=== PATIENT | female | born 1980 | race Caucasian/White ===

== ENCOUNTER → 2019-01-23 14:20 | Outpatient (CLI) | payer MEDICAID, SELFPAY | PROVIDERS: Family Provider Family Medicine; PCP Family Medicine; Visit Provider Family Medicine | DX: N39.0 Urinary tract infection, site not specified (principal) | CPT/HCPCS: 87086; 87088; 87186 ==

== ENCOUNTER → 2019-04-18 11:34 | Outpatient (CLI) | payer MEDICAID, SELFPAY | PROVIDERS: PCP Family Medicine; Visit Provider Family Medicine | DX: Z51.81 Encounter for therapeutic drug level monitoring (principal) | CPT/HCPCS: 36415 ==

== ENCOUNTER 2019-05-08 01:04 | Emergency (ER) | payer MEDICAID, SELFPAY ==
[2019-05-08 01:05] VITALS: BP 153/69; PULSE 89; RESP 16; TEMP 36.6; O2SAT 98; BMI 25.7
--- NOTE | 2019-05-08 01:10 | ED.VIS.GEN ---
History of Present Illness Chief Complaint: Dental Informant: Patient Narrative: Patient stated she has been having dental pain for the last week left posterior molar. She has a tooth that broke remotely. Its eroded to the gumline. She has been using [id number] as well as topicals with minimal relief of symptoms. She has a dentist and has an appointment but came in for further antibiotic therapy. She did take a couple doses of doxycycline. Current severity is moderate. Past Medical History - Allergies and Home Meds Allergies/Adverse Reactions: Allergies morphine Adverse Reaction (Verified 03/10/16 20:20) Other PAIN Primary Care Physician: Trina Saldana DO [Primary Care Provider] - Prior records reviewed: Yes Past Medical History: - - Reviewed Surgical History: noncontributory Lives: With Family Smoking Status: Current every day smoker Alcohol: None Drugs: None Review of Systems General: Denies: Chills, Fever, Sweats Eyes: Denies: Visual changes - bilaterally, Diplopia ENT: Reports: - - Left lower dental pain. Denies: Rhinorrhea, Sore throat Cardiovascular: Denies: Chest pain, Palpitations Respiratory: Denies: Dyspnea, Cough, Dyspnea on exertion Gastrointestinal: Denies: Abdominal pain, Nausea, Vomiting, Diarrhea, Melena, Hematochezia Genitourinary: Denies: Dysuria, Hematuria, Frequency Musculoskeletal: Denies: Back pain, Extremity Pain Skin: Denies: Rash, Wounds Neurological: Denies: Headache, Weakness, Numbness Physical Exam Vital Signs/Narrative: Vital Signs Temp Pulse Resp BP Pulse Ox 05/08/19 01:05 97.9 F 89 16 153/69 H 98 General: Well nourished, Well developed, No Acute Distress Head: Normocephalic, Atraumatic Eyes: Perrl, EOMI ENT: Moist mucous membranes, No rhinorrhea, - - Widespread dental decay noted. Left posterior first molar has erosion to the gumline with yellowing of the rest of the. No ANUG or Venkat's angina. No abscess in the gumline. No facial swelling Neck: Supple, Nontender Cardiovascular: Regular rate, Regular rhythm, No murmurs Respiratory: No distress, CTA bilaterally, Chest nontender Abdomen: Soft, Nontender, Nondistended, Normal bowel sounds Back: Nontender, Normal Inspection Extremities: Nontender, No edema Skin: Normal color, No rash Neurological: Alert, Oriented x3, Cranial nerves II-XII grossly intact, Normal Strength, Normal Sensation Psychological: Normal affect, Normal Mood Diagnostic/Tx/Re-eval - Medical Decision Making Patient given amoxicillin for her dental infection. I do not feel there is anything to incise or drain at this time. There is no swelling to the gum. She will continue this as an outpatient which should help her dental infection. We will follow-up with her dentist ED Disposition - Plan for ED Patient: Disposition: Home or Assisted Living Diagnosis: Periapical abscess Instructions: Dental Abscess Prescriptions: Amoxicillin 500 mg PO TID #30 tab Prescription Printed Referrals: Trina Saldana DO [Primary Care Provider] -
[2019-05-08] MEDS: AMOXICILLIN 500 MG CAPSULE PO (01:25)
== END 2019-05-08 01:28 | disposition home or self-care (01) ==
LOC: ED 01:20
PROVIDERS: Emergency Provider Emergency Medicine; PCP Family Medicine
DX: K04.7 Periapical abscess without sinus (principal); F17.200 Nicotine dependence, unspecified, uncomplicated
CPT/HCPCS: 99283

== ENCOUNTER 2019-05-14 01:59 | Emergency (ER) | payer MEDICAID, SELFPAY ==
[2019-05-14 02:00] VITALS: BP 155/99; PULSE 65; RESP 20; TEMP 36.3; O2SAT 97; BMI 28.0
[2019-05-14] MEDS: Ibuprofen 600 MG Tablet PO (02:52)
[2019-05-14] MEDS: Acetaminophen 500 MG Tablet 1000 MG PO (02:52)
[2019-05-14 03:02] LABS: Bacteria 0 SEEN /hpf (None Seen); Mucous, Urine 0 SEEN /hpf (<or=2+)
[2019-05-14 03:03] LABS: Color, Urine Yellow (Yellow); Glucose, Dipstick Normal (Normal); Ketone-Dipstick 5 mg/dl (Negative); Leukocyte Esterase-Dipstick 25 /ul (Negative); Nitrite-Dipstick Negative (Negative); Occult Blood-Urine Negative /ul (Negative); Protein-Dipstick Negative (Negative); Urine Bilirubin Dipstick Negative (Negative); Urine Clarity Sl. Cloudy (Clear); Urine Urobilinogen Normal (Normal)
[2019-05-14 03:08] LABS: Internal QC Validated? YES +Cl - CLEAR BKGD; Pregnancy, Urine Negative Negative
[2019-05-14 03:38] LABS: Red Blood Cells-Urine 0-5 SEEN /hpf (0-5); Squamous Epithelial Cells - UA 0-5 SEEN /hpf (5-10); Transitional Epithelial - Ur 5-10 SEEN /hpf (0-5); White Blood Cells 5-10 SEEN /hpf (0-5)
[2019-05-14 03:39] LABS: Renal Epithelial Cells 0 SEEN /hpf (0-5)
--- NOTE | 2019-05-14 04:54 | ED.VIS.GEN ---
History of Present Illness Chief Complaint: General Illness Informant: Patient Onset: Days Context: Gradual Onset Timing: Continuous Narrative: Patient is a 38-year-old female presenting with skin changes and drainage behind her ears as well as pain in her back and neck. Patient states she is having difficulty walking because of the pain. She feels cold does not have fever or chills. She is seen by her PCP today and started on Bactrim for concern about MRSA infection behind her ears. To note she does have a history of back pain. She denies any associated symptoms such as hearing changes, upper respiratory symptoms, cough, shortness of breath, GI or symptoms. She not take anything at home prior to arrival for her pain. Past Medical History - Allergies and Home Meds Allergies/Adverse Reactions: Allergies morphine Adverse Reaction (Verified 03/10/16 20:20) Other PAIN Primary Care Physician: Trina Saldana DO [Primary Care Provider] - Past Medical History: - - Anxiety Surgical History: noncontributory Smoking Status: Current every day smoker Review of Systems General: Reports: Malaise. Denies: Chills, Fever, Sweats Eyes: Denies: Visual changes - bilaterally, Diplopia ENT: Reports: - - Bilateral external ear pain. Denies: Rhinorrhea, Sore throat Cardiovascular: Denies: Chest pain, Palpitations Respiratory: Denies: Dyspnea, Cough, Dyspnea on exertion Gastrointestinal: Denies: Abdominal pain, Nausea, Vomiting, Diarrhea, Melena, Hematochezia Genitourinary: Denies: Dysuria, Hematuria, Frequency Musculoskeletal: Reports: Back pain. Denies: Extremity Pain Skin: Reports: Rash - Head. Denies: Wounds Neurological: Denies: Headache, Weakness, Numbness Physical Exam Vital Signs/Narrative: Vital Signs Temp Pulse Resp BP Pulse Ox 05/14/19 02:00 97.3 F L 65 20 H 155/99 H 97 Inital Vital Signs reviewed: Yes General: Well nourished, Well developed, No Acute Distress Head: Normocephalic, Atraumatic Eyes: Perrl, EOMI ENT: Moist mucous membranes, No rhinorrhea, TM's clear, - - No tenderness palpation of the ears with manipulation, normal ear canals Neck: Supple, Nontender, - - No nuchal rigidity Cardiovascular: Regular rate, Regular rhythm, No murmurs Respiratory: No distress, CTA bilaterally, Chest nontender Abdomen: Soft, Nontender, Nondistended, Normal bowel sounds Back: Normal Inspection, - - Bilateral paraspinal tenderness to palpation, right greater than left. Negative for: CVA tenderness, Spinal tenderness Extremities: Nontender, No edema Skin: Normal color, Rash - Thickened, erythematous rash behind bilateral ears and at the base of the hairline on the neck with some associated serous drainage and lichenification. It is in a well demarcated pattern behind the ears concerning for some type of contact dermatitis Neurological: Alert, Oriented x3, Cranial nerves II-XII grossly intact, Normal Strength, Normal Sensation Psychological: Normal affect, Normal Mood, - - Anxious Diagnostic/Tx/Re-eval Laboratory Data 05/14/19 05/14/19 02:50 02:50 Urine Color Yellow Urine Clarity Sl. Cloudy Urine pH 6.0 Ur Specific [place] 1.020 Urine Protein Negative Urine Glucose (UA) Normal Urine Ketones 5 H Urine Occult Blood Negative Urine Nitrite Negative Urine Bilirubin Negative Urine Urobilinogen Normal Ur Leukocyte Esterase 25 H Urine RBC 0-5 SEEN Urine WBC 5-10 SEEN Ur Squamous Epith Cells 0-5 SEEN Ur Transition Epith Cell 5-10 SEEN Ur Renal Epithelial Cell 0 SEEN Urine Bacteria 0 SEEN Urine Mucus 0 SEEN Urine Test Negative - Medical Decision Making Patient is evaluated for rash behind her bilateral ears as well and is back pain. Patient was seen by her PCP for this rash yesterday. She was started on Bactrim for concern of MRSA. Clinically the rash is more concerning for contact dermatitis/allergic reaction. Patient cannot think of what could be causing it but it does seem to be in a well demarcated pattern in the skin behind the ears. Patient will be started on a topical steroid for this. She is directed to continue the Bactrim she was already prescribed. I do not think this is impetigo. Patient she with ibuprofen and Tylenol for her back pain. On reevaluation she is resting comfortably and sleeping. She does not have CVA tenderness. She does not have signs or symptoms consistent with cauda equina syndrome. Patient is otherwise well-appearing. She not have any meningeal signs and I think her neck pain is more associated with the rash on the back of her neck that anything deeper. Urinalysis does not show signs of infection or hematuria. Patient has no other symptoms otherwise well-appearing. She is discharged home with instruction to follow-up with her PCP. She is counseled on signs and symptoms requiring return the emergency room. She verbalizes agreement understand this plan. She is discharged home in improved and stable condition. ED Disposition - Plan for ED Patient: Disposition: Home or Assisted Living Diagnosis: Contact dermatitis, Low back pain Instructions: DERMATITIS, Non-Specific, BACK PAIN (Acute or Chronic) Prescriptions: Clobetasol Propionate/Emoll [Clobetasol Emollient 0.05% Crm] 15 gm TP BID 14 Days #15 cream..g. Prescription Printed Ibuprofen [Motrin] 600 mg PO Q6H PRN PRN #20 tab PRN Reason: Pain Or Fever Prescription Printed Referrals: Trina Saldana DO [Primary Care Provider] - Additional Instructions: Continue taking the antibiotics previously prescribed. Have also started you on a steroid that should help. Apply to the area behind your ears as well as the affected area of your neck. I suspect you are having some type of allergic reaction however not sure what the causes. Return the emergency room with worsening symptoms. Use a heating pad as well as alternating Tylenol and ibuprofen for your back pain. Your urine did not show signs of infection or kidney stones today.
[2019-05-14 05:21] VITALS: BP 148/88; PULSE 70; RESP 16; O2SAT 98
== END 2019-05-14 05:22 | disposition home or self-care (01) ==
PROVIDERS: Emergency Provider Emergency Medicine; PCP Family Medicine
DX: L23.9 Allergic contact dermatitis, unspecified cause (principal); M54.5 Low back pain; F41.9 Anxiety disorder, unspecified; F17.200 Nicotine dependence, unspecified, uncomplicated
CPT/HCPCS: 81001; 81025; 99283

== ENCOUNTER 2020-05-20 20:01 | Emergency (ER) | payer MEDICAID, SELFPAY ==
[2020-05-20 20:03] VITALS: BP 151/68; PULSE 79; RESP 16; TEMP 36.1; O2SAT 98; BMI 28.9
[2020-05-20 20:06] VITALS: BP 151/68; PULSE 79; RESP 16; TEMP 36.1; O2SAT 98
--- NOTE | 2020-05-20 20:18 | ED.VIS.GEN ---
History of Present Illness Chief Complaint: Dental Informant: Patient Narrative: 39-year-old female presenting with dental pain. She states this started hurting yesterday. She recently finished a course of Augmentin. She states that she did not get significant improvement. She describes dental pain on the right and left side of her mouth. Has not had a fever, chills. No difficulty swallowing or breathing. She states she was going to call her dentist but has not yet. Past Medical History - Allergies and Home Meds Allergies/Adverse Reactions: Allergies morphine Adverse Reaction (Verified 03/10/16 20:20) Other PAIN Primary Care Physician: Trina Saldana DO [Primary Care Provider] - Prior records reviewed: Yes Past Medical History: - - ADHD Surgical History: noncontributory Lives: Alone Smoking Status: Current every day smoker Alcohol: None Drugs: None Review of Systems General: Denies: Chills, Fever, Sweats Eyes: Denies: Visual changes - bilaterally, Diplopia ENT: Reports: - - Dental pain. Denies: Rhinorrhea, Sore throat Respiratory: Denies: Dyspnea, Cough, Dyspnea on exertion Gastrointestinal: Denies: Abdominal pain, Nausea, Vomiting, Diarrhea, Melena, Hematochezia Musculoskeletal: Denies: Back pain, Extremity Pain Skin: Denies: Rash, Wounds Neurological: Denies: Headache, Weakness, Numbness Psych: Denies: Depression, Anxiety, Suicidal thoughts, Suicidal ideations, -, - Physical Exam Vital Signs/Narrative: Vital Signs Temp Pulse Resp BP Pulse Ox 05/20/20 20:06 97.0 F L 79 16 151/68 H 98 05/20/20 20:03 97.0 F L 79 16 151/68 H 98 General: Well nourished, No Acute Distress Head: Normocephalic, Atraumatic Eyes: Perrl, EOMI ENT: Moist mucous membranes, No rhinorrhea, - - Multiple dental caries. Patient has dental percussion tenderness on most of the left teeth on the maxillary jawline. There is no focal swelling. Buccal mucosa was normal. No sublingual edema. Airway is patent without stridor Cardiovascular: Regular rate, Regular rhythm Respiratory: No distress, CTA bilaterally Skin: Normal color, No rash Neurological: Alert, Oriented x3 Psychological: Normal affect, Normal Mood Diagnostic/Tx/Re-eval - Medical Decision Making Patient presenting with dental pain and focal dental precancerous tenderness over most of her teeth on the left side of her mouth. She has widespread dental decay with focal decay of the right molar. Patient states that this is not painful. She has no sublingual edema, tongue swelling. Airway is taken without stridor. There is no facial swelling. Patient states that she finished Augmentin without significant improvement. She has a dentist and is trying to make an appointment with him but has not done so yet. Patient will be given oxycodone in the ER as well as started on clindamycin. Patient will follow up with her dentist. She is given return precautions. Patient able discharge at this time. Impression: 1. Dental pain 2. Dental infection ED Disposition - Plan for ED Patient: Disposition: Home or Assisted Living Instructions: ED Dental Cavity, ED Dental Abscess Prescriptions: RX: Clindamycin [Cleocin] 450 mg PO TID #90 cap Prescription Printed Referrals: Trina Saldana DO [Primary Care Provider] -
[2020-05-20] MEDS: Clindamycin HCl 150 MG Capsule 450 MG PO (20:57)
[2020-05-20] MEDS: oxyCODONE 5 MG Tablet PO (21:06)
== END 2020-05-20 21:08 | disposition home or self-care (01) ==
PROVIDERS: Emergency Provider Student in an Organized Health Care Education/Training Program; PCP Family Medicine
DX: K04.7 Periapical abscess without sinus (principal); F17.200 Nicotine dependence, unspecified, uncomplicated
CPT/HCPCS: 99283

== ENCOUNTER → 2021-08-25 | Outpatient (CLI) | payer MEDICAID, SELFPAY ==
[2021-08-25 17:53] LABS: Amphetamine Urine VISTA POSITIVE (<1000 ng/mL); Barbiturate Urine VISTA NEGATIVE (< 200 ng/mL); Benzodiazepine Urine VISTA NEGATIVE (< 200 ng/mL); Cocaine Urine VISTA NEGATIVE (< 300 ng/mL); Ecstacy Urine VISTA NEGATIVE (< 500 ng/mL); Methadone Urine VISTA NEGATIVE (< 300 ng/mL); PCP Urine VISTA NEGATIVE (< 25 ng/mL); THC Urine VISTA NEGATIVE (< 50 ng/mL); Vista UDS pH Range 7
== END | disposition home or self-care (01) ==
PROVIDERS: PCP Family Medicine; Visit Provider Family Medicine
DX: F90.9 Attention-deficit hyperactivity disorder, unspecified type (principal)
CPT/HCPCS: 80307

== ENCOUNTER → 2022-06-08 | Outpatient (CLI) | payer MEDICAID, SELFPAY ==
--- NOTE | 2022-06-08 09:46 | US_ITS ---
STUDY: SUPERFICIAL ULTRASOUND - LOW BACK, REASON FOR EXAM: Female, 41 years old. Palpable lumps TECHNIQUE: A superficial ultrasound was performed with real-time and static tate-scale imaging. COMPARISON: None. FINDINGS: Sonographic evaluation of the right lower back shows multiple poorly defined iso-to hyperechoic lesions likely lipoma is. Largest measures 3.7 x 4.7 x 1.3 cm. There is no suspicious shadowing solid lesion, no fluid collection or hyperemia to suspect inflammation. US/Ext Non Vasc Limited/Soft Tiss IMPRESSION: Subcutaneous lipomas, no suspicious sonographic findings Electronically Signed: Pablo Amaro MD at 11:32 EDT ,
== END | disposition home or self-care (01) ==
LOC: US 09:44
PROVIDERS: PCP Family Medicine; Visit Provider Family Medicine
DX: D17.9 Benign lipomatous neoplasm, unspecified (principal)
CPT/HCPCS: 76882

== ENCOUNTER 2022-06-27 05:59 | Day surgery (SDC) | payer MEDICAID, SELFPAY ==
[2022-06-27] VITALS (8 sets, daily range): BP systolic 84–143; BP diastolic 50–98; PULSE 74–89; RESP 16–18; TEMP 36.2–36.6; O2SAT 96–99; BMI 29.3
[2022-06-27] MEDS: Lactated Ringers 1,000 ML 15 ML IV (06:59)
--- NOTE | 2022-06-27 07:39 | PCM.HP.BLA ---
History and Physical Date of Admission: 06/27/22 Intake Vital Signs ? 05/20/2119:03 06/12/2308:16 Height 5 ft 3 in 5 ft 3 in Weight: ? 160 lb BMI ? 28.3 BP ? 134/85 H Blood Pressure Location ? Lt brachial Position ? Sitting Respiration ? 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 Prashant Ernandez MD) ADD (attention deficit disorder) Arthritis Back problem Surgical History?(Updated 06/12/22 @ 09:15 by Karolina Zavala) S/p bilateral myringotomy with tube placement S/P D&C (status post dilation and curettage) S/P laparoscopy S/P surgical removal of pilonidal cyst S/P tonsillectomy Family History?(Updated 06/12/22 @ 09:15 by Karolina Zavala) Grandfather Diabetes Heart disease HypertensionGrandmother CVA (cerebral vascular accident) Lupus Social History?(Updated 06/12/22 @ 09:16 by Karolina Zavala) Smoking Status:? Never smoker alcohol intake:? current HPI HPI HPI: Patient is a 41-year-old female here with 2 issues.? Patient has 2 painful lipomas in her left lower back which are causing pain shooting down her leg.? She says they have been there for about 15 years and keep growing larger and more painful.? Patient also notes that a few weeks ago she had blood in her stool that lasted several days.? She did not have any painful bowel movements or difficult bowel movements.? She has never had this in the past.? She has no family history of colon cancer.? She has never had a colonoscopy. Exam Const General: cooperative Orientation: alert and oriented x3 HENMT Head: normal to inspection Neck Neck: normal visual inspection and full ROM Chest Chest palpation & inspection: normal inspection of the chest Resp Effort & Inspection: normal respiratory effort Auscultation: clear to auscultation bilaterally Cardio Rate: regular rate Rhythm: regular rhythm GI Inspection: non-distended Palpation: soft and nontender Musc Other: 2 large lipomas in the left lower back which are mobile and soft and nontender Skin General: no rashes or lesions noted Neuro General: patient alert and patient oriented x3 Extrem General: full ROM Psych Appearance: grossly normal Mental Status: mental status grossly normal Assessment and Plan Assessment and Plan (1) Lipoma of back: ?Status:?Acute (2) Pain, low back: ?Status:?Acute ?Qualifiers: ?Chronicity:?chronic??Back pain laterality:?left??Sciatica presence:?with sciatica??Sciatica laterality:?sciatica of left side? Qualified Code(s):?M54.42 - Lumbago with sciatica, left side; G89.29 - Other chronic pain (3) Blood in stool: ?Status:?Acute ? ? ? Orders: Orders Colonoscopy Today ? Medications: Refilled clindamycin HCl 450 mg (3 x 150 mg) PO TID 90 caps 0RF ? ? Plan 2 large lipomas on her left lower back which are causing her pain.? I discussed excising these 2 lipomas in the operating room.? I discussed the risks of bleeding and infection as well as possible nerve injury if they are interacting with any of the sciatic nerves. Prashant Ernandez MD Pager: [facility] [address] [place] [address], [address] [place] [address] Office: I have examined the patient and the H&P has been reviewed. There are no clinical changes since date of exam.
--- NOTE | 2022-06-27 08:00 | LIP_PTH ---
PATIENT: MANUEL ALVAREZ [place] [facility] [id number] AGE/SX: 41/F ROOM: RE06/27/[address]: Dr. Prashant Ernandez MD : 1980 BED: DIS: 06/27/2022 SPEC #: [id number] RECD: 06/27/22 11:58 STATUS: CORTEZ REYnes #: [id number] JOSE ALBERTO: 06/27/22 08:[address]: Prashant Ernandez DEPT: SURGICAL PATHOLOGY RECD BY: Maria Cartwright ENTERED: 06/27/22 12:54 SP TYPE: LIPOMA OTHR DR: Dr. Trina Saldana, DO Tissues: Soft tissues, NOS Procedures: Surgery Specimen Level III HEADER OPERATION: Excision lower back lipoma PRE-OP DIAGNOSIS: Lipoma of back, low back pain TISSUE SUBMITTED: Lipoma of left lower back MICROSCOPIC DIAGNOSIS Soft tissue lesion of lower back, excision: Mature adipose tissue consistent with lipoma. AM:raimundo 06/28/2022 MICROSCOPIC DESCRIPTION Slides are reviewed. GROSS DESCRIPTION Received in fixative is one container labeled with the patient's name and designated lipoma left lower back. The specimen consists of multiple lobulated pieces of martinez-yellow adipose tissue that in aggregate measure 8.0 x 5.5 x 2.0 cm. Sections reveal yellow adipose cut surfaces without areas of hemorrhage, necrosis or cystic degeneration. Gas Compressor Turbine Operator sections are submitted in two cassettes. / SJ:raimundo 06/27/2022 TC:1 CPT: 90151
[2022-06-27] MEDS: Bupivacaine 0.25% 30 ML Vial (08:02)
--- NOTE | 2022-06-27 08:38 | PCM.OPRPT ---
Report of Operation Date of Procedure: 06/27/22 Pre-Operative Diagnosis: Left lumbar lipoma x2 Post-Operative Diagnosis: Left lumbar lipoma x2 Surgery/Procedure Performed:: Excision of left lower back lipoma x2 Specimen's removed: Lipoma of the lower back x2 Description of Procedure: Patient was brought back to the operating room and turned on her right side and then MAC anesthesia was induced. The left lower lumbar area was prepped and draped in usual sterile fashion. An area between the 2 lipomas was selected and marked. Anesthetic was injected and then a scalpel was used to make incision. Electrocautery was used to maintain hemostasis. Dissection was carried inferiorly to the first lipoma. It was circumferentially dissected and removed. It was deep to the fascia. It measured 4 cm in diameter. Next dissection was carried superiorly to the other lipoma which was approximately 6 cm and also deep to the fascia. These were both excised. The cavity was irrigated and suctioned dry. The skin was closed with interrupted 3-0 Vicryl suture in a running 4-0 Monocryl suture. Steri-Strips and bandages were applied. Patient was taken to PACU in stable condition and tolerated the procedure well.
--- NOTE | 2022-06-27 08:40 | DCINST_ITS ---
Discharge Instructions Diet Discharge Diet: Light diet - advance as tolerated Activity Discharge Activity: Return to Normal Activity, May Drive and May Shower (May shower tomorrow over bandages) Lifting Restrictions: No restriction Dressing / Incision Call your doctor if your incision/area has: Continuous Slow Oozing, Sudden Increased Bleeding, Increased Pain/ Swelling, Increased Redness, Foul Smelling Discharge and Swelling at the incision site Call your doctor if you observe: Fever of 101 or Higher Remove Dressing in: 2 days (Remove clear bandages in 2 days, remove Steri-Strips in 7 to 10 days. May shower over both bandages and Steri-Strips.) Cleanse incision/area with: Soap & Water Follow Up Care Please Follow Up With: Prashant Ernandez MD When: Please call to schedule 2 week follow up appointment. [phone] Test Results: Test results from this visit will be discussed in further detail at your follow- up appointment, if applicable. Discharge Plan Admission Attending Provider: Prashant Ernandez Primary Care Provider: Trina Saldana Instructions Additional Instructions / Restrictions: Alternate ibuprofen and Tylenol for pain. Oxycodone for breakthrough pain. Discharge Orders/Prescriptions Prescriptions: New oxycodone 5 mg tablet 5 mg PO Q6H PRN (Reason: pain) 5 Days Qty: 15 0RF No Action cyclobenzaprine 10 mg tablet 10 mg PO HS PRN (Reason: MUSCLE SPASMS) dextroamphetamine-amphetamine [Adderall] 30 MG tablet 30 mg PO DAILY cetirizine 10 MG tablet 10 mg PO DAILY atenolol 25 MG tablet 12.5 mg PO DAILY acetaminophen-codeine [Tylenol-Codeine #3] 300-30 mg Tablet 1 tab PO Q8H PRN (Reason: Pain) Referrals / Follow Up: Trina Saldana DO [Primary Care Provider] - Disposition Disposition (needs filled in before D/C Order can be placed): Home, Self Care
[2022-06-27] MEDS: oxyCODONE 5 MG Tablet PO (09:17)
== END 2022-06-27 09:47 | disposition home or self-care (01) ==
LOC: SDC 06:00 → AC 06:00
PROVIDERS: PCP Family Medicine; Referring Provider Surgery; Visit Provider Surgery
PROC: (CPT 21932; principal; 2022-06-27 07:50)
DX: D17.1 Benign lipomatous neoplasm of skin and subcutaneous tissue of trunk (principal); G89.29 Other chronic pain; F17.200 Nicotine dependence, unspecified, uncomplicated; Z79.899 Other long term (current) drug therapy
CPT/HCPCS: 21932; 21933; 00300; 88304; J7120; J2405

== ENCOUNTER 2022-07-14 08:57 | Day surgery (SDC) | payer MEDICAID, SELFPAY ==
[2022-07-14] MEDS: Lactated Ringers 1,000 ML 15 ML IV (09:24)
[2022-07-14 09:25] VITALS: BP 111/57; PULSE 98; RESP 18; TEMP 37; O2SAT 98; BMI 28.5
--- NOTE | 2022-07-14 09:42 | PCM.HP.BLA ---
History and Physical Date of Admission: 07/14/22 Intake Vital Signs ? 05/20/2119:03 06/12/2308:16 Height 5 ft 3 in 5 ft 3 in Weight: ? 160 lb BMI ? 28.3 BP ? 134/85 H Blood Pressure Location ? Lt brachial Position ? Sitting Respiration ? 18 Intake Visit Reasons:?LIPOMAS ON BACK & COLONOSCOPY Chief Complaint: lipomas and c-scope Signal Constructor Required: No Is patient in pain?: No Allergies morphine Adverse Reaction (Verified 06/12/22 09:16) Other Medications dextroamphetamine-amphetamine 30 mg tablet (Adderall) 30 mg PO DAILY 01/22/13 [History Confirmed 06/12/22] atenolol 25 mg tablet 25 mg PO DAILY 05/08/19 [History Confirmed 06/12/22] cetirizine 10 mg tablet 10 mg PO DAILY 05/08/19 [History Confirmed 06/12/22] clindamycin HCl 150 mg capsule 450 mg PO TID #90 caps 06/12/22 [Rx Confirmed 06/12/22] cyclobenzaprine 10 mg tablet 10 mg PO HS 06/12/22 [History Confirmed 06/12/22] PFSH Medical History?(Updated 06/12/22 @ 12:[address] Prashant Ernandez MD) ADD (attention deficit disorder) Arthritis Back problem Surgical History?(Updated 06/12/22 @ 09:15 by Karolina Zavala) S/p bilateral myringotomy with tube placement S/P D&C (status post dilation and curettage) S/P laparoscopy S/P surgical removal of pilonidal cyst S/P tonsillectomy Family History?(Updated 06/12/22 @ 09:15 by Karolina Zavala) Grandfather Diabetes Heart disease HypertensionGrandmother CVA (cerebral vascular accident) Lupus Social History?(Updated 06/12/22 @ 09:16 by Karolina Zavala) Smoking Status:? Never smoker alcohol intake:? current HPI HPI HPI: Patient is a 41-year-old female here with 2 issues.? Patient has 2 painful lipomas in her left lower back which are causing pain shooting down her leg.? She says they have been there for about 15 years and keep growing larger and more painful.? Patient also notes that a few weeks ago she had blood in her stool that lasted several days.? She did not have any painful bowel movements or difficult bowel movements.? She has never had this in the past.? She has no family history of colon cancer.? She has never had a colonoscopy. Exam Const General: cooperative Orientation: alert and oriented x3 HENMT Head: normal to inspection Neck Neck: normal visual inspection and full ROM Chest Chest palpation & inspection: normal inspection of the chest Resp Effort & Inspection: normal respiratory effort Auscultation: clear to auscultation bilaterally Cardio Rate: regular rate Rhythm: regular rhythm GI Inspection: non-distended Palpation: soft and nontender Musc Other: 2 large lipomas in the left lower back which are mobile and soft and nontender Skin General: no rashes or lesions noted Neuro General: patient alert and patient oriented x3 Extrem General: full ROM Psych Appearance: grossly normal Mental Status: mental status grossly normal Assessment and Plan Assessment and Plan (1) Lipoma of back: ?Status:?Acute (2) Pain, low back: ?Status:?Acute ?Qualifiers: ?Chronicity:?chronic??Back pain laterality:?left??Sciatica presence:?with sciatica??Sciatica laterality:?sciatica of left side? Qualified Code(s):?M54.42 - Lumbago with sciatica, left side; G89.29 - Other chronic pain (3) Blood in stool: ?Status:?Acute ? ? ? Orders: Orders Colonoscopy Today ? Medications: Refilled clindamycin HCl 450 mg (3 x 150 mg) PO TID 90 caps 0RF ? ? Plan Patient had blood in her stool and I recommend colonoscopy.? I explained endoscopy in detail to the patient.? I explained the risks including but not limited to stroke or heart attack with anesthesia, perforation of the GI tract, bleeding, infection.? I explained that any of these could necessitate further emergency surgery.? The patient understands and all questions were answered sufficiently.? The patient wishes to proceed with procedure. Prashant Ernandez MD Pager: [facility] [address] [place] [address], [address] [place] [address] Office: I have examined the patient and the H&P has been reviewed. There are no clinical changes since date of exam.
--- NOTE | 2022-07-14 10:17 | OP.CCLET_ITS ---
07/14/2022 Trina Saldana [address] [place] [address] Re : Colonoscopy procedure for Chelly Sun Dear Dr. Saldana This procedure was performed on Thursday, July 14, 2022. My impressions and recommendations are as follows: Impressions : - The entire examined colon is normal on direct and retroflexion views. - No specimens collected. Recommendations : - Discharge patient to home. - Resume previous diet. - Continue present medications. - Repeat colonoscopy in 10 years for screening purposes. My findings are described in the full procedure note, which is enclosed. If I can be of further assistance, please feel free to contact me at Doctor phone number(s): , Work: . Sincerely, Prashant Ernandez MD 07/14/2022 10:16:50 AM This report has been signed electronically.
--- NOTE | 2022-07-14 10:17 | OP.COLON_ITS ---
Patient Name: Chelly Sun Procedure Date: 07/14/2022 9:50 AM Date of : 1980 Age: 41 Procedure: Colonoscopy Indications: Rectal bleeding Providers: Prashant Ernandez MD Referring MD: Trina Saldana Medicines: Monitored Anesthesia Care Patient Profile: This is a 41 year old female. Refer to note in patient chart for documentation of history and physical. Last Colonoscopy: none. The patient's first colonoscopy is today. Complications: No immediate complications. Procedure: Pre-Anesthesia Assessment: - Prior to the procedure, a History and Physical was performed, and patient medications and allergies were reviewed. The patient's tolerance of previous anesthesia was also reviewed. The risks and benefits of the procedure and the sedation options and risks were discussed with the patient. All questions were answered, and informed consent was obtained. Prior Anticoagulants: The patient has taken no previous anticoagulant or antiplatelet agents. After reviewing the risks and benefits, the patient was deemed in satisfactory condition to undergo the procedure. After I obtained informed consent, the scope was passed under direct vision. Throughout the procedure, the patient's blood pressure, pulse, and oxygen saturations were monitored continuously. The pediatric colonoscope was introduced through the anus and advanced to the cecum, identified by appendiceal orifice and ileocecal valve. The colonoscopy was performed without difficulty. The patient tolerated the procedure well. The quality of the bowel preparation was good. Scope In: 9:59:51 AM Scope Withdrawal Time 0 hours 8 minutes 8 seconds Scope Out: 10:13:15 AM Total Procedure Duration Time 0 hours 13 minutes 24 seconds Findings: The entire examined colon appeared normal on direct and retroflexion views. Impression: - The entire examined colon is normal on direct and retroflexion views. - No specimens collected. Recommendation: - Discharge patient to home. - Resume previous diet. - Continue present medications. - Repeat colonoscopy in 10 years for screening purposes. Procedure Code(s): --- Professional --- 53118, Colonoscopy, flexible; diagnostic, including collection of specimen(s) by brushing or washing, when performed (separate procedure) Diagnosis Code(s): --- Professional --- K62.5, Hemorrhage of anus and rectum CPT copyright 2017 [employer]. All rights reserved. The codes documented in this report are preliminary and upon clinical dermatologist review may be revised to meet current compliance requirements. Prashant Ernandez MD 07/14/2022 10:16:50 AM This report has been signed electronically. Number of Addenda: 0 Note Initiated On: 07/14/2022 9:50 AM
[2022-07-14 10:18] VITALS: BP 100/72; BP 111/57; PULSE 87; RESP 16; TEMP 36.5; O2SAT 99
[2022-07-14 10:20] VITALS: BP 110/74; BP 111/57; PULSE 83; RESP 16; O2SAT 100
[2022-07-14 10:25] VITALS: BP 102/76; BP 111/57; PULSE 84; RESP 16; O2SAT 100
[2022-07-14 10:31] VITALS: BP 111/57; BP 113/78; PULSE 83; RESP 16; TEMP 36.4; O2SAT 100
[2022-07-14 10:40] VITALS: BP 111/57
== END 2022-07-14 10:59 | disposition home or self-care (01) ==
LOC: EN 08:57 → AC 08:58
PROVIDERS: PCP Family Medicine; Referring Provider Family Medicine; Visit Provider Surgery
PROC: 0DJD8ZZ Inspection of Lower Intestinal Tract, Via Natural or Artificial Opening Endoscopic (ICD-10-PCS; CPT 45378; principal; 2022-07-14 10:10)
DX: Z12.11 Encounter for screening for malignant neoplasm of colon (principal); K62.5 Hemorrhage of anus and rectum; M54.50 Low back pain, unspecified; G89.29 Other chronic pain; Z79.899 Other long term (current) drug therapy; F17.200 Nicotine dependence, unspecified, uncomplicated
CPT/HCPCS: 45378; J7120; J2405

== ENCOUNTER 2024-10-24 15:36 | Inpatient (IN) | payer MEDICAID, SELFPAY ==
[2024-10-24 15:37] VITALS: BP 127/86; PULSE 110; RESP 14; TEMP 36.8; O2SAT 96
[2024-10-24 15:41] VITALS: BP 162/112; PULSE 110; TEMP 36.8; O2SAT 96; BMI 33.9
--- NOTE | 2024-10-24 16:29 | MRI_ITS ---
PROCEDURE: MRI SPINE CERVICAL W/WO CONTRAST; SPINE THORACIC W/WO CONTRAST; SPINE LUMBAR W/WO CONTRAST 10/24/2024 REASON FOR EXAM: Back pain, urinary incontinence, concern for cauda equina TECHNIQUE: Multiplanar and multisequential MRI of the cervical, thoracic, and lumbar spines was performed without and with IV gadolinium based contrast. CONTRAST: Clariscan VOLUME: 17 mL COMPARISON: None available. FINDINGS: CERVICAL: Preserved vertebral body heights, with anatomic alignment. Normal marrow signal. Minimal spondylotic changes primarily at C5-6 with mild disc desiccation and slight dorsal annular disc bulge minimally indenting the ventral thecal sac. Widely patent spinal canal. Minimal bilateral neural foraminal narrowing at C5-6. Widely patent neural foramina at the remaining levels. Spinal cord is normal in signal and contour. Partially imaged posterior fossa contents are normal. Unremarkable paravertebral soft tissues. No mass lesion or pathologic enhancement involving the cervical spine. THORACIC: Preserved vertebral body heights, with anatomic alignment. Normal marrow signal. Mild multilevel spondylotic changes with varying degrees of mild disc desiccation and narrowing, anterior endplate osteophytosis, and hypertrophic facet arthropathy. No disc herniation. No significant spinal canal or neural foraminal narrowing is present on either side. Spinal cord is normal signal and contour. No mass lesion or pathologic enhancement. No significant abnormality in the visualized paravertebral soft tissues. Small simple appearing T2 hyperintense cyst within the posterior right hepatic lobe. LUMBAR: Preserved vertebral body heights, with anatomic alignment. No subluxation. Normal marrow signal. Mild spondylotic changes with minimal disc desiccation at L4-5 and L5-S1. Prominent active hypertrophic facet degenerative changes at L4-5 and L5-S1, more pronounced on the left with small amount of synovial joint fluid, and adjacent periarticular edema and gadolinium enhancement. No findings suspicious for superimposed infection/septic facet arthritis or spondylodiscitis. No disc herniation or spinal canal narrowing. The spinal canal is widely patent without any cauda equina impingement. There is mild bilateral subarticular and neural foraminal narrowing at L4-5 and L5-S1 secondary to minimal dorsal annular disc bulging, and ligamentum flavum/facet hypertrophy. Conus is normal in signal and morphology, terminating at L1. Normal appearance of the cauda equina. No mass lesion or pathologic enhancement within the spinal canal. No significant abnormality in the visualized paravertebral or retroperitoneal soft tissues. MRI/Spine Cervical W/WO Contrast IMPRESSION: Mild multilevel spondylotic changes as described above, with no significant spi nal canal narrowing. There is at most mild neural foraminal narrowing at the levels of C5-C6, L4-L5 and L5-S1. Prominent active hypertrophic facet degenerative changes bilaterally at L4-5 an d L5-S1, more pronounced on the left with periarticular edema and enhancement. Likely culprit of lower back pain. Reading Location: [id number]
--- NOTE | 2024-10-24 16:37 | CT_ITS ---
PROCEDURE: BRAIN/HEAD WITHOUT CONTRAST 10/24/2024 REASON FOR EXAM: OFF BALANCE, NUMBNESS TECHNIQUE: BRAIN/HEAD WITHOUT CONTRAST Coronal and Sagittal reconstruction series were provided. One or more dose reduction techniques were used (e.g., Automated exposure control, adjustment of the mA and/or kV according to patient size, use of iterative reconstruction technique. RADIATION DOSE SUMMARY: CTDlvol: 44.99 mGy DLP: 779.24 mGycm COMPARISON: None. FINDINGS: No acute intracranial hemorrhage, extra-axial collection, mass effect or evidence of acute infarct. Ventricles and subarachnoid spaces are normal in size. Orbital contents are unremarkable. Intact skull base and calvarium. Clear paranasal sinuses and mastoid air cells. CT/Brain/Head without Contrast IMPRESSION: Unremarkable head CT. Reading Location: [id number]
--- NOTE | 2024-10-24 16:48 | ED.VIS.BACK ---
HPI History of Present Illness Chief Complaint: Back Narrative Narrative: Patient is a 44-year-old female presented to the emergency department for back pain. Patient has a history of back pain. States that over the past week it has significantly worsened. She reports that she has had multiple falls due to intermittent numbness in her legs. She reports that today she has had multiple episodes of urinary incontinence. She denies any fevers or IV drug use. Denies any bowel incontinence or saddle anesthesia. Denies any recent viral symptoms. She describes the intermittent back pain as shooting down the front and back of her legs and numbness intermittently from her waist down. Reports that sometimes she will develop numbness in her arms and face as well but this is not current. Denies headache. Denies any numbness in her legs at time of evaluation. [facility] Medical History (Updated 04/19/23 @ 15:48 by TRAVIS Lara) ADHD Anxiety Back pain Smoker History of pain when walking History of edema History of echocardiogram Cardiology follow-up encounter History of irregular heartbeat ADD (attention deficit disorder) Arthritis Back problem Home Medications ?Medication ?Instructions ?Recorded ?Last Taken ?Type dextroamphetamine-amphetamine 30 30 mg PO DAILY 01/22/13 Unknown History mg tablet (Adderall) atenolol 25 mg tablet 12.5 mg PO DAILY 05/08/19 06/27/22 History cetirizine 10 mg tablet 10 mg PO DAILY 05/08/19 Unknown History cyclobenzaprine 10 mg tablet 10 mg PO HS PRN MUSCLE SPASMS 06/12/22 Unknown History acetaminophen 300 mg-codeine 30 mg 1 tab PO Q8H PRN Pain 06/20/22 Unknown History tablet alprazolam 0.25 mg tablet 0.25 mg PO QPM 10/24/24 Unknown History dextroamphetamine-amphetamine ER 1 cap PO DAILY 10/24/24 Unknown History 30 mg 24hr capsule,extend release fluticasone propionate 50 1 spray intranasal BID 10/24/24 Unknown History mcg/actuation nasal spray,suspension gabapentin 300 mg capsule 300 mg PO DAILY 10/24/24 Unknown History montelukast 10 mg tablet 10 mg PO DAILY allergies 10/24/24 Unknown History omeprazole 20 mg capsule,delayed 20 mg PO DAILY 10/24/24 Unknown History release prednisone 20 mg tablet PO 10/24/24 Unknown History Allergy/AdvReac Type Severity Reaction Status Date / Time morphine AdvReac Other Verified 07/14/22 09:24 Family History (Updated 06/12/22 @ 09:15 by Karolina Zavala) Grandfather Diabetes Heart disease Hypertension Grandmother CVA (cerebral vascular accident) Lupus Surgical History Hx of tubal ligation S/p bilateral myringotomy with tube placement S/P tonsillectomy S/P surgical removal of pilonidal cyst S/P D&C (status post dilation and curettage) S/P laparoscopy Social History (Updated 06/12/22 @ 09:16 by Karolina Zavala) Smoking Status: Current every day smoker tobacco type: cigarettes alcohol intake: current ROS ROS ED ROS Narrative please see HPI EXAM Physical Exam Narrative Exam Narrative: Vital signs: Reviewed General: Alert and oriented. No acute distress HEENT: Head is normocephalic and atraumatic, sinuses nontender, pupils equal round and reactive. Nares are patent. Oropharynx and throat exams normal. Neck: Supple without lymphadenopathy nontender Cardiovascular: Regular rate and rhythm, no murmurs. No rubs or gallops. Normal S1 and S2 Respiratory: Clear to auscultation bilaterally. No wheezes, rales, rhonchi Abdominal: Soft and tender. Normal bowel sounds. No guarding or rebound. Nonsurgical abdomen Extremities: No tenderness. No bruising. Normal range of motion. Normal sensation. Skin: No rash or redness. Neurological: Cranial nerves II through XII are grossly intact. Normal cerebellar function. Sensation intact in bilateral upper and lower extremities. Normal 5/5 strength in bilateral upper extremities. Decreased strength in bilateral lower extremities 4/5. The rest of the physical exam is unremarkable Const Vital Signs: 10/24/24 15:37 10/24/24 15:41 10/24/24 19:00 Temperature 98.3 F 98.3 F 98.1 F Temperature Source Oral Oral Oral Pulse Rate 110 H 110 H 94 Respiratory Rate 14 15 Blood Pressure 127/86 H 162/112 H 111/83 H Blood Pressure Mean 99 128 92 Pulse Ox 96 96 95 Oxygen Delivery Method Room Air Room Air Room Air Back/Spine Back/Spine Narrative: Midline cervical, thoracic and lumbar spinal tenderness to palpation. No step offs or deformities. No overlying erythema. Neuro oriented x3 and no sensory deficits noted Skin no rashes or lesions noted MDM MDM MDM Narrative Medical decision making narrative: Patient is a 44-year-old female presenting to the emergency department for back pain, intermittent numbness in her bilateral lower extremities and urinary incontinence. Patient was seen and examined. Vitals are stable. Patient resting bed comfortably no acute distress. Differential includes but is not limited to: Cauda equina, spinal epidural abscess, spinal mass, MS, GB, transverse myelitis Patient was just at an outside hospital this morning and had a CT that was unremarkable for acute abnormality. CT the brain and MRI of the cervical, thoracic and lumbar spine were ordered. I do have lower concern for spinal epidural abscess given she is afebrile and denies any IV drug use. Less likely GB given no recent viral illness and no ascending paralysis on exam. On exam she had mild lower extremity weakness but no sensation deficits. CT brain shows no acute abnormalities. Patient signed out to Dr. Viera pending MRI imaging. History & Record Review Discussion w/independent historian: Patient Additional record(s) reviewed:: Prior outpatient record Radiography Diagnostic Testing: Clinical Impression(s) from Imaging Studies Brain CT 10/24/24 16:37 IMPRESSION: Unremarkable head CT. Reading Location: [facility] Discharge Plan Triage Chief Complaint: Back ED Provider: Essence Riley Dx/Rx/DC Orders Prescriptions: No Action cyclobenzaprine 10 mg tablet 10 mg PO HS PRN (Reason: MUSCLE SPASMS) dextroamphetamine-amphetamine [Adderall] 30 MG tablet 30 mg PO DAILY cetirizine 10 MG tablet 10 mg PO DAILY atenolol 25 MG tablet 12.5 mg PO DAILY acetaminophen-codeine [Tylenol-Codeine #3] 300-30 mg Tablet 1 tab PO Q8H PRN (Reason: Pain) prednisone 20 mg tablet PO alprazolam 0.25 mg tablet 0.25 mg PO QPM gabapentin 300 mg capsule 300 mg PO DAILY omeprazole 20 mg capsule,delayed release(DR/EC) 20 mg PO DAILY montelukast 10 mg tablet 10 mg PO DAILY dextroamphetamine-amphetamine 30 mg capsule,extended release 24hr 1 cap PO DAILY fluticasone propionate 50 mcg/actuation spray,suspension 1 spray INTRANASAL BID Primary Care Provider: Trina Saldana Referrals: Trina Saldana DO [Primary Care Provider] - Print Language: Syriac Disposition Disposition: Home, Self Care
[2024-10-24 19:00] VITALS: BP 111/83; PULSE 94; RESP 15; TEMP 36.7; O2SAT 95
[2024-10-24 20:26] LABS: Hematocrit 37.7 % (37-47); Hemoglobin 13.2 g/dL (12.0-15.0); Immature Granulocytes Count 0.080 X10^3/uL (0.0-0.0); Mean Corp Hgb Conc 35.0 g/dL (32-36); Mean Corpuscular Volume 91.3 fL (81-99); Mean Platelet Vol. 9.1 fl (6.2-12.0); NRBC Flagged by Analyzer 0 % (0-5); POSITIVE MORPHOLOGY YES; Platelet Count 307 K/mm3 (150-450); RBC Distribution Width CV 13.3 % (11.6-14.6); RBC Distribution Width SD 44.5 fl (35.1-43.9); Red Blood Count 4.13 M/mm3 (4.2-5.4); White Blood Count 13.0 K/mm3 (4.4-11.0)
[2024-10-24 20:29] LABS: Differential Indicated SCAN CRITERIA MET
[2024-10-24 21:31] LABS: AST(SGOT) 16 U/L (<=31); Alanine Aminotransfer ALT/SGPT 19 U/L (<=34); Albumin, Serum 3.9 g/dL (3.5-5.0); Alcohol, Blood (Medical)-Serum < 10.1 mg/dL (<=10.0); Alkaline Phosphatase 111 U/L (35-104); Anion Gap 12 (5-15); BUN 11 mg/dL (4-19); BUN/Creat Ratio 12.6 RATIO (10-20); Calcium,Total 9.1 mg/dL (7.6-11.0); Carbon Dioxide 24.4 mmol/L (21.0-32.0); Chloride 103 mmol/L (98-108); Estimated Creatinine Clearance 90.19 ml/min (50-250); Globulin 2.6 g/dL (2.2-4.2); Glucose 84 mg/dL (70-99); Magnesium 2.1 mg/dL (1.5-2.2); Potassium 3.9 mmol/L (3.3-5.1)
[2024-10-24 21:39] VITALS: BP 117/82; PULSE 100; RESP 18; TEMP 36.6; O2SAT 99
--- NOTE | 2024-10-24 22:23 | PCM.HP.STD ---
[facility] Date of Admission: 10/24/24 Date of Service: 10/24/24 Chief Complaint: Intractable Back Pain, Multiple Falls, Numbness in Legs and Urinary Incontinence. [facility] Narrative MANUEL SUN, is a 44 F with a past medical history of essential hypertension; on atenolol, obesity (class I); with BMI of 33.9 this admission, chronic tobacco abuse; ~1 ppd x ~24 years, ADHD; on dextroamphetamine-amphetamine daily, neuropathy; on gabapentin, depression with anxiety; on alprazolam daily, muscle spasms; on cyclobenzaprine nightly, seasonal allergies; on cetirizine, fluticasone propionate NS twice daily and montelukast, GERD; on omeprazole and OA; with chronic back pain on acetaminophen-codeine 3 times daily as needed plus prednisone who presents to [facility] ER complaining of back pain multiple falls, intermittent numbness in her legs and urinary incontinence. Ms. Sun reports her acute symptoms began ~1 week prior to admission with a gradual-onset of progressively worsening back pain. She also admits to multiple falls that she attributes to intermittent numbness in her legs. She also admits to multiple episodes of urinary incontinence which is apparently new. She denies saddle anesthesia, bowel/bladder incontinence, fever or IVDA. She describes the pain as intermittent with a shooting sensation down her back to the front of her legs with intermittent numbness from the waist down. She then also added that she sometimes develops numbness in her arms and face as well but not recently. In the ER patient underwent CT scan of the brain without contrast that revealed no acute intracranial hemorrhage, extra-axial collection, mass effect or evidence of acute infarct followed by MRI of the cervical/thoracic/lumbar spines that revealed mild multilevel spondylitic changes with no significant spinal canal narrowing with most mild neuroforaminal narrowing at levels of C5-C6, L4-L5 and L5-S1 with prominent active hypertrophic facet degenerative changes bilaterally at L4-L5 and L5-S1 more pronounced on the Left with periarticular edema and enhancement which is likely the culprit of lower back pain. In review of patient's vital signs shows her pain is out of proportion to her physical findings but patient states she is unable to return home at this time in her current condition and therefore the ER physician has contacted the hospitalist service for observational status with impending ortho-spine evaluation, which is appreciated in advance. Her laboratory studies were unremarkable except for mild Leukocytosis of 13K present on admission attributed to recent steroid administration. She was then admitted to the general medical floor under observation status for ongoing care for stay that is expected to be less than 2 midnights. [facility] Medical History ADHD Anxiety Back pain Smoker History of pain when walking History of edema History of echocardiogram Cardiology follow-up encounter History of irregular heartbeat ADD (attention deficit disorder) Arthritis Back problem Home Medications ?Medication ?Instructions ?Recorded ?Last Taken ?Type dextroamphetamine-amphetamine 30 30 mg PO DAILY 01/22/13 Unknown History mg tablet (Adderall) atenolol 25 mg tablet 12.5 mg PO DAILY 05/08/19 06/27/22 History cetirizine 10 mg tablet 10 mg PO DAILY 05/08/19 Unknown History cyclobenzaprine 10 mg tablet 10 mg PO HS PRN MUSCLE SPASMS 06/12/22 Unknown History acetaminophen 300 mg-codeine 30 mg 1 tab PO Q8H PRN Pain 06/20/22 Unknown History tablet alprazolam 0.25 mg tablet 0.25 mg PO QPM 10/24/24 Unknown History dextroamphetamine-amphetamine ER 1 cap PO DAILY 10/24/24 Unknown History 30 mg 24hr capsule,extend release fluticasone propionate 50 1 spray intranasal BID 10/24/24 Unknown History mcg/actuation nasal spray,suspension gabapentin 300 mg capsule 300 mg PO DAILY 10/24/24 Unknown History montelukast 10 mg tablet 10 mg PO DAILY allergies 10/24/24 Unknown History omeprazole 20 mg capsule,delayed 20 mg PO DAILY 10/24/24 Unknown History release prednisone 20 mg tablet PO 10/24/24 Unknown History Allergy/AdvReac Type Severity Reaction Status Date / Time morphine AdvReac Other Verified 07/14/22 09:24 Family History Grandfather Diabetes Heart disease Hypertension Grandmother CVA (cerebral vascular accident) Lupus Surgical History Hx of tubal ligation S/p bilateral myringotomy with tube placement S/P tonsillectomy S/P surgical removal of pilonidal cyst S/P D&C (status post dilation and curettage) S/P laparoscopy Social History Smoking Status: Current every day smoker tobacco type: cigarettes alcohol intake: current ROS ROS Narrative Review of Systems: Constitutional: Patient denies fever or chills. Eyes: Patient denies changes in vision or discharge from eyes. ENT: Patient denies runny nose, sore throat or ear pain. Resp: Patient denies shortness of breath or cough. CV: Patient denies chest pain, palpitations, heart racing or lower extremity edema. GI: Patient denies abdominal pain, nausea, vomiting, diarrhea or constipation. : Patient admits to urinary incontinence but she denies dysuria or hematuria. MSK: Patient admits to intermittent leg numbness and weakness causing falls as per HPI. Skin: Patient denies rash, abscess, wounds or jaundice. Psych: Patient denies symptoms of uncontrolled depression or anxiety. Neuro: Patient admits to intermittent numbness and pain in her legs shooting down the front and back of her legs as per HPI. Allergy: Patient denies lip swelling, tongue swelling or urticaria. Hematology: Patient denies easy bleeding or easy bruisability. Endocrinology: Patient denies polyuria, polydipsia, polyphagia or heat/cold intolerance. 14 point ROS otherwise negative except for positives noted above in HPI. Vital Signs Vital Signs Vital Signs: 10/24/24 15:37 10/24/24 15:41 10/24/24 19:00 Temperature 98.3 F 98.3 F 98.1 F Temperature Source Oral Oral Oral Pulse Rate 110 H 110 H 94 Respiratory Rate 14 15 Blood Pressure 127/86 H 162/112 H 111/83 H Blood Pressure Mean 99 128 92 Pulse Ox 96 96 95 Oxygen Delivery Method Room Air Room Air Room Air 10/24/24 21:39 Temperature 97.8 F Temperature Source Pulse Rate 100 Respiratory Rate 18 Blood Pressure 117/82 H Blood Pressure Mean 93 Pulse Ox 99 Oxygen Delivery Method Weight Weight: 191 lb 5.78 oz Body Mass Index (BMI) 33.9 Physical Exam Const alert, oriented x3 and no apparent distress General Appearance: cooperative HEENT normocephalic, head/scalp atraumatic, hearing grossly normal bilaterally and moist oral mucous membranes Eyes PERRL, EOMs intact bilaterally and conjunctivae normal Neck no lymphadenopathy, supple and no JVD Resp normal respiratory effort, no retractions, no use of accessory muscles and clear to auscultation bilaterally Cardio regular rate and regular rhythm GI normal to inspection, nondistended, normoactive bowel sounds, soft to palpation, non-tender and non-distended Extremity normal to inspection, full ROM and no clubbing, cyanosis or edema Skin Skin Narrative: Patient has evidence of rash, abscess, wounds or jaundice. Neuro oriented x3, CN's II-XII intact bilaterally, moves all extremities and no focal motor deficits Neuro Narrative: Patient has ~4+/5 strength in bilateral lower extremities and normal strength 5/5 in bilateral upper extremities. Normal cerebellar function noted. Sensorium / Orientation: awake, alert, oriented to person, oriented to place and oriented to time Speech: speech normal Psych affect normal Results Medical Records Data Attestation: I reviewed the patient's medical records Lab / Micro Data Attestation: I reviewed the patient's lab results. 10/24/24 20:05 10/24/24 20:05 Labs: Laboratory Results - last 24 hr 10/24/24 20:05: WBC 13.0 H, RBC 4.13 L, Hgb 13.2, Hct 37.7, MCV 91.3, MCH 32.0, MCHC 35.0, RDW Std Deviation 44.5 H, RDW Coeff of Julio 13.3, Plt Count 307, MPV 9.1, Immature Gran % (Auto) 0.600, Neut % (Auto) 57.6, Lymph % (Auto) 33.3, Cameron % (Auto) 5.8, Eos % (Auto) 1.9, Baso % (Auto) 0.8, Absolute Neuts (auto) 7.5, Absolute Lymphs (auto) 4.33, Nucleated RBC % 0, Atypical Lymphocytes 2+, Platelet Estimate A, ESR 3, Sodium 139, Potassium 3.9, Chloride 103, Carbon Dioxide 24.4, Anion Gap 12, BUN 11, Creatinine 0.84, Estim Creat Clear Calc 90.19, Est GFR (MDRD) Non-Af 89, BUN/Creatinine Ratio 12.6, Glucose 84, Calcium 9.1, Phosphorus 3.7, Magnesium 2.1, Total Bilirubin 0.29, AST 16, ALT 19, Alkaline Phosphatase 111 H, Total Protein 6.4, Albumin 3.9, Globulin 2.6, Albumin/Globulin Ratio 1.5, Ethyl Alcohol < 10.1 Imaging Radiology Impression Cervical Spine MRI 10/24/24 16:29 IMPRESSION: Mild multilevel spondylotic changes as described above, with no significant spinal canal narrowing. There is at most mild neural foraminal narrowing at the levels of C5-C6, L4-L5 and L5-S1. Prominent active hypertrophic facet degenerative changes bilaterally at L4-5 and L5-S1, more pronounced on the left with periarticular edema and enhancement. Likely culprit of lower back pain. Reading Location: [facility] Lumbar Spine MRI 10/24/24 16:29 IMPRESSION: Mild multilevel spondylotic changes as described above, with no significant spinal canal narrowing. There is at most mild neural foraminal narrowing at the levels of C5-C6, L4-L5 and L5-S1. Prominent active hypertrophic facet degenerative changes bilaterally at L4-5 and L5-S1, more pronounced on the left with periarticular edema and enhancement. Likely culprit of lower back pain. Reading Location: [facility] Thoracic Spine MRI 10/24/24 16:29 IMPRESSION: Mild multilevel spondylotic changes as described above, with no significant spinal canal narrowing. There is at most mild neural foraminal narrowing at the levels of C5-C6, L4-L5 and L5-S1. Prominent active hypertrophic facet degenerative changes bilaterally at L4-5 and L5-S1, more pronounced on the left with periarticular edema and enhancement. Likely culprit of lower back pain. Reading Location: [facility] Brain CT 10/24/24 16:37 IMPRESSION: Unremarkable head CT. Reading Location: [facility] Assessment & Plan Assessment/Plan (1) Intractable back pain: (2) Numbness: (3) Weakness: (4) Urinary incontinence: QUALIFIERS: Urinary Incontinence type: unspecified incontinence Qualified Code(s): R32 - Unspecified urinary incontinence (5) Arthritis: (6) Obesity (BMI 30.0-34.9): (7) Neuropathy: (8) Tobacco abuse: PLAN: Plan 1. Intractable Back Pain with Intermittent Numbness, Weakness and Urinary Incontoinence with CT scan of the brain without contrast that revealed no acute intracranial hemorrhage, extra-axial collection, mass effect or evidence of acute infarct followed by MRI of the cervical/thoracic/lumbar spines that revealed mild multilevel spondylitic changes with no significant spinal canal narrowing with most mild neuroforaminal narrowing at levels of C5-C6, L4-L5 and L5-S1 with prominent active hypertrophic facet degenerative changes bilaterally at L4-L5 and L5-S1 more pronounced on the left with periarticular edema and enhancement which is likely the culprit of lower back pain - Admit to general medical floor under observation status. We will consult ortho-spine to see patient in a.m. for further recommendations with help appreciated in advance. PT/OT and Case Management see patient this admission for further recommendations as patient may require rehabilitation with help appreciated advance. Give ketorolac IV as needed for [id number] (level 1-5/10) pain or fever. Give morphine IV as needed for severe (level 6-10/10) pain. 2. OA; with chronic back pain on acetaminophen-codeine 3 times daily as needed plus prednisone complicating #1 - We will follow pain regimen and scales outlined in #1. 3. Obesity (class I); with BMI of 33.9 this admission adding to the burden of disease outlined in #1 & #2 - Weight loss will be recommended. Check TSH. This complicates her case and may hamper recovery. 4. Neuropathy; on gabapentin adding to the medical complexity of #1 - #3 - Increase gabapentin to 300 mg PO TID and titrate as necessary to control symptoms. 5. Chronic Tobacco Abuse; ~1 ppd x ~24 years exacerbating #1 - #4 - Tobacco Cessation will be strongly encouraged with Nicotine patch offered to control cravings. 6. ADHD; on dextroamphetamine-amphetamine daily - Continue present therapy. 7. Essential hypertension; on atenolol - Maintain atenolol as before. 8. Depression with anxiety; on alprazolam daily - Resume current treatment. 9. Muscle spasms; on cyclobenzaprine nightly - Continue cyclobenzaprine as before. 10. Seasonal allergies; on cetirizine, fluticasone propionate NS twice daily and montelukast - Maintain home regimen. 11. GERD; on omeprazole - Continue PPI. 12. DVT prophylaxis - SCD's only with ER provider noting blood in stools. Total time: Approximately (but not less than) 85 minutes. Charges/Coding Visit Charges OBSV E&M: 38890 Observ/hosp same date L3
[2024-10-24 23:00] VITALS: BP 110/80; PULSE 102; RESP 22; O2SAT 97
--- OUTSIDE RECORDS SUMMARY | 2024-10-24 23:34 | XMS RPT_ITS | CCD ---
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 [facility] Comment on above: Performed By: #### A NABOR, MDW, CMP, CBC, GFR, ACETA, ANEU, ADIFF, KT #### [address] [address] ACETAon 04-06-2024 Acetaminophen [Mass/Vol] 0.0 ug/mL Low 10.0-30.0 [facility] Comment on above: Performed By: #### U DRUG, PREGU #### [address] [address] González 04-06-2024 Ethanol Level 127 mg/dL Normal [facility] Comment on above: Performed By: #### A NABOR, MDW, CMP, CBC, GFR, ACETA, ANEU, ADIFF, KT #### [address] [address] CBCon 04-06-2024 Erythrocyte distribution width (RBC) [Ratio] 13.0 % Normal 11.5-15.5 [facility] Comment on above: Performed By: #### A SWETHA TOMLIN, CMP, CBC, GFR, ACETA, ANEU, ADIFF, KT #### [place] [address] Hematocrit (Bld) [Volume fraction] 42.1 % Normal 34.0-46.0 [facility] Comment on above: Performed By: #### A SWETHA TOMLIN, CMP, CBC, GFR, ACETA, ANEU, ADIFF, KT #### [place] [address] Hgb 14.6 G/dL Normal 12.0-16.0 [facility] Comment on above: Performed By: #### A SWETHA TOMLIN, CMP, CBC, GFR, ACETA, ANEU, ADIFF, KT #### [place] [address] MCH (RBC) [Entitic mass] 32.3 pg Normal 27.0-33.0 [facility] Comment on above: Performed By: #### A SWETHA TOMLIN, CMP, CBC, GFR, ACETA, ANEU, ADIFF, KT #### [place] [address] MCHC 34.7 G/dL Normal 32.0-36.0 [facility] Comment on above: Performed By: #### A SWETHA TOMLIN, CMP, CBC, GFR, ACETA, ANEU, ADIFF, KT #### [place] [address] MCV (RBC) [Entitic vol] 93.2 fL Normal 80.0-99.0 [facility] Comment on above: Performed By: #### A SWETHA TOMLIN, CMP, CBC, GFR, ACETA, ANEU, ADIFF, KT #### [place] [address] Platelet 274 10 3/mcL Normal 150-450 [facility] Comment on above: Performed By: #### A SWETHA TOMLIN, CMP, CBC, GFR, ACETA, ANEU, ADIFF, KT #### [address] [address] Platelet mean volume (Bld) [Entitic vol] 7.1 fL Normal 6.6-10.5 [facility] Comment on above: Performed By: #### A SWETHA TOMLIN, CMP, CBC, GFR, ACETA, ANEU, ADIFF, KT #### [address] [address] RBC 4.52 10 6/mcL Normal 4.10-5.30 [facility] Comment on above: Performed By: #### A SWETHA TOMLIN, CMP, CBC, GFR, ACETA, ANEU, ADIFF, KT #### [address] [address] WBC 8.5 10 3/mcL Normal 4.5-10.8 [facility] Comment on above: Performed By: #### A SWETHA TOMLIN, JONNY, CBC, GFR, ACETA, ANEU, ADIFF, KT #### [address] [address] CMPon 04-06-2024 Albumin Level 3.7 G/dL Normal 3.5-5.0 [facility] Comment on above: Performed By: #### A SWETHA TOMLIN, JONNY, CBC, GFR, ACETA, ANEU, ADIFF, KT #### [address] [address] Albumin/Globulin [Mass ratio] 1.2 {ratio} Normal 1.1-2.5 [facility] Comment on above: Performed By: #### A SWETHA TOMLIN, JONNY, CBC, GFR, ACETA, ANEU, ADIFF, KT #### [address] [address] ALP [Catalytic activity/Vol] 123 U/L Normal 40-135 [facility] Comment on above: Performed By: #### A SWETHA TOMLIN, CMP, CBC, GFR, ACETA, ANEU, ADIFF, KT #### [address] [address] ALT [Catalytic activity/Vol] 24 U/L Normal 14-59 [facility] Comment on above: Performed By: #### A SWETHA TOMLIN, CMP, CBC, GFR, ACETA, ANEU, ADIFF, KT #### [address] [address] AST [Catalytic activity/Vol] 20 U/L Normal 10-40 [facility] Comment on above: Performed By: #### A SWETHA TOMLIN, CMP, CBC, GFR, ACETA, ANEU, ADIFF, KT #### [address] [address] Bili Total 0.2 mg/dL Normal 0.2-1.0 [facility] Comment on above: Result Comment: Use of this assay is not recommended for patients undergoing treatment with eltrombopag due to the potential for falsely elevated results. Performed By: #### A SWETHA TOMLIN, CMP, CBC, GFR, ACETA, ANEU, ADIFF, KT #### [address] [address] BUN/Creatinine Ratio 14 ratio Normal 7-27 [facility] Comment on above: Performed By: #### A SWETHA TOMLIN, CMP, CBC, GFR, ACETA, ANEU, ADIFF, KT #### [address] [address] Calcium [Mass/Vol] 9.9 mg/dL Normal 8.4-10.2 [facility] Comment on above: Performed By: #### A SWETHA TOMLIN, CMP, CBC, GFR, ACETA, ANEU, ADIFF, KT #### [address] [address] Chloride [Moles/Vol] 106 mmol/L Normal 98-107 [facility] Comment on above: Performed By: #### A SWETHA TOMLIN, CMP, CBC, GFR, ACETA, ANEU, ADIFF, KT #### [address] [address] CO2 [Moles/Vol] 25 mmol/L Normal 22-29 [facility] Comment on above: Performed By: #### A SWETHA TOMLIN, CMP, CBC, GFR, ACETA, ANEU, ADIFF, KT #### [place] [address] Creatinine [Mass/Vol] 0.81 mg/dL Normal 0.55-1.02 [facility] Comment on above: Result Comment: Test ing performed on Siemens Dimension EXL analyzer using a modified kinetic Kranthi technique. Performed By: #### A SWETHA TOMLIN, CMP, CBC, GFR, ACETA, ANEU, ADIFF, KT #### [place] [address] Electrolyte Balance 11.0 mEq/L Normal 4.0-15.0 [facility] Comment on above: Performed By: #### A SWETHA TOMLIN, JONNY, CBC, GFR, ACETA, ANEU, ADIFF, KT #### [place] [address] Globulin 3.2 G/dL Normal [facility] Comment on above: Performed By: #### A SWETHA TOMLIN, JONNY, CBC, GFR, ACETA, ANEU, ADIFF, KT #### [place] [address] Glucose [Mass/Vol] 102 mg/dL Normal 70-105 [facility] Comment on above: Performed By: #### A SWETHA TOMLIN, JONNY, CBC, GFR, ACETA, ANEU, ADIFF, KT #### [place] [address] Potassium [Moles/Vol] 3.8 mmol/L Normal 3.5-5.1 [facility] Comment on above: Performed By: #### A SWETHA TOMLIN, JONNY, CBC, GFR, ACETA, ANEU, ADIFF, KT #### [place] [address] Sodium [Moles/Vol] 142 mmol/L Normal 136-145 [facility] Comment on above: Performed By: #### A SWETHA TOMLIN, CMP, CBC, GFR, ACETA, ANEU, ADIFF, KT #### [place] [id number] Total Protein 6.9 G/dL Normal 6.4-8.2 [facility] Comment on above: Performed By: #### A SWETHA TOMLIN, CMP, CBC, GFR, ACETA, ANEU, ADIFF, KT #### [place] [id number] [place], [place] [address] Urea nitrogen [Mass/Vol] 11 mg/dL Normal 7-18 [facility] Comment on above: Performed By: #### A SWETHA TOMLIN, CMP, CBC, GFR, ACETA, ANEU, ADIFF, KT #### [address] [address] CVFLURVon 04-06-2024 FLU A PCR Negative Normal Negative [facility] Comment on above: Performed By: #### U DRUG, PREGU #### [address] [address] FLU B PCR Negative Normal Negative [facility] Comment on above: Performed By: #### U DRUG, PREGU #### [address] [address] RSV PCR Negative Normal Negative [facility] Comment on above: Performed By: #### U DRUG, PREGU #### [address] [address] SARS-CoV-2 (COVID-19) RNA PRICE+probe Ql (Unsp spec) Negative Normal Negative [facility] Comment on above: Result Comment: Resu lts from the Xpert Xpress CoV-2/Flu/RSV plus test should be correlated with the clinical history, epidemiological data, and other data available to the clinical evaluating the patient. Performance of the Xpert Xpress CoV-2/Flu/RSV plus test has only been established in nasopharyngeal swab specimen. Erroneous test results might occur from improper specimen collection, failure to follow the recommended sample collection, handling and storage procedures, technical error, or sample mix-up. False negative results may occur if a virus is present at a level below the analytical limit of detection. Viral nucleic acid may persist in vivo, independent of virus viability. Detection of analyte target(s) does not imply that the corresponding virus(es) are infectious or are the causative agents for clinical symptoms. Recent patient exposure to FluMist or other live attenuated influenza vaccines may cause inaccurate positive results. Performed By: #### U DRUG, PREGU #### Rika [address] [address] LABORATORYOrdered By: Lidia Hannah on 04-06-2024 Acetaminophen [Mass/Vol] 0.0 ug/mL Low 10.0 - 30.0 mcg/mL AO Chemistry S Amphetamines Screen Ql (U) Negative *NA* (04/06/24 4:10 AM) Invalid Interpretation Code Negative AO ADM SS Barbiturates Screen Ql (U) Negative *NA* (04/06/24 4:10 AM) Invalid Interpretation Code Negative AO ADM SS Benzodiazepines Ql (U) Negative *NA* (04/06/24 4:10 AM) Invalid Interpretation Code Negative AO ADM SS Benzoylecgonine Screen Ql (U) Negative *NA* (04/06/24 4:10 AM) Invalid Interpretation Code Negative AO ADM SS Cannabinoids Screen Ql (U) Negative *NA* (04/06/24 4:10 AM) Invalid Interpretation Code Negative AO ADM SS FLUAV RNA PRICE+probe Ql (Resp) Negative (04/06/24 4:10 AM) Normal Negative AO Auto Urine SS FLUBV RNA PRICE+probe Ql (Resp) Negative (04/06/24 4:10 AM) Normal Negative AO Auto Urine SS HCG ( test) Ql Negative (04/06/24 4:10 AM) Normal AO Manual Urine SS Methadone Screen Ql (U) Negative *NA* (04/06/24 4:10 AM) Invalid Interpretation Code Negative AO ADM SS Opiates Screen Ql (U) Positive *ABN* (04/06/24 4:10 AM) Invalid Interpretation Code Negative AO ADM SS Phencyclidine Ql (U) Negative *NA* (04/06/24 4:10 AM) Invalid Interpretation Code Negative AO ADM SS test (u) int Not detected Invalid Interpretation Code AO Manual Urine SS RSV RNA PRICE+probe Ql (Resp) Negative (04/06/24 4:10 AM) Normal Negative AO Auto Urine SS SARS-CoV-2 (COVID-19) RNA PRICE+probe Ql (Resp) Negative 5 (04/06/24 4:10 AM) Normal Negative AO Auto Urine SS Comment on above: Interpretive Data: R esults from the Xpert Xpress CoV-2/Flu/RSV plus test should be correlated with the clinical history, epidemiological data, and other data available to the clinical evaluating the patient. Performance of the Xpert Xpress CoV-2/Flu/RSV plus test has only been established in nasopharyngeal swab specimen. Erroneous test results might occur from improper specimen collection, failure to follow the recommended sample collection, handling and storage procedures, technical error, or sample mix-up. False negative results may occur if a virus is present at a level below the analytical limit of detection. Viral nucleic acid may persist in vivo, independent of virus viability. Detection of analyte target(s) does not imply that the corresponding virus(es) are infectious or are the causative agents for clinical symptoms. Recent patient exposure to FluMist or other live attenuated influenza vaccines may cause inaccurate positive results. Urine Drugs screened: See Below 4 (04/06/24 4:10 AM) Normal AO Chemistry S Comment on above: Interpretive Data: T his drug screen is a presumptive screening only. No confirmation will be performed unless requested. Drugs screened include: Threshold Amphetamines/Methamphetamines 1,000 ng/mL Barbiturates 200 ng/mL Benzodiazepine metabolites 200 ng/mL Cannabinoids (THC metabolites) 50 ng/mL Cocaine 300 ng/mL Opiates 300 ng/mL Methadone 300 ng/mL Phencyclidine (PCP) 25 ng/mL Testing has been performed FOR MEDICAL PURPOSES ONLY. LABORATORYOrdered By: SYSTEM SYSTEM on 04-06-2024 Albumin BCP dye [Mass/Vol] 3.7 G/dL Normal 3.5 - 5.0 G/dL AO ADM SS Albumin/Globulin [Mass ratio] 1.2 {ratio} Normal 1.1 - 2.5 ratio AO ADM SS ALP [Catalytic activity/Vol] 123 U/L Normal 40 - 135 U/L AO ADM SS ALT With P-5'-P [Catalytic activity/Vol] 24 U/L Normal 14 - 59 U/L AO ADM SS AST With P-5'-P [Catalytic activity/Vol] 20 U/L Normal 10 - 40 U/L AO ADM SS Basophils (Bld) [#/Vol] 0.1 103/mcL Normal 0.0 - 0.2 10^3/mcL AO Workflow SS Basophils/100 WBC (Bld) 0.8 % Normal 0.0 - 2.5 % AO Workflow SS Bilirubin [Mass/Vol] 0.2 mg/dL Normal 0.2 - 1 .0 mg/dL AO ADM SS Comment on above: Interpretive Data: U se of this assay is not recommended for patients undergoing treatment with eltrombopag due to the potential for falsely elevated results. Calcium [Mass/Vol] 9.9 mg/dL Normal 8.4 - 10. 2 mg/dL AO ADM SS Chloride [Moles/Vol] 106 mmol/L Normal 98 - 10 7 mmol/L AO ADM SS CO2 [Moles/Vol] 25 mmol/L Normal 22 - 29 mmol/L AO ADM SS Creatinine [Mass/Vol] 0.81 mg/dL Normal 0.55 - 1.02 mg/dL AO ADM SS Comment on above: Interpretive Data: T esting performed on Ee[employer]ria Dimension EXL analyzer using a modified kinetic Kranthi technique. Electrolyte Balance 11.0 mEq/L Normal 4.0 - 15 .0 mEq/L AO ADM SS Eosinophil, Absolute 0.1 103/mcL Normal 0.0 - 0 .7 10^3/mcL AO Workflow SS Eosinophils/100 WBC (Bld) 1.4 % Normal 0.0 - 7.0 % AO Workflow SS Erythrocyte distribution width (RBC) [Ratio] 13.0 % Normal 11.5 - 15.5 % AO Workflow SS Ethanol [Mass/Vol] 127 mg/dL Invalid Interpretation Code AO ADM SS GFR/1.73 sq M.predicted among blacks MDRD (S/P/Bld) [Vol rate/Area] 94 ml/min/1.73sqm Invalid Interpretation Code AO Chemistry S Comment on above: Interpretive Data: GFR Population mean for , Non- Americans Ages 20-29 = 116 mL/min/1.73 sq.m. Ages 30-39 = 107 mL/min/1.73 sq.m. Ages 40-49 = 99 mL/min/1.73 sq.m. Ages 50-59 = 93 mL/min/1.73 sq.m. Ages 60-69 = 85 mL/min/1.73 sq.m. Ages 70+ = 75 mL/min/1.73 sq.m. Chronic Kidney Disease: Less than 60 mL/min/1.73 square meters End Stage Renal Disease: Less than 15 mL/min/1.73 square meters GFR/1.73 sq M.predicted among non-blacks MDRD (S/P/Bld) [Vol rate/Area] 78 ml/min/1.73sqm Invalid Interpretation Code AO Chemistry S Comment on above: Interpretive Data: GFR Population mean for , Non- Americans Ages 20-29 = 116 mL/min/1.73 sq.m. Ages 30-39 = 107 mL/min/1.73 sq.m. Ages 40-49 = 99 mL/min/1.73 sq.m. Ages 50-59 = 93 mL/min/1.73 sq.m. Ages 60-69 = 85 mL/min/1.73 sq.m. Ages 70+ = 75 mL/min/1.73 sq.m. Chronic Kidney Disease: Less than 60 mL/min/1.73 square meters End Stage Renal Disease: Less than 15 mL/min/1.73 square meters Globulin 3.2 G/dL Invalid Interpretation Code AO ADM SS Glucose [Mass/Vol] 102 mg/dL Normal 70 - 105 mg/dL AO ADM SS Hematocrit (Bld) [Volume fraction] 42.1 % Normal 34.0 - 46.0 % AO Workflow SS Hemoglobin (Bld) [Mass/Vol] 14.6 G/dL Normal 12.0 - 16.0 G/dL AO Workflow SS Lymphocytes (Bld) [#/Vol] 1.9 103/mcL Normal 0.9 - 4.3 10^3/mcL AO Workflow SS Lymphocytes/100 WBC (Bld) 22.0 % Normal 20.0 - 40.0 % AO Workflow SS MCH (RBC) [Entitic mass] 32.3 pg Normal 27.0 - 33.0 pg AO Workflow SS MCHC 34.7 G/dL Normal 32.0 - 36.0 G/dL AO Workflow SS MCV (RBC) [Entitic vol] 93.2 fL Normal 80.0 - 99.0 fL AO Workflow SS Monocyte distribution width Auto (Bld) [Entitic vol] 15.92 1 Normal 0.00 - 20.00 AO Workflow SS Comment on above: Result Comment: For ED adult patients suspected of sepsis, MDW<=20.0 does not rule out sepsis or risk of sepsis Monocytes (Bld) [#/Vol] 0.6 103/mcL Normal 0.1 - 1.4 10^3/mcL AO Workflow SS Monocytes/100 WBC (Bld) 7.1 % Normal 2.0 - 13.0 % AO Workflow SS Neutrophils (Bld) [#/Vol] 5.9 103/mcL Normal 2.3 - 8.1 10^3/mcL AO Workflow SS Neutrophils/100 WBC (Bld) 68.7 % Normal 50.0 - 75.0 % AO Workflow SS Platelet mean volume (Bld) [Entitic vol] 7.1 fL Normal 6.6 - 10.5 fL AO Workflow SS Platelets (Bld) [#/Vol] 274 103/mcL Normal 150 - 450 10^3/mcL AO Workflow SS Potassium [Moles/Vol] 3.8 mmol/L Normal 3.5 - 5.1 mmol/L AO ADM SS Protein [Mass/Vol] 6.9 G/dL Normal 6.4 - 8.2 G/dL AO ADM SS RBC (Bld) [#/Vol] 4.52 106/mcL Normal 4.10 - 5.3 0 10^6/mcL AO Workflow SS Salicylates [Mass/Vol] 6.5 mg/dL Normal 2.8 - 20.0 mg/dL AO ADM SS Sodium [Moles/Vol] 142 mmol/L Normal 136 - 145 mmol/L AO ADM SS Urea nitrogen [Mass/Vol] 11 mg/dL Normal 7 - 18 mg/dL AO ADM SS Urea nitrogen/Creatinine [Mass ratio] 14 ratio Normal 7 - 27 ratio AO ADM SS WBC (Bld) [#/Vol] 8.5 103/mcL Normal 4.5 - 10.8 10^3/mcL AO Workflow SS PREGUon 04-06-2024 HCG ( test) Ql (U) Negative Normal [facility] Comment on above: Performed By: #### U DRUG, PREGU #### [address] [address] test (u) int Not detected Invalid Interpretation Code [facility] Comment on above: Performed By: #### U DRUG, PREGU #### [id number] [place], [place] [address] SALon 04-06-2024 Salicylate Level 6.5 mg/dL Normal 2.8-20.0 [facility] Comment on above: Performed By: #### A LC, MDW, CMP, CBC, GFR, ACETA, ANEU, ADIFF, KT #### [place] [address] UDRUGon 04-06-2024 Methadone Ql (U) Negative Normal Negative [facility] Comment on above: Performed By: #### U DRUG, PREGU #### [place] [address] Amphetamine (u) Negative Normal Negative [facility] Comment on above: Performed By: #### U DRUG, PREGU #### [place] [address] Barbiturate (u) Negative Normal Negative [facility] Comment on above: Performed By: #### U DRUG, PREGU #### [place] [address] Benzodiazepine (u) Negative Normal Negative [facility] Comment on above: Performed By: #### U DRUG, PREGU #### [place] [address] Cannabinoid (u) Negative Normal Negative [facility] Comment on above: Performed By: #### U DRUG, PREGU #### [place] [address] Cocaine Ql (U) Negative Normal Negative [facility] Comment on above: Performed By: #### U DRUG, PREGU #### [place] [address] Opiate (u) Positive Abnormal Negative [facility] Comment on above: Performed By: #### U DRUG, PREGU #### [address] [address] PCP (u) Negative Normal Negative [facility] Comment on above: Performed By: #### U DRUG, PREGU #### [place] [address] Urine Drugs screened: See Below Normal [facility] Comment on above: Result Comment: This drug screen is a presumptive screening only. No confirmation will be performed unless requested. Drugs screened include: Threshold Amphetamines/Methamphetamines 1,000 ng/mL Barbiturates 200 ng/mL Benzodiazepine metabolites 200 ng/mL Cannabinoids (THC metabolites) 50 ng/mL Cocaine 300 ng/mL Opiates 300 ng/mL Methadone 300 ng/mL Phencyclidine (PCP) 25 ng/mL Testing has been performed FOR MEDICAL PURPOSES ONLY. Performed By: #### U DRUG, PREGU #### [address] [id number] [place], [place] [address] XR Ribs - right Views and Ch est PAon 11-08-2023 IMPRESSION: No acute osseous abnormality. Cooling Room Attendant: markedup Transcribe Date/Time: Nov 08 2023 6:00A Dictated by : MADY NAVARRETE MD This examination was interpreted and the report reviewed and electronically signed by: MADY NAVARRETE MD on Nov 08 2023 6:01AM [facility] * * *Final Report* * * DATE OF EXAM: Nov 05 2023 1:55PM [id number] - XR RIB/CHST 3V AP RIB/OBL/CHST R / PROCEDURE REASON: multiple diagnoses * * * * Physician Interpretation * * * * XR RIB/CHST 3V AP RIB/OBL/CHST R Ordering Physician: RAMOS BAH Clinical Statement: Pain. Cough. FINDINGS: No pneumothorax. No rib fracture identified. The osseous structures are intact. Degenerative change within the spine. [facility] Provider, Gagandeep moura [place] - 11/08/2023 * * *Final Report* * * DATE OF EXAM: Nov 05 2023 1:55PM [id number] - XR RIB/CHST 3V AP RIB/OBL/CHST R / PROCEDURE REASON: multiple diagnoses * * * * Physician Interpretation * * * * XR RIB/CHST 3V AP RIB/OBL/CHST R Ordering Physician: RAMOS BAH Clinical Statement: Pain. Cough. FINDINGS: No pneumothorax. No rib fracture identified. The osseous structures are intact. Degenerative change within the spine. IMPRESSION IMPRESSION: No acute osseous abnormality. Cooling Room Attendant: markedup Transcribe Date/Time: Nov 08 2023 6:00A Dictated by : MADY NAVARRETE MD This examination was interpreted and the report reviewed and electronically signed by: MADY NAVARRETE MD on Nov 08 2023 6:01AM EST [facility] XR Ribs - right Views and Ch est PAOrdered By: [facility] Provider on 11-08-2023 [facility] XR Knee - left AP and Latera l and obliqueon 11-07-2023 IMPRESSION: No acute fracture or malalignment of the left knee. Cooling Room Attendant: PSCB Transcribe Date/Time: Nov 07 2023 4:27P Dictated by : SIOBHAN SEGLA MD This examination was interpreted and the report reviewed and electronically signed by: SIOBHAN SEGAL MD on Nov 07 2023 4:31PM EST [facility] * * *Final Report* * * DATE OF EXAM: Nov 05 2023 1:55PM [id number] - XR KNEE 4V AP/LAT/OBLS LT / PROCEDURE REASON: multiple diagnoses * * * * Physician Interpretation * * * * EXAMINATION: XR KNEE 4V AP/LAT/OBLS LT CLINICAL HISTORY: Knee pain status post fall. Technique: XR KNEE 4V AP/LAT/OBLS LT Comparison: None. RESULT: No evidence of acute fracture or dislocation. Medial, lateral and patellofemoral joint spaces are grossly maintained. Mild medial osteophytic spurring. No joint effusion. Normal bone mineralization. No lytic or blastic osseous lesions. Soft tissues are radiographically unremarkable. No radiopaque foreign bodies. [facility] Provider, [facility] Keeley moura [place] - 11/07/2023 * * *Final Report* * * DATE OF EXAM: Nov 05 2023 1:55PM [id number] - XR KNEE 4V AP/LAT/OBLS LT / PROCEDURE REASON: multiple diagnoses * * * * Physician Interpretation * * * * EXAMINATION: XR KNEE 4V AP/LAT/OBLS LT CLINICAL HISTORY: Knee pain status post fall. Technique: XR KNEE 4V AP/LAT/OBLS LT Comparison: None. RESULT: No evidence of acute fracture or dislocation. Medial, lateral and patellofemoral joint spaces are grossly maintained. Mild medial osteophytic spurring. No joint effusion. Normal bone mineralization. No lytic or blastic osseous lesions. Soft tissues are radiographically unremarkable. No radiopaque foreign bodies. IMPRESSION IMPRESSION: No acute fracture or malalignment of the left knee. Cooling Room Attendant: PSCSonia Transcribe Date/Time: Nov 07 2023 4:27P Dictated by : SIOBHAN SEGAL MD This examination was interpreted and the report reviewed and electronically signed by: SIOBHAN SEGAL MD on Nov 07 2023 4:31PM EST [facility] CNOVon 11-05-2023 CNOV Office Visit ([facility] ) -------- CHELLY ALVAREZ ([id number]) 1980 F Date Time Provider Department 11/05/23 12:45 PM RAMOS BAH [facility] During your visit today, we recorded the following information about you: Temperature Pulse Respiration Blood pressure 97.5 degrees 101/minute 16/minute 122/82 Weight Last Period 79.4 kg 10/29/23 Ramos Bah, LIBR[employer] MEDIA TECHNICIAN.RN CORRECTIONS 11/05/2023 1:55 PM Signed Chelly Scott ANTONIO is a 43 year old female who presents with Chest Congestion (Chest congestion and cough x 1 week ) Presents today with 2 complaints. First is she has had an upper respiratory infection congestion, and cough for over a week. She states around the same time she had fallen through loose boards on her porch scraping her left knee causing a large amount of bluish bruising per patient which has resolved. And knee pain as well as right rib pain which is made worse with her cough. She endorses fever, congestion and cough. She does have a history of asthma and has been using her rescue inhaler. She states the cough is worse when she lays down at night. States she did not hit her head when she fell through the boards and was able to get up and walk around after. PAST MEDICAL HISTORY No date: ADD (attention deficit disorder) No date: Carpal tunnel syndrome No date: Chronic headaches No date: Chronic pain No date: Endometriosis No date: GERD (gastroesophageal reflux disease) No date: Seasonal allergies No date: Tachycardia No date: Tobacco use disorder ACTIVE PROBLEM LIST Tachycardia Add (Attention Deficit Disorder) Carpal Tunnel Syndrome Alopecia Areata Anxiety Current Outpatient Medications Medication Sig Dispense Refill INCRUSE ELLIPTA 62.5 mcg/actuation inhaler inhale 1 puff by mouth and into the lungs once daily atenolol (TENORMIN) 50 mg tablet Take 0.5 tablets by mouth once daily. 30 tablet 0 dextroamphetamine-amphet amine (ADDERALL XR) 30 mg 24 hr capsule Take 1 capsule by mouth once daily. 30 capsule 0 ALPRAZolam (XANAX) 0.5 mg tablet Take 1 tablet by mouth at bedtime as needed. 30 tablet 0 etodolac (LODINE) 300 mg capsule Take 1 capsule by mouth every 8 hours. 30 capsule 5 cetirizine (ZYRTEC) 10 mg tablet Take 1 tablet by mouth once daily. 30 tablet 11 montelukast (SINGULAIR) 10 mg tablet Take 1 tablet by mouth daily at bedtime. 30 tablet 11 fluticasone (FLONASE) 50 mcg/actuation nasal spray Use 1 [place] in each nostril once daily. ALPRAZolam (XANAX) 0.25 mg tablet Take 0.25 mg by mouth once daily. cyclobenzaprine (FLEXERIL) 10 mg tablet Take 1 tablet by mouth three times daily as needed. 60 tablet 0 ranitidine (ZANTAC) 150 mg tablet Take 1 tablet by mouth once daily. 30 tablet 0 naproxen (NAPROSYN) 500 mg tablet Take 1 tablet by mouth twice daily with meals. (Patient not taking: Reported on 11/05/2023) 30 tablet 0 omeprazole (PRILOSEC) 20 mg capsule Take 1 capsule by mouth once daily. (Patient not taking: Reported on 11/05/2023) 30 capsule 2 acetaminophen-codeine (TYLENOL-COD #3) 300-30 mg per tablet Take 1 tablet by mouth every 4 hours as needed. (Patient not taking: Reported on 11/05/2023) NAPROXEN SODIUM MISC 500 mg twice daily. (Patient not taking: Reported on 11/05/2023) No current facility-administered medications for this visit. Social History Tobacco Use Smoking status: Every Day Packs/day: .8 Types: Cigarettes Passive exposure: Current Smokeless tobacco: Former Types: Chew Vaping Use Vaping Use: Never used Substance Use Topics Alcohol use: Yes Comment: rare Drug use: Never Alcohol Use: Yes (rare) Tobacco Use: 0.8 packs/day Types: Cigarettes, Chew FAMILY HISTORY Problem Relation Age of Onset Aneurysm Paternal Grandmother Aneurysm Paternal Grandfather Diabetes Maternal Grandmother Stroke Maternal Grandfather Heart Maternal Grandfather Review of Systems Constitutional: Positive for diaphoresis and fever. Negative for chills and malaise/fatigue. HENT: Positive for congestion. Respiratory: Positive for cough and shortness of breath. Gastrointestinal: Negative. Genitourinary: Negative. Musculoskeletal: Positive for falls and myalgias. Neurological: Negative for loss of consciousness. BP 122/82 Pulse 101 Temp 97.5 Resp 16 Wt 175 lb (79.4kg) SpO2 97% LMP 10/29/2023 Physical Exam Vitals and nursing note reviewed. Constitutional: Appearance: Normal appearance. HENT: Head: Normocephalic and atraumatic. Right Ear: Tympanic membrane is erythematous. Left Ear: Tympanic membrane is erythematous. Eyes: Extraocular Movements: Extraocular movements intact. Conjunctiva/sclera: Conjunctivae normal. Pupils: Pupils are equal, round, and reactive to light. Cardiovascular: Rate and Rhythm: Regular rhythm. Tachycardia present. Pulses: Normal pulses. Heart sounds: Normal heart sounds. Pulmonary: Effort: Pulmonary effort i (more content not included)... Normal [facility] No Panel Informationon 11-04 Radiology Study observation (narrative) [facility] XR KNEE 4V AP/LAT/OBLS LTon 11-05-2023 XR KNEE 4V AP/LAT/OBLS LT * * *Final Report* * * DATE OF EXAM: Nov 05 2023 1:55PM RMX 5204 - XR KNEE 4V AP/LAT/OBLS LT / PROCEDURE REASON: multiple diagnoses * * * * Physician Interpretation * * * * EXAMINATION: XR KNEE 4V AP/LAT/OBLS LT CLINICAL HISTORY: Knee pain status post fall. Technique: XR KNEE 4V AP/LAT/OBLS LT Comparison: None. RESULT: No evidence of acute fracture or dislocation. Medial, lateral and patellofemoral joint spaces are grossly maintained. Mild medial osteophytic spurring. No joint effusion. Normal bone mineralization. No lytic or blastic osseous lesions. Soft tissues are radiographically unremarkable. No radiopaque foreign bodies. IMPRESSION: No acute fracture or malalignment of the left knee. Cooling Room Attendant: [facility] Transcribe Date/Time: Nov 07 2023 4:27P Dictated by : SIOBHAN SEGAL MD This examination was interpreted and the report reviewed and electronically signed by: SIOBHAN SEGAL MD on Nov 07 2023 4:31PM EST [id number] [facility] XR RIB/CHST 3V AP RIB/OBL/CH ST Jos 11-05-2023 XR RIB/CHST 3V AP RIB/OBL/CHST R * * *Final Report* * * DATE OF EXAM: Nov 05 2023 1:55PM RMX 5244 - XR RIB/CHST 3V AP RIB/OBL/CHST R / PROCEDURE REASON: multiple diagnoses * * * * Physician Interpretation * * * * XR RIB/CHST 3V AP RIB/OBL/CHST R Ordering Physician: RAMOS BAH Clinical Statement: Pain. Cough. FINDINGS: No pneumothorax. No rib fracture identified. The osseous structures are intact. Degenerative change within the spine. IMPRESSION: No acute osseous abnormality. Cooling Room Attendant: [facility] Transcribe Date/Time: Nov 08 2023 6:00A Dictated by : MADY NAVARRETE MD This examination was interpreted and the report reviewed and electronically signed by: MADY NAVARRETE MD on Nov 08 2023 6:01AM EST [id number] [facility] Colonoscopy Reporton 023 Colonoscopy Report [facility] Medical Records Department [address] [place] [address] Colonoscopy Report MR#: [id number] Acct: [id number] Name: CHELLY ALVAREZ Rep #: [id number] : 1980 41 From: Prashant Ernandez MD PCP: Dr. Trina Saldana, DO [place] [facility] [place] Patient Name: Chelly Alvarez Procedure Date: 07/14/2022 9:50 AM Date of : 1980 Age: 41 Procedure: Colonoscopy Indications: Rectal bleeding Providers: Prashant Ernandez MD Referring MD: Trina Saldana Medicines: Monitored Anesthesia Care Patient Profile: This is a 41 year old female. Refer to note in patient chart for documentation of history and physical. Last Colonoscopy: none. The patient's first colonoscopy is today. Complications: No immediate complications. Procedure: Pre-Anesthesia Assessment: - Prior to the procedure, a History and Physical was performed, and patient medications and allergies were reviewed. The patient's tolerance of previous anesthesia was also reviewed. The risks and benefits of the procedure and the sedation options and risks were discussed with the patient. All questions were answered, and informed consent was obtained. Prior Anticoagulants: The patient has taken no previous anticoagulant or antiplatelet agents. After reviewing the risks and benefits, the patient was deemed in satisfactory condition to undergo the procedure. After I obtained informed consent, the scope was passed under direct vision. Throughout the procedure, the patient's blood pressure, pulse, and oxygen saturations were monitored continuously. The pediatric colonoscope was introduced through the anus and advanced to the cecum, identified by appendiceal orifice and ileocecal valve. The colonoscopy was performed without difficulty. The patient tolerated the procedure well. The quality of the bowel preparation was good. Scope In: 9:59:51 AM Scope Withdrawal Time 0 hours 8 minutes 8 seconds Scope Out: 10:13:15 AM Total Procedure Duration Time 0 hours 13 minutes 24 seconds Findings: The entire examined colon appeared normal on direct and retroflexion views. Impression: - The entire examined colon is normal on direct and retroflexion views. - No specimens collected. Recommendation: - Discharge patient to home. - Resume previous diet. - Continue present medications. - Repeat colonoscopy in 10 years for screening purposes. Procedure Code(s): --- Professional --- 07824, Colonoscopy, flexible; diagnostic, including collection of specimen(s) by brushing or washing, when performed (separate procedure) Diagnosis Code(s): --- Professional --- K62.5, Hemorrhage of anus and rectum CPT copyright 2017 [employer]. All rights reserved. The codes documented in this report are preliminary and upon hcc coders review may be revised to meet current compliance requirements. Prashant Ernandez MD 07/14/2022 10:16:50 AM This report has been signed electronically. Number of Addenda: 0 Note Initiated On: 07/14/2022 9:50 AM 07/14/22 1017 Date Prashant Ernandez MD Cosigner Signature: Date (if indicated) CC: Dr. Prashant Ernandez MD; Dr. Trina Saldana DO Date Dictated: 07/14/22 0950 Date Transcribed: Cooling Room Attendant: JONH Signed Normal [facility] Discharge Instructionon Discharge Instruction [facility] Medical Records Department [address] [place] [address] Instructions for Home/Discharge Instructions 06/27/22 0840 MR#: [id number] Acct: [id number] Name: CHELLY ALVAREZ Rep #: [id number] : 1980 41 From: Prashant Ernandez MD PCP: Dr. Trina Saldana DO Status[place] [facility] [place]charge Instructions Diet Discharge Diet: Light diet - advance as tolerated Activity Discharge Activity: Return to Normal Activity, May Drive and May Shower (May shower tomorrow over bandages) Lifting Restrictions: No restriction Dressing / Incision Call your doctor if your incision/area has: Continuous Slow Oozing, Sudden Increased Bleeding, Increased Pain/ Swelling, Increased Redness, Foul Smelling Discharge and Swelling at the incision site Call your doctor if you observe: Fever of 101 or Higher Remove Dressing in: 2 days (Remove clear bandages in 2 days, remove Steri-Strips in 7 to 10 days. May shower over both bandages and Steri-Strips.) Cleanse incision/area with: Soap Water Follow Up Care Please Follow Up With: Prashant Ernandez MD When: Please call to schedule 2 week follow up appointment. [phone] Test Results: Test results from this visit will be discussed in further detail at your follow-up appointment, if applicable. Discharge Plan Admission Attending Provider: Prashant Ernandez Primary Care Provider: Trina Saldana Instructions Additional Instructions / Restrictions: Alternate ibuprofen and Tylenol for pain. Oxycodone for breakthrough pain. Discharge Orders/Prescriptions Prescriptions: New oxycodone 5 mg tablet 5 mg PO Q6H PRN (Reason: pain) 5 Days Qty: 15 0RF No Action cyclobenzaprine 10 mg tablet 10 mg PO HS PRN (Reason: MUSCLE SPASMS) dextroamphetamine-amphet amine [Adderall] 30 MG tablet 30 mg PO DAILY cetirizine 10 MG tablet 10 mg PO DAILY atenolol 25 MG tablet 12.5 mg PO DAILY acetaminophen-codeine [Tylenol-Codeine #3] 300-30 mg Tablet 1 tab PO Q8H PRN (Reason: Pain) Referrals / Follow Up: Trina Saldana DO [Primary Care Provider] - Disposition Disposition (needs filled in before D/C Order can be placed): Home, Self Care 06/27/22 0842 Prashant Ernandez MD CC: Dr. Trina Saldana DO Signed Normal [facility] Operative Reporton 3 Operative Report [facility] Medical Records Department [address] [place] [address] Operative Report 06/27/22 0838 MR#: [id number] Acct: [id number] Name: CHELLY ALVAREZ Rep #: [id number] : 1980 41 From: Prashant Ernandez MD PCP: Dr. Trina Saldana DO Status:[facility] Location: [place] [address] Report of Operation Date of Procedure: 06/27/22 Pre-Operative Diagnosis: Left lumbar lipoma x2 Post-Operative Diagnosis: Left lumbar lipoma x2 Surgery/Procedure Performed:: Excision of left lower back lipoma x2 Specimen's removed: Lipoma of the lower back x2 Description of Procedure: Patient was brought back to the operating room and turned on her right side and then MAC anesthesia was induced. The left lower lumbar area was prepped and draped in usual sterile fashion. An area between the 2 lipomas was selected and marked. Anesthetic was injected and then a scalpel was used to make incision. Electrocautery was used to maintain hemostasis. Dissection was carried inferiorly to the first lipoma. It was circumferentially dissected and removed. It was deep to the fascia. It measured 4 cm in diameter. Next dissection was carried superiorly to the other lipoma which was approximately 6 cm and also deep to the fascia. These were both excised. The cavity was irrigated and suctioned dry. The skin was closed with interrupted 3-0 Vicryl suture in a running 4- 0 Monocryl suture. Steri-Strips and bandages were applied. Patient was taken to PACU in stable condition and tolerated the procedure well. 06/27/22 6386 Cosigner Signature (if applicable): CC: Dr. Prashant Ernandez MD; Dr. Trina Saldana DO Signed Normal [facility] Surgery Specimen Level IIIon 06-27-2022 Surgery Specimen Level III Patient Age/Sex Location Account Attending Physician CHELLY ALVAREZ 41/F [facility] [place] [id number] Dr. Prashant Ernandez MD Specimen: [id number] Received: 06/27/22 Status: [facility] Num: [id number] Spec Type: LIPOMA Subm Dr: Dr. Prashant Ernandez MD HEADER OPERATION: Excision lower back lipoma PRE-OP DIAGNOSIS: Lipoma of back, low back pain TISSUE SUBMITTED: Lipoma of left lower back MICROSCOPIC DIAGNOSIS Soft tissue lesion of lower back, excision: Mature adipose tissue consistent with lipoma. AM:raimundo 06/28/2022 MICROSCOPIC DESCRIPTION Slides are reviewed. GROSS DESCRIPTION Received in fixative is one container labeled with the patient's name and designated lipoma left lower back. The specimen consists of multiple lobulated pieces of martinez-yellow adipose tissue that in aggregate measure 8.0 x 5.5 x 2.0 cm. Sections reveal yellow adipose cut surfaces without areas of hemorrhage, necrosis or cystic degeneration. Sternman sections are submitted in two cassettes. / SJ:raimundo 06/27/2022 TC:1 CPT: 65258 Patient Age/Sex Location Account Attending Physician CHELLY ALVAREZ 41/F [facility] [place] [id number] Dr. Prashant Ernandez MD Signed (signature on file) Dr. Theo Corea, DO 06/28/22 1119 Normal [facility] Comment on above: Performed By: #### P SUIII #### [facility] [place], [place], [address] Surgery Visit Reporton 06-12 Surgery Visit Report [facility] [address] [place] [address] OFFICE VISIT Date of Service: 06/12/22 MR#: [id number] Acct: [id number] Name: CHELLY ALVAREZ Rep #: [id number] : 1980 Provider: Dr. Prashant schulte MD Age/Sex: 41/F Location: [facility] Status: Signed Intake Vital Signs 05/20/20 20:03 06/12/22 09:16 Height 5 ft 3 in 5 ft 3 in Weight: 160 lb BMI 28.3 BP 134/85 H Blood Pressure Location Lt brachial Position Sitting Respiration 18 Intake Visit Reasons: LIPOMAS ON BACK COLONOSCOPY Chief Complaint: lipomas and c-scope [employer] Plug [employer] Required: No Is patient in pain?: No Allergies morphine Adverse Reaction (Verified 06/12/22 09:16) Other Medications dextroamphetamine-amphet amine 30 mg tablet (Adderall) 30 mg PO DAILY 01/22/13 [History Confirmed 06/12/22] atenolol 25 mg tablet 25 mg PO DAILY 05/08/19 [History Confirmed 06/12/22] cetirizine 10 mg tablet 10 mg PO DAILY 05/08/19 [History Confirmed 06/12/22] clindamycin HCl 150 mg capsule 450 mg PO TID #90 caps 06/12/22 [Rx Confirmed 06/12/22] cyclobenzaprine 10 mg tablet 10 mg PO HS 06/12/22 [History Confirmed 06/12/22] PFSH Medical History (Updated 06/12/22 @ 12:[address] Prashant Ernandez MD) ADD (attention deficit disorder) Arthritis Back problem Surgical History (Updated 06/12/22 @ 09:15 by Karolina Zavala) S/p bilateral myringotomy with tube placement S/P D C (status post dilation and curettage) S/P laparoscopy S/P surgical removal of pilonidal cyst S/P tonsillectomy Family History (Updated 06/12/22 @ 09:15 by Karolina Zavala) Grandfather Diabetes Heart disease Hypertension Grandmother CVA (cerebral vascular accident) Lupus Social History (Updated 06/12/22 @ 09:16 by Karolina Zavala) Smoking Status: Never smoker alcohol intake: current HPI HPI HPI: Patient is a 41-year-old female here with 2 issues. Patient has 2 painful lipomas in her left lower back which are causing pain shooting down her leg. She says they have been there for about 15 years and keep growing larger and more painful. Patient also notes that a few weeks ago she had blood in her stool that lasted several days. She did not have any painful bowel movements or difficult bowel movements. She has never had this in the past. She has no family history of colon cancer. She has never had a colonoscopy. Exam Const General: cooperative Orientation: alert and oriented x3 HENMT Head: normal to inspection Neck Neck: normal visual inspection and full ROM Chest Chest palpation inspection: normal inspection of the chest Resp Effort Inspection: normal respiratory effort Auscultation: clear to auscultation bilaterally Cardio Rate: regular rate Rhythm: regular rhythm GI Inspection: non-distended Palpation: soft and nontender Musc Other: 2 large lipomas in the left lower back which are mobile and soft and nontender Skin General: no rashes or lesions noted Neuro General: patient alert and patient oriented x3 Extrem General: full ROM Psych Appearance: grossly normal Mental Status: mental status grossly normal Assessment and Plan Assessment and Plan (1) Lipoma of back: Status: Acute (2) Pain, low back: Status: Acute Qualifiers: Chronicity: chronic Back pain laterality: left Sciatica presence: with sciatica Sciatica laterality: sciatica of left side Qualified Code(s): M54.42 - Lumbago with sciatica, left side; G89.29 - Other chronic pain (3) Blood in stool: Status: Acute Orders: Orders Colonoscopy Today Medications: Refilled clindamycin HCl 450 mg (3 x 150 mg) PO TID 90 caps 0RF Plan 2 large lipomas on her left lower back which are causing her pain. I discussed excising these 2 lipomas in the operating room. I discussed the risks of bleeding and infection as well as possible nerve injury if they are interacting with any of the sciatic nerves. Patient had blood in her stool and I recommend colonoscopy. I explained endoscopy in detail to the patient. I explained the risks including but not limited to stroke or heart attack with anesthesia, perforation of the GI tract, bleeding, infection. I explained that any of these could necessitate further emergency surgery. The patient understands and all questions were answered sufficiently. The patient wishes to proceed with procedure. Prashant Ernandez MD Pager: [facility] [address] [place] [address], [address] [place] [phone] Office: Coding Level of Care Code Off vis,new,level 3 Diagnoses Lipoma of back D17.1 Pain, low back M54.42; G89.29 Chronicity: chronic Back pain laterality: left Sciatica presence: with sciatica Sciatica laterality: sc (more content not included)... Normal [facility] Ext Non Vasc Limited/Soft Ti sson 06-08-2022 Ext Non Vasc Limited/Soft Tiss [facility] Services [address] [place], [place] [id number] Ext Non Vasc Limited/Soft Tiss MR#: [id number] Acct: [id number] Name: ANTONIOCHELLY PARKER Rep #: [id number] : 1980 F 41 From: Juanpablo Amaro MD PCP: Dr. Trina Saldana DO Status: REG CLI Study: Ext Non Vasc Limited/Soft Tiss Date of Exam: 0 06/08/22 Exam# [id number] Ordering Dr: Rachel Seymour MD STUDY: SUPERFICIAL ULTRASOUND - LOW BACK, REASON FOR EXAM: Female, 41 years old. Palpable lumps TECHNIQUE: A superficial ultrasound was performed with real-time and static tate-scale imaging. COMPARISON: None. FINDINGS: Sonographic evaluation of the right lower back shows multiple poorly defined iso-to hyperechoic lesions likely lipoma is. Largest measures 3.7 x 4.7 x 1.3 cm. There is no suspicious shadowing solid lesion, no fluid collection or hyperemia to suspect inflammation. US/Ext Non Vasc Limited/Soft Tiss IMPRESSION: Subcutaneous lipomas, no suspicious sonographic findings Electronically Signed: Pablo Amaro MD at 11:32 EDT , CC: Dr. Rachel Seymour MD; Dr. Trina Saldana DO Cooling Room Attendant: Signed Normal [facility] EMERGENCY REPORTon 2 EMERGENCY REPORT [facility] EMERGENCY ROOM REPORT NAME ACCOUNT SEX AGE ADMIT DISCHARGE PT MED. RECORD# NUMBER DATE DATE TYPE CHELLY ALVAREZ [id number] F 40 09/19/21 09/20/21 3 [address] ROOM: ER DATE OF : 1980 DICTATING PHYSICIAN: Isabel Sanchez HISTORY OF PRESENT ILLNESS: This patient, who is in good health, has a history of COVID with symptom onset about 7 to 8 days ago and diagnosed 5 days ago. She works at the [employer]-through and came here to the Emergency Room. She drove herself. She has got a headache which is across her forehead and wraps around to the back of her neck. She does not customarily have headaches very often. She states she did not take any medications for this. She says it is better to lay down and worse to get up and around. Occasionally she is a little bit dizzy with it. She has been eating okay. She states she is not . She has had a tubal ligation. She has had an occasional cough. She states she is doing pretty good otherwise. She does vape. She is seen here in Room #1. The discomfort is rather constant. No change in vision, hearing or speech. No nausea, vomiting or diarrhea. No chest pain or shortness of breath. PHYSICAL EXAMINATION: HEENT: Her head is normocephalic. Pharynx is symmetric without any stridor, hoarseness or injection. NECK: Neck is easily supple. There are no anterior, posterior or supraclavicular nodes. She has reproducible discomfort at the base of the neck and around over the ears to the forehead. The neck is supple. Chin to chest is spontaneously normal. LUNGS: Her lungs are clear. There are no expiratory wheezes, rales, rhonchi, or paradoxical chest motion. HEART: Heart rate and rhythm are regular without a murmur. ABDOMEN: The abdomen is soft without any discomfort. NEUROLOGIC: Examination is symmetric with +2/4 Achilles and patella reflexes. Hand grasp is normal. Face is symmetric. Speech is precise. She is alert and oriented x4. DIAGNOSTIC DATA: Laboratories were obtained, which were satisfactory. CT of her head was negative. EMERGENCY DEPARTMENT COURSE AND TREATMENT: She was relieved of her headache with the use of ketorolac and Zofran. She was feeling much better by 0223 hours and was discharged to home. DIAGNOSIS: Occipital headache. Dictated By: Isabel Sanchez DO 09/20/21 06:55 JOB #: [id number] Transcribed By: jing 09/20/21 15:53 Electronically signed by: E-SIGN ISABEL SANCHEZ DO 09/28/21 23:52 Page 1 of 1 CHELLY ALVAREZ Emergency Room Report Normal [facility] Miscellaneous Lab Procedureo n 09-24-2021 [facility] [place] Normal [facility] Comment on above: Order Comment: [id number], URINE TOX Result Comment: [id number] 6+OXYCODONE-BUND (ng/mL) DRUG RESULT SCREEN CUTOFF ____ Amphetamines,Urine Positive ng/mL 1000 Amphetamine test includes Amphetamine and Methamphetamine. Amphetamine Positive Amphetamine Conf,MS,UR 1697 ng/mL 500 Barbiturates Negative ng/mL 200 Benzodiazepines Negative ng/mL 200 Cannabinoid Negative ng/mL 20 Cocaine (Metab) Negative ng/mL 300 Opiates Negative ng/mL 300 Opiates test includes Codeine, Morphine, Hydromorphone, Hydrocodone. Oxycodone/Oxymorphone,Urine Negative ng/mL 300 Test includes Oxydodone and Oxymorphone. TESTING PERFORMED AT [facility]. ORIGINAL REPORT ON FILE IN LAB CONTAINS ADDITIONAL TEST SITE INFORMATION. Performed By: #### L 505.5000, L801.1541 #### [facility] [address] [place], [address] EMERGENCY REPORTon 2 EMERGENCY REPORT [facility] EMERGENCY ROOM REPORT NAME ACCOUNT SEX AGE ADMIT DISCHARGE PT MED. RECORD# NUMBER DATE DATE TYPE CHELLY ALVAREZ [id number] F 40 09/20/21 09/21/21 3 [id number] ROOM: ER DATE OF : 1980 DICTATING PHYSICIAN: Bradley Samuel HISTORY OF PRESENT ILLNESS: This is a 40-year-old female patient with a past medical history of a recent COVID infection 5 days ago, who presents with acute onset of abdominal pain. She states that it started last night in the left lower quadrant shortly after being seen for a new headache that was without acute findings. She reports intermittent pain, currently resolved, but 10/10 in intensity that is worsened with food. She denies any other relieving or exacerbating factors. She states that she has diarrhea with any attempt at eating. Prior to her COVID infection, she was otherwise within a normal state of health. Denies fevers, chills, nausea, vomiting, chest pain, headache, cough, constipation or dysuria. PAST MEDICAL HISTORY: No other past medical history. PAST SURGICAL HISTORY: She endorses laparotomy for endometriosis several years ago. No other surgical history. ALLERGIES: No known drug allergies. FAMILY HISTORY: No relevant family history. SOCIAL HISTORY: She smokes a half pack of cigarettes per day. Occasional alcohol use. PHYSICAL EXAMINATION: VITAL SIGNS: Temperature is 98.7, pulse 84, respiratory rate 18, blood pressure 114/78, and saturating 98% on room air. HEENT: Head is atraumatic. Pupils are equal, round and reactive. No scleral icterus or injection. Oral cavity is moist. NECK: There is normal range of motion of the neck. LUNGS: Lungs are clear to auscultation bilaterally. HEART: Heart is a regular rate and rhythm with no murmurs, rubs or clicks. ABDOMEN: Abdomen is tender in the left lower quadrant. No rebound or guarding. No cva tenderness. Otherwise normal abdominal examination. SKIN: Skin is well-perfused with under 2-second capillary refill. DIAGNOSTIC DATA: We obtained laboratory evaluation, a CBC and CMP, and they were without acute findings. We obtained a CT of her abdomen that shows signs consistent with infectious colitis. Urinalysis was unremarkable. HCG is negative. Page 1 of 2 CHELLY ALVAREZ Emergency Room Report CHELLY ALVAREZ : 1980 EMERGENCY DEPARTMENT COURSE AND TREATMENT: The patient continued to have pain, so we gave her Toradol for pain control, which she states the pain is better afterwards. She was given her first dose of ciprofloxacin here. MEDICAL DECISION-MAKING: This is a 40-year-old female patient who presents with left lower quadrant abdominal pain for one day. Differentials considered include but are not limited to colitis, bowel obstruction, diverticulitis, perforation, AAA, ectopic , UTI, or nephrolithiasis. Laboratory evaluation is unremarkable. There is tenderness to palpation in the left lower quadrant. Physical examination is otherwise without findings. Urinalysis is unremarkable. CT was performed with findings consistent with colitis. She was given her first dose of ciprofloxacin here and 4 extra days of ciprofloxacin for home. She was given follow-up instructions to her primary care physician to be seen within the next 3 to 5 days and strict return precautions for continuing or worsening symptoms. I went over all of the findings with the patient. She endorses good understanding. She was discharged in stable condition. Dictated By: Bradley Samuel MD 09/21/21 00:11 JOB #: [id number] Transcribed By: jing 09/22/21 06:36 Electronically signed by: Dr. Yvonne Samuel MD 09/23/21 12:20 Page 2 of 2 CHELLY ALVAREZ Emergency Room Report Normal [facility] CBC + DIFFon 09-21-2021 Baso # 0.10 x10EE3/UL Normal 0.00 - 0.10 [facility] Comment on above: Performed By: #### 2 20302 #### [facility],[address] [place] [address] 85170 Basophils/100 WBC (Bld) 0.8 % Normal 0.0 - 2.0 [facility] Comment on above: Performed By: #### 2 15437 #### [facility],[address] [place] [address] 41648 CBC + DIFF Normal [facility] Comment on above: Result Comment: CBC- COMPLETE BLOOD COUNT Performed By: #### 2 65650 #### [facility],[address] [place] [address] 65322 EO # 0.20 x10EE3/UL Normal 0.00 - 0.50 [facility] Comment on above: Performed By: #### 2 49874 #### [facility],[address] [place] [address] 22956 Eosinophils/100 WBC (Bld) 2.5 % Normal 0.0 - 7.0 [facility] Comment on above: Performed By: #### 2 13804 #### [facility],[address] [place] [address] 06915 Erythrocyte distribution width (RBC) [Ratio] 13.6 % Normal 12.0 - 15.6 [facility] Comment on above: Performed By: #### 2 56840 #### [facility],[address] [place] [address] 29156 Hematocrit (Bld) [Volume fraction] 41.8 % Normal 34.0 - 46.0 [facility] Comment on above: Performed By: #### 2 16358 #### [facility],[address] [place] [address] 35513 Hemoglobin (Bld) [Mass/Vol] 14.1 g/dL Normal 12.0 - 16.0 [facility] Comment on above: Performed By: #### 2 86853 #### [facility],[address] [place] [address] Lymph # 1.90 x10EE3/UL Normal 0.80 - 2.80 [facility] Comment on above: Performed By: #### 2 76906 #### [facility],[address] [place], [place] [address] Lymphocytes/100 WBC (Bld) 24.4 % Normal 20.0 - 45.0 [facility] Comment on above: Performed By: #### 2 96286 #### [facility],[address] [place] [address] 01290 MANUAL DIFF N/A Normal [facility] Comment on above: Performed By: #### 2 60916 #### [facility],[address] [place] [address] 33585 MCH (RBC) [Entitic mass] 32 pg Normal 27 - 33 [facility] Comment on above: Performed By: #### 2 16507 #### [facility],[address] [place] [address] 01069 MCHC 34 X10 3 Normal 32 - 36 [facility] Comment on above: Performed By: #### 2 79510 #### [facility],[address] [place] [address] 53442 MCV (RBC) [Entitic vol] 96 fL Normal 80 - 99 [facility] Comment on above: Performed By: #### 2 41397 #### [facility],[address] [place] [address] 58287 [place] # 0.30 x10EE3/UL Normal 0.20 - 1.00 [facility] Comment on above: Performed By: #### 2 58354 #### [facility],[address] [place] [address] 05943 MONOS % 4.4 % Normal 0.0 - 10.0 [facility] Comment on above: Performed By: #### 2 14513 #### [facility],[address] [place] [address] 91248 Morphology Tate (Bld) [Interp] N/A Normal [facility] Comment on above: Result Comment: {CD] Performed By: #### 2 11700 #### [facility],[address] [place] [address] 66522 Neut # 5.30 x10EE3/UL Normal 1.50 - 7.10 [facility] Comment on above: Performed By: #### 2 30042 #### [facility],[address] [place] [address] 44931 Neutrophils/100 WBC (Bld) 67.9 % Normal 46.0 - 76.0 [facility] Comment on above: Performed By: #### 2 87461 #### [facility],[address] [place] [address] 71903 PLATELET 286 x10EE3/UL Normal 150 - 450 [facility] Comment on above: Performed By: #### 2 17074 #### [facility],[address] [place] [address] 12049 Platelet mean volume (Bld) [Entitic vol] 7.5 fL Normal 6.6 - 10.5 [facility] Comment on above: Result Comment: AUTO MATED DIFFERENTIAL Performed By: #### 2 87184 #### [facility],[address] [place] [address] 82545 RBC 4.38 x 10EE6/UL Normal 4.10 - 5.30 [facility] Comment on above: Performed By: #### 2 76729 #### [facility],[address] [place] [address] 87306 WBC 7.8 x 10EE3/UL Normal 4.5 - 10.8 [facility] Comment on above: Performed By: #### 2 84419 #### [facility],[address] [place], [place] [address] CMP with eGFRon 09-21-2021 AGE 40 years Normal [facility] Comment on above: Performed By: #### 2 56303 #### [facility],[address] [place] [address] Albumin [Mass/Vol] 3.4 g/dL Normal 3.4 - 5.0 [facility] Comment on above: Performed By: #### 2 73734 #### [facility],[address] [place] [address] Albumin/Globulin [Mass ratio] 1.0 {ratio} Normal 0.9 - 1.6 [facility] Comment on above: Performed By: #### 2 57163 #### [facility],[address] [place], [place] [address] ALK PHOS 99 U/L Normal 46 - 116 [facility] Comment on above: Performed By: #### 2 61501 #### [facility],[address] [place] [address] 13418 ALT [Catalytic activity/Vol] 29 U/L Normal 14 - 59 [facility] Comment on above: Performed By: #### 2 41548 #### [facility],[address] [place] [address] 75818 Anion gap [Moles/Vol] 11 mmol/L Normal 10 - 20 [facility] Comment on above: Performed By: #### 2 93032 #### [facility],[address] [place] [address] 99908 AST [Catalytic activity/Vol] 13 U/L Normal 13 - 39 [facility] Comment on above: Performed By: #### 2 29935 #### [facility],[address] [place], [place] [address] B/C RATIO 9 ratio Normal 0 - 30 [facility] Comment on above: Performed By: #### 2 22052 #### [facility],[address] [place] [address] 09362 Bilirubin [Mass/Vol] 0.2 mg/dL Normal 0.2 - 1.0 [facility] Comment on above: Performed By: #### 2 22453 #### [facility],[address] [place] [address] 87657 Calcium [Mass/Vol] 8.4 mg/dL Low 8.5 - 10.1 [facility] Comment on above: Performed By: #### 2 04932 #### [facility],[address] [place] [address] Chloride [Moles/Vol] 104 mmol/L Normal 98 - 107 [facility] Comment on above: Performed By: #### 2 17946 #### [facility],[address] [place] [address] CMP with eGFR Normal [facility] Comment on above: Result Comment: COMP REHENSIVE METABOLIC PANEL Performed By: #### 2 54321 #### [facility],[address] [place] [address] 18078 CO2 [Moles/Vol] 25.7 mmol/L Normal 21.0 - 32.0 [facility] Comment on above: Performed By: #### 2 69359 #### [facility],[address] [place] [address] 32230 Creatinine [Mass/Vol] 0.94 mg/dL Normal 0.55 - 1.02 [facility] Comment on above: Performed By: #### 2 40964 #### [facility],[address] [place] [address] 27035 GFR/1.73 sq M.predicted among non-blacks MDRD (S/P/Bld) [Vol rate/Area] mL/min/{1.73_m2} Normal 60 - 999 [facility] Comment on above: Performed By: #### 2 90953 #### [place] [address] Result Comment: ACCO RDING TO THE NATIONAL KIDNEY DISEASE EDUCATION PROGRAM(NKDE), A NORMAL eGFR IS A VALUE GREATER THAN OR EQUAL TO 60 ML/MIN/1.73 SQ METERS. CHRONIC KIDNEY DISEASE: <60mL/MIN/1.73 SQ METERS KIDNEY FAILURE: <15mL/MIN/1.73 SQ METERS THIS TEST SHOULD ONLY BE USED FOR PATIENTS 18 YEARS OF AGE AND OLDER. Globulin (S) [Mass/Vol] 3.3 g/dL Normal 1.5 - 3.8 [facility] Comment on above: Performed By: #### 2 74833 #### [place] [address] Glucose [Mass/Vol] 128 mg/dL High 74 - 106 [facility] Comment on above: Performed By: #### 2 30078 #### [place] [id number] Potassium [Moles/Vol] 3.7 mmol/L Normal 3.5 - 5.1 [facility] Comment on above: Performed By: #### 2 61626 #### [place] [id number] Protein [Mass/Vol] 6.7 g/dL Normal 6.4 - 8.2 [facility] Comment on above: Performed By: #### 2 55346 #### [place] [id number] Sodium [Moles/Vol] 137 mmol/L Normal 136 - 145 [facility] Comment on above: Performed By: #### 2 11298 #### [place] [id number] Urea nitrogen [Mass/Vol] 8 mg/dL Normal 7 - 18 [facility] Comment on above: Performed By: #### 2 53906 #### [facility],[address] [place] [address] ABDOMEN/PELVIS Won 2021 CT ABDOMEN/PELVIS W [address] [address] Patient: CHELLY ALVAREZ Phone#: : 1980 Age: 40 Gender: F Pt. Type: ER Account: [id number] Location: 2 Ordering: DR. BRADLEY SAMUEL Exam Date: 09/20/2021/23:06 Family Phys: Charge Code: [id number] Physician: Harris Order #: [id number] DLP Dose#: 13.40 PROCEDURE: CT ABDOMEN/PELVIS WITH CONTRAST COMPARISON: [facility], CT, ABDOMEN/PELVIS W CON, 10/02/2018, 2:20. INDICATIONS: Abdominal pain. TECHNIQUE: After obtaining the patient's consent, CT images were created with non-ionic intravenous contrast material. All CT scans at this facility use dose modulation, iterative reconstruction, and/or weight based dosing when appropriate to reduce radiation dose to as low as reasonably achievable. IV CONTRAST: Omnipaque 350,80ml TOTAL DOSE: 13.40 CTDIvol(mGy) FINDINGS: LIVER: Normal. No enlargement, atrophy, abnormal density, or significant focal lesion. BILIARY: Gallbladder is present. PANCREAS: Normal. No lesion, fluid collection, ductal dilatation, or atrophy. SPLEEN: Normal. No enlargement or focal lesion. KIDNEYS: Kidneys enhance and excrete contrast symmetrically. No hydronephrosis. ADRENALS: Normal. No mass or enlargement. AORTA/VASCULAR: No aortic aneurysm. There are scattered atherosclerotic calcifications RETROPERITONEUM: Normal. No mass or adenopathy. BOWEL/MESENTERY: No bowel obstruction or dilatation. There is diffuse colonic wall thickening and pericolonic stranding, consistent with a nonspecific colitis. The involved colon extends from the ascending colon to the proximal descending colon ABDOMINAL WALL: Normal. No mass or hernia. URINARY BLADDER: Normal. No visible focal wall thickening, lesion, or calculus. PELVIC NODES: Normal. No adenopathy. Continued Report - Page 2 of 2 Patient: CHELLY ALVAREZ Phone#: : 1980 Age: 40 Gender: F Pt. Type: ER Account: [id number] Location: 052 Ordering: DR. BRADLEY SAMUEL Exam Date: 09/20/2021/23:06 Family Phys: Charge Code: [id number] Physician: Harris Order #: [id number] DLP Dose#: 13.40 PELVIC ORGANS: Uterus is present. Radiopaque device is seen in the cornua, correspond with surgical history. No adnexal mass. BONES: Degenerative changes in the lower thoracic spine LUNG BASES: Normal. No visible pulmonary or pleural disease. OTHER: Negative. CONCLUSION: 1. Nonspecific colitis extending from the ascending to descending colon, differential includes infectious, inflammatory or vascular etiologies. Dictated by: Aurelia Ramirez MD on 09/21/2021 at 9:59 Approved by: Aurelia Ramirez MD on 09/21/2021 at 10:07 Normal [facility] URINEon 09-21-2021 Beta HCG ( test) Ql (U) Negative Normal NEGATIVE [facility] Comment on above: Performed By: #### 2 11358 #### [place] [address] EXTERNAL QC DONE? YES Normal [facility] Comment on above: Performed By: #### 2 70210 #### [facility],[address] [place] [address] INTERNAL QC PASS Normal [facility] Comment on above: Performed By: #### 2 13601 #### [facility],[address] [place] [address] 39468 URINALYSISon 09-21-2021 Amorphous NONE Normal [facility] Comment on above: Performed By: #### 2 01702 #### [facility],[address] [place] [address] Bacteria 1+ Normal [facility] Comment on above: Performed By: #### 2 93485 #### [facility],[address] [place] [address] 64646 Bilirubin Ql (U) Negative Normal NORMAL: NEGATIVE [facility] Comment on above: Performed By: #### 2 86273 #### [facility],[address] [place] [address] 07216 Casts NONE Normal [facility] Comment on above: Performed By: #### 2 86751 #### [facility],[address] [place], [place] [address] Clarity (U) clear Normal NORMAL: CLEAR [facility] Comment on above: Performed By: #### 2 00799 #### [facility],[address] [place], [place] [address] Color (U) p.yel Normal NORMAL: YELLOW [facility] Comment on above: Performed By: #### 2 44860 #### [facility],[address] [place], [place] [address] Crystals LM Nom (Urine sed) NONE Normal [facility] Comment on above: Performed By: #### 2 77249 #### [facility],[address] [place] [address] 36955 Epi Cells FEW Normal [facility] Comment on above: Performed By: #### 2 49250 #### [facility],[address] [place] [address] 86482 Glucose Ql (U) NORM Normal NORMAL: NORMAL [facility] Comment on above: Performed By: #### 2 18557 #### [facility],[address] [place] [address] 15272 Hemoglobin Ql (U) 250 Abnormal NORMAL: NEGATIVE [facility] Comment on above: Performed By: #### 2 93284 #### [facility],[address] [place] [address] 18733 Ketone Negative Normal NORMAL: NEGATIVE [facility] Comment on above: Performed By: #### 2 15526 #### [facility],[address] [place] [address] 50807 Leukocytes 25 Abnormal NORMAL: NEGATIVE [facility] Comment on above: Performed By: #### 2 77914 #### [facility],[address] [place] [address] 50483 Mucous NONE Normal [facility] Comment on above: Performed By: #### 2 08639 #### [facility],[address] [place] [address] Nitrite Ql (U) Negative Normal NORMAL: NEGATIVE [facility] Comment on above: Performed By: #### 2 06546 #### [facility],[address] [place] [address] pH (U) 6 [pH] Normal NORMAL: 5.0-8.0 [facility] Comment on above: Performed By: #### 2 91144 #### [facility],[address] [place] [address] Protein Ql (U) Negative Normal NORMAL: NEGATIVE [facility] Comment on above: Performed By: #### 2 37177 #### [facility],[address] [place] [address] Rbc 0-5 Normal 0-3/hpf [facility] Comment on above: Performed By: #### 2 67413 #### [facility],[address] [place] [address] Sp [place] 1.010 Normal NORMAL: 1.010-1.030 [facility] Comment on above: Performed By: #### 2 14326 #### [facility],[address] [place] [address] Specimen Type UNSPECIFIED Normal [facility] Comment on above: Performed By: #### 2 08735 #### [facility],[address] [place] [address] Urinalysis dipstick W Reflex Microscopic panel (U) SEE BELOW Normal [facility] Comment on above: Result Comment: MICR OSCOPIC Performed By: #### 2 93246 #### [facility],[address] [place] [address] 35562 Urobilinog NORM Normal NORMAL: NORMAL [facility] Comment on above: Performed By: #### 2 49429 #### [facility],[address] [place] [address] 34260 Wbc 1-5 Normal 0-5/hpf [facility] Comment on above: Performed By: #### 2 02748 #### [facility],[address] [place] [address] 95424 Yeast NONE Normal [facility] Comment on above: Performed By: #### 2 82299 #### [facility],[address] [place] [address] 80816 CBC + DIFFon 09-20-2021 Baso # 0.10 x10EE3/UL Normal 0.00 - 0.10 [facility] Comment on above: Performed By: #### 2 40346 #### [facility],[address] [place] [address] 07107 Basophils/100 WBC (Bld) 1.2 % Normal 0.0 - 2.0 [facility] Comment on above: Performed By: #### 2 58184 #### [facility],[address] [place] [address] 17197 CBC + DIFF Normal [facility] Comment on above: Result Comment: CBC- COMPLETE BLOOD COUNT Performed By: #### 2 70887 #### [facility],[address] [place] [address] 20028 EO # 0.30 x10EE3/UL Normal 0.00 - 0.50 [facility] Comment on above: Performed By: #### 2 95057 #### [facility],[address] [place] [address] 83059 Eosinophils/100 WBC (Bld) 3.9 % Normal 0.0 - 7.0 [facility] Comment on above: Performed By: #### 2 90710 #### [facility],[address] [place] [address] 60707 Erythrocyte distribution width (RBC) [Ratio] 13.8 % Normal 12.0 - 15.6 [facility] Comment on above: Performed By: #### 2 30884 #### [facility],[address] [place] [address] 42630 Hematocrit (Bld) [Volume fraction] 41.3 % Normal 34.0 - 46.0 [facility] Comment on above: Performed By: #### 2 26602 #### [facility],[address] [place] [address] Hemoglobin (Bld) [Mass/Vol] 14.0 g/dL Normal 12.0 - 16.0 [facility] Comment on above: Performed By: #### 2 64920 #### [place] [address] Lymph # 3.10 x10EE3/UL High 0.80 - 2.80 [facility] Comment on above: Performed By: #### 2 82253 #### [facility],[address] [place] [address] 83584 Lymphocytes/100 WBC (Bld) 39.2 % Normal 20.0 - 45.0 [facility] Comment on above: Performed By: #### 2 59985 #### [facility],[address] [place] [address] 68034 MANUAL DIFF N/A Normal [facility] Comment on above: Performed By: #### 2 38550 #### [facility],[address] [place] [address] 44604 MCH (RBC) [Entitic mass] 32 pg Normal 27 - 33 [facility] Comment on above: Performed By: #### 2 00741 #### [facility],[address] [place] [address] 68053 MCHC 34 X10 3 Normal 32 - 36 [facility] Comment on above: Performed By: #### 2 99563 #### [facility],[address] [place] [address] 97127 MCV (RBC) [Entitic vol] 95 fL Normal 80 - 99 [facility] Comment on above: Performed By: #### 2 42211 #### [facility],[address] [place] [address] 01237 [place] # 0.50 x10EE3/UL Normal 0.20 - 1.00 [facility] Comment on above: Performed By: #### 2 63738 #### [facility],[address] [place] [address] 82283 MONOS % 6.7 % Normal 0.0 - 10.0 [facility] Comment on above: Performed By: #### 2 83690 #### [facility],[address] [place] [address] 03397 Morphology Tate (Bld) [Interp] N/A Normal [facility] Comment on above: Result Comment: {CD] Performed By: #### 2 77137 #### [facility],[address] [place] [address] 20823 Neut # 3.90 x10EE3/UL Normal 1.50 - 7.10 [facility] Comment on above: Performed By: #### 2 39057 #### [facility],[address] [place] [address] 72581 Neutrophils/100 WBC (Bld) 49.0 % Normal 46.0 - 76.0 [facility] Comment on above: Performed By: #### 2 66295 #### [facility],[address] [place] [address] 29677 PLATELET 312 x10EE3/UL Normal 150 - 450 [facility] Comment on above: Performed By: #### 2 98350 #### [facility],[address] [place] [address] 41418 Platelet mean volume (Bld) [Entitic vol] 7.5 fL Normal 6.6 - 10.5 [facility] Comment on above: Result Comment: AUTO MATED DIFFERENTIAL Performed By: #### 2 74173 #### [facility],[address] [place] [id number] RBC 4.36 x 10EE6/UL Normal 4.10 - 5.30 [facility] Comment on above: Performed By: #### 2 [id number] #### [facility],[address] [place] [address] 81864 WBC 7.9 x 10EE3/UL Normal 4.5 - 10.8 [facility] Comment on above: Performed By: #### 2 [id number] #### [facility],[address] [place] [address] 23762 CMP with eGFRon 09-20-2021 AGE 40 years Normal [facility] Comment on above: Performed By: #### 2 [id number] #### [facility],[address] [place] [address] 30176 Albumin [Mass/Vol] 3.5 g/dL Normal 3.4 - 5.0 [facility] Comment on above: Performed By: #### 2 38736 #### [facility],[address] [place] [address] 62377 Albumin/Globulin [Mass ratio] 1.1 {ratio} Normal 0.9 - 1.6 [facility] Comment on above: Performed By: #### 2 66861 #### [facility],[address] [place] [address] 03288 ALK PHOS 91 U/L Normal 46 - 116 [facility] Comment on above: Performed By: #### 2 [id number] #### [facility],[address] [place] [address] 97448 ALT [Catalytic activity/Vol] 31 U/L Normal 14 - 59 [facility] Comment on above: Performed By: #### 2 73295 #### [facility],[address] [place] [address] 56522 Anion gap [Moles/Vol] 9 mmol/L Low 10 - 20 [facility] Comment on above: Performed By: #### 2 99125 #### [facility],[address] [place] [address] 98127 AST [Catalytic activity/Vol] 16 U/L Normal 13 - 39 [facility] Comment on above: Performed By: #### 2 69065 #### [facility],[address] [place] [address] 75255 B/C RATIO 9 ratio Normal 0 - 30 [facility] Comment on above: Performed By: #### 2 16052 #### [facility],[address] [place] [address] 95628 Bilirubin [Mass/Vol] 0.1 mg/dL Low 0.2 - 1.0 [facility] Comment on above: Performed By: #### 2 50425 #### [facility],[address] [place] [address] 15894 Calcium [Mass/Vol] 8.5 mg/dL Normal 8.5 - 10.1 [facility] Comment on above: Performed By: #### 2 16183 #### [facility],[address] [place] [address] 24307 Chloride [Moles/Vol] 105 mmol/L Normal 98 - 107 [facility] Comment on above: Performed By: #### 2 63977 #### [facility],[address] [place] [address] 39996 CMP with eGFR Normal [facility] Comment on above: Result Comment: COMP REHENSIVE METABOLIC PANEL Performed By: #### 2 59658 #### [facility],[address] [place] [address] 53934 CO2 [Moles/Vol] 30.6 mmol/L Normal 21.0 - 32.0 [facility] Comment on above: Performed By: #### 2 47000 #### [facility],[address] [place] [address] 38652 Creatinine [Mass/Vol] 0.90 mg/dL Normal 0.55 - 1.02 [facility] Comment on above: Performed By: #### 2 28086 #### [facility],[address] [place] [address] GFR/1.73 sq M.predicted among non-blacks MDRD (S/P/Bld) [Vol rate/Area] mL/min/{1.73_m2} Normal 60 - 999 [facility] Comment on above: Performed By: #### 2 23176 #### [facility],[address] [place] [address] Result Comment: ACCO RDING TO THE NATIONAL KIDNEY DISEASE EDUCATION PROGRAM(NKDE), A NORMAL eGFR IS A VALUE GREATER THAN OR EQUAL TO 60 ML/MIN/1.73 SQ METERS. CHRONIC KIDNEY DISEASE: <60mL/MIN/1.73 SQ METERS KIDNEY FAILURE: <15mL/MIN/1.73 SQ METERS THIS TEST SHOULD ONLY BE USED FOR PATIENTS 18 YEARS OF AGE AND OLDER. Globulin (S) [Mass/Vol] 3.3 g/dL Normal 1.5 - 3.8 [facility] Comment on above: Performed By: #### 2 94272 #### [place] [address] Glucose [Mass/Vol] 90 mg/dL Normal 74 - 106 [facility] Comment on above: Performed By: #### 2 57405 #### [place] [id number] Potassium [Moles/Vol] 4.1 mmol/L Normal 3.5 - 5.1 [facility] Comment on above: Performed By: #### 2 29315 #### [address] [address] Protein [Mass/Vol] 6.8 g/dL Normal 6.4 - 8.2 [facility] Comment on above: Performed By: #### 2 84670 #### [place] [id number] Sodium [Moles/Vol] 140 mmol/L Normal 136 - 145 [facility] Comment on above: Performed By: #### 2 52780 #### [facility],[address] [place] [address] 12423 Urea nitrogen [Mass/Vol] 8 mg/dL Normal 7 - 18 [facility] Comment on above: Performed By: #### 2 36758 #### [facility],[address] [place] [address] BRAIN W/O CONTRASTon - CT BRAIN W/O CONTRAST [place] [address] Patient: CHELLY ALVAREZ Phone#: : 1980 Age: 40 Gender: F Pt. Type: ER Account: [id number] Location: [facility] Ordering: DR. ISABEL SANCHEZ Exam Date: 09/19/2021/23:06 Family Phys: Charge Code: [id number] Physician: Harris Order #: [id number] DLP Dose#: 57.50 PROCEDURE: CT BRAIN WITHOUT CONTRAST COMPARISON: [facility], CT, BRAIN W/O CON, 10/02/2018, 2:14. INDICATIONS: Headche. TECHNIQUE: CT images were obtained without contrast material. All CT scans at this facility use dose modulation, iterative reconstruction, and/or weight based dosing when appropriate to reduce radiation dose to as low as reasonably achievable. IV CONTRAST: No IV contrast used,0ml TOTAL DOSE: 57.50 CTDIvol(mGy) FINDINGS: CEREBRUM: No edema, hemorrhage, mass, acute infarction, or inappropriate atrophy. CEREBELLUM: No edema, hemorrhage, mass, acute infarction, or inappropriate atrophy. BRAINSTEM: No edema, hemorrhage, mass, acute infarction, or inappropriate atrophy. CSF SPACES: Ventricles, cisterns, and sulci are appropriate for age. No hydrocephalus, subarachnoid hemorrhage, or mass. SKULL: No mass or other significant visible lesion. SINUSES: Limited views demonstrate no significant mucosal thickening or fluid. ORBITS: Limited views are unremarkable. OTHER: Negative. CONCLUSION: No acute disease. Dictated by: Sonia May MD on 09/20/2021 at 15:15 Approved by: Sonia May MD on 09/20/2021 at 15:16 Normal [facility] SEDRATEon 09-20-2021 SEDRATE 3 mm/hr Normal 0 - 30 [facility] Comment on above: Performed By: #### 2 [id number] #### [facility],[address] [place] [address] Laboratory - Drug toxicology on 08-25-2021 Amphetamines Ql (U) Positive [facility] Work Phone: Benzodiazepines Ql (U) Negative [facility] Work Phone: Cannabinoids Screen Ql (U) Negative [facility] Work Phone: Cocaine Ql (U) Negative [facility] Work Phone: Opiates Ql (U) Negative [facility] Work Phone: No Panel Informationon 08-25 MDMA (Ecstasy) Screen Negative [facility] Work Phone: Urine Barbiturates Screen Negative [facility] Work Phone: Urine Drug Screen Comment [facility] Work Phone: Comment on above: CONFIRMATORY TESTING FOR ALL POSITIVE URINE DRUG SCREENRESULTS WILL ONLY BE SENT OUT UPON PHYSICIAN ORDER. VISTA Urine Drug Screen methods provide only preliminaryanalytical test results. A more specific alternate chemicalmethod must be used in order to obtain a confirmedanalytical result. Gas chromatography/mass spectrometery(GC/MS) is the preferred confirmatory method. Clinicalconsideration and professional judgement should be appliedto any drug of abuse test result, particularly whenpreliminary positive results are used. URINE TCA TESTING MUST BE ORDERED SEPARATELY. USE TESTMNEMONIC: UTCA Urine Methadone Screen Negative [facility] Work Phone: Urine Drug Screen (VISTA)on 08-25-2021 AMPHETAMINES Positive Abnormal <1000 ng/mL [facility] Comment on above: Order Comment: UNK Performed By: #### L 505.5000, L801.1541 #### [facility] [address] [place], [address] BARBITIURATES Negative Normal < 200 ng/mL [facility] Comment on above: Order Comment: UNK Performed By: #### L 505.5000, L801.1541 #### [facility] [address] [place], [address] BENZODIAZIPINE Negative Normal < 200 ng/mL [facility] Comment on above: Order Comment: UNK Performed By: #### L 505.5000, L801.1541 #### [facility] [address] [place], [address] COCAINE Negative Normal < 300 ng/mL [facility] Comment on above: Order Comment: UNK Performed By: #### L 505.5000, L801.1541 #### [facility] [address] [place], [address] ECSTACY Negative Normal < 500 ng/mL [facility] Comment on above: Order Comment: UNK Performed By: #### L 505.5000, L801.1541 #### [facility] [address] [place], [address] METHADONE Negative Normal < 300 ng/mL [facility] Comment on above: Order Comment: UNK Performed By: #### L 505.5000, L801.1541 #### [facility] [address] [place], [address] OPIATES Negative Normal < 300 ng/mL [facility] Comment on above: Order Comment: UNK Performed By: #### L 505.5000, L801.1541 #### [facility] [address] [place], [address] PCP Negative Normal < 25 ng/mL [facility] Comment on above: Order Comment: UNK Performed By: #### L 505.5000, L801.1541 #### [facility] [address] [place], [address] THC Negative Normal < 50 ng/mL [facility] Comment on above: Order Comment: UNK Performed By: #### L 505.5000, L801.1541 #### [facility] [address] [place], [address] VISTA UDS PH 7 Normal [facility] Comment on above: Order Comment: UNK Performed By: #### L 505.5000, L801.1541 #### [facility] [address] [place], [address] Urine phencyclidine (PCP) de tectionon 08-25-2021 Phencyclidine Ql (U) Negative [facility] Work Phone: EMERGENCY REPORTon 1 EMERGENCY REPORT [facility] EMERGENCY ROOM REPORT NAME ACCOUNT SEX AGE ADMIT DISCHARGE PT MED. RECORD# NUMBER DATE DATE TYPE CHELLY ALVAREZ [id number] F 40 11/02/20 11/02/20 3 70012 ROOM: ER DATE OF : 1980 DICTATING PHYSICIAN: Isabel Sanchez HISTORY OF PRESENT ILLNESS: The patient came to the Emergency Room because of an irritation to an area on the back of her neck on the left. She thought there was a blister or a boil there that might need to be opened. She states she has had it for several days, but she knows it has not drained any. She has not been using any medications except for [id number] medications like Tylenol or ibuprofen, but she states that the discomfort is such that she is beginning to have more pain and so she decided to come down here. She came after work. She works at a [employer]. She states that she is in good health overall. She states she does not have a history of MRSA. She states she is not a diabetic. No history of heart valve disorders. No history of synthetic joint signs. She states she is not . She is seen in the hallway. SOCIAL HISTORY: She does smoke. No alcohol or drug use. REVIEW OF SYSTEMS: She states she can move her neck around; she just has some pain there. The pain is dull and nonradiating but obviously worse when she moves. PHYSICAL EXAMINATION: Vital signs: 97.5 temperature, 104 radial pulse, 16 respirations, 117/77 blood pressure, and 98% saturation. Good eye contact. In general, she appears to be in no distress. She has no anterior or posterior supraclavicular nodes. HEENT examination is normal. Her neck, however, posteriorly on the left has what looks to be a boil that has imploded upon itself. There is nothing to drain. There is an eschar across the top, but there is no drainage from it. It is not bulbous or fluctuant. It is very firm. I think she needs antibiotics for this. Her lungs are clear. Heart rate and rhythm are regular without a murmur. Abdomen is soft without any discomfort. Extremities are otherwise not swollen and nontender. She admits to no other rash elsewhere. EMERGENCY DEPARTMENT COURSE AND TREATMENT: We put her on antibiotics and Bactroban. We are going to have her follow up with her family doctor, Dr. Carson, in a couple of days. Warm compresses. We gave her some tramadol. I told her to use a lot of warm soapy soaks to the area. Clindamycin was also prescribed, and she was given a dose of clindamycin and 4 tramadol to go in the Emergency Room. Return p.r.n. as necessary. I told her this should go away, and if she is not able to see her Page 1 of 2 CHELLY ALVAREZ Emergency Room Report CHELLY ALVAREZ : 1980 family doctor I would be here on the night of November 03 and I would recheck her. Dictated By: Isabel Sanchez DO 11/04/20 03:07 JOB #: [id number] Transcribed By: jing 11/06/20 07:38 Electronically signed by: E-SIGN ISABEL SANCHEZ DO 11/18/20 19:19 Page 2 of 2 CHELLY ALVAREZ Emergency Room Report Normal [facility] Vital Signs Date Time Vital Sign Value Performing Clinician Facility 10-22-2024 16:18-0400 Body mass index (BMI) [Ratio] 31.99 kg/m2 Liyah Lauren DO Work Phone: [facility] 10-22-2024 16:18-0400 Body temperature 97.7 [degF] Liyah Xin DO Work Phone: [facility] 10-22-2024 16:18-0400 Body weight 81.92 kg Liyah Xin DO Work Phone: [facility] 10-22-2024 16:18-0400 Diastolic blood pressure 75 mm[Hg] Liyah Xin DO Work Phone: [facility] 10-22-2024 16:18-0400 Heart rate 87 /min [place] Xin DO Work Phone: [facility] 10-22-2024 16:18-0400 Respiratory rate 18 /min Liyah Xin DO Work Phone: [facility] 10-22-2024 16:18-0400 SaO2% (BldA) [Mass fraction] 100 % Liyah Xin DO Work Phone: [facility] 10-22-2024 16:18-0400 Systolic blood pressure 115 mm[Hg] Liyah Xin DO Work Phone: [facility] 04-06-2024 03:47-0500 Body temperature 98.06 [degF] ROSANA GAVIN MD [facility] 04-06-2024 03:47-0500 Diastolic Blood Pressure Non-Invasive 90 mm[Hg] ROSANA GAVIN MD [facility] 04-06-2024 03:47-0500 Heart rate 134 /min ROSANA GAVIN MD [facility] 04-06-2024 03:47-0500 Respiratory rate 20 /min ROSANA GAVIN MD [facility] 04-06-2024 03:47-0500 Systolic Blood Pressure Non-Invasive 141 mm[Hg] ROSANA GAVIN MD [facility] 11-05-2023 12:54-0400 Body mass index (BMI) [Ratio] 31 kg/m2 Ramos Bah APRN.RN CORRECTIONS Work Phone: [facility] 11-05-2023 12:54-0400 Body temperature 97.5 [degF] Ramos Bah APRN.RN CORRECTIONS Work Phone: [facility] 11-05-2023 12:54-0400 Body weight 79.38 kg Ramos Bah APRN.RN CORRECTIONS Work Phone: [facility] 11-05-2023 12:54-0400 Diastolic blood pressure 82 mm[Hg] Ramos Bah APRN.RN CORRECTIONS Work Phone: [facility] 11-05-2023 12:54-0400 Heart rate 101 /min Ramos Bah APRN.RN CORRECTIONS Work Phone: [facility] 11-05-2023 12:54-0400 Respiratory rate 16 /min Ramos Bah APRN.RN CORRECTIONS Work Phone: [facility] 11-05-2023 12:54-0400 SaO2% (BldA) [Mass fraction] 97 % Ramos Bah APRN.RN CORRECTIONS Work Phone: [facility] 11-05-2023 12:54-0400 Systolic blood pressure 122 mm[Hg] Ramos Bah APRN.RN CORRECTIONS Work Phone: [facility] 07-17-2022 21:35-0400 Diastolic Blood Pressure Non-Invasive 72 1 ALFREDO GUZMAN MD [facility] 07-17-2022 21:35-0400 Heart rate 94 /min ALFREDO GUZMAN MD [facility] 07-17-2022 21:35-0400 Respiratory rate 18 /min ALFREDO GUZMAN MD [facility] 07-17-2022 21:35-0400 Systolic Blood Pressure Non-Invasive 133 1 ALFREDO GUZMAN MD [facility] 07-17-2022 18:21-0400 Body height 160 cm ALFREDO GUZMAN MD [facility] 07-17-2022 18:21-0400 Body temperature 98.42 [degF] ALFREDO GUZMAN MD [facility] 07-17-2022 18:21-0400 Body weight 70.9 kg ALFREDO GUZMAN MD [facility] 07-17-2022 18:21-0400 Diastolic Blood Pressure Non-Invasive 68 1 ALFREDO GUZMAN MD [facility] 07-17-2022 18:21-0400 Heart rate 100 /min ALFREDO GUZMAN MD [facility] 07-17-2022 18:21-0400 Respiratory rate 20 /min ALFREDO GUZMAN MD [facility] 07-17-2022 18:21-0400 Systolic Blood Pressure Non-Invasive 134 1 ALFREDO GUZMAN MD [facility] 07-14-2022 10:31-0400 Body temperature 97.5 [degF] Dr. Trina Saldana Work Phone: [facility] 07-14-2022 10:31-0400 Diastolic blood pressure 78 mm[Hg] Dr. Trina Saldana Work Phone: [facility] 07-14-2022 10:31-0400 Heart rate 83 /min Dr. Trina Saldana Work Phone: [facility] 07-14-2022 10:31-0400 Respiratory rate 16 /min Dr. Trnia Saldana Work Phone: [facility] 07-14-2022 10:31-0400 SaO2% (BldA) [Mass fraction] 100 % Dr. Trina Saldana Work Phone: [facility] 07-14-2022 10:31-0400 Systolic blood pressure 113 mm[Hg] Dr. Trina Saldana Work Phone: [facility] 07-14-2022 09:25-0400 Body height 160.[address] Trina Saldana Work Phone: [facility] 07-14-2022 09:25-0400 Body mass index (BMI) [Ratio] 28.5 kg/m2 Dr. Trina Saldana Work Phone: [facility] 07-14-2022 09:25-0400 Body weight 73.[address] Trina Saldana Work Phone: [facility] 06-27-2022 08:50-0400 Body temperature 97.2 [degF] Dr. Trina Saldana Work Phone: [facility] 06-27-2022 08:50-0400 Diastolic blood pressure 72 mm[Hg] Dr. Trina Saldana Work Phone: [facility] 06-27-2022 08:50-0400 Heart rate 80 /min Dr. Trina Saldana Work Phone: [facility] 06-27-2022 08:50-0400 Respiratory rate 18 /min Dr. Trina Saldana Work Phone: [facility] 06-27-2022 08:50-0400 SaO2% (BldA) [Mass fraction] 98 % Dr. Trina Saldana Work Phone: [facility] 06-27-2022 08:50-0400 Systolic blood pressure 95 mm[Hg] Dr. Trina Saldana Work Phone: [facility] 06-27-2022 06:59-0400 Body height 160.[address] Trina Saldana Work Phone: [facility] 06-27-2022 06:59-0400 Body mass index (BMI) [Ratio] 29.3 kg/m2 Dr. Trina Saldana Work Phone: [facility] 06-27-2022 06:59-0400 Body weight 75.[address] Trina Saldana Work Phone: [facility] 06-12-2022 09:16-0400 Body mass index (BMI) [Ratio] 28.3 kg/m2 Dr. Trina Saldana Work Phone: [facility] 06-12-2022 09:16-0400 Body weight 72.[address] Trina Saldana Work Phone: [facility] 06-12-2022 09:16-0400 Diastolic blood pressure 85 mm[Hg] Dr. Trina Saldana Work Phone: [facility] 06-12-2022 09:16-0400 Respiratory rate 18 /min Dr. Trina Saldana Work Phone: [facility] 06-12-2022 09:16-0400 Systolic blood pressure 134 mm[Hg] Dr. Trina Saldana Work Phone: [facility] 05-15-2022 13:11-0500 Body height [address] EDWAR ARVIZU DO [facility] 05-15-2022 13:11-0500 Body temperature 98.42 [degF] DR EDWAR ARVIZU DO [facility] 05-15-2022 13:11-0500 Body weight 68.[address] EDWAR ARVIZU DO [facility] 05-15-2022 13:11-0500 Diastolic Blood Pressure Non-Invasive [address] EDWAR ARVIZU DO [facility] 05-15-2022 13:11-0500 Heart rate 80 /min DR EDWAR ARVIZU DO [facility] 05-15-2022 13:11-0500 Respiratory rate 18 /min DR EDWAR ARVIZU DO [facility] 05-15-2022 13:11-0500 Systolic Blood Pressure Non-Invasive [address] EDWAR ARVIZU DO [facility] Encounters Encounter Date Encounter Type Care Provider Facility Start: 10-22-2024 End: 10-22-2024 Subsequent hospital visit by physician Xr [facility] Work Phone: [facility] PristonesMORIAHAlbina Comment on above: Acute left-sided low back pain with left-sided sciatica [M54.42] Start: 10-22-2024 End: 10-22-2024 Office outpatient visit 25 minutes [place] Xin DO Work Phone: [facility] Comment on above: Acute left-sided low back pain with left-sided sciatica (Primary Dx) Start: 10-22-2024 End: 10-22-2024 ambulatory SELF Facility:[id number] Start: 04-06-2024 End: 04-06-2024 Emergency department patient visit ROSANA GAVIN MD [facility] Start: 11-05-2023 End: 11-05-2023 Subsequent hospital visit by physician Xr [facility] Work Phone: [facility] CyphomaAlbina Comment on above: Fall as cause of acc idental injury in home as place of occurrence, initial encounter [W19.XXXA, Y92.009] Start: 11-05-2023 End: 11-05-2023 ambulatory TRINA A MALYS Facility:[id number] Start: 11-05-2023 End: 11-05-2023 Patient encounter procedure Ramos Bah APRN.RN CORRECTIONS Work Phone: [facility] Comment on above: Fall as cause of acc idental injury in home as place of occurrence, initial encounter (Primary Dx); Viral bronchitis Start: 07-17-2022 End: 07-17-2022 Emergency department patient visit DR TRINA SALDANA DO Facility:[facility] Start: 07-17-2022 End: 07-17-2022 Emergency department patient visit ALFREDO GUZMAN MD [facility] Start: 07-14-2022 End: 07-14-[address] Prashant Ernandez Facility:[facility] Start: 07-14-2022 Non-patient / Non-visit Dr. Trina Saldana Work Phone: [facility] Start: 07-14-2022 End: 07-14-2022 Admission to same day surgery center Dr. Trina Saldana Work Phone: [facility] Start: 07-14-2022 End: 07-14-[address] Trina Saldana Work Phone: [facility] Work Phone: Start: 06-27-[address] Prashant Ernandez Facility:[facility] Start: 06-27-2022 End: 06-27-[address] Prashant Ernandez Facility:[facility] Start: 06-27-2022 Non-patient / Non-visit Dr. Trina Saldana Work Phone: [facility] Start: 06-27-2022 End: 06-27-2022 Admission to same day surgery center Dr. Trina Saldana Work Phone: [facility] Start: 06-27-2022 End: 06-27-[address] Trina Saldana Work Phone: [facility] Work Phone: Start: 06-12-2022 End: 06-12-[address] Prashant Ernandez Facility:[facility] Start: 06-12-2022 End: 06-12-[address] Trina Saldana Work Phone: [facility] Start: 06-08-2022 End: 06-08-2022 ambulatory Rachel Chungel [facility] Work Phone: Start: 06-08-2022 End: 06-08-2022 Patient encounter procedure [facility] Start: 05-15-2022 End: 05-15-2022 Emergency department patient visit DR EDWAR ARVIZU DO Facility:[facility] Start: 05-15-2022 End: 05-15-2022 Emergency department patient visit DR EDWAR ARVIZU DO [facility] Start: 09-20-2021 End: 09-21-2021 [facility] Start: 09-19-2021 End: 09-20-2021 Emergency department patient visit DR KIERSTEN QIU [facility] Start: 08-25-2021 End: 08-25-2021 [facility] System-Laboratory, Specimen Start: 08-25-2021 End: 08-25-2021 ambulatory Rachel Seymour Facility:[facility] Start: 11-02-2020 End: 11-02-2020 Emergency department patient visit ISABEL OLIVEIRA ABDIEL [facility] Start: 10-18-2018 End: 10-18-2018 Patient encounter procedure NONE NONE Facility:[facility] Start: 10-18-2016 End: 10-18-2016 Ambulatory [facility] Facility:[facility] Start: 12-28-2014 End: 12-28-2014 Telephone encounter Rosalind Dalton MD Work Phone: [facility] Comment on above: Patient Request Procedures Date Procedure Procedure Detail Performing Clinician Start: 11-05-2023 Radiologic exam knee complete 4/more views Ramos Bah LIBRARY MEDIA TECHNICIAN.RN CORRECTIONS Work Phone: Start: 07-14-[address] Trina velez Work Phone: Start: 06-27-[address] Trina velez Work Phone: Start: 06-08-2022 Ultrasonography of limb Start: 09-21-2021 Urinalysis BRADLEY KARINDIVINA BY Comment on above: Result Comment: URIN ALYSIS Performed By: #### [id number] #### [facility],[address] [place] [address] Plan of Treatment Date Care Activity Detail Author Start: 11-24-2024 Influenza vaccination Influenza Vacc ine (#1) [facility] Start: 11-25-2023 Covid-19 Vaccine ( season) Covid-19 Vaccine ( season) [facility] Start: 11-25-2023 Influenza vaccination Influenza Vacc ine (#1) [facility] Start: 11-24-2022 Covid-19 Vaccine ( season) Covid-19 Vaccine ( season) [facility] Start: 07-14-2022 Patient discharge [facility] Start: 06-27-2022 Anes integ musc & nr v head neck&posterior trunk ANESTH HEAD/NECK/PTRUNK [facility] Start: 06-27-2022 Exc tumor soft tiss back/flank subfascial 5 cm/> EXC BACK GRICELDA DEEP 5 CM/> [facility] Start: 06-27-2022 Exc tumor soft tiss back/flank subfascial <5cm EXC BACK GRICELDA DEEP < 5 CM [facility] Start: 06-27-2022 Patient discharge [facility] Start: 2021 Screening for malign ant neoplasm of breast Mammogram Screening [facility] Start: 11-24-2020 Influenza vaccination INFLUENZ A (Season Ended) [facility] Start: 10-11-2011 HPV TESTING HPV TESTING [facility] Start: 2002 PAP TESTING PAP TESTING [facility] Start: 2002 Screening for malign ant neoplasm of cervix Cervical Cancer Screening [facility] Start: 2000 Hepatitis B Vaccine (1 of 3 - 19+ 3-dose series) Hepatitis B Vaccine (1 of 3 - 19+ 3-dose series) [facility] Start: 2000 Pneumococcal vaccination Pneumococcal Vaccine (1 of 2 - PCV) [facility] Start: [address] [facility] Start: 10-11-1999 Depression Screening Depression Scre ening [facility] Start: 10-11-1999 [facility]PATITIS [facility] Start: 10-11-1999 Hepatitis C screening Hepatitis C [facility] Start: 10-11-1999 HIV SCREENING HIV SCRE[facility]ING [facility] Start: 10-11-1999 [facility] Start: 1993 Adult depression screening assessment DEPRESSION SCREENING [facility] Start: 10-11-1987 Pneumococcal vaccination Pneumococcal Vaccine (1 of 2 - PCV) [facility] Colonoscopy [facility] Patient referral [facility] Work Phone: End: 12-04-2024 XR Knee - left AP and Lateral and oblique XR KNEE INJURY 4V AP/LAT/OBLS LEFT Radiology Routine Fall as cause of accidental injury in home as place of occurrence, initial encounter 1 Occurrences starting 11/05/2023 until 12/04/2024 [facility] Comment on above: 1 Occurrences starti ng 11/05/2023 until 12/04/2024 XR Knee - left AP an d Lateral and oblique XR KNEE INJURY 4V AP/LAT/OBLS LEFT Radiology Routine Fall as cause of accidental injury in home as place of occurrence, initial encounter 11/05/2023 1:[address] [facility] End: 11-21-2025 XR Lumbar spine 3 Views XR LUMBAR GENERAL 3V AP/LAT/L5-S1 Radiology Routine Acute left-sided low back pain with left-sided sciatica 1 Occurrences starting 10/22/2024 until 11/21/2025 [facility] Work Phone: Comment on above: 1 Occurrences starti ng 10/22/2024 until 11/21/2025 XR Lumbar spine 3 Views XR LUMBA R GENERAL 3V AP/LAT/L5-S1 Radiology Routine Acute left-sided low back pain with left-sided sciatica 10/22/2024 4:[address] [facility] End: 12-04-2024 XR Ribs - right Views and Chest PA XR RIBS/CHEST 3V AP RIB/OBLS/CXR RIGHT Radiology Routine Fall as cause of accidental injury in home as place of occurrence, initial encounter 1 Occurrences starting 11/05/2023 until 12/04/2024 [facility] Work Phone: Comment on above: 1 Occurrences starti ng 11/05/2023 until 12/04/2024 XR Ribs - right View s and Chest PA XR RIBS/CHEST 3V AP RIB/OBLS/CXR RIGHT Radiology Routine Fall as cause of accidental injury in home as place of occurrence, initial encounter 11/05/2023 1:[address] [facility] Immunizations Immunization Date Immunization Notes Care Provider Fa guerrero 01-11-2015 influenza, injectabl e, quadrivalent, contains preservative Ramos Bah LIBRARY MEDIA TECHNICIAN.RN CORRECTIONS Work Phone: [facility] 01-11-2015 influenza virus vacc ine, unspecified formulation Ramos Bah LIBRARY MEDIA TECHNICIAN.RN CORRECTIONS Work Phone: [facility] Payers Date Payer Category Payer Medicaid [id number] 2021 Self-pay [id number] 2021 Unknown [id number] 2016 Unknown 2013 Medicaid [place] [id number] 2013-Present Medicaid [id number] 1981 Unknown [id number] 1981 Unknown [id number] 1981 Unknown [id number] 1981 Unknown [id number] 1981 Unknown [id number] 1981 Unknown [id number] 1981 Unknown [id number] 1959 Unknown [id number] Unknown [id number] Unknown [id number] [id number] Unknown [id number] Unknown [id number] Unknown [id number] Unknown [id number] Unknown [id number] Social History Date Type Detail Facility Start: 09-14-2014 End: 10-22-2024 Tobacco smoking status RIIS Current every day smoker [facility] History of tobacco use Cigarette Smoker [facility] Work Phone: Start: 09-14-2014 End: 11-05-2023 Cigarettes smoked current (pack per day) - Reported [facility] Start: 09-14-2014 End: 10-22-2024 Tobacco use and exposure Former user [facility] Work Phone: History of tobacco use Chews Tobacco [facility] Work Phone: Start: 09-14-2014 End: 10-22-2024 Alcohol intake Current drinker of alcohol (finding) [facility] Start: 08-21-2014 Alcohol Comment rare [facility] Start: 1980 Sex Assigned At Not on file [facility] Start: 05-20-2020 End: 06-27-2022 Tobacco smoking status NHIS Unknown if ever smoked [facility] Start: 05-20-2020 None [facility] Start: 05-20-2020 Alone [facility] Start: 1980 Sex Assigned At Female W [facility] Start: 05-15-2022 End: 04-06-2024 Tobacco smoking status Heavy tobacco smoker (finding) [facility] Sex Assigned At [facility] History of tobacco use Passive smoker [facility] Start: 11-05-2023 End: 10-22-[address] [facility] Adult Depression Screening Assessment 0 [facility] Start: 05-04-2005 Sex Female (finding) [facility] Goals Date Patient Goal Desired Activity /State Functional Status Date Assessment Result Facility 04-06-2024 Functional Status Activity Nataliyagustavo hill Independent [facility] 04-06-2024 Functional Status Standard Safet y ID band on, Allergy Band on, Bed in low position, Wheels locked, Phone within reach, personal items within reach, Bedside Cart Locked, Security notified, Security present, Law enforcement present, Metal Detection Wand Used [facility] 07-17-2022 Functional Status Independent [facility] 07-17-2022 Functional Status Resting [facility] 05-15-2022 Functional Status Independent [facility] 05-15-2022 Functional Status Resting [facility] 09-14-2014 Are you deaf, or do you have serious difficulty hearing Yes 09/14/2014 2:21 PM EDT Kiara Batista LPN Yes [facility] 09-14-2014 Are you blind, or do you have serious difficulty seeing, even when wearing glasses Yes 09/14/2014 2:21 PM EDT Kiara Batista LPN Yes [facility] 09-14-2014 Do you have serious difficulty walking or climbing stairs Yes 09/14/2014 2:21 PM EDT Kiara Batista LPN Yes [facility] 09-14-2014 Do you have difficul ty dressing or bathing No 09/14/2014 2:21 PM EDT Kiara Batista LPN No [facility] 09-14-2014 Because of a physica l, mental, or emotional condition, do you have difficulty doing errands alone such as visiting a physician's office or shopping No 09/14/2014 2:21 PM EDT Kiara Batista LPN No [facility] Mental Status Date Assessment Result Facility 04-06-2024 Mental Status Orientation Oriented x 4 [facility] 04-06-2024 [facility] 07-17-2022 Mental Status Orientation Oriented x 4 [facility] 07-14-2022 Cognitive function Voice/Name [facility] Work Phone: 06-27-2022 Cognitive function Level Of Cons ciousness Sedated [facility] Work Phone: 06-27-2022 Cognitive function Voice/Name [facility] Work Phone: 05-15-2022 Mental Status Orientation Oriented x 4 [facility] 05-15-2022 Mental Status [facility] 09-14-2014 Because of a physica l, mental, or emotional condition, do you have serious difficulty concentrating, remembering, or making decisions Yes 09/14/2014 2:21 PM EDT Kiara Batista LPN Yes [facility] Clinical Notes 12-28-2014 to 10-22-2024 Patient InstructionsGisela Duran, RT(R) - 10/22/2024 4:40 PM EDLiyah Frederick DO - 10/22/2024 4:39 PM EDTPatient Ronna Delarosa, RT(R) - 11/05/2023 1:20 PM EDT Note Date & Type Note Facility 10-22-2024 Instructions Liyah Lauren DO - 10/22/2024 4:41 PM EDT - Complete a basic lumbar spine X-ray as ordered to check for any changes since your prior surgery. - Rest your back and apply ice; elevate when possible to reduce inflammation. - Avoid heavy lifting or excessive strain for the next few days. - Alternate acetaminophen (Tylenol) and ibuprofen every 6 hours for a few days to help manage pain. - Use topical lidocaine, a TENS unit, or a muscle massager for additional relief as needed. - If pain or numbness worsens, you develop new leg weakness or lose feeling in your legs or arms, or if you have trouble breathing again, go to the emergency department immediately for a stat MRI to rule out spinal cord compression. - If your pain doesn t improve or you continue to have shooting (radicular) pain, call your family doctor to arrange referrals for a CT scan or MRI. Low Back Pain-Exercises What exercise can I do to reduce low back pain? Pelvic tilt Lie on your back with your knees bent. In this relaxed position, the small of your back will not be touching the floor. Tighten your abdominal muscles so that the small of your back presses flat against the floor. Hold for five seconds then relax. Repeat three times and gradually build to 10 repetitions. [id number] Lie on your back with both legs straight. Bring one knee up to your chest, pressing the small of your back into the floor (pelvic tilt). Hold for five seconds and repeat five times. Repeat exercise on other leg. Back stretch Lie on your stomach. Use your arms to push your upper body off the floor. Hold for five seconds. Let your back relax and sag. Repeat 10 times. Discontinue any exercise that produces or increases pain in the leg. Copyright [id number] [facility] [place]. All rights reserved. This information is provided by the [facility] and is not intended to replace the medical advice of your doctor or health care provider. Please consult your health care provider for advice about a specific medical condition. For additional written health information, please contact the Health Information Center at the [facility] or toll-free extension [phone] or visit [email or web address] This document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 staff for a referral. Domestic violence is a crime and as a victim you have legal rights. If the police have not yet been involved, consider calling the police for assistance. You can also obtain a court order prohibiting your partner from contacting you in any way (including in person or by phone). Contact a local domestic violence program or an bankruptcy attorney for more information. Before you leave here Decide if it is safe to return home. If you know the situation is so dangerous that your life is in danger, let our staff know so that we can call one of the local domestic violence shelters or help you arrange to stay with a friend or relative. Domestic violence shelters can help with issues related to the safety of children and pets, housing, and financial issues. When you get home Develop an exit plan or a safety plan in advance. Know exactly where you could go even in the middle of the night. Pack an overnight bag in case you have to leave home in a hurry. Either hide it yourself or give it to a friend to keep for you. This should include: oToilet articles, medicines, extra set of keys to the house and car, extra set of clothing and a special toy for each child oExtra dyer, checks or savings account book oImportant papers, such as social security cards, certificates, green cards, passports, work authorization and any other immigration documents, medical cards, cat driver's license, title to the car, proof of car insurance, etc. If you ever feel your safety is in danger, get out of the home, even if you did not have a chance to plan the above. Calling the police When someone has injured you or violated a restraining order, a criminal stay away-order, or an emergency protective order, then do the following: Call the police: use 911 if it is an emergency. Tell them you are in danger and you need help immediately. Let them know if you have a court order. If the police do not come quickly, call again and say, This is my second call. Take note of the time and date of your call(s) and who you spoke with. When the police arrive, tell them only what the attacker did. Describe your injuries, how you were injured, if weapons were used, or if a restraining order was violated. Ask the police to file a report and give you a reporting number. If you do not already have a restraining order, ask the officer for an emergency protective order. This is an order that may protect you until you obtain a criminal stay away order or restraining order. Always get the police officers' names and badge numbers. If you have trouble with a police communications dispatcher, you can complain to the officer's supervisor blood. Arrest If the attacker is arrested and taken to the police station, he will probably be released with or without bail until the hearing. This may only take a few hours. Use this time to get to a safe place. Ask that a condition of his release be that he should not come near you. No arrest If the police refuse to make an arrest, you may ask to make a private citizen's arrest. Tell the officers that you fear the attacker will return and injure you unless an arrest is made. Call the Sales Executive's office or the Police Department about how to follow up with your complaint. For more information, call the National Domestic Violence Hotline at 8-600-258-ORGW (6681) or visit their website at www.Sophono.SecondMarket. They will make certain you are in a safe situation before talking with you. [phone] [employer] [place] [address]. All rights reserved. This information is not intended as a substitute for professional medical care. Always follow your healthcare professional's instructions. Alcohol Intoxication Alcohol intoxication is very serious. It occurs when you drink alcohol faster than your liver can break it down. Severe intoxication is a medical emergency. It is also called alcohol overdose or alcohol poisoning. It can lead to . Here are some sharma facts: It can take 10 minutes or more to start to feel the effects of a drink. So it's easy to drink more than you planned. Binge drinking is having 5 or more drinks over a short time. This can lead to an alcohol overdose. One drink may be more than 1 serving of alcohol. In some cases, a drink can be 2 to 4 servings. This depends on the type of drink. It takes about 1 hour for your body to break down 1 serving of alcohol. If you have more than 1 drink, it can take a few hours or more. People with alcohol abuse disorders are more likely to get alcohol poisoning. But it can happen to anyone who drinks too much alcohol. Even a first-time drinker is at risk. Many things affect how drinks will affect you. These include: oIf you've eaten oHow fast you drink oYour weight oHow much you normally drink (or not) oMedicines you are taking oIf you have a chronic disease oIf you are male or female Symptoms of alcohol intoxication Mild intoxication Feel more relaxed, less tense Slurred speech Sleepy Poor motor skills Moderate intoxication Changing behavior, aggression, depression Poor judgment Confusion Trouble focusing Poor balance and coordination Severe intoxication Vomiting Seizures Fainting Cold, clammy skin Slow or irregular breathing Low body temperature (hypothermia) Coma Health effects Alcohol causes health problems. This can happen after only drinking a little. There is no set number of drinks or amount of alcohol that is too much. How much you drink at 1 time affects your health. And so does drinking often. Alcohol affects your whole body in these ways: Brain. Alcohol can harm parts of the brain that affect your balance, memory, thinking, and feelings. It can cause memory loss, blackouts, depression, agitation, sleep cycle changes, and seizures. These changes may or may not be go away. Heart and vascular system. Alcohol affects many areas. It can damage heart muscle. This can cause the heart muscle to weaken and stretch (cardiomyopathy). This can lead to trouble breathing, an irregular heartbeat, atrial fibrillation, leg swelling, and heart failure. It makes the blood vessels stiffen. This causes high blood pressure. All of these problems raise your risk for heart attacks or strokes. Liver. Alcohol causes fat to build up in the liver. This affects how the liver works. And it raises the risk for hepatitis. This condition leads to belly pain, appetite loss, yellow skin and eyes (jaundice), and bleeding problems. It also leads to harmful changes in the liver. These include liver fibrosis and cirrhosis. This can affect your ability to fight off infections. These liver changes stop it from removing toxins in your blood. This can cause a brain disease called encephalopathy. Pancreas. Alcohol can cause inflammation of the pancreas. This is called pancreatitis. It can lead to belly pain, fever, and diabetes. Immune system. Alcohol weakens your immune system. This makes it harder to fight off infections and colds. You will also have a higher risk of some infections. Cancer risk. Alcohol raises your risk of some types of cancer. They include cancer of the mouth, esophagus, pharynx, larynx, liver, and breast. Sexual function. Alcohol abuse can also lead to sexual problems. Alcohol use in may cause lifelong harm to the baby. It can also cause a group of defects called alcohol spectrum disorder. These defects can include physical problems. They can also include behavior and learning problems. Home care for alcohol intoxication Follow these tips to care for yourself at home: Don't drink any more alcohol. Don't drive until all effects of the alcohol have worn off. Don't use machinery that can cause injuries. Get lots of rest over the next few days. Drink plenty of water and other drinks that do not have alcohol. Try to eat regular meals. If you have been drinking a lot every day, you may have alcohol withdrawal. Symptoms often last 3 to 4 days. They may include: Nervousness Shakiness Nausea Sweating Sleeplessness They may also include severe symptoms. These are known as delirium tremens (DTs). They include: Seizures Confusion Seeing or hearing things that are not there (hallucinations) Alcohol withdrawal can cause . Contact your healthcare provider before you stop drinking. They may be able to help you with medicine. They can also refer you to an inpatient detox program. Or stay with family or friends who can help and support you. If you have severe symptoms, contact your provider or call 911 for help (see below). Follow-up care These groups can help you and your loved one: Alcoholics Anonymous (A.A.) gives support through a self-help fellowship. Find A.A. meetings near you at www.aa.org. David gives support to families. Call 540-026-4398, or go to www.al-anon.org. National [place] on Alcoholism and Drug Dependence (NCADD) has helpful resources. NCADD can be reached at 045-859-9204 and www.ncadd.org. Call 911 Call 911 if any of these occur: Trouble breathing or slow irregular breathing Chest pain Sudden weakness on one side of your body or sudden trouble speaking Heavy bleeding or vomiting blood Very sleepy or having trouble waking up Fainting Fast heart rate Seizure When to seek medical advice Call your healthcare provider right away if any of these occur: Severe shakiness Fever of 100.4 F (38 C) or higher, or as directed by your provider Confusion or hallucinations Pain in your upper belly that gets worse Repeated vomiting [id number] [employer]. [address] [place] [address], [place] [address]. All rights reserved. This information is not intended as a substitute for professional medical care. Always follow your healthcare professional's instructions. Additional Information VACCINATE! IT SAVES LIVES! Members of the community who have not yet received the COVID-19 vaccine and would like to receive it can visit one of [facility] vaccine clinics. There are many vaccine clinic locations within the [facility]. For locations and available times, please visit [email or web address] It is important to note that some COVID mobile vaccine clinics are held outdoors and may be canceled in rainy or stormy conditions. To learn more about pediatric vaccinations (ages 5-11), we invite you to visit the [facility] webpage. [email or web address] To learn more about the COVID-19 vaccine, we invite you to visit the CDC website for a list of frequently asked questions. https://www.cdc.gov/coronavirus/[email or web address] 019-ncov/vaccines/faq.html [facility] Patient Portal Access Instructions: Stay connected with your healthcare team and access your personal medical information anytime with the [facility] Patient Portal. If you would like a full copy of your medical records please contact the [facility] Medical Records Department Sunday through Sunday between 8a.m. and 4:30p.m. Please follow the directions below to access the portal: 1.Access the email account you provided upon registration to the hospital.2.Look for an invitation email from [facility].3.Open the email and access the invitation link: Accept Invitation to [facility].Fill in the required chaparro to create your account. Sign into [email or web address] with your username and password that you created in the above steps to stay up to date. You can then view a summary of results, a summary of your visits, and the ability to download your summaries to your computer or send the information securely to a physician. Remember that your healthcare information is confidential, so carefully consider who you will allow to register on the [facility] Patient Portal for access to your information. You can also access the [facility] Patient Portal on the [employer] jm. Simply click on Health Records under Health Data and then click on the [facility] logo. HOW TO SAFELY DISPOSE OF PRESCRIPTION MEDICATIONS Please use one of the following methods to safely dispose of your unused medications. 1.Use a drug disposal kit: the drug disposal pouch allows you to safely discard your old and unused drugs. Ask your nurse to give you one when you are discharged.2.Visit a local take-back location: Many local pharmacies and police departments have programs that collect old and unwanted prescription drugs. Call your local pharmacy or go to http://[employer].CompleteSet/2X5Je2l to find one close to you.3.Make use of household items: Use cat litter or old coffee grounds to dispose medications if other options are not available. Mix your drugs with these household products, seal them in an airtight container and throw it into the garbage. Call [facility]: [phone] to be sure your drugs can be disposed of in this way. Some medicines may require a different approach.4.Never flush your medications down the toilet. IF YOU HAVE BEEN PRESCRIBED AN OPIOIDS FOR PAIN If you have been prescribed an opioid (such as hydrocodone, oxycodone or morphine), it is critical to understand the possible side effects and risks of opioid pain medications. Even when taken as directed, opioids can have several side effects including: Tolerance, meaning you might need to take more of a medication for the same pain relief. Nausea, vomiting and/or constipation. Sleepiness, dizziness, dry mouth, confusion, depression or itching. Physical dependence, meaning you have withdrawal symptoms when a medication is stopped ? this can develop within a few days. KNOW YOUR RESPONSIBILITIES It is important to know exactly how much and how often to take the opioid pain medications you are prescribed. Never take opioids in higher amounts or more often than prescribed. Do not combine opioids with alcohol or other drugs that cause drowsiness, such as benzodiazepines, also known as benzos, including diazepam and alprazolam, muscle relaxants or sleep aids. Never sell or share prescription opioids. This is illegal. Store opioids in a secure place and out of reach of others (including children, family, friends and visitors). The last page(s) of this document has been signed and retained as a CHART COPY Signatures Patient Education Materials Domestic Violence Alcohol Intoxication Medication Leaflets My discharge plan and instructions have been reviewed and explained to me and I,CHELLY ALVAREZ understand my current condition and have read and understand these discharge instructions. I have received a written copy of the plan/instructions. If I have questions, I am aware that I should contact my doctor. Patient/Sternman Signature: Date/Time: Relationship to Patient: ____ Witness Name/Signature: Date/Time: [facility] 11-05-2023 Instructions Ramos Bah APRN.[facility] - 11/05/2023 1:50 PM EDT Follow-up with primary care doctor in 1 week if symptoms do not resolveEXPRESS CARE PATIENT INFO BRONCHITIS OVERVIEW Bronchitis develops when there is swelling and irritation of the bronchi, the large tubes that carry air to the lungs. There are two types of bronchitis: acute (sudden onset) and chronic (long-standing). Acute bronchitis often occurs with a viral infection, such as the common cold, and is sometimes called a chest cold. The most common symptom of acute bronchitis is a nagging cough. Treatment of acute bronchitis usually involves treating the symptoms, such as sore throat and congestion. Antibiotics do not help to eliminate acute bronchitis caused by a virus. Antiviral agents are useful in some cases of acute bronchitis due to influenza, but there are antiviral agents for other forms of viral bronchitis. BRONCHITIS CAUSES Most cases of bronchitis are caused by a viral infection of the upper airways, such as the common cold or the flu. Less commonly, a bacterium such as pertussis (whooping cough) is the cause. BRONCHITIS SYMPTOMS The most common symptoms of acute bronchitis include: A persistent cough; this may last 10 to 20 days Some people cough up mucus, which may be clear, yellow, or green in color Fever is not common in people with acute bronchitis. However, having a fever can be a sign of another condition, such as the flu or pneumonia. Conditions with similar features -- There are other conditions that have symptoms similar to those of acute bronchitis. Chronic cough -- A persistent cough that lasts more than eight weeks is considered a chronic cough, which is discussed in detail elsewhere. Chronic bronchitis -- Chronic bronchitis is defined as a cough that occurs on most days of the month for at least three months of the year during two consecutive years. Pneumonia -- Signs of pneumonia include fever and a fast heart and breathing rate. Postnasal drip -- Postnasal drip occurs when secretions drain from the sinuses into the throat. This can cause the throat to feel irritated, which causes you to feel like you need to clear your throat frequently. Postnasal drip can be caused by the common cold, allergies, sinusitis, or environmental irritants. BRONCHITIS DIAGNOSIS Most people who have a persistent cough after an upper respiratory infection (cold) do not need to see a healthcare provider. Diagnostic testing, such as x-rays, cultures, and blood tests, are not usually needed for people with acute bronchitis. However, testing may be recommended if your diagnosis is not clear based upon your examination or if another condition, such as pneumonia, is suspected. When to seek help -- You should call your healthcare provider if you have any of the following: Fever (temperature greater than 100.4 F or 38 C) A cough that lasts longer than 10 days Chest pain with coughing, difficulty breathing, or coughing up blood A barking cough that makes it hard to speak, especially if it persists Cough accompanied by unexplained weight loss People who are older than 75 do not always have a fever or other concerning symptoms. If you are over 75 years and you have a persistent cough, you should call your clinician to determine if and when an office visit is recommended. BRONCHITIS TREATMENT Relief of symptoms -- There is no specific treatment for bronchitis, but there are a few treatments available for the common cold. A nonsteroidal antiinflammatory drug (ibuprofen, naproxen), aspirin, or acetaminophen (Tylenol ) can help to relieve the pain of a sore throat or headache. Pseudoephedrine is a decongestant that can improve nasal congestion. Most drugstores in the [place] carry pseudoephedrine behind the counter, so you must ask for it from the pharmacist (a prescription is not required). Other decongestants, such as phenylephrine, are not as effective as pseudoephedrine. Antihistamines such as diphenhydramine (Benadryl ) may also help, but can cause side effects such as drowsiness and drying of the eyes, nose, and mouth. Heated, humidified, air can improve symptoms of nasal congestion and runny nose, and has few to no side effects. Cough suppressants such as dextromethorphan may be helpful. Antibiotics -- Antibiotics are NOT helpful for most people with bronchitis since the illness is typically caused by a virus. Antibiotics treat bacterial, not viral infections. Antibiotics may be helpful for some patients with other chronic diseases. Many people request antibiotics in the hopes that it will get rid of the cough, and some people even think that antibiotics have helped on previous occasions. However, there is no benefit of antibiotics for most cases of bronchitis. PREVENTING THE SPREAD OF ILLNESS Hand washing is an essential and highly effective way to prevent the spread of infection. Wet your hands with water and plain soap and rub them together for 15 to 30 seconds. Pay special attention to the fingernails, between the fingers, and the wrists. Rinse your hands thoroughly, and dry with a single use towel. Alcohol-based hand rubs are a good alternative for disinfecting hands if a sink is not available. Spread the hand rub over the entire surface of your hands, fingers, and wrists until dry. You can use hand rubs repeatedly without irritating the skin or losing effectiveness. Hand rubs are available as a liquid or wipe in small, portable sizes that are easy to carry in a pocket or handbag. When a sink is available, you should wash visibly soiled hands with soap and water. Wash your hands before preparing food and eating, and after going to the bathroom, and after coughing, blowing the nose, or sneezing. While it is not always possible to limit contact with people who are ill, avoid touching your eyes, nose, or mouth after direct contact, when possible. In addition, use a tissue to cover your mouth when sneezing or coughing. Throw away used tissues promptly and then wash your hands. Sneezing/coughing into the sleeve of your clothing (at the inner elbow) is another way of containing sprays of saliva and secretions and does not contaminate your hands. Sneezing and coughing without covering your mouth can spread infection to anyone within 6 feet. documented in this encounter [facility] 11-05-2023 History of Present illness Narrative Radiology Service Progress Note PATIENT NAME: Chelly ALVAREZ DATE OF SERVICE: November 05, 2023 TIME: 1:58 PM PATIENT IDENTITY VERIFICATION COMPLETED USING TWO (2) IDENTIFIERS: Name and Date of confirmed by patient verbally. FALL SCREENING: Has the patient had 2 falls in the last year or 1 fall with injury or currently using an Ambulatory Assistive Device (Walker, Cane, Wheelchair, Crutches, etc.)? No PATIENT GENDER DATA: Female. status: : No status: NO. PATIENT RELEVANT IMPLANT DATA REVIEWED: Yes PATIENT PRESENTS WITH AN IMPLANTABLE OR ATTACHED ART LIBRARIAN: No RADIOLOGY DEPARTMENT: General X-ray: Exam(s) Completed: Rib X-Ray: Right Lower Extremity X-Ray(s): Knee, AP / Lat / Tunne / Merchant Left PERIPHERAL IV DATA: Not applicable SIGNED BY: RT Loi(Ramu) November 05, 2023 1:58 PM documented in this encounter [facility] 11-05-2023 Note HNO ID: [id number] Author: RONNA MATOS RT(R) Service: Radiology Author Type: Technologist Type: Progress Notes Filed: 11/05/2023 13:58 Note Text: Radiology Service Progress Note PATIENT NAME: Chelly ALVAREZ DATE OF SERVICE: November 05, 2023 TIME: 1:58 PM PATIENT IDENTITY VERIFICATION COMPLETED USING TWO (2) IDENTIFIERS: Name and Date of confirmed by patient verbally. FALL SCREENING: Has the patient had 2 falls in the last year or 1 fall with injury or currently using an Ambulatory Assistive Device (Walker, Cane, Wheelchair, Crutches, etc.)? No PATIENT GENDER DATA: Female. status: : No status: NO. PATIENT RELEVANT IMPLANT DATA REVIEWED: Yes PATIENT PRESENTS WITH AN IMPLANTABLE OR ATTACHED ART LIBRARIAN: No RADIOLOGY DEPARTMENT: General X-ray: Exam(s) Completed: Rib X-Ray: Right Lower Extremity X-Ray(s): Knee, AP / Lat / Tunne / Merchant Left PERIPHERAL IV DATA: Not applicable SIGNED BY: RT Loi(R) November 05, 2023 1:58 PM [facility] 11-05-2023 Note HNO ID: [id number] Author: RAMOS BAH APRN.RN CORRECTIONS Service: ? Author Type: Nurse Practitioner Type: Progress Notes Filed: 11/05/2023 13:55 Note Text: Chelly ALVAREZ is a 43 year old female who presents with Chest Congestion (Chest congestion and cough x 1 week ) Presents today with 2 complaints. First is she has had an upper respiratory infection congestion, and cough for over a week. She states around the same time she had fallen through loose boards on her porch scraping her left knee causing a large amount of bluish bruising per patient which has resolved. And knee pain as well as right rib pain which is made worse with her cough. She endorses fever, congestion and cough. She does have a history of asthma and has been using her rescue inhaler. She states the cough is worse when she lays down at night. States she did not hit her head when she fell through the boards and was able to get up and walk around after. PAST MEDICAL HISTORY No date: ADD (attention deficit disorder) No date: Carpal tunnel syndrome No date: Chronic headaches No date: Chronic pain No date: Endometriosis No date: GERD (gastroesophageal reflux disease) No date: Seasonal allergies No date: Tachycardia No date: Tobacco use disorder ACTIVE PROBLEM LIST Tachycardia Add (Attention Deficit Disorder) Carpal Tunnel Syndrome Alopecia Areata Anxiety Current Outpatient Medications Medication Sig Dispense Refill INCRUSE ELLIPTA 62.5 mcg/actuation inhaler inhale 1 puff by mouth and into the lungs once daily atenolol (TENORMIN) 50 mg tablet Take 0.5 tablets by mouth once daily. 30 tablet 0 dextroamphetamine-amphetamine (ADDERALL XR) 30 mg 24 hr capsule Take 1 capsule by mouth once daily. 30 capsule 0 ALPRAZolam (XANAX) 0.5 mg tablet Take 1 tablet by mouth at bedtime as needed. 30 tablet 0 etodolac (LODINE) 300 mg capsule Take 1 capsule by mouth every 8 hours. 30 capsule 5 cetirizine (ZYRTEC) 10 mg tablet Take 1 tablet by mouth once daily. 30 tablet 11 montelukast (SINGULAIR) 10 mg tablet Take 1 tablet by mouth daily at bedtime. 30 tablet 11 fluticasone (FLONASE) 50 mcg/actuation nasal spray Use 1 [place] in each nostril once daily. ALPRAZolam (XANAX) 0.25 mg tablet Take 0.25 mg by mouth once daily. cyclobenzaprine (FLEXERIL) 10 mg tablet Take 1 tablet by mouth three times daily as needed. 60 tablet 0 ranitidine (ZANTAC) 150 mg tablet Take 1 tablet by mouth once daily. 30 tablet 0 naproxen (NAPROSYN) 500 mg tablet Take 1 tablet by mouth twice daily with meals. (Patient not taking: Reported on 11/05/2023) 30 tablet 0 omeprazole (PRILOSEC) 20 mg capsule Take 1 capsule by mouth once daily. (Patient not taking: Reported on 11/05/2023) 30 capsule 2 acetaminophen-codeine (TYLENOL-COD #3) 300-30 mg per tablet Take 1 tablet by mouth every 4 hours as needed. (Patient not taking: Reported on 11/05/2023) NAPROXEN SODIUM MISC 500 mg twice daily. (Patient not taking: Reported on 11/05/2023) No current facility-administered medications for this visit. Social History Tobacco Use Smoking status: Every Day Packs/day: .8 Types: Cigarettes Passive exposure: Current Smokeless tobacco: Former Types: Chew Vaping Use Vaping Use: Never used Substance Use Topics Alcohol use: Yes Comment: rare Drug use: Never Alcohol Use: Yes (rare) Tobacco Use: 0.8 packs/day Types: Cigarettes, Chew FAMILY HISTORY Problem Relation Age of Onset Aneurysm Paternal Grandmother Aneurysm Paternal Grandfather Diabetes Maternal Grandmother Stroke Maternal Grandfather Heart Maternal Grandfather Review of Systems Constitutional: Positive for diaphoresis and fever. Negative for chills and malaise/fatigue. HENT: Positive for congestion. Respiratory: Positive for cough and shortness of breath. Gastrointestinal: Negative. Genitourinary: Negative. Musculoskeletal: Positive for falls and myalgias. Neurological: Negative for loss of consciousness. BP 122/82 Pulse 101 Temp 97.5 Resp 16 Wt 175 lb (79.4kg) SpO2 97% LMP 10/29/2023 Physical Exam Vitals and nursing note reviewed. Constitutional: Appearance: Normal appearance. HENT: Head: Normocephalic and atraumatic. Right Ear: Tympanic membrane is erythematous. Left Ear: Tympanic membrane is erythematous. Eyes: Extraocular Movements: Extraocular movements intact. Conjunctiva/sclera: Conjunctivae normal. Pupils: Pupils are equal, round, and reactive to light. Cardiovascular: Rate and Rhythm: Regular rhythm. Tachycardia present. Pulses: Normal pulses. Heart sounds: Normal heart sounds. Pulmonary: Effort: Pulmonary effort is normal. Breath sounds: Normal breath sounds. Abdominal: General: Abdomen is flat. Bowel sounds are normal. Palpations: Abdomen is soft. Musculoskeletal: General: Tenderness present. No swelling or deformity. Arms: Left knee: Crepitus present. No effusion or ecchymosis. Normal range of motion. (more content not included)... [facility] 11-05-2023 History of Present illness Narrative Images from the original note were not included. Chelly ALVAREZ is a 43 year old female who presents with Chest Congestion (Chest congestion and cough x 1 week ) Presents today with 2 complaints. First is she has had an upper respiratory infection congestion, and cough for over a week. She states around the same time she had fallen through loose boards on her porch scraping her left knee causing a large amount of bluish bruising per patient which has resolved. And knee pain as well as right rib pain which is made worse with her cough. She endorses fever, congestion and cough. She does have a history of asthma and has been using her rescue inhaler. She states the cough is worse when she lays down at night. States she did not hit her head when she fell through the boards and was able to get up and walk around after. PAST MEDICAL HISTORY No date: ADD (attention deficit disorder) No date: Carpal tunnel syndrome No date: Chronic headaches No date: Chronic pain No date: Endometriosis No date: GERD (gastroesophageal reflux disease) No date: Seasonal allergies No date: Tachycardia No date: Tobacco use disorder ACTIVE PROBLEM LIST Tachycardia Add (Attention Deficit Disorder) Carpal Tunnel Syndrome Alopecia Areata Anxiety Current Outpatient Medications Medication Sig Dispense Refill INCRUSE ELLIPTA 62.5 mcg/actuation inhaler inhale 1 puff by mouth and into the lungs once daily atenolol (TENORMIN) 50 mg tablet Take 0.5 tablets by mouth once daily. 30 tablet 0 dextroamphetamine-amphetamine (ADDERALL XR) 30 mg 24 hr capsule Take 1 capsule by mouth once daily. 30 capsule 0 ALPRAZolam (XANAX) 0.5 mg tablet Take 1 tablet by mouth at bedtime as needed. 30 tablet 0 etodolac (LODINE) 300 mg capsule Take 1 capsule by mouth every 8 hours. 30 capsule 5 cetirizine (ZYRTEC) 10 mg tablet Take 1 tablet by mouth once daily. 30 tablet 11 montelukast (SINGULAIR) 10 mg tablet Take 1 tablet by mouth daily at bedtime. 30 tablet 11 fluticasone (FLONASE) 50 mcg/actuation nasal spray Use 1 [place] in each nostril once daily. ALPRAZolam (XANAX) 0.25 mg tablet Take 0.25 mg by mouth once daily. cyclobenzaprine (FLEXERIL) 10 mg tablet Take 1 tablet by mouth three times daily as needed. 60 tablet 0 ranitidine (ZANTAC) 150 mg tablet Take 1 tablet by mouth once daily. 30 tablet 0 naproxen (NAPROSYN) 500 mg tablet Take 1 tablet by mouth twice daily with meals. (Patient not taking: Reported on 11/05/2023) 30 tablet 0 omeprazole (PRILOSEC) 20 mg capsule Take 1 capsule by mouth once daily. (Patient not taking: Reported on 11/05/2023) 30 capsule 2 acetaminophen-codeine (TYLENOL-COD #3) 300-30 mg per tablet Take 1 tablet by mouth every 4 hours as needed. (Patient not taking: Reported on 11/05/2023) NAPROXEN SODIUM MISC 500 mg twice daily. (Patient not taking: Reported on 11/05/2023) No current facility-administered medications for this visit. Social History Tobacco Use Smoking status: Every Day Packs/day: .8 Types: Cigarettes Passive exposure: Current Smokeless tobacco: Former Types: Chew Vaping Use Vaping Use: Never used Substance Use Topics Alcohol use: Yes Comment: rare Drug use: Never Alcohol Use: Yes (rare) Tobacco Use: 0.8 packs/day Types: Cigarettes, Chew FAMILY HISTORY Problem Relation Age of Onset Aneurysm Paternal Grandmother Aneurysm Paternal Grandfather Diabetes Maternal Grandmother Stroke Maternal Grandfather Heart Maternal Grandfather Review of Systems Constitutional: Positive for diaphoresis and fever. Negative for chills and malaise/fatigue. HENT: Positive for congestion. Respiratory: Positive for cough and shortness of breath. Gastrointestinal: Negative. Genitourinary: Negative. Musculoskeletal: Positive for falls and myalgias. Neurological: Negative for loss of consciousness. BP 122/82 Pulse 101 Temp 97.5 Resp 16 Wt 175 lb (79.4kg) SpO2 97% LMP 10/29/2023 Physical Exam Vitals and nursing note reviewed. Constitutional: Appearance: Normal appearance. HENT: Head: Normocephalic and atraumatic. Right Ear: Tympanic membrane is erythematous. Left Ear: Tympanic membrane is erythematous. Eyes: Extraocular Movements: Extraocular movements intact. Conjunctiva/sclera: Conjunctivae normal. Pupils: Pupils are equal, round, and reactive to light. Cardiovascular: Rate and Rhythm: Regular rhythm. Tachycardia present. Pulses: Normal pulses. Heart sounds: Normal heart sounds. Pulmonary: Effort: Pulmonary effort is normal. Breath sounds: Normal breath sounds. Abdominal: General: Abdomen is flat. Bowel sounds are normal. Palpations: Abdomen is soft. Musculoskeletal: General: Tenderness present. No swelling or deformity. Arms: Left knee: Crepitus present. No effusion or ecchymosis. Normal range of motion. Tenderness present. No LCL laxity, MCL laxity, ACL laxity or PCL laxity.Normal meniscus. Comments: Pain on palpation medial right chest mid axillary line Lymphadenopathy: Cervical: No cervical adenopathy. Skin: General: Skin is warm and dry. Neurological: Mental Status: She is alert and oriented to person, place, and time. ASSESSMENT/PLAN: 1. Fall as cause of accidental injury in home as place of occurrence, initial encounter - ICD9: E888.9, E849.0, ICD10: W19.XXXA, Y92.009 (primary diagnosis) - XR RIBS/CHEST 3V AP RIB/OBLS/CXR RIGHT - XR KNEE INJURY 4V AP/LAT/OBLS LEFT No acute findings on either x-ray. Will of course await radiologist interpretation and call the patient with any discrepancies. Will recommend splinting when she coughs for her chest, and conservative treatment for her knee. She will follow-up with her primary care doctor if these worsen or do not improve Discussed splinting and also deep breathing once an hour to avoid atelectasis 2. Viral bronchitis - ICD9: 466.0, ICD10: J20.8 Patient's symptoms are most likely viral in nature. Discussed conservative treatment for viruses. Discussed Bromfed and prednisone with patient as well as continuing her inhaler. She can use her NSAIDs as needed for pain and fever. Follow-up with primary care doctor in 1 week if symptoms do not resolve - [id number] M 2 MG-30 MG-10 MG/5 ML ORAL SYRUP - PREDNISONE 20 MG TABLET Ramos Bah documented in this encounter [facility] 07-17-2022 Hospital Discharge instructions Patient Education 07/17/2022 19:41:06 Dog Bite Dog Bite A dog bite can cause a wound deep enough to break the skin. In such cases, the wound is cleaned and sometimes closed. If the wound is closed, it is usually not completely closed. This is so that fluid can drain if the wound becomes infected. Often, wounds will be left open to heal. In addition to wound care, a tetanus shot may be given, if needed. Home care Wash your hands well with soap and warm water before and after caring for the wound. This helps lower the risk of infection. Care for the wound as directed. If a dressing was applied to the wound, be sure to change it as directed. If the wound bleeds, place a clean, soft cloth on the wound. Then firmly apply pressure until the bleeding stops. This may take up to 5 minutes. Do not release the pressure and look at the wound during this time. Most wounds heal within 10 days. But an infection can occur even with proper treatment. So be sure to check the wound daily for signs of infection (see below). Antibiotics may be prescribed. These help prevent or treat infection. If you re given antibiotics, take them as directed. Also be sure to complete the medicines. Rabies prevention Rabies is a virus that can be carried in certain animals. These can include domestic animals such as dogs and cats. Pets fully vaccinated against rabies (2 shots) are at very low risk of infection. But because human rabies is almost always fatal, any biting pet should be confined for 10 days as an extra precaution. In general, if there is a risk for rabies, the following steps may need to be taken: If someone s pet dog has bitten you, it should be kept in a secure area for the next 10 days to watch for signs of illness. (If the pet manager won t allow this, contact your local animal control center.) If the dog becomes ill or dies during that time, contact your local animal control center at once so the animal may be tested for rabies. If the dog stays healthy for the next 10 days, there is no danger of rabies in the animal or you. oIf a stray dog bit you, contact your local animal control center. They can give information on capture, quarantine, and animal rabies testing. oIf you can t find the animal that bit you in the next 2 days, and if rabies exists in your area, you may need to receive the rabies vaccine series. Call your healthcare provider right away. Or, return to the emergency department promptly. oAll animal bites should be reported to the local animal control center. If you were not given a form to fill out, you can report this yourself. Follow-up care Follow up with your healthcare provider, or as directed. When to seek medical advice Call your healthcare provider right away if any of these occur: Signs of infection: oSpreading redness or warmth from the wound oIncreased pain or swelling oFever of 100.4 F (38 C) or higher, or as directed by your healthcare provider oColored fluid or pus draining from the wound Signs of rabies infection: oHeadache oConfusion oStrange behavior oIncreased salivating and drooling oSeizure Decreased ability to move any body part near the wound Bleeding that can't be stopped after 5 minutes of firm pressure [id number] [employer]. [address] [place] [address]. All rights reserved. This information is not intended as a substitute for professional medical care. Always follow your healthcare professional's instructions. Follow Up Care 07/17/2022 18:05:08 With:TRINA SALDANA Address: [address] [place] [address]- Business (1) When:Within 1 Week(s) Comments:Schedule appointment for close follow-up for wound check and suture removal in 7-10 days.Daily wound care with application of topical antibiotic ointment and dressing changes.Use antibiotic (Augmentin) as prescribed.Watch for signs of infection.Use Tylenol, Advil or Aleve for pain as needed.Return to the ED if symptoms worsen. [facility] 07-17-2022 Note Discharge Instructions Thank you for allowing [facility] to assist you with your healthcare needs. The following is important discharge information regarding your hospital visit. Diagnosis from Today's Visit Dog bite What to Do Next Instructions from Your Care Team No qualifying data available. Post Acute Orders No qualifying data available. You Need to Schedule the Following Appointments Follow Up with TRINA SERGIO When In 1 week Why: Schedule appointment for close follow-up for wound check and suture removal in 7-10 days. Daily wound care with application of topical antibiotic ointment and dressing changes. Use antibiotic (Augmentin) as prescribed. Watch for signs of infection. Use Tylenol, Advil or Aleve for pain as needed. Return to the ED if symptoms worsen. Where: [address] [place] [phone]- Business (1) Allergies morphine Medications Please ask your primary doctor or pharmacist before taking any other medication not listed, including over the counter drugs, herbal medications, vitamins and or supplements as they may interact with your home medications. What How Much When Instructions Last Dose New amoxicillin-clavulanate (amoxicillin-clavulanate 875 mg-125 mg oral tablet) 1 tab(s) by mouth Every 12 hours Duration: 7 Days Printed Prescription Please take this list to your next doctor s visit. Bring all medications you take, including over the counter medications, herbals and other supplements with you to your doctor s visit. Patients and families are reminded to discard old lists and to update any records with all medication providers or retail pharmacies. Education Materials Dog Bite A dog bite can cause a wound deep enough to break the skin. In such cases, the wound is cleaned and sometimes closed. If the wound is closed, it is usually not completely closed. This is so that fluid can drain if the wound becomes infected. Often, wounds will be left open to heal. In addition to wound care, a tetanus shot may be given, if needed. Home care Wash your hands well with soap and warm water before and after caring for the wound. This helps lower the risk of infection. Care for the wound as directed. If a dressing was applied to the wound, be sure to change it as directed. If the wound bleeds, place a clean, soft cloth on the wound. Then firmly apply pressure until the bleeding stops. This may take up to 5 minutes. Do not release the pressure and look at the wound during this time. Most wounds heal within 10 days. But an infection can occur even with proper treatment. So be sure to check the wound daily for signs of infection (see below). Antibiotics may be prescribed. These help prevent or treat infection. If you re given antibiotics, take them as directed. Also be sure to complete the medicines. Rabies prevention Rabies is a virus that can be carried in certain animals. These can include domestic animals such as dogs and cats. Pets fully vaccinated against rabies (2 shots) are at very low risk of infection. But because human rabies is almost always fatal, any biting pet should be confined for 10 days as an extra precaution. In general, if there is a risk for rabies, the following steps may need to be taken: If someone s pet dog has bitten you, it should be kept in a secure area for the next 10 days to watch for signs of illness. (If the pet manager won t allow this, contact your local animal control center.) If the dog becomes ill or dies during that time, contact your local animal control center at once so the animal may be tested for rabies. If the dog stays healthy for the next 10 days, there is no danger of rabies in the animal or you. oIf a stray dog bit you, contact your local animal control center. They can give information on capture, quarantine, and animal rabies testing. oIf you can t find the animal that bit you in the next 2 days, and if rabies exists in your area, you may need to receive the rabies vaccine series. Call your healthcare provider right away. Or, return to the emergency department promptly. oAll animal bites should be reported to the local animal control center. If you were not given a form to fill out, you can report this yourself. Follow-up care Follow up with your healthcare provider, or as directed. When to seek medical advice Call your healthcare provider right away if any of these occur: Signs of infection: oSpreading redness or warmth from the wound oIncreased pain or swelling oFever of 100.4 F (38 C) or higher, or as directed by your healthcare provider oColored fluid or pus draining from the wound Signs of rabies infection: oHeadache oConfusion oStrange behavior oIncreased salivating and drooling oSeizure Decreased ability to move any body part near the wound Bleeding that can't be stopped after 5 minutes of firm pressure [phone] [employer]. [address] [place] [address], [place] [address]. All rights reserved. This information is not intended as a substitute for professional medical care. Always follow your healthcare professional's instructions. Additional Information VACCINATE! IT SAVES LIVES! Members of the community who have not yet received the COVID-19 vaccine and would like to receive it can visit one of [facility] vaccine clinics. There are many vaccine clinic locations within the [facility]. For locations and available times, please visit [email or web address].g [email or web address] It is important to note that some COVID mobile vaccine clinics are held outdoors and may be canceled in rainy or stormy conditions. To learn more about pediatric vaccinations (ages 5-11), we invite you to visit the [facility] webpage. [email or web address] To learn more about the COVID-19 vaccine, we invite you to visit the CDC website for a list of frequently asked questions. https://www.cdc.gov/coronavirus/2 019-ncov/vaccines/faq.html [facility] Patient Portal Access Instructions: Stay connected with your healthcare team and access your personal medical information anytime with the [facility] Patient Portal. If you would like a full copy of your medical records please contact the [facility] Medical Records Department Sunday through Sunday between 8a.m. and 4:30p.m. Please follow the directions below to access the portal: 1.Access the email account you provided upon registration to the hospital.2.Look for an invitation email from [facility].3.Open the email and access the invitation link: Accept Invitation to [facility].Fill in the required chaparro to create your account. Sign into www.[employer] with your username and password that you created in the above steps to stay up to date. You can then view a summary of results, a summary of your visits, and the ability to download your summaries to your computer or send the information securely to a physician. Remember that your healthcare information is confidential, so carefully consider who you will allow to register on the [facility] Patient Portal for access to your information. You can also access the [facility] Patient Portal on the [employer] jm. Simply click on Health Records under Health Data and then click on the [employer] logo. HOW TO SAFELY DISPOSE OF PRESCRIPTION MEDICATIONS Please use one of the following methods to safely dispose of your unused medications. 1.Use a drug disposal kit: the drug disposal pouch allows you to safely discard your old and unused drugs. Ask your nurse to give you one when you are discharged.2.Visit a local take-back location: Many local pharmacies and police departments have programs that collect old and unwanted prescription drugs. Call your local pharmacy or go to http://[employer].CompleteSet/2F4Ta3l to find one close to you.3.Make use of household items: Use cat litter or old coffee grounds to dispose medications if other options are not available. Mix your drugs with these household products, seal them in an airtight container and throw it into the garbage. Call [facility]: [phone] to be sure your drugs can be disposed of in this way. Some medicines may require a different approach.4.Never flush your medications down the toilet. IF YOU HAVE BEEN PRESCRIBED AN OPIOIDS FOR PAIN If you have been prescribed an opioid (such as hydrocodone, oxycodone or morphine), it is critical to understand the possible side effects and risks of opioid pain medications. Even when taken as directed, opioids can have several side effects including: Tolerance, meaning you might need to take more of a medication for the same pain relief. Nausea, vomiting and/or constipation. Sleepiness, dizziness, dry mouth, confusion, depression or itching. Physical dependence, meaning you have withdrawal symptoms when a medication is stopped ? this can develop within a few days. KNOW YOUR RESPONSIBILITIES It is important to know exactly how much and how often to take the opioid pain medications you are prescribed. Never take opioids in higher amounts or more often than prescribed. Do not combine opioids with alcohol or other drugs that cause drowsiness, such as benzodiazepines, also known as benzos, including diazepam and alprazolam, muscle relaxants or sleep aids. Never sell or share prescription opioids. This is illegal. Store opioids in a secure place and out of reach of others (including children, family, friends and visitors). The last page(s) of this document has been signed and retained as a CHART COPY Signatures Patient Education Materials Dog Bite Medication Leaflets My discharge plan and instructions have been reviewed and explained to me and I,ALVAREZ CHELLY Scott understand my current condition and have read and understand these discharge instructions. I have received a written copy of the plan/instructions. If I have questions, I am aware that I should contact my doctor. Patient/Sternman Signature: Date/Time: Relationship to Patient: ____ Witness Name/Signature: Date/Time: [facility] 07-14-2022 Note [facility] Medical Records Department [address] [place] [address] History Physical Exam 07/14/22 0942 MR#: [id number] Acct: [id number] Name: CHELLY ALVAREZ Rep #: [id number] : 1980 41 From: Prashant Ernandez MD PCP: Dr. Trina Saldana, DO [place] [place]: [place] [address] History and Physical Date of Admission: 07/14/22 Intake Vital Signs ??? 05/20/2119:03 06/12/2308:16 Height 5 ft 3 in 5 ft 3 in Weight: ??? 160 lb BMI ??? 28.3 BP ??? 134/85 H Blood Pressure Location ??? Lt brachial Position ??? Sitting Respiration ??? 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 Prashant Ernandez MD) ADD (attention deficit disorder) Arthritis Back problem Surgical History???(Updated 06/12/22 @ 09:15 by Karolina Zavala) S/p bilateral myringotomy with tube placement S/P D C (status post dilation and curettage) S/P laparoscopy S/P surgical removal of pilonidal cyst S/P tonsillectomy Family History???(Updated 06/12/22 @ 09:15 by Karolina Zavala) Grandfather Diabetes Heart disease HypertensionGrandmother CVA (cerebral vascular accident) Lupus Social History???(Updated 06/12/22 @ 09:16 by Karolina Zavala) Smoking Status:??? Never smoker alcohol intake:??? current HPI HPI HPI: Patient is a 41-year-old female here with 2 issues.??? Patient has 2 painful lipomas in her left lower back which are causing pain shooting down her leg.??? She says they have been there for about 15 years and keep growing larger and more painful.??? Patient also notes that a few weeks ago she had blood in her stool that lasted several days.??? She did not have any painful bowel movements or difficult bowel movements.??? She has never had this in the past.??? She has no family history of colon cancer.??? She has never had a colonoscopy. Exam Const General: cooperative Orientation: alert and oriented x3 HENMT Head: normal to inspection Neck Neck: normal visual inspection and full ROM Chest Chest palpation inspection: normal inspection of the chest Resp Effort Inspection: normal respiratory effort Auscultation: clear to auscultation bilaterally Cardio Rate: regular rate Rhythm: regular rhythm GI Inspection: non-distended Palpation: soft and nontender Musc Other: 2 large lipomas in the left lower back which are mobile and soft and nontender Skin General: no rashes or lesions noted Neuro General: patient alert and patient oriented x3 Extrem General: full ROM Psych Appearance: grossly normal Mental Status: mental status grossly normal Assessment and Plan Assessment and Plan (1) Lipoma of back: ?Status:???Acute (2) Pain, low back: ?Status:???Acute ?Qualifiers: ?Chronicity:???chronic? Back pain laterality:???left?Sciatica presence:???with sciatica?Sciatica laterality:???sciatica of left side??? Qualified Code(s):???M54.42 - Lumbago with sciatica, left side; G89.29 - Other chronic pain (3) Blood in stool: ?Status:???Acute ? Orders: Orders Colonoscopy Today ? Medications: Refilled clindamycin HCl 450 mg (3 x 150 mg) PO TID 90 caps 0RF ? Plan Patient had blood in her stool and I recommend colonoscopy.??? I explained endoscopy in detail to the patient.??? I explained the risks including but not limited to stroke or heart attack with anesthesia, perforation of the GI tract, bleeding, infection.??? I explained that any of these could necessitate further emergency surgery.??? The patient understands and all questions were answered sufficiently.??? The patient wishes to proceed with procedure. Prashant Ernandez MD Pager: [facility] [address] [place] [address], [address] [place] [address] Office: I have examined the patient and the H P has been reviewed. There are no clinical changes since date of exam. 07/14/22 0942 Cosigner Signature (if applicable): CC: Dr. Prashant Ernandez MD; Dr. Trina Saldana, DO Signed [facility] 07-14-2022 Procedure note [facility] 07-14-2022 Procedure note [facility] 06-27-2022 History and physi farida note Note Date/Time June 27, 2022 7:40am [facility] Medical Records Department [address] [place] [address] History & Physical Exam 06/27/22 0739 MR#: [id number] Acct: [id number] Name: CHELLY ALVAREZ Rep #:[id number] : 1980 41 From: Prashant madrid MD PCP: Dr. Trina Saldana, Status:[facility] Location: [place] [address] History and Physical Date of Admission: 06/27/22 Intake Vital Signs ? 05/20/2119:03 06/12/2308:16 Height 5 ft 3 in 5 ft 3 in Weight: ? 160 lb BMI ? 28.3 BP ? 134/85 H Blood Pressure Location ? Lt brachial Position ? Sitting Respiration ? 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 Prashant Ernandez MD) ADD (attention deficit disorder) Arthritis Back problem Surgical History?(Updated 06/12/22 @ 09:15 by Karolina Zavala) S/p bilateral myringotomy with tube placement S/P D&C (status post dilation and curettage) S/P laparoscopy S/P surgical removal of pilonidal cyst S/P tonsillectomy Family History?(Updated 06/12/22 @ 09:15 by Karolina Zavala) Grandfather Diabetes Heart disease HypertensionGrandmother CVA (cerebral vascular accident) Lupus Social History?(Updated 06/12/22 @ 09:16 by Karolina Zavala) Smoking Status:? Never smoker alcohol intake:? current HPI HPI HPI: Patient is a 41-year-old female here with 2 issues.? Patient has 2 painful lipomas in her left lower back which are causing pain shooting down her leg.? She says they have been there for about 15 years and keep growing larger and more painful.? Patient also notes that a few weeks ago she had blood in her stool that lasted several days.? She did not have any painful bowel movements ordifficult bowel movements.? She has never had this in the past.? She has no family history of colon cancer.? She has never had a colonoscopy. Exam Const General: cooperative Orientation: alert and oriented x3 HENMT Head: normal to inspection Neck Neck: normal visual inspection and full ROM Chest Chest palpation & inspection: normal inspection of the chest Resp Effort & Inspection: normal respiratory effort Auscultation: clear to auscultation bilaterally Cardio Rate: regular rate Rhythm: regular rhythm GI Inspection: non-distended Palpation: soft and nontender Musc Other: 2 large lipomas in the left lower back which are mobile and soft and nontender Skin General: no rashes or lesions noted Neuro General: patient alert and patient oriented x3 Extrem General: full ROM Psych Appearance: grossly normal Mental Status: mental status grossly normal Assessment and Plan Assessment and Plan (1) Lipoma of back: ?Status:?Acute (2) Pain, low back: ?Status:?Acute ?Qualifiers: ?Chronicity:?chronic??Back pain laterality:?left??Sciatica presence:?withsciatica??Sciatica laterality:?sciatica of left side? Qualified Code(s):?M54.42 - Lumbago with sciatica, left side; G89.29 - Other chronic pain (3) Blood in stool: ?Status:?Acute ? ? ? Orders: Orders Colonoscopy Today ? Medications: Refilled clindamycin HCl 450 mg (3 x 150 mg) PO TID 90 caps 0RF ? ? Plan 2 large lipomas on her left lower back which are causing her pain.? I discussed excising these 2 lipomas in the operating room.? I discussed the risks of bleeding and infection as well as possible nerve injury if they are interacting with any of the sciatic nerves. Prashant Ernandez MD Pager: [facility] [address] [place] [address], [address] [place] [id number] Office: I have examined the patient and the H&P has been reviewed. There are no clinicalchanges since date of exam. 06/27/22 0740 <Electronically signed by Prashant Ernandez MD> Cosigner Signature (if applicable): CC: Dr. Prashant Ernandez MD; Dr. Trina Saldana, DO~ Signed [facility] Work Phone: 1(693) 166-439904-04-2023 [facility] Medical Records Department [address] [place] [address] History Physical Exam 06/27/22 0739 MR#: [id number] Acct: [id number] Name: CHELLY ALVAREZ Rep #: [id number] : 1980 41 From: Prashant Ernandez MD PCP: Dr. Trina Saldana, DO [place] [place]: [place] [address] History and Physical Date of Admission: 06/27/22 Intake Vital Signs ??? 05/20/2119:03 06/12/2308:16 Height 5 ft 3 in 5 ft 3 in Weight: ??? 160 lb BMI ??? 28.3 BP ??? 134/85 H Blood Pressure Location ??? Lt brachial Position ??? Sitting Respiration ??? 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 Prashant Ernandez MD) ADD (attention deficit disorder) Arthritis Back problem Surgical History???(Updated 06/12/22 @ 09:15 by Karolina Zavala) S/p bilateral myringotomy with tube placement S/P D C (status post dilation and curettage) S/P laparoscopy S/P surgical removal of pilonidal cyst S/P tonsillectomy Family History???(Updated 06/12/22 @ 09:15 by Karolina Zavala) Grandfather Diabetes Heart disease HypertensionGrandmother CVA (cerebral vascular accident) Lupus Social History???(Updated 06/12/22 @ 09:16 by Karolina Zavala) Smoking Status:??? Never smoker alcohol intake:??? current HPI HPI HPI: Patient is a 41-year-old female here with 2 issues.??? Patient has 2 painful lipomas in her left lower back which are causing pain shooting down her leg.??? She says they have been there for about 15 years and keep growing larger and more painful.??? Patient also notes that a few weeks ago she had blood in her stool that lasted several days.??? She did not have any painful bowel movements or difficult bowel movements.??? She has never had this in the past.??? She has no family history of colon cancer.??? She has never had a colonoscopy. Exam Const General: cooperative Orientation: alert and oriented x3 HENMT Head: normal to inspection Neck Neck: normal visual inspection and full ROM Chest Chest palpation inspection: normal inspection of the chest Resp Effort Inspection: normal respiratory effort Auscultation: clear to auscultation bilaterally Cardio Rate: regular rate Rhythm: regular rhythm GI Inspection: non-distended Palpation: soft and nontender Musc Other: 2 large lipomas in the left lower back which are mobile and soft and nontender Skin General: no rashes or lesions noted Neuro General: patient alert and patient oriented x3 Extrem General: full ROM Psych Appearance: grossly normal Mental Status: mental status grossly normal Assessment and Plan Assessment and Plan (1) Lipoma of back: ?Status:???Acute (2) Pain, low back: ?Status:???Acute ?Qualifiers: ?Chronicity:???chronic?Back pain laterality:???left?Sciatica presence:???with sciatica?Sciatica laterality:???sciatica of left side??? Qualified Code(s):???M54.42 - Lumbago with sciatica, left side; G89.29 - Other chronic pain (3) Blood in stool: ?Status:???Acute ? Orders: Orders Colonoscopy Today ? Medications: Refilled clindamycin HCl 450 mg (3 x 150 mg) PO TID 90 caps 0RF ? Plan 2 large lipomas on her left lower back which are causing her pain.??? I discussed excising these 2 lipomas in the operating room.??? I discussed the risks of bleeding and infection as well as possible nerve injury if they are interacting with any of the sciatic nerves. Prashant Ernandez MD Pager: [facility] [address] [place] [address] [address] [place] [address] Office: I have examined the patient and the H P has been reviewed. There are no clinical changes since date of exam. 06/27/22 0740 Cosigner Signature (if applicable): CC: Dr. Prashant Ernandez MD; Dr. Trina Saldana DO [facility] Hospital Discharge instructions Patient Education 05/15/2022 14:50:09 Dental Pain Dental Pain A crack or cavity in a tooth can cause tooth pain. This is because the crack or cavity exposes the sensitive inner area of the tooth. An infection in the gum or the root of the tooth can cause pain and swelling. The pain is often made worse when you drink hot or cold beverages. It can also be worsewhen you bite on hard foods. Pain may spread from the tooth to your ear or the area of the jaw on the same side. Home care Follow these tips when caring for yourself at home: Don't have hot and cold foods and drinks. Your tooth may be sensitive to changes in temperature. Use toothpaste made for sensitive teeth. [place] gently up and down instead of sideways. Brushing sideways can wear away root surfaces if they are exposed. If your tooth is chipped or cracked, or if there is a large open cavity, put oil of cloves directlyon the tooth to relieve pain. You can buy oil of cloves at drugstores. Some pharmacies carry an ibop-igw-lpabxkx toothache kit. This contains a paste that you can put on the exposed tooth to make it less sensitive. Put a cold pack on your jaw over the sore area to help reduce pain. You may use mqbh-htw-dcozmbi medicine to ease pain, unless your doctor prescribed another medicine.If you have chronic liver or kidney disease, talk with your healthcare provider before using acetaminophen or ibuprofen. Also talk with your provider if you ve had a stomach ulcer or GI bleeding. If you have signs of an infection, you will be given an antibiotic. Take it as directed. Follow-up care Follow up with your dentist, or as advised. Your pain may go away with the treatment given today. But only a dentist can fully look at and treat the cause of your pain. This will keep the pain from coming back. Call 911 Call 911 if any of these occur: Unusual drowsiness Headache or stiff neck Weakness or fainting Difficulty swallowing or breathing When to seek medical advice Call your health care provider right away if any of these occur: Your face becomes swollen or red Pain gets worse or spreads to your neck Fever of 100.4 F (38.0 C) or higher, or as directed by your healthcare provider Pus drains from the tooth [id number] [employer]. [address] [place] [address], [place] [address]. All rights reserved. This information is not intended as a substitute for professional medical care. Always follow yourhealthcare professional's instructions. Follow Up Care 05/15/2022 12:50:46 With:TRINA SALDANA DO Address: [address] [place] [address] [id number] When:2-4 days [facility] 02-20-2023 Note Discharge Instructions Thank you for allowing [facility] to assist you with your healthcare needs. The following is importantdischarge information regarding your hospital visit. Diagnosis from Today's Visit Dental pain What to Do Next Instructions from Your Care Team No qualifying data available. Post Acute Orders No qualifying data available. You Need to Schedule the Following Appointments Follow Up with TRINA SALDANA DO When Within 2-4 days Where: [address] [place] [id number]- Allergies morphine Medications Please ask your primary doctor or pharmacist before taking any other medication not listed, including over the counter drugs, herbal medications, vitamins and or supplements as they may interact withyour home medications. What How Much When Instructions Last Dose New penicillin V potassium (penicillin V potassium 500 mgoral tablet) 1 tab(s) by mouth Four (4) times a day Duration: 10 Days Printed Prescription Please take this list to your next doctor s visit. Bring all medications you take, including over the counter medications, herbals and other supplements with you to your doctor s visit. Patients and families are reminded to discard old lists and to update any records with all medication providers or retail pharmacies. Education Materials Dental Pain A crack or cavity in a tooth can cause tooth pain. This is because the crack or cavity exposes the sensitive inner area of the tooth. An infection in the gum or the root of the tooth can cause pain and swelling. The pain is often made worse when you drink hot or cold beverages. It can also be worsewhen you bite on hard foods. Pain may spread from the tooth to your ear or the area of the jaw on the same side. Home care Follow these tips when caring for yourself at home: Don't have hot and cold foods and drinks. Your tooth may be sensitive to changes in temperature. Use toothpaste made for sensitive teeth. [place] gently up and down instead of sideways. Brushing sideways can wear away root surfaces if they are exposed. If your tooth is chipped or cracked, or if there is a large open cavity, put oil of cloves directlyon the tooth to relieve pain. You can buy oil of cloves at [employer]. Some pharmacies carry an jcal-pgv-alkpekt toothache kit. This contains a paste that you can put on the exposed tooth to make it less sensitive. Put a cold pack on your jaw over the sore area to help reduce pain. You may use obck-cjn-xeovzqk medicine to ease pain, unless your doctor prescribed another medicine.If you have chronic liver or kidney disease, talk with your healthcare provider before using acetaminophen or ibuprofen. Also talk with your provider if you ve had a stomach ulcer or GI bleeding. If you have signs of an infection, you will be given an antibiotic. Take it as directed. Follow-up care Follow up with your dentist, or as advised. Your pain may go away with the treatment given today. But only a dentist can fully look at and treat the cause of your pain. This will keep the pain from coming back. Call 911 Call 911 if any of these occur: Unusual drowsiness Headache or stiff neck Weakness or fainting Difficulty swallowing or breathing When to seek medical advice Call your health care provider right away if any of these occur: Your face becomes swollen or red Pain gets worse or spreads to your neck Fever of 100.4 F (38.0 C) or higher, or as directed by your healthcare provider Pus drains from the tooth [phone] [employer]. [address] [place] [address], [place] [address]. All rights reserved. This information is not intended as a substitute for professional medical care. Always follow yourhealthcare professional's instructions. Additional Information VACCINATE! IT SAVES LIVES! Members of the community who have not yet received the COVID-19 vaccine and would like to receive it can visit one of [facility] vaccine clinics. There are many vaccine clinic locations within the [facility]. For locations and available times, please visit www.gettheshot.coronavirus.[place].gov/. It is important to note that some COVID mobile vaccine clinics are held outdoors and may be canceled in rainy or stormy conditions. To learn more about pediatric vaccinations (ages 5-11), we invite you to visit the [facility] webpage. https://www.[email or web address].org/pages/0722-Tjpby-Gfnkphgkpgm-Tzzqvkydyc-Ccuvz-Bzk stions.htmlTo learn more about the COVID-19 vaccine, we invite you to visit the CDC website for a list of frequently asked questions. https://www.cdc.gov/coronavirus/2019-ncov/vaccines/faq.html [facility] Patient Portal Access Instructions: Stay connected with your healthcare team and access your personal medical information anytime with the [facility] Patient Portal. If you would like a full copy of your medical records please contact the [facility] Medical Records Department Sunday through Sunday between 8a.m. and 4:30p.m. Please follow the directions below to access the portal: 1.Access the email account you provided upon registration to the hospital.2.Look for an invitation email from [facility].3.Open the email and access the invitation link: Accept Invitation to [facility]4.Fill in the required chaparro to create your account. Sign into www.[employer] with your username and password that you created in the above steps to stay up to date. You can then view a summary of results, a summary of your visits, and the ability to download your summaries to your computer or send the information securely to a physician. Remember that your healthcare information is confidential, so carefully consider who you will allow to register on the [facility] Patient Portal for access to your information. You can also access the [facility] Patient Portal on the [employer] jm. Simply click on Health Records under [employer] and then click on the [employer] logo. HOW TO SAFELY DISPOSE OF PRESCRIPTION MEDICATIONS Please use one of the following methods to safely dispose of your unused medications. 1.Use a drug disposal kit: the drug disposal pouch allows you to safely discard your old and unuseddrugs. Ask your nurse to give you one when you are discharged.2.Visit a local take-back location: Many local pharmacies and police departments have programs that collect old and unwanted prescriptiondrugs. Call your local pharmacy or go to http://[employer].CompleteSet/2S5Wk7j to find one close to you.3.Make use of household items: Use cat litter or old coffee grounds to dispose medications if other options arenot available. Mix your drugs with these household products, seal them in an airtight container andthrow it into the garbage. Call [facility]: [phone] to be sure your drugs can be disposed of in this way. Some medicines may require a different approach.4.Never flush your medications down the toilet. IF YOU HAVE BEEN PRESCRIBED AN OPIOIDS FOR PAIN If you have been prescribed an opioid (such as hydrocodone, oxycodone or morphine), it is critical to understand the possible side effects and risks of opioid pain medications. Even when taken as directed, opioids can have several side effects including: Tolerance, meaning you might need to take more of a medication for the same pain relief. Nausea, vomiting and/or constipation. Sleepiness, dizziness, dry mouth, confusion, depression or itching. Physical dependence, meaning you have withdrawal symptoms when a medication is stopped ? this can develop within a few days. KNOW YOUR RESPONSIBILITIES It is important to know exactly how much and how often to take the opioid pain medications you are prescribed. Never take opioids in higher amounts or more often than prescribed. Do not combine opioids with alcohol or other drugs that cause drowsiness, such as benzodiazepines, also known as benzos,including diazepam and alprazolam, muscle relaxants or sleep aids. Never sell or share prescriptionopioids. This is illegal. Store opioids in a secure place and out of reach of others (including children, family, friends and visitors). The last page(s) of this document has been signed and retained as a CHART COPY Signatures Patient Education Materials Dental Pain Medication Leaflets My discharge plan and instructions have been reviewed and explained to me and I,CHELLY ALVAREZ understand my current condition and have read and understand these discharge instructions. I have received a written copy of the plan/instructions. If I have questions, I am aware that I should contact my d octor. Patient/Sternman Signature: Date/Time: Relationship to Patient: Witness Name/Signature: Date/Time: [facility]10-05-2015 Miscellaneous Notes* Telephone Encounter - Abi Mcadams Lpn - 12/28/2014 10:23 AM EDT See below. * Telephone Encounter - Maya Rosenberg - 12/28/2014 9:44 AM EDT Chelly Rivera is calling ROSALIND DALTON MD today to request the Naproxen Patient has been identified by name and birthdate. Duration of symptoms: N/A Person calling: self Call patient at: on cell [phone] (home) [phone] (cell) Was an appointment scheduled: No Patient is asking if she could have the Naproxen again. The Lodine bothers her stomach. Please callpatient to let her know if this can be changed. Maya Weston documented in this encounterKasbeer ClinicDischarge summary Author Dr. Ernandez [facility] June 27, 2022 8:42am Note Date/Time June 27, 2022 8:41 am [facility] Medical Records Department [address] [place] [address] Instructions for Home/Discharge Instructions 06/27/22 0840 MR#: [id number] Acct: [id number] Name: CHELLY ALVAREZ Rep #:[id number] : 1980 41 From: Prashant madrid MD PCP: Dr. Trina Saldana DO Status[place] [facility] Discharge Instructions Diet Discharge Diet: Light diet - advance as tolerated Activity Discharge Activity: Return to Normal Activity, May Drive and May Shower (May shower tomorrow over bandages) Lifting Restrictions: No restriction Dressing / Incision Call your doctor if your incision/area has: Continuous Slow Oozing, Sudden Increased Bleeding, Increased Pain/ Swelling, Increased Redness, Foul Smelling Discharge and Swelling at the incision site Call your doctor if you observe: Fever of 101 or Higher Remove Dressing in: 2 days (Remove clear bandages in 2 days, remove Steri- Stripsin 7 to 10 days. May shower over both bandages and Steri-Strips.) Cleanse incision/area with: Soap & Water Follow Up Care Please Follow Up With: Prashant Ernandez MD When: Please call to schedule 2 week follow up appointment. [phone] Test Results: Test results from this visit will be discussed in further detail at your follow- up appointment, if applicable. Discharge Plan Admission Attending Provider: Prashant Ernandez Primary Care Provider: Trina Saldana Instructions Additional Instructions / Restrictions: Alternate ibuprofen and Tylenol for pain. Oxycodone for breakthrough pain. Discharge Orders/Prescriptions Prescriptions: New oxycodone 5 mg tablet 5 mg PO Q6H PRN (Reason: pain) 5 Days Qty: 15 0RF No Action cyclobenzaprine 10 mg tablet 10 mg PO HS PRN (Reason: MUSCLE SPASMS) dextroamphetamine-amphetamine [Adderall] 30 MG tablet 30 mg PO DAILY cetirizine 10 MG tablet 10 mg PO DAILY atenolol 25 MG tablet 12.5 mg PO DAILY acetaminophen-codeine [Tylenol-Codeine #3] 300-30 mg Tablet 1 tab PO Q8H PRN (Reason: Pain) Referrals / Follow Up: Trina Saldana DO [Primary Care Provider] - Disposition Disposition (needs filled in before D/C Order can be placed): Home, Self Care 06/27/22 0842<Electronically signed by Prashant Ernandez MD>Prashant Ernandez MD CC: Dr. Trina Saldana DO ~ Signed [facility] Work Phone: Evaluation + Plan note No data available for this section [facility] Evaluation noteNo assessment information available [facility] Work Phone: Evaluation note* Diagnosis Onset Date Resolution Status Blood in stool acute Lipoma of back acute Pain, low back acute [facility] Work Phone: Evaluation note* Diagnosis Fall as cause of accidental injury in home as place of occurrence, initial encounter- Primary Viral bronchitis Acute bronchitis documented in this encounter [facility] note* Diagnosis Tachycardia- Primary Tachycardia, unspecified ADD (attention deficit disorder) 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 Diagnosis Tachycardia- Primary Tachycardia, unspecified ADD (attention deficit disorder) 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 Routine gynecological examination Controlled substance agreement signed Encounter for long-term (current) use of other medications Carpal tunnel syndrome Anxiety Anxiety state, unspecified Acute left-sided low back pain with left-sided sciatica- Primary [facility] Diagnosis Tachycardia- Primary Tachycardia, unspecified ADD (attention deficit disorder) 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 Routine gynecological examination Controlled substance agreement signed Encounter for long-term (current) use of other medications Carpal tunnel syndrome Anxiety Anxiety state, unspecified Acute left-sided low back pain with left-sided sciatica documented in this encounter [facility] Author Dr. Ernandez [facility] July 14, 2022 9:42am Note Date/Time July 14, 2022 9:4 2am [facility] Medical Records Department [address] [place] [address] History & Physical Exam 07/14/22 0942 MR#: [id number] Acct: [id number] Name: CHELLY ALVAREZ Rep #:[id number] : 1980 41 From: Prashant madrid MD PCP: Dr. Trina Saldana, DO [place] [facility] Location: [place] [address] History and Physical Date of Admission: 07/14/22 Intake Vital Signs ? 05/20/2119:03 06/12/2308:16 Height 5 ft 3 in 5 ft 3 in Weight: ? 160 lb BMI ? 28.3 BP ? 134/85 H Blood Pressure Location ? Lt brachial Position ? Sitting Respiration ? 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 Prashant Ernandez MD) ADD (attention deficit disorder) Arthritis Back problem Surgical History?(Updated 06/12/22 @ 09:15 by Karolina Zavala) S/p bilateral myringotomy with tube placement S/P D&C (status post dilation and curettage) S/P laparoscopy S/P surgical removal of pilonidal cyst S/P tonsillectomy Family History?(Updated 06/12/22 @ 09:15 by Karolina Zavala) Grandfather Diabetes Heart disease HypertensionGrandmother CVA (cerebral vascular accident) Lupus Social History?(Updated 06/12/22 @ 09:16 by Karolina Zavala) Smoking Status:? Never smoker alcohol intake:? current HPI HPI HPI: Patient is a 41-year-old female here with 2 issues.? Patient has 2 painful lipomas in her left lower back which are causing pain shooting down her leg.? She says they have been there for about 15 years and keep growing larger and more painful.? Patient also notes that a few weeks ago she had blood in her stool that lasted several days.? She did not have any painful bowel movements ordifficult bowel movements.? She has never had this in the past.? She has no family history of colon cancer.? She has never had a colonoscopy. Exam Const General: cooperative Orientation: alert and oriented x3 HENMT Head: normal to inspection Neck Neck: normal visual inspection and full ROM Chest Chest palpation & inspection: normal inspection of the chest Resp Effort & Inspection: normal respiratory effort Auscultation: clear to auscultation bilaterally Cardio Rate: regular rate Rhythm: regular rhythm GI Inspection: non-distended Palpation: soft and nontender Musc Other: 2 large lipomas in the left lower back which are mobile and soft and nontender Skin General: no rashes or lesions noted Neuro General: patient alert and patient oriented x3 Extrem General: full ROM Psych Appearance: grossly normal Mental Status: mental status grossly normal Assessment and Plan Assessment and Plan (1) Lipoma of back: ?Status:?Acute (2) Pain, low back: ?Status:?Acute ?Qualifiers: ?Chronicity:?chronic??Back pain laterality:?left??Sciatica presence:?withsciatica??Sciatica laterality:?sciatica of left side? Qualified Code(s):?M54.42 - Lumbago with sciatica, left side; G89.29 - Other chronic pain (3) Blood in stool: ?Status:?Acute ? ? ? Orders: Orders Colonoscopy Today ? Medications: Refilled clindamycin HCl 450 mg (3 x 150 mg) PO TID 90 caps 0RF ? ? Plan Patient had blood in her stool and I recommend colonoscopy.? I explained endoscopy in detail to the patient.? I explained the risks including but not limited to stroke or heart attack with anesthesia, perforation of the GI tract, bleeding, infection.? I explained that any of these could necessitate further emergency surgery.? The patient understands and all questions were answered sufficiently.? The patient wishes to proceed with procedure. Prashant Ernandez MD Pager: [facility] [address] [place] [address] [address] [place] [address] Office: I have examined the patient and the H&P has been reviewed. There are no clinicalchanges since date of exam. 07/14/22 0942 <Electronically signed by Prashant Ernandez MD> Cosigner Signature (if applicable): CC: Dr. Prashant Ernandez MD; Dr. Trina Saldana DO~ Signed [facility] Work Phone: Reason for referral (narrative)* Diagnostic Procedure Only (Routine) - Closed Specialty Diagnoses / Procedures Referred By Contac t Referred To Contact XR IMAGING Diagnoses Fall as cause of accidental injury in home as place of occurrence, initial encounter Procedures XR KNEE INJURY 4V AP/LAT/OBLS LEFT RADIOLOGIC EXAM KNEE COMPLETE 4/MORE VIEWS Ramos Bah APRN.RN CORRECTIONS [address] [place] [address] Xr Imaging [facility]95 Referral ID Status Reason Start Date Expiration Date V isits Requested Visits Authorized [id number] Closed Auto-Generate d Referral 11/05/2023 12/04/2024 1 1 * Diagnostic Procedure Only (Routine) - Closed Specialty Diagnoses / Procedures Referred By Contac t Referred To Contact XR IMAGING Diagnoses Fall as cause of accidental injury in home as place of occurrence, initial encounter Procedures XR RIBS/CHEST 3V AP RIB/OBLS/CXR RIGHT RADEX RIBS UNI W/POSTEROANT CH MINIMUM 3 VIEWS Ramos Bah, LIBRARY MEDIA TECHNICIAN.RN CORRECTIONS [address] [employer] [place] [address] [place] [address] Referral ID Status Reason Start Date Expiration Date V isits Requested Visits Authorized [id number] Closed Auto-Generate d Referral 11/05/2023 12/04/[address] [facility] Diagnostic Procedure Only (Routine) - Closed Specialty Diagnoses / Procedures Referred By Contac t Referred To Contact XR IMAGING Diagnoses Fall as cause of accidental injury in home as place of occurrence, initial encounter Procedures XR KNEE INJURY 4V AP/LAT/OBLS LEFT RADIOLOGIC EXAM KNEE COMPLETE 4/MORE VIEWS Ramos Bah, LIBRARY MEDIA TECHNICIAN.RN CORRECTIONS [address] [place] [address] [place] [address] Referral ID Status Reason Start Date Expiration Date V isits Requested Visits Authorized [id number] Closed Auto-Generate d Referral 11/05/2023 12/04/2024 1 1 * Diagnostic Procedure Only (Routine) - Closed Specialty Diagnoses / Procedures Referred By Contac t Referred To Contact XR IMAGING Diagnoses Fall as cause of accidental injury in home as place of occurrence, initial encounter Procedures XR RIBS/CHEST 3V AP RIB/OBLS/CXR RIGHT RADEX RIBS UNI W/POSTEROANT CH MINIMUM 3 VIEWS Ramos Bah, LIBRARY MEDIA TECHNICIAN.RN CORRECTIONS [address] [place] [address] [place] [address] Referral ID Status Reason Start Date Expiration Date V isits Requested Visits Authorized [id number] Closed Auto-Generate d Referral 11/05/2023 12/04/2024 1 1 [facility] for visit Narrative* Diagnostic Procedure Only (Routine) - Closed Specialty Diagnoses / Procedures Referred By Contac t Referred To Contact XR IMAGING Diagnoses Fall as cause of accidental injury in home as place of occurrence, initial encounter Procedures XR KNEE INJURY 4V AP/LAT/OBLS LEFT RADIOLOGIC EXAM KNEE COMPLETE 4/MORE VIEWS Ramos Bah, LIBRARY MEDIA TECHNICIAN.RN CORRECTIONS [address] [place] [address] [place] [address] Referral ID Status Reason Start Date Expiration Date V isits Requested Visits Authorized [id number] Closed Auto-Generate d Referral 11/05/2023 12/04/[address] [facility] Diagnostic Procedure Only (Routine) - Closed Specialty Diagnoses / Procedures Referred By Contac t Referred To Contact XR IMAGING Diagnoses Acute left-sided low back pain with left-sided sciatica Procedures XR LUMBAR GENERAL 3V AP/LAT/L5-S1 RADEX SPINE LUMBOSACRAL 2/3 VIEWS Liyah Lauren DO [address] [place] [address] Phone: tel: fax: [place] [id number] Referral ID Status Reason Start Date Expiration Date V isits Requested Visits Authorized [id number] Closed Auto-Generate d Referral 10/22/2024 11/21/[address] [facility] Summary Purpose Family History No Family History Records Found Relationship Condition Age at Onset Recorded Date/T madai grandfather Diabetes mellitus Unknown Cardiac disease Unknown Hypertension Unknown grandmother Cerebrovascular accident (CVA) Unknown Lupus Unknown Advance Directives No Advanced Directives Records Found Advance Directive Response Recorded Date/ Time Advance Directives No February 10:38pm Living Will No May 20, 2 021 9:17pm Power of Summer Clerk No May 20, 2020 9:17pm Advance Directive Response Recorded Date/ Time Advance Directives No February 10:38pm Living Will No June 20, 2022 2:47pm Power of Summer Clerk No June 20 2:47pm Advance Directive Response Recorded Date/ Time Advance Directives No February 10:38pm Living Will No June 20, 2022 2:42pm Power of Summer Clerk No June 20 2:42pm Chief Complaint and Reason for Visit Chief Complaint LOWER BACK LIPOMAS Chief Complaint LOWER BACK LIPOMAS LIPOMAS ON BACK & COLONOSCOPY LT EXCISION LOWER BACK LIPOMA LT EXCISION LOWER BACK LIPOMA Reason for Visit Blood in stool Lipoma of back Pain, low back Additional Source Comments INFORMATION SOURCE (unrecogn ized section and content) DATE CREATED AUTHOR 09/19/2017 [facility] DATE CREATED AUTHOR AUTHOR'S ORGANIZ ATION 12/31/2018 [facility] DATE CREATED AUTHOR AUTHOR'S ORGANIZ ATION 09/29/2021 [facility] DATE CREATED AUTHOR AUTHOR'S ORGANIZ ATION 07/19/2022 [facility] [place] DATE CREATED AUTHOR AUTHOR'S ORGANIZ ATION 07/24/2022 [facility] DATE CREATED AUTHOR AUTHOR'S ORGANIZ ATION 04/14/2024 [facility] DATE CREATED AUTHOR AUTHOR'S ORGANIZ ATION 10/24/2024 [facility] Ce nter Source Comments (unrecognize d section and content) In the event this informatio n is protected by the Federal Confidentiality of Alcohol and Drug Abuse Patient Records regulations: The Federal rules restrict any use of the information to criminally investigate or prosecute any alcohol or drug abuse patient.[facility] the event this information is protected by the Federal Confidentiality of Alcohol and Drug Abuse Patient Records regulations: The Federal rules restrict any use of the information to criminally investigate or prosecute any alcohol or drug abuse patient.[facility] the event this information is protected by the Federal Confidentiality of Alcohol and Drug Abuse Patient Records regulations: The Federal rules restrict any use of the information to criminally investigate or prosecute any alcohol or drug abuse patient.[facility] the event this information is protected by the Federal Confidentiality of Alcohol and Drug Abuse Patient Records regulations: The Federal rules restrict any use of the information to criminally investigate or prosecute any alcohol or drug abuse patient.[facility] the event this information is protected by the Federal Confidentiality of Alcohol and Drug Abuse Patient Records regulations: The Federal rules restrict any use of the information to criminally investigate or prosecute any alcohol or drug abuse patient.[facility] Reason for Visit (unrecogniz ed section and content) Reason Onset Date Comments Patient Request 12/28/2014 Reason Comments Chest Congestion Chest congestion and cough x 1 week Reason Comments Back Pain Pt states pain has b een going on for years and is unable to pin point a location. States there is pain in upper and lower back. Pt states pain has gotten to the point where she can't work or do anything. Goals (unrecognized section and content) Goals may be documented in a n alternate section No data available for this sectionGoals may be documented in an alternate section No data available for this section No data available for this section Care Team (unrecognized sect ion and content) Care Team Personnel Name: TRINA SALDANA DO Member Role: Primary Care Physician Address: Address: [address] [place] [id number]- Name: REGINA Malik Position: AO RN Member Role: ED RN Name: EDWAR ARVIZU DO Position: ED Physician Member Role: Attending Physician Address: Address: [facility] [address] [place], [place] [address] Care Teams (unrecognized sec tion and content) Team Status: Active Member Role Status Dates Dr. Ricardo Harper DO Family Provider Active Dr. Trina Saldana DO Primary Care Provider Active Team Status: Inactive Member Role Status Dates Dr. Trina Saldana DO Primary Care Provider Active Dr. Rachel Seymour MD Attending Provider Active Team Status: Inactive Member Role Status Dates Dr. Trina Saldana DO Primary Care Provider, Referring P rovider Active Dr. Prashant Ernandez MD Attending Provider Active Team Status: Active Member Role Status Dates Dr. Trina Saldana DO Primary Care Provider Active Dr. Prashant Ernandez MD Attending Pr ovider, Referring Provider, Other Provider Active Team Status: Inactive Member Role Status Dates Dr. Trina Saldana DO Primary Care Provider Active Dr. Prashant Ernandez MD Attending Provider, Referr ing Provider Active Team Status: Active Member Role Status Dates Dr. Trina Saldana DO Primary Care Provider, Referring P rovider Active Dr. Prashant Ernandez MD Attending Provider, Other Provider Active Housing Quality Standard Inspector Relationship Specialty Start Date End Date Trina Saldana DO [address] [place] [address] PCP - General Family Medicine 03/06/17 Housing Quality Standard Inspector Relationship Specialty Start Date End Date Trina Saldana DO [address] [place] [address] PCP - General Family Medicine 03/06/17 Housing Quality Standard Inspector Relationship Specialty Start Date End Date Trina Saldana DO [address] [place] [address] PCP - General Family Medicine 03/06/17 FOR RECORDS PERTAINING TO PATIENTS WHO ARE OR HAVE BEEN ENROLLED IN A CHEMICAL DEPENDENCY/SUBSTANCEABUSE PROGRAM, SOME INFORMATION MAY BE OMITTED. This clinical summary was aggregated from multiple sources. Caution should be exercised in using it in the provision of clinical care. This summary normalizes information from multiple sources, and as a consequence, information in this document may materially change the coding, format and clinical context of patient data. In addition, data may be omitted in some cases. CLINICAL DECISIONS SHOULD BE BASED ON THE PRIMARY CLINICAL RECORDS. [facility] [employer] [facility]. provides no warranty or guarantee of the accuracy or completeness of information in this document.
[2024-10-25 00:06] LABS: FOLATES,SERUM (FOLIC ACID) 4.47 ng/mL (4.60-34.80)
[2024-10-25 00:35] VITALS: BMI 32.3
[2024-10-25 00:44] VITALS: BP 109/80; PULSE 96; RESP 16; TEMP 36.5; O2SAT 93
[2024-10-25] MEDS: 0.9% Normal Saline (1000mL) 1,000 ML 100 ML IV (00:58)
--- OUTSIDE RECORDS SUMMARY | 2024-10-25 01:01 | XMS RPT_ITS | CCD ---
Author Organization [facility] CliniSyms Care Team Providers Care Dumpman Name Role Phone Ricardo Harper Unavailable Unavailable Ricardo Harper Unavailable Unavailable NONE, NONE Primary Care Unavailable WOOD, LIVE A Admitting Unavailable WOOD, LIVE A Attending Unavailable WOOD, LIVE A Consulting Unavailable NONE, NONE Consulting Unavailable Lexus ROSSI, Rosalind Primary Care Provider [phone] Trina Saldana DO Primary Care Provider BRADLEY ADHIKARI MD Admitting Unavailable BRADLEY ADHIKARI MD Primary Care Unavailable BRADLEY ADHIKARI MD Attending Unavailable ISABEL VALDEZ DO Admitting Unavailable ISABEL VALDEZ DO Primary Care Unavailable ISABEL VALDEZ DO Attending Unavailable UYEN, DR KIERSTEN Gonzalez Admitting Unavaila ble UYEN, DR KIERSTEN Gonzalez Primary Care Unavaila brice QIU, DR KIERSTEN Gonzalez Attending Unavaila brice SALDANA DO, DR TRINA Franco Primary Care Physician Dr. Trina Saldana Primary Care Provider Dr. Trina Saldana Referring Provider Dr. Prashant Ernandez Attending Provider [phone] Oma, Dr. Cerda Referring Provider Oma, Dr. Cerda Other Provider NOLBERTO OLIVEIRA, DR EDWAR Field Attending Unavailable SERGIO OLIVEIRA, DR TRINA Franco Primary Care Unavailable SERGIO OLIVEIRA, DR TRINA Franco Primary Care Unavailable ALFREDO GUZMAN MD Attending Unavailable Oma, Dr. Cerda Attending Unavaila Trina Sarah Primary Care Unavailable Oma, Dr. Cerda Referring Unavaila brice Ernandez, Dr. Cerda Attending Unavaila Trina Sarah Primary Care Unavailable Trina Saldana Referring Unavailable Rachel Seymour Attending Unavailable Malys, Trina Primary Care Unavailable Rachel Seymour Attending Unavailable Malys, Trina Primary Care Unavailable Ghanshyamabrmadelyn, Dr. Cerda Attending Unavaila ble Malys, Trina [...] Malys DO, Trina A Primary Care Provider ROMAINE ROSSI, ROSANA Rodriguez Attending Unavailable MALYS DO, DR MENA A Primary Care Unavailable MALYS, TRINA A Primary Care Unavailable RAMOS BAH Attending Unavailable RAMOS BAH Referring Unavailable MALYS, TRINA A Primary Care Unavailable SELF Referring Unavailable MALYS, TRINA A Primary Care Unavailable XIN, LIYAH Attending Unavailable XIN, LIYAH Referring Unavailable MALYS, TRINA A Primary Care Unavailable Malys DO, Dr. Mena Primary Care Provider Rosemary ROSSI, Dr. Lowry Referring Provider Unavailab tomasz Riley MD, Dr. Lowry Emergency Provider Unavailab tomasz Robins DO, Dr. Kauffman Admit Provider Unavail able Robins DO, Dr. Kauffman Attending Provider Unav ailable Allergies Allergy Classification Reported Allergen(s) Allergy Type Date of Onset Reaction(s) Facility Opioid Agonists (2 sources) HYDROmorphone Drug Allergy 5 Other: See Comments [facility] Work Phone: (1 source) HYDROmorphone Drug Allergy [facility] Repository (2 sources) Morphine; Translations: [MORPHINE] Drug Allergy 5 [facility] Repository (12 sources) Morphine; Translations: [morphine] Drug Allergy 5 Other: See Comments [facility] Comment on above: PAIN (1 source) HYDROmorphone Drug Allergy [facility] Repository (1 source) Morphine Drug Allergy [facility] Repository (1 source) 01/12/17 (+) MRSA SCREEN; Translations: [01/12/17 (+) MRSA SCREEN] Propensity to adverse reactions (disorder) [facility] Repository (1 source) 01/13/17 (-) MRSA SCREEN; Translations: [01/13/17 (-) MRSA SCREEN] Propensity to adverse reactions (disorder) [facility] Repository (1 source) Morphine Drug Allergy 3 [facility] Repository (5 sources) HYDROmorphone; Translations: [HYDROMORPHONE (BULK)] Drug Allergy 5 Other: See Comments [facility] Medications Current Medications Medication Drug Class(es) Dates Sig (Normalized) Sig (Original) acetaminophen 300 mg / codeine phosphate 30 mg oral tablet (8 sources) Opioid Agonist Start: 06-20-2022 Acetaminophen-Code ine (Tylenol-Codeine #3) 300-30 mg Tablet Active 1 {tbl} PO Q8H as needed for Pain June 20, 2022 12:00am take 1 tablet by anny th every four hours as needed acetaminophen-codeine (TYLENOL-COD #3) 3 00-30 mg per tablet Take 1 tablet by mouth every 4 hours as needed. Active Comment on above: Take 1 tablet by anny th every 4 hours as needed. ALPRAZolam 0.25 mg oral tablet (11 sources) Benzodiazepine Start: 5 take 1 tablet by mouth once daily in the evening Alprazolam 0.25 mg tablet Active 0.25 mg PO EVERY EVENING October 24, 2024 12:00am Start: 11-24-2014 take 1 tablet by anny th every twenty-four hours as needed ALPRAZolam (XANAX) 0.5 mg tablet Take 1 tablet by mouth at bedtime as needed. 30 tablet 0 11/24/2014 Active Comment on above: Take 0.25 mg by mout h once daily. Take 1 tablet by anny th at bedtime as needed. amoxicillin 875 mg / clavulanate 125 mg oral tablet (1 source) Penicillin-class Antibacterial Start: 07-18-19 23 End: 07-25-19 23 take 1 tablet by mouth every twelve [...] sulfate 7.5 mg extended release oral capsule (10 sources) Central Nervous System Stimulant Start: 12-29-19 15 Dextroamphetami ne-Amphetamine 30 mg capsule,extende d release 24hr Active 1 NMA PO DAILY October 24, 2024 12:00am Start: 01-22-2013 take 1 tablet by anny th once daily Dextroamphetamine-Amphetamine (Adderall 30 Mg Tablet) 30 MG tablet Active 30 mg PO DAILY January 22, 2013 12:00am atenolol 25 mg oral tablet (10 sources) beta-Adrenergic Estevan Start: 05-08-2019 Atenol ol 25 MG tablet Active 12.5 mg PO DAILY May 08, 2019 1:00am Start: 05-08-2019 take 12.5 mg by mout h once daily Atenolol Active 12.5 MG PO [...] oral solution (3 sources) alpha-Adrenergic Agonist, Uncompetitive J-spedwq-X-aspartate Receptor Antagonist, Sigma-1 Agonist Start: 08-12-2 024 take 10 mL by mouth four times daily as needed Brompheniramine-Pseud oeph-DM (BROMFED DM) 2-30-10 mg/5 mL syrup Indications: Fall as cause of accidental injury in home as place of occurrence, initial encounter Take 10 mL by mouth four times a day as needed. 180 mL 11/05/2023 Active cetirizine hydrochloride 10 mg oral tablet (10 sources) Histamine-1 Receptor Antagonist Start: take 1 tablet by mouth once daily Cetirizine 10 MG tablet Active 10 mg PO DAILY May 08, 2019 1:00am Comment on above: Take 1 tablet by anny once daily. cyclobenzaprine hydrochloride 10 mg oral tablet (8 sources) Muscle Relaxant Start: take 1 tablet by mouth at bedtime as needed for muscle spasms Cyclobenzaprine 10 mg tablet Active 10 mg PO BEDTIME as needed for MUSCLE SPASMS June 12, 2022 12:00am Comment on above: Take 1 tablet by anny three times daily as needed. etodolac 300 mg oral capsule (5 sources) Nonsteroidal Anti-inflammatory Drug Start: take 1 capsule by mouth every eight hours etodolac (LODINE) 300 mg capsule Take 1 capsule by mouth every 8 hours. 30 capsule 5 11/24/2014 Active Comment on above: Take 1 capsule by mo [facility] every 8 hours. fluticasone propionate 0.05 mg/actuat metered dose nasal spray (6 sources) Corticosteroid Start: 025 Fluticasone Propionate 50 mcg/actuation spray,suspension Active 1 NMA INTRANASAL TWICE A DAY October 24, 2024 12:00am take 1 spray(s) nasal route once daily fluticasone (FLONASE) 50 mcg/actuation nasal spray Use 1 [place] in each nostril once daily. Active Comment on above: Use 1 [place] in each nostril once daily. gabapentin 300 mg oral capsule (1 source) Anti-epileptic Agent Start: 5 take 1 capsule by mouth once daily Gabapentin 300 mg capsule Active 300 mg PO DAILY October 24, 2024 12:00am ibuprofen 800 mg oral tablet (1 source) Nonsteroidal Anti-inflammatory Drug Start: 4 End: 4 take 1 tablet by mouth every eight hours ibuprofen (MOTRIN) 800 mg tablet Indications: Fall as cause of accidental injury in home as place of occurrence, initial encounter Take 1 tablet by mouth every 8 hours for 10 days. 30 tablet 0 11/05/2023 11/15/2023 Active montelukast 10 mg oral tablet (11 sources) Leukotriene Receptor Antagonist Start: take 1 tablet by mouth once daily Montelukast 10 mg tablet Active 10 mg PO DAILY October 24, 2024 12:00am allergies Start: 11-24-2014 End: 06-12-2022 take 1 tablet by mouth once daily Montelukast 10 MG tablet Discontinued 10 mg PO DAILY May 08, 2019 1:00am June 12, 2022 9:17am Comment on above: Take 1 tablet by anny th daily at bedtime. omeprazole 20 mg delayed release oral capsule (5 sources) Proton Pump Inhibitor Start: 01-11-2015 take 1 capsule by mouth once daily Omeprazole 20 mg capsule,delayed release(DR/EC) Active 20 mg PO DAILY October 24, 2024 12:00am penicillin v potassium 500 mg oral tablet (1 source) Start: 05-15-2022 End: 05-25-2022 penicillin V potassium 500 mg oral tablet Dose : 500 mg = 1 tab(s), Oral, QID, X 10 day(s), # 40 tab(s), 0 Refill(s), 05/25/22 14:50:00 EST, 68.2 Start Date: 05/15/22 Stop Date: 05/25/22 Status: Ordered predniSONE 20 mg oral tablet (4 sources) Start: 10-24-2024 Prednisone 20 mg tablet Active PO October 24, 2024 12:00am Start: 10-22-2024 take 1 tablet by anny th three times daily, then take 1 tablet [...] Sig (Original) clindamycin 150 mg oral capsule (5 sources) Lincosamide Antibacterial Start: 05-20-2020 End: 06-12-2022 take 3 capsules by mouth three times daily Clindamycin Hcl 150 MG capsule Discontinued 450 mg PO THREE TIMES A DAY 90 0 May 20, 2020 1:00am June 12, 2022 9:18am Start: 05-20-2020 End: 06-12-2022 take 450 mg by mouth three times daily Clindamycin Hcl Discontinued 450 MG PO THREE TIMES A DAY 90 May 20, 2020 1:00am June 12, 2022 9:18am emollient clobetasol propionate 0.5 mg/ml topical cream (5 sources) Corticosteroid Start: 05-14-2019 End: 05-28-2019 Clobetasol-Emollient 15 GM cream Discontinued 15 g TP TWICE A DAY 15 14 0 May 14, 2019 1:00am May 27, 2019 1:00am May 28, 2019 1:08am naproxen [...] as needed (for pain/inflammation). Take with food. oxyCODONE hydrochloride 5 mg oral tablet (3 sources) Opioid Agonist Start: 3 End: 5 take 1 tablet by mouth every six hours as needed for pain Oxycodone 5 mg tablet Discontinued 5 mg PO EVERY 6 HOURS as needed for pain 15 5 0 June 27, 2022 October 24, 2024 3:54pm Lipoma of back Benign lipomatous neoplasm of skin and subcutaneous tissue of trunk Problems Active Problems Problem Classification Problem Date Documented Da te Episodic/Chronic Administrative/social admission (1 source) Administrative reason for encounter; Translations: [Encounter for other administrative examinations] 04-19-2023 Episodic Alcohol-related disorders (1 source) Alcohol use, unspecified with intoxication, unspecified; Translations: [Alcohol use, unspecified with intoxication, unspecified] Onset: 04-06-2024 Episodic Allergic reactions (5 sources) Contact dermatitis; Translations: [Unspecified contact dermatitis, unspecified cause] 05-15-2019 Episodic Anxiety disorders (5 sources) Anxiety; Translations: [Anxiety disorder, unspecified] Onset: 09-19-2014 09-19-2014 Chronic Attention-deficit, conduct, and disruptive behavior disorders (1 source) Attention-deficit hyperactivity disorder, unspecified type; Translations: [F90.9 - Attention-deficit hyperactivity disorder, unspecified type] Onset: 08-29-2021 Chronic Disorders of teeth and jaw (5 sources) Periapical abscess; Translations: [Periapical abscess without sinus] 05-09-2019 Episodic Disorders usually diagnosed in infancy, childhood, or adolescence (5 sources) Attention deficit hyperactivity disorder, predominantly inattentive type; Translations: [Other specified behavioral and emotional disorders with onset usually occurring in childhood and adolescence] Onset: 09-14-2014 01-11-2015 Chronic Gastrointestinal hemorrhage (6 sources) Hematochezia; Translations: [Melena] Onset: 06-13-2022 06-12-2022 Episodic Genitourinary symptoms and ill-defined conditions (2 sources) Urinary incontinence; Translations: [Unspecified urinary incontinence] 10-24-2024 Chronic Malaise and fatigue (2 sources) Asthenia; Translations: [Weakness] 10-24-2024 Episodic Osteoarthritis (4 sources) Arthritis; Translations: [Unspecified osteoarthritis, unspecified site] 06-12-2022 Chronic Other and unspecified benign neoplasm (3 sources) Lipoma of back; Translations: [Benign lipomatous [...] [Other chronic pain] Onset: 06-13-2022 Chronic Other nervous system disorders (2 sources) Neuropathy; Translations: [Polyneuropathy, unspecified] 10-24-2024 Chronic Other nervous system disorders (2 sources) Numbness; Translations: [Anesthesia of skin] 10-24-2024 Episodic Other nutritional; endocrine; and metabolic disorders (2 sources) Obese class I; Translations: [Class 1 obesity] 10-24-2024 Chronic Other screening for suspected conditions (not mental disorders or infectious disease) (1 source) Encounter for screening for malignant neoplasm of colon; Translations: [Encounter for screening for malignant neoplasm of colon] Onset: 07-19-2022 Episodic Other skin disorders (2 sources) Rash and other nonspecific skin eruption; Translations: [RASH OTH NONSPECIFIC SKIN ERUPTION] Onset: 10-18-2018 Episodic Residual codes; unclassified (2 sources) Tobacco user; Translations: [Tobacco use] 10-24-2024 Episodic Spondylosis; intervertebral disc disorders; other back problems (17 sources) Low back pain; Translations: [Low back [...] Test Name Value Interpretation Reference Range Facility Absolute lymphocyte countOrd ered By: Jamari Huggins on 10-24-2024 Lymphocytes Auto (Unsp spec) [#/Vol] 4.33 10*3/uL 0.83-4.51 [facility] Absolute neutrophil countOrd ered By: Jamari Huggins on 10-24-2024 Neutrophils (Bld) [#/Vol] 7.5 10*3/uL 2.0-7.7 [facility] Anion gap in Serum or Plasma Ordered By: Jamari Huggins on 10-24-2024 Anion gap [Moles/Vol] 12 mmol/L 5-15 [facility] Automated lymphocyte count a s percentage of total leukocytesOrdered By: Jamari Huggins on 10-24-2024 Lymphocytes/100 WBC Auto (Unsp spec) 33.3 % 19-41 [facility] BUN/creatinine ratioOrdered By: Jamari Huggins on 10-24-2024 Urea nitrogen/Creatinine [Mass ratio] 12.6 mg/mg 10-20 [facility] Basophil percentageOrdered B y: Jamari Huggins on 10-24-2024 Basophils/100 WBC (Bld) 0.8 % 0-1 [facility] Bilirubin, totalOrdered By: Jamari Huggins on 10-24-2024 Bilirubin [Mass/Vol] 0.29 mg/dL 0.00-1.30 [facility] Carbon dioxide, total [Moles /volume] in Central venous bloodOrdered By: Jamari Huggins on 10-24-2024 CO2 [Moles/Vol] 24.4 mmol/L 21.0-32.0 [facility] Chloride assayOrdered By: Jere Huggins on 10-24-2024 Chloride [Moles/Vol] 103 mmol/L 98-108 [facility] Eosinophil percentageOrdered By: Jamari Huggins on 10-24-2024 Eosinophils/100 WBC (Bld) 1.9 % 0-5 [facility] Erythrocyte distribution wid th ratioOrdered By: Jamari Huggins on 10-24-2024 Erythrocyte distribution width (RBC) [Ratio] 13.3 % 11.6-14.6 [facility] Erythrocyte distribution wid th standard deviationOrdered By: Jamari Huggins on 10-24-2024 Erythrocyte distribution width (RBC) [Ratio] 44.5 fl High 35.1-43.9 [facility] Erythrocyte sedimentation ra teOrdered By: Jamari Huggins on 10-24-2024 ESR (Bld) [Velocity] 3 mm/h 0-30 [facility] Folate [Moles/volume] in Ser um or PlasmaOrdered By: Jamari Huggins on 10-24-2024 Folate [Moles/Vol] 4.47 ng/mL Low 4.60-34.80 [facility] Comment on above: Hemolysis, Results w ill be affected, Requires Recollection. Glomerular filtration rate ( GFR) estimation/1.73 sq m using serum, plasma, or whole bOrdered By: Jamari Huggins on 10-24-2024 GFR/1.73 sq M.predicted among non-blacks MDRD (S/P/Bld) [Vol rate/Area] 89 mL/min/{1.73_m2} >60 [facility] Comment on above: mL/min/1.73m2 CKD-EP I Creatinine Equation (2020) Hematocrit Auto (Bld) [Volum e fraction]Ordered By: Jamari Huggins on 10-24-2024 Hematocrit (Bld) [Volume fraction] 37.7 % 37-47 [facility] Hemoglobin measurementOrdere d By: Jamari Huggins on 10-24-2024 Hemoglobin (Bld) [Mass/Vol] 13.2 g/dL 12.0-15.0 [facility] Immature granulocytes/100 WB C Auto (Bld)Ordered By: Jamari Huggins on 10-24-2024 Immature granulocytes/100 WBC (Bld) 0.600 % 0.0-0.9 [facility] Comment on above: IG% - Immature Granu locytes (promyelocytes, myelocytes and metamyelocytes) > 1% indicates that a LEFT SHIFT is Present. Laboratory - Chemistry and C hemistry - challengeOrdered By: Jamari Huggins on 10-24-2024 AST [Catalytic activity/Vol] 16 U/L <32 [facility] MCV (mean corpuscular volume ) determinationOrdered By: Jamari Huggins on 10-24-2024 MCV (RBC) [Entitic vol] 91.3 fL 81-99 [facility] Magnesium measurement (mass/ volume)Ordered By: Jamari Huggins on 10-24-2024 Magnesium (Unsp spec) [Mass/Vol] 2.1 mg/dL 1.5-2.2 [facility] Magnetic resonance imaging r eportOrdered By: Usman Louis on 10-24-2024 Study report [facility] Imaging Services [address] [place] [address] Spine Cervical W/WO Contrast MR#: [id number] Acct: [id number] Name: CHELLY ALVAREZ Rep #: [id number] : 1980 F 44 From: Wilson Louis MD PCP: Dr. Trina Saldana, DO Status: REG ER Study:Spine Cervical W/WO Contrast Date of E xam: 10/24/24 Exam# [id number] Ordering Dr: Pillo Riley MD PROCEDURE: MRI SPINE CERVICAL W/WO CONTRAST; SPINE THORACIC W/WO CONTRAST; SPINE LUMBAR W/WO CONTRAST 10/24/2024 REASON FOR EXAM: Back pain, urinary incontinence, concern for cauda equina TECHNIQUE: Multiplanar and multisequential MRI of the cervical, thoracic, and lumbar spineswas performed without and with IV gadolinium based contrast. CONTRAST: Clariscan VOLUME: 17 mL COMPARISON: None available. FINDINGS: CERVICAL: Preserved vertebral body heights, with anatomic alignment. Normal marrow signal. Minimal spondylotic changes primarily at C5-6 with mild disc desiccation and slight dorsal annular disc bulge minimally indenting the ventral thecal sac. Widely patent spinal canal. Minimal bilateral neural foraminal narrowing at C5-6. Widely patent neural foramina at the remaining levels. Spinal cord is normal in signal and contour. Partially imaged posterior fossa contentsare normal. Unremarkable paravertebral soft tissues. No mass lesion or pathologic enhancement involving the cervical spine. THORACIC: Preserved vertebral body heights, with anatomic alignment. Normal marrow signal. Mild multilevel spondylotic changes with varying degrees of mild disc desiccation and narrowing, anterior endplate osteophytosis, and hypertrophic facet arthropathy. No disc herniation. No significant spinal canal or neural foraminal narrowing is present on either side. Spinal cord is normal signal and contour. No mass lesion or pathologic enhancement. No significant abnormality in the visualized paravertebral soft tissues. Small simple appearing T2 hyperintense cyst within the posterior righthepatic lobe. LUMBAR: Preserved vertebral body heights, with anatomic alignment. No subluxation. Normal marrow signal. Mild spondylotic changes with minimal disc desiccation at L4-5 and L5-S1. Prominent active hypertrophic facetdegenerative changes at L4-5 and L5-S1, more pronounced on the left with small amount of synovial joint fluid, and adjacent periarticular edema and gadolinium enhancement. No findings suspicious for superimposed infection/septic facet arthritis or spondylodiscitis. No disc herniation or spinal canal narrowing. The spinal canal is widely patentwithout any cauda equina impingement. There is mild bilateral subarticular and neural foraminal narrowing at L4-5 and L5-S1 secondary to minimal dorsal annular disc bulging, and ligamentum flavum/facet hypertrophy. Conus is normal in signal and morphology, terminating at L1. Normal appearance of the cauda equina. No mass lesion or pathologic enhancement within the spinal canal. No significant abnormality in the visualized paravertebral or retroperitoneal soft tissues. MRI/Spine Cervical W/WO Contrast IMPRESSION: Mild multilevel spondylotic changes as described above, with no significant spinal canal narrowing. There is at most mild neural foraminal narrowing at the levels of C5-C6, L4-L5 and L5-S1. Prominent active hypertrophic facet degenerative changes bilaterally at L4-5 andL5-S1, more pronounced on the left with periarticular edema and enhancement. Likely culprit of lower back pain. Reading Location: [id number] CC: Dr. Essence Riley MD; Dr. Trina Saldana DO ~ Piece Marker Small Arms: Signed [facility] Study report [facility] Imaging Services [address] [place], [place] [id number] Spine Thoracic W/WO Contrast MR#: [id number] Acct: [id number] Name: CHELLY ALVAREZ Rep #: [id number] : 1980 F 44 From: Wilson Louis MD PCP: Dr. Tirna Saldana DO Status: REG ER Study:Spine Thoracic W/WO Contrast Date of E xam: 10/24/24 Exam# [id number] Ordering Dr: Pillo Riley MD PROCEDURE: MRI SPINE CERVICAL W/WO CONTRAST; SPINE THORACIC W/WO CONTRAST; SPINE LUMBAR W/WO CONTRAST 10/24/2024 REASON FOR EXAM: Back pain, urinary incontinence, concern for cauda equina TECHNIQUE: Multiplanar and multisequential MRI of the cervical, thoracic, and lumbar spineswas performed without and with IV gadolinium based contrast. CONTRAST: Clariscan VOLUME: 17 mL COMPARISON: None available. FINDINGS: CERVICAL: Preserved vertebral body heights, with anatomic alignment. Normal marrow signal. Minimal spondylotic changes primarily at C5-6 with mild disc desiccation and slight dorsal annular disc bulge minimally indenting the ventral thecal sac. Widely patent spinal canal. Minimal bilateral neural foraminal narrowing at C5-6. Widely patent neural foramina at the remaining levels. Spinal cord is normal in signal and contour. Partially imaged posterior fossa contentsare normal. Unremarkable paravertebral soft tissues. No mass lesion or pathologic enhancement involving the cervical spine. THORACIC: Preserved vertebral body heights, with anatomic alignment. Normal marrow signal. Mild multilevel spondylotic changes with varying degrees of mild disc desiccation and narrowing, anterior endplate osteophytosis, and hypertrophic facet arthropathy. No disc herniation. No significant spinal canal or neural foraminal narrowing is present on either side. Spinal cord is normal signal and contour. No mass lesion or pathologic enhancement. No significant abnormality in the visualized paravertebral soft tissues. Small simple appearing T2 hyperintense cyst within the posterior righthepatic lobe. LUMBAR: Preserved vertebral body heights, with anatomic alignment. No subluxation. Normal marrow signal. Mild spondylotic changes with minimal disc desiccation at L4-5 and L5-S1. Prominent active hypertrophic facetdegenerative changes at L4-5 and L5-S1, more pronounced on the left with small amount of synovial joint fluid, and adjacent periarticular edema and gadolinium enhancement. No findings suspicious for superimposed infection/septic facet arthritis or spondylodiscitis. No disc herniation or spinal canal narrowing. The spinal canal is widely patentwithout any cauda equina impingement. There is mild bilateral subarticular and neural foraminal narrowing at L4-5 and L5-S1 secondary to minimal dorsal annular disc bulging, and ligamentum flavum/facet hypertrophy. Conus is normal in signal and morphology, terminating at L1. Normal appearance of the cauda equina. No mass lesion or pathologic enhancement within the spinal canal. No significant abnormality in the visualized paravertebral or retroperitoneal soft tissues. MRI/Spine Thoracic W/WO Contrast IMPRESSION: Mild multilevel spondylotic changes as described above, with no significant spinal canal narrowing. There is at most mild neural foraminal narrowing at the levels of C5-C6, L4-L5 and L5-S1. Prominent active hypertrophic facet degenerative changes bilaterally at L4-5 andL5-S1, more pronounced on the left with periarticular edema and enhancement. Likely culprit of lower back pain. Reading Location: [id number] CC: Dr. Essence Riley MD; Dr. Trina Saldana DO ~ Piece Marker Small Arms: Signed [facility] Study report [facility] Imaging Services [address] [place], [place] [id number] Spine Lumbar W/WO Contrast MR#: [id number] Acct: [id number] Name: CHELLY ALVAREZ Rep #: [id number] : 1980 F 44 From: Rust jasper Louis MD PCP: Dr. Trina Saldana, DO Status: REG ER Study:Spine Lumbar W/WO Contrast Date of Exa m: 10/24/24 Exam# [id number] Ordering Dr: Pillo Riley MD PROCEDURE: MRI SPINE CERVICAL W/WO CONTRAST; SPINE THORACIC W/WO CONTRAST; SPINE LUMBAR W/WO CONTRAST 10/24/2024 REASON FOR EXAM: Back pain, urinary incontinence, concern for cauda equina TECHNIQUE: Multiplanar and multisequential MRI of the cervical, thoracic, and lumbar spineswas performed without and with IV gadolinium based contrast. CONTRAST: Clariscan VOLUME: 17 mL COMPARISON: None available. FINDINGS: CERVICAL: Preserved vertebral body heights, with anatomic alignment. Normal marrow signal. Minimal spondylotic changes primarily at C5-6 with mild disc desiccation and slight dorsal annular disc bulge minimally indenting the ventral thecal sac. Widely patent spinal canal. Minimal bilateral neural foraminal narrowing at C5-6. Widely patent neural foramina at the remaining levels. Spinal cord is normal in signal and contour. Partially imaged posterior fossa contentsare normal. Unremarkable paravertebral soft tissues. No mass lesion or pathologic enhancement involving the cervical spine. THORACIC: Preserved vertebral body heights, with anatomic alignment. Normal marrow signal. Mild multilevel spondylotic changes with varying degrees of mild disc desiccation and narrowing, anterior endplate osteophytosis, and hypertrophic facet arthropathy. No disc herniation. No significant spinal canal or neural foraminal narrowing is present on either side. Spinal cord is normal signal and contour. No mass lesion or pathologic enhancement. No significant abnormality in the visualized paravertebral soft tissues. Small simple appearing T2 hyperintense cyst within the posterior righthepatic lobe. LUMBAR: Preserved vertebral body heights, with anatomic alignment. No subluxation. Normal marrow signal. Mild spondylotic changes with minimal disc desiccation at L4-5 and L5-S1. Prominent active hypertrophic facetdegenerative changes at L4-5 and L5-S1, more pronounced on the left with small amount of synovial joint fluid, and adjacent periarticular edema and gadolinium enhancement. No findings suspicious for superimposed infection/septic facet arthritis or spondylodiscitis. No disc herniation or spinal canal narrowing. The spinal canal is widely patentwithout any cauda equina impingement. There is mild bilateral subarticular and neural foraminal narrowing at L4-5 and L5-S1 secondary to minimal dorsal annular disc bulging, and ligamentum flavum/facet hypertrophy. Conus is normal in signal and morphology, terminating at L1. Normal appearance of the cauda equina. No mass lesion or pathologic enhancement within the spinal canal. No significant abnormality in the visualized paravertebral or retroperitoneal soft tissues. MRI/Spine Lumbar W/WO Contrast IMPRESSION: Mild multilevel spondylotic changes as described above, with no significant spinal canal narrowing. There is at most mild neural foraminal narrowing at the levels of C5-C6, L4-L5 and L5-S1. Prominent active hypertrophic facet degenerative changes bilaterally at L4-5 andL5-S1, more pronounced on the left with periarticular edema and enhancement. Likely culprit of lower back pain. Reading Location: [id number] CC: Dr. Essence Riley MD; Dr. Trina Saldana DO ~ Piece Marker Small Arms: Signed [facility] Mean corpuscular hemoglobin (MCH) determinationOrdered By: Jamari Huggins on 10-24-2024 MCH (RBC) [Entitic mass] 32.0 pg 27.0-32.0 [facility] Mean corpuscular hemoglobin concentration (MCHC) determinationOrdered By: Jamari Huggins on 10-24-2024 MCHC (RBC) [Mass/Vol] 35.0 g/dL 32-36 [facility] Mean platelet volume determi nationOrdered By: Jamari Huggins on 10-24-2024 Platelet mean volume (Bld) [Entitic vol] 9.1 fL 6.2-12.0 [facility] Monocyte percentageOrdered B y: Jamari Huggins on 10-24-2024 Monocytes/100 WBC (Bld) 5.8 % 0-10 [facility] Neutrophil percentageOrdered By: Jamari Huggins on 10-24-2024 Neutrophils/100 WBC (Bld) 57.6 % 47-70 [facility] Nucleated red blood cell per centageOrdered By: Jamari Huggins on 10-24-2024 Nucleated RBC/100 WBC (Bld) [Ratio] 0 % 0-5 [facility] Platelet countOrdered By: Jere Huggins on 10-24-2024 Platelets (Bld) [#/Vol] 307 10*3/uL 150-450 [facility] Platelet estimateOrdered By: Jamari Huggins on 10-24-2024 Platelets LM Ql (Bld) A ADEQ [facility] Potassium measurement (mass/ volume)Ordered By: Jamari uHggins on 10-24-2024 Potassium (Unsp spec) [Mass/Vol] 3.9 mmol/L 3.3-5.1 [facility] RBC Auto (Bld) [#/Vol]Ordere d By: Jamari Huggins on 10-24-2024 RBC (Bld) [#/Vol] 4.13 10*6/uL Low 4.2-5.4 [facility] Serum creatinine measurement (mass/volume)Ordered By: Jamari Huggins on 10-24-2024 Creatinine [Mass/Vol] 0.84 mg/dL 0.70-1.20 [facility] Serum globulin measurementOr dered By: Jamari Huggins on 10-24-2024 Globulin (S) [Mass/Vol] 2.6 g/dL 2.2-4.2 [facility] Serum glucose measurement (m ass/volume)Ordered By: Jamari Huggins on 10-24-2024 Glucose [Mass/Vol] 84 mg/dL 70-99 [facility] Serum or plasma alanine guallpa otransferase (ALT) measurementOrdered By: Jamari Huggins on 10-24-2024 ALT [Catalytic activity/Vol] 19 U/L <35 [facility] Serum or plasma albumin harvey urement (mass/volume)Ordered By: Jamari Huggins on 10-24-2024 Albumin [Mass/Vol] 3.9 g/dL 3.5-5.0 [facility] Serum or plasma albumin/glob ulin mass ratioOrdered By: Jamari Huggins on 10-24-2024 Albumin/Globulin [Mass ratio] 1.5 {ratio} 0.9-2.4 [facility] Serum or plasma alkaline monty sphatase measurementOrdered By: Jamari Huggins on 10-24-2024 ALP [Catalytic activity/Vol] 111 U/L High 35-104 [facility] Serum or plasma calcium harvey urement (mass/volume)Ordered By: Jamari Huggins on 10-24-2024 Calcium [Mass/Vol] 9.1 mg/dL 7.6-11.0 [facility] Serum or plasma ethanol harvey urement (mass/volume)Ordered By: Jamari Huggins on 10-24-2024 Ethanol [Mass/Vol] mg/dL <10.1 [facility] Comment on above: This test is for med ical purposes only. The legal definition of intoxication varies according to local law. Serum or plasma urea nitroge n measurement (mass/volume)Ordered By: Jamari Hgugins on 10-24-2024 Urea nitrogen [Mass/Vol] 11 mg/dL 4-19 [facility] Sodium levelOrdered By: Remi Huggins on 10-24-2024 Sodium [Moles/Vol] 139 mmol/L 133-145 [facility] TSH DL <= 0.005 mIU/L QnOrde red By: Jamari Huggins on 10-24-2024 TSH Qn 2.400 uIU/mL 0.300-4.200 [facility] Total proteinOrdered By: Cory Huggins on 10-24-2024 Protein [Mass/Vol] 6.4 g/dL 5.9-8.4 [facility] White blood cell (WBC) count Ordered By: Jamari Huggins on 10-24-2024 WBC (Bld) [#/Vol] 13.0 10*3/uL High 4.4-11.0 [facility] CNOVon 10-22-2024 CNOV Office Visit ([facility] ) -------- CHELLY ALVAREZ ([id number]) 1980 F Date Time Provider Department 10/22/24 4:05 PM LIYAH LAUREN During your visit today, we recorded the following information about you: Temperature Pulse Respiration Blood pressure 97.7 degrees 87/minute 18/minute 115/75 Weight Last Period 81.9 kg 10/06/24 Liyah Lauren DO 10/22/2024 4:53 PM Signed [facility] LYNNN Chanda ALVAREZ [...] the spine, patient's history does not suspect Guillain-[place], patient does not have any obvious red [...] or worsen. Patient was understanding Recording using [employer] software for draft documentation of the visit was discussed with the patient/authorized re (more content not included)... Normal [facility] .Auto Diffon 04-06-2024 Basophil, Absolute 0.1 10 3/mcL Normal 0.0-0.2 [facility] Comment on above: Performed By: #### A SWETHA TOMLIN, CMP, CBC, GFR, ACETA, ANEU, ADIFF, KT #### [address] [address] Basophils/100 WBC (Bld) 0.8 % Normal 0.0-2.5 [facility] Comment on above: Performed By: #### A SWETHA TOMLIN, CMP, CBC, GFR, ACETA, ANEU, ADIFF, KT #### [address] [address] Eosinophil, Absolute 0.1 10 3/mcL Normal 0.0-0.7 [facility] Comment on above: Performed By: #### A SWETHA TOMLIN, CMP, CBC, GFR, ACETA, ANEU, ADIFF, KT #### [address] [address] Eosinophils/100 WBC (Bld) 1.4 % Normal 0.0-7.0 [facility] Comment on above: Performed By: #### A SWETHA TOMLIN, CMP, CBC, GFR, ACETA, ANEU, ADIFF, KT #### [address] [address] Lymphocyte, Absolute 1.9 10 3/mcL Normal 0.9-4.3 [facility] Comment on above: Performed By: #### A SWETHA TOMLIN, CMP, CBC, GFR, ACETA, ANEU, ADIFF, KT #### [address] [address] Lymphocytes/100 WBC (Bld) 22.0 % Normal 20.0-40.0 [facility] Comment on above: Performed By: #### A SWETHA TOMLIN, CMP, CBC, GFR, ACETA, ANEU, ADIFF, KT #### [address] [address] Monocyte, Absolute 0.6 10 3/mcL Normal 0.1-1.4 [facility] Comment on above: Performed By: #### A SWETHA TOMLIN, CMP, CBC, GFR, ACETA, ANEU, ADIFF, KT #### [address] [address] Monocytes/100 WBC (Bld) 7.1 % Normal 2.0-13.0 [facility] Comment on above: Performed By: #### A SWETHA TOMLIN, CMP, CBC, GFR, ACETA, ANEU, ADIFF, KT #### [address] [address] Neutrophils/100 WBC (Bld) 68.7 % Normal 50.0-75.0 [facility] Comment on above: Performed By: #### A SWETHA TOMLIN, CMP, CBC, GFR, ACETA, ANEU, ADIFF, KT #### [address] [address] .GFRon 04-06-2024 GFR 94 ml/min/1.73sqm Normal [facility] Comment on above: Result Comment: GFR [...] CBC, GFR, ACETA, ANEU, ADIFF, KT #### [address] [address] GFR Non- 78 ml/min/1.73sqm Normal [facility] Comment on above: Result Comment: GFR [...] mL/min/1.73 square meters Performed By: #### A NABOR, W, CMP, CBC, GFR, ACETA, ANEU, ADIFF, KT #### [address] [address] .MDWon 04-06-2024 Monocyte Distribution Width 15.92 Normal 0.00-20.00 [facility] Comment on above: Result Comment: For ED adult patients suspected of sepsis, MDW<=20.0 does not rule out sepsis or risk of sepsis Performed By: #### A MD NABORW, CMP, CBC, GFR, ACETA, ANEU, ADIFF, KT #### [address] [address] .NEUABSon 04-06-2024 Neutrophil, Absolute 5.9 10 3/mcL Normal 2.3-8.1 [facility] Comment on above: Performed By: #### A NABOR, MDW, CMP, CBC, GFR, ACETA, ANEU, ADIFF, KT #### [address] [address] ACETAon 04-06-2024 Acetaminophen [Mass/Vol] 0.0 ug/mL Low 10.0-30.0 [facility] Comment on above: Performed By: #### U DRUG, PREGU #### [address] [address] González 04-06-2024 Ethanol Level 127 mg/dL Normal [facility] Comment on above: Performed By: #### A SWETHA TOMLIN, JONNY, CBC, GFR, ACETA, ANEU, ADIFF, TK #### [address] [address] CBCon 04-06-2024 Erythrocyte distribution width (RBC) [Ratio] 13.0 % Normal 11.5-15.5 [facility] Comment on above: Performed By: #### A SWETHA TOMLIN, CMP, CBC, GFR, ACETA, ANEU, ADIFF, KT #### [address] [address] Hematocrit (Bld) [Volume fraction] 42.1 % Normal 34.0-46.0 [facility] Comment on above: Performed By: #### A SWETHA TOMLIN, CMP, CBC, GFR, ACETA, ANEU, ADIFF, KT #### [place] [address] Hgb 14.6 G/dL Normal 12.0-16.0 [facility] Comment on above: Performed By: #### A SWETHA TOMLIN, JONNY, CBC, GFR, ACETA, ANEU, ADIFF, KT #### [address] [address] MCH (RBC) [Entitic mass] 32.3 pg Normal 27.0-33.0 [facility] Comment on above: Performed By: #### A SWETHA TOMLIN, JONNY, CBC, GFR, ACETA, ANEU, ADIFF, KT #### [address] [address] MCHC 34.7 G/dL Normal 32.0-36.0 [facility] Comment on above: Performed By: #### A SWETHA TOMLIN, CMP, CBC, GFR, ACETA, ANEU, ADIFF, KT #### [place] [id number] MCV (RBC) [Entitic vol] 93.2 fL Normal 80.0-99.0 [facility] Comment on above: Performed By: #### A SWETHA TOMLIN, CMP, CBC, GFR, ACETA, ANEU, ADIFF, KT #### [address] [address] Platelet 274 10 3/mcL Normal 150-450 [facility] Comment on above: Performed By: #### A SWETHA TOMLIN, CMP, CBC, GFR, ACETA, ANEU, ADIFF, KT #### [address] [address] Platelet mean volume (Bld) [Entitic vol] 7.1 fL Normal 6.6-10.5 [facility] Comment on above: Performed By: #### A SWETHA TOMLIN, JONNY, CBC, GFR, ACETA, ANEU, ADIFF, KT #### [address] [address] RBC 4.52 10 6/mcL Normal 4.10-5.30 [facility] Comment on above: Performed By: #### A SWETHA TOMLIN, CMP, CBC, GFR, ACETA, ANEU, ADIFF, KT #### [address] [address] WBC 8.5 10 3/mcL Normal 4.5-10.8 [facility] Comment on above: Performed By: #### A SWETHA TOMLIN, JONNY, CBC, GFR, ACETA, ANEU, ADIFF, KT #### [address] [address] CMPon 04-06-2024 Albumin Level 3.7 G/dL Normal 3.5-5.0 [facility] Comment on above: Performed By: #### A SWETHA TOMLIN, JONNY, CBC, GFR, ACETA, ANEU, ADIFF, KT #### [address] [address] Albumin/Globulin [Mass ratio] 1.2 {ratio} Normal 1.1-2.5 [facility] Comment on above: Performed By: #### A SWETHA TOMLIN, CMP, CBC, GFR, ACETA, ANEU, ADIFF, KT #### [address] [address] ALP [Catalytic activity/Vol] 123 U/L Normal 40-135 [facility] Comment on above: Performed By: #### A SWETHA TOMLIN, CMP, CBC, GFR, ACETA, ANEU, ADIFF, KT #### [address] [address] ALT [Catalytic activity/Vol] 24 U/L Normal 14-59 [facility] Comment on above: Performed By: #### A SWETHA TOMLIN, CMP, CBC, GFR, ACETA, ANEU, ADIFF, KT #### [address] [address] AST [Catalytic activity/Vol] 20 U/L Normal 10-40 [facility] Comment on above: Performed By: #### A SWETHA TOMLIN, CMP, CBC, GFR, ACETA, ANEU, ADIFF, KT #### [address] [address] Bili Total 0.2 mg/dL Normal 0.2-1.0 [facility] Comment on above: Result Comment: Use of this assay is not recommended for patients undergoing treatment with eltrombopag due to the potential for falsely elevated results. Performed By: #### A SWETHA TOMLIN, CMP, CBC, GFR, ACETA, ANEU, ADIFF, KT #### [address] [address] BUN/Creatinine Ratio 14 ratio Normal 7-27 [facility] Comment on above: Performed By: #### A SWETHA TOMLIN, CMP, CBC, GFR, ACETA, ANEU, ADIFF, KT #### [address] [address] Calcium [Mass/Vol] 9.9 mg/dL Normal 8.4-10.2 [facility] Comment on above: Performed By: #### A SWETHA TOMLIN, CMP, CBC, GFR, ACETA, ANEU, ADIFF, KT #### [address] [address] Chloride [Moles/Vol] 106 mmol/L Normal 98-107 [facility] Comment on above: Performed By: #### A SWETHA TOMLIN, CMP, CBC, GFR, ACETA, ANEU, ADIFF, KT #### [place] [address] CO2 [Moles/Vol] 25 mmol/L Normal 22-29 [facility] Comment on above: Performed By: #### A NABOR, SWETHA, CMP, CBC, GFR, ACETA, ANEU, ADIFF, KT #### [place] [address] Creatinine [Mass/Vol] 0.81 mg/dL Normal 0.55-1.02 [facility] Comment on above: Result Comment: Test ing performed on [employer] Dimension EXL analyzer using a modified kinetic Kranthi technique. Performed By: #### A SWETHA TOMLIN, CMP, CBC, GFR, ACETA, ANEU, ADIFF, KT #### [place] [address] Electrolyte Balance 11.0 mEq/L Normal 4.0-15.0 [facility] Comment on above: Performed By: #### A SWETHA TOMLIN, CMP, CBC, GFR, ACETA, ANEU, ADIFF, KT #### [place] [address] Globulin 3.2 G/dL Normal [facility] Comment on above: Performed By: #### A SWETHA TOMLIN, CMP, CBC, GFR, ACETA, ANEU, ADIFF, KT #### [place] [address] Glucose [Mass/Vol] 102 mg/dL Normal 70-105 [facility] Comment on above: Performed By: #### A SWETHA TOMLIN, CMP, CBC, GFR, ACETA, ANEU, ADIFF, KT #### [place] [address] Potassium [Moles/Vol] 3.8 mmol/L Normal 3.5-5.1 [facility] Comment on above: Performed By: #### A SWETHA TOMLIN, CMP, CBC, GFR, ACETA, ANEU, ADIFF, KT #### [address] [address] Sodium [Moles/Vol] 142 mmol/L Normal 136-145 [facility] Comment on above: Performed By: #### A SWETHA TOMLIN, CMP, CBC, GFR, ACETA, ANEU, ADIFF, KT #### [address] [address] Total Protein 6.9 G/dL Normal 6.4-8.2 [facility] Comment on above: Performed By: #### A SWETHA TOMLIN, CMP, CBC, GFR, ACETA, ANEU, ADIFF, KT #### [place] [address] Urea nitrogen [Mass/Vol] 11 mg/dL Normal 7-18 [facility] Comment on above: Performed By: #### A SWETHA TOMLIN, CMP, CBC, GFR, ACETA, ANEU, ADIFF, KT #### [place] [address] CVFLURVon 04-06-2024 FLU A PCR Negative Normal Negative [facility] Comment on above: Performed By: #### U DRUG, PREGU #### [place] [id number] FLU B PCR Negative Normal Negative [facility] Comment on above: Performed By: #### U DRUG, PREGU #### [place] [address] RSV PCR Negative Normal Negative [facility] Comment on above: Performed By: #### U DRUG, PREGU #### [address] [address] SARS-CoV-2 (COVID-19) RNA PRICE+probe Ql (Unsp spec) Negative Normal Negative [facility] Comment on above: Result Comment: Resu [...] Performed By: #### U DRUG, PREGU #### [place] [address] [place] [address] LABORATORYOrdered By: Lidia Hannah on 04-06-2024 Acetaminophen [...] above: Interpretive Data: T esting performed on Siemens Dimension EXL analyzer using [...] HCG ( test) Ql (U) Negative Normal [facility] Comment on above: Performed By: #### U DRUG, PREGU #### [address] [address] test (u) int Not detected Invalid Interpretation Code [facility] Comment on above: Performed By: #### U DRUG, PREGU #### [address] [address] SALon 04-06-2024 Salicylate Level 6.5 mg/dL Normal 2.8-20.0 [facility] Comment on above: Performed By: #### A LC, MDW, CMP, CBC, GFR, ACETA, ANEU, ADIFF, KT #### [address] [address] UDRUGon 04-06-2024 Methadone Ql (U) Negative Normal Negative [facility] Comment on above: Performed By: #### U DRUG, PREGU #### [address] [address] Amphetamine (u) Negative Normal Negative [facility] Comment on above: Performed By: #### U DRUG, PREGU #### [address] [address] Barbiturate (u) Negative Normal Negative [facility] Comment on above: Performed By: #### U DRUG, PREGU #### [address] [address] Benzodiazepine (u) Negative Normal Negative [facility] Comment on above: Performed By: #### U DRUG, PREGU #### [address] [address] Cannabinoid (u) Negative Normal Negative [facility] Comment on above: Performed By: #### U DRUG, PREGU #### [address] [address] Cocaine Ql (U) Negative Normal Negative [facility] Comment on above: Performed By: #### U DRUG, PREGU #### [address] [address] Opiate (u) Positive Abnormal Negative [facility] Comment on above: Performed By: #### U DRUG, PREGU #### [address] [address] PCP (u) Negative Normal Negative [facility] Comment on above: Performed By: #### U DRUG, PREGU #### [place] [address] [place], [place] [address] Urine Drugs screened: See Below Normal L [facility] Comment on above: Result Comment: This drug [...] Performed By: #### U DRUG, PREGU #### [place] [address] [place], [place] [address] XR Ribs - right Views and Ch est PAon 11-08-2023 IMPRESSION: No acute osseous abnormality. Piece Marker Small Arms: PSCSonia Transcribe Date/Time: Nov 08 2023 6:00A Dictated by : MADY NAVARRETE MD This examination was interpreted and the report reviewed and electronically signed by: MADY NAVARRETE MD on Nov 08 2023 6:01AM [facility] * * *Final Report* [...] are intact. Degenerative change within the spine. [facility] Provider, Gagandeep Campuzano - 11/08/2023 * * *Final Report* * [...] spine. IMPRESSION IMPRESSION: No acute osseous abnormality. Piece Marker Small Arms: PSCB Transcribe Date/Time: Nov 08 2023 6:00A Dictated by : MADY NAVARRETE MD This examination was interpreted and the report reviewed and electronically signed by: MADY NAVARRETE MD on Nov 08 2023 6:01AM EST [facility] XR Ribs - right Views and Ch est PAOrdered By: [facility] Provider on 11-08-2023 [facility] XR Knee - left AP and Latera l and obliqueon 11-07-2023 IMPRESSION: No acute fracture or malalignment of the left knee. Piece Marker Small Arms: MAIKOLSummay Transcribe Date/Time: Nov 07 2023 4:27P Dictated by : SIOBHAN SEGAL MD This examination was interpreted and the report reviewed and electronically signed by: SIOBHAN SEGAL MD on Nov 07 2023 4:31PM EST [facility] * * *Final Report* * * [...] are radiographically unremarkable. No radiopaque foreign bodies. [facility] Provider, Gagandeep Campuzano - 11/07/2023 * * *Final Report* * [...] fracture or malalignment of the left knee. Piece Marker Small Arms: PSCB Transcribe Date/Time: Nov 07 2023 4:27P Dictated by : SIOBHAN SEGAL MD This examination was interpreted and the report reviewed and electronically signed by: SIOBHAN SEGAL MD on Nov 07 2023 4:31PM [facility] CNOVon 11-05-2023 CNOV Office Visit ([facility] ) -------- CHELLY ALVAREZ ([id number]) 1980 F Date Time Provider Department 11/05/23 12:45 PM RAMOS BAH [facility] During your visit today, we recorded the following information about you: Temperature Pulse Respiration Blood pressure 97.5 degrees 101/minute 16/minute 122/82 Weight Last Period 79.4 kg 10/29/23 Ramos Bah, BULL CHAIN OPERATOR.LEAN MANUFACTURING SPECIALIST 11/05/2023 1:55 PM Signed Chelly Scott ANTONIO [...] (FLONASE) 50 mcg/actuation nasal spray Use 1 [place] in each nostril once daily. ALPRAZolam (XANAX) [...] effort i (more content not included)... Normal [facility] No Panel Informationon 11-04 Radiology Study observation (narrative) [facility] XR KNEE 4V AP/LAT/OBLS LTon 11-05-2023 XR [...] fracture or malalignment of the left knee. Piece Marker Small Arms: Combatant Gentlemen Transcribe Date/Time: Nov 07 2023 4:27P Dictated by : SIOBHAN SEGAL MD This examination was interpreted and the report reviewed and electronically signed by: SIOBHAN SEGAL MD on Nov 07 2023 4:31PM EST [id number] [facility] XR RIB/CHST 3V AP RIB/OBL/CH ST Jos [...] the spine. IMPRESSION: No acute osseous abnormality. Piece Marker Small Arms: Combatant Gentlemen Transcribe Date/Time: Nov 08 2023 6:00A Dictated by : MADY NAVARRETE MD This examination was interpreted and the report reviewed and electronically signed by: MADY NAVARRETE MD on Nov 08 2023 6:01AM EST [id number] [facility] Colonoscopy Reporton 023 Colonoscopy Report [facility] Medical Records Department [address] [place] [address] [place] [address] Colonoscopy Report MR#: [id number] Acct: [id number] Name: CHELLY ALVAREZ Rep #: [id number] : 1980 41 From: Prashant Ernandez MD PCP: Dr. Trina Saldana, DO Status:REG [facility] Patient Name: Chelly Alvarez Procedure Date: 07/14/2022 [...] screening purposes. Procedure Code(s): --- Professional --- 84487, Colonoscopy, flexible; diagnostic, including collection of specimen(s) by brushing or washing, when performed (separate procedure) Diagnosis Code(s): --- Professional --- K62.5, Hemorrhage of anus and rectum CPT copyright 2017 [employer]. All rights reserved. The codes documented in this report are preliminary and upon aquatic laborer review may be revised to meet current compliance requirements. Prashant Ernandez MD 07/14/2022 10:16:50 AM This report has been signed electronically. Number of Addenda: 0 Note Initiated On: 07/14/2022 9:50 AM 07/14/22 1017 Date Prashant Ernandez MD Cosigner Signature: Date (if indicated) CC: Dr. Prashant Ernandez MD; Dr. Trina Saldana DO Date Dictated: 07/14/22 0950 Date Transcribed: Piece Marker Small Arms: AC Signed Normal [facility] Discharge Instructionon Discharge Instruction [facility] Medical Records Department [address] [place] [address] Instructions for Home/Discharge Instructions 06/27/22 0840 MR#: [id number] Acct: [id number] Name: CHELLY ALVAREZ Rep #: [id number] : 1980 41 From: Prashant Ernandez MD PCP: Dr. Trina Saldana DO Status:REG [facility] Discharge Instructions Diet Discharge Diet: Light diet [...] to schedule 2 week follow up appointment. [phone] Test Results: Test results from this visit [...] CC: Dr. Trina Saldana DO Signed Normal [facility] Operative Reporton 3 Operative Report [facility] Medical Records Department [address] [place] [address] Operative Report 06/27/22 0838 MR#: [id number] Acct: [id number] Name: CHELLY ALVAERZ Rep #: [id number] : 1980 41 From: Prashant Ernandez MD PCP: Dr. Trina Saldana DO Status:[facility] Location: [place] [address] Report of Operation Date of Procedure: 06/27/22 [...] condition and tolerated the procedure well. 06/27/22 7683 Cosigner Signature (if applicable): CC: Dr. Prashant Ernandez MD; Dr. Trina Saldana DO Signed Normal [facility] Surgery Specimen Level IIIon 06-27-2022 Surgery Specimen Level III Patient Age/Sex Location Account Attending Physician CHELLY ALVARZE 41/F [facility] [id number] Dr. Prashant Ernandez MD Specimen: [id number] Received: 06/27/22 Status: [facility] [place] Num: [id number] Spec Type: LIPOMA Subm Dr: Dr. Prashant [...] areas of hemorrhage, necrosis or cystic degeneration. Type Inspector sections are submitted in two cassettes. / SJ:raimundo 06/27/2022 TC:1 CPT: 69857 Patient Age/Sex Location Account Attending Physician CHELLY ALVAREZ 41/F [facility] [id number] Dr. Prashant Ernandez MD Signed (signature on file) Dr. Theo Corea DO 06/28/22 1119 Normal [facility] Comment on above: Performed By: #### P SUIII #### [facility] Laboratory [facility] [address] [place], [place], [id number] Surgery Visit Reporton 06-12 Surgery Visit Report [facility] [address] [place] [address] OFFICE VISIT Date of Service: 06/12/22 MR#: [id number] Acct: [id number] Name: CHELLY ALVAREZ Rep #: [id number] : 1980 Provider: Dr. 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 Prashant Ernandez MD Pager: 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 Normal [facility] Ext Non Vasc Limited/Soft Ti sson 06-08-2022 Ext Non Vasc Limited/Soft Tiss [facility] Imaging Services [address] [place] [address] Ext Non Vasc Limited/Soft Tiss MR#: [id number] Acct: [id number] Name: CHELLY ALVAREZ Rep #: [id number] : 1980 F 41 From: Juanpablo Amaro MD PCP: Dr. Trina Saldana DO Status: REG CLI Study: Ext Non Vasc Limited/Soft Tiss Date of Exam: 0 06/08/22 Exam# [id number] Ordering Dr: Rachel Seymour MD STUDY: SUPERFICIAL [...] Rachel Seymour MD; Dr. Trina Saldana DO Piece [employer]er [employer]: Signed [facility] EMERGENCY REPORTon 2 EMERGENCY REPORT [facility] EMERGENCY ROOM REPORT NAME ACCOUNT SEX AGE ADMIT DISCHARGE PT MED. RECORD# NUMBER DATE DATE TYPE CHELLY ALVAREZ [id number] F 40 09/19/21 09/20/21 3 05163 ROOM: ER DATE OF : 1980 DICTATING PHYSICIAN: Isabel Valdez HISTORY OF PRESENT ILLNESS: This patient, who is in good health, has a history of COVID with symptom onset about 7 to 8 days ago and diagnosed 5 days ago. She works at the [employer]through and came here to the Emergency Room. [...] home. DIAGNOSIS: Occipital headache. Dictated By: Isabel Valdez DO 09/20/21 06:55 JOB #: [id number] Transcribed By: jing 09/20/21 15:53 Electronically signed by: E-SIGN ISABEL JOSÉ MIGUEL OLIVEIRA 09/28/21 23:52 Page 1 of 1 CHELLY ALVAREZ Emergency Room Report Normal [facility] Miscellaneous Lab Procedureo n 09-24-2021 MIS LAB TEST Normal [facility] Comment on above: Order Comment: [...] includes Oxydodone and Oxymorphone. TESTING PERFORMED AT [facility]. ORIGINAL REPORT ON FILE IN LAB CONTAINS ADDITIONAL TEST SITE INFORMATION. Performed By: #### L 505.5000, L801.1541 #### [facility] [address] [place], [address] EMERGENCY REPORTon 2 EMERGENCY REPORT [facility] EMERGENCY ROOM REPORT NAME ACCOUNT SEX AGE ADMIT DISCHARGE PT MED. RECORD# NUMBER DATE DATE TYPE CHELLY ALVAREZ [id number] F 40 09/20/21 09/21/21 3 81599 ROOM: ER DATE OF : 1980 DICTATING PHYSICIAN: Bradley Adhikari HISTORY OF PRESENT ILLNESS: This is a [...] discharged in stable condition. Dictated By: Bradley Adhikari MD 09/21/21 00:11 JOB #: [id number] Transcribed By: jing 09/22/21 06:36 Electronically signed by: Dr. Yvonne Adhikari MD 09/23/21 12:20 Page 2 of 2 CHELLY ALVAREZ Emergency Room Report Normal [facility] CBC + DIFFon 09-21-2021 Baso # 0.10 x10EE3/UL Normal 0.00 - 0.10 [facility] Comment on above: Performed By: #### 2 78293 #### [facility],[address] [place] [address] Basophils/100 WBC (Bld) 0.8 % Normal 0.0 - 2.0 [facility] Comment on above: Performed By: #### 2 51353 #### [facility],[address] [place] [address] CBC + DIFF Normal [facility] Comment on above: Result Comment: CBC- COMPLETE BLOOD COUNT Performed By: #### 2 49633 #### [facility],[address] [place] [address] EO # 0.20 x10EE3/UL Normal 0.00 - 0.50 [facility] Comment on above: Performed By: #### 2 53005 #### [facility],[address] [place] [address] Eosinophils/100 WBC (Bld) 2.5 % Normal 0.0 - 7.0 [facility] Comment on above: Performed By: #### 2 35275 #### [facility],[address] [place] [address] Erythrocyte distribution width (RBC) [Ratio] 13.6 % Normal 12.0 - 15.6 [facility] Comment on above: Performed By: #### 2 38255 #### [facility],[address] [place] [address] Hematocrit (Bld) [Volume fraction] 41.8 % Normal 34.0 - 46.0 [facility] Comment on above: Performed By: #### 2 88782 #### [facility],[address] [place] [address] Hemoglobin (Bld) [Mass/Vol] 14.1 g/dL Normal 12.0 - 16.0 [facility] Comment on above: Performed By: #### 2 22653 #### [facility],[address] [place] [address] Lymph # 1.90 x10EE3/UL Normal 0.80 - 2.80 [facility] Comment on above: Performed By: #### 2 69408 #### [facility],[address] [place] [address] Lymphocytes/100 WBC (Bld) 24.4 % Normal 20.0 - 45.0 [facility] Comment on above: Performed By: #### 2 05766 #### [facility],[address] [place], [place] [id number] MANUAL DIFF N/A Normal [facility] Comment on above: Performed By: #### 2 67638 #### [facility],[address] [place] [address] MCH (RBC) [Entitic mass] 32 pg Normal 27 - 33 [facility] Comment on above: Performed By: #### 2 83258 #### [facility],[address] [place], [place] [id number] MCHC 34 X10 3 Normal 32 - 36 [facility] Comment on above: Performed By: #### 2 67681 #### [facility],[address] [place] [address] MCV (RBC) [Entitic vol] 96 fL Normal 80 - 99 [facility] Comment on above: Performed By: #### 2 66966 #### [facility],[address] [place] [address] [place] # 0.30 x10EE3/UL Normal 0.20 - 1.00 [facility] Comment on above: Performed By: #### 2 93332 #### [facility],[address] [place] [address] MONOS % 4.4 % Normal 0.0 - 10.0 [facility] Comment on above: Performed By: #### 2 69290 #### [facility],[address] [place] [address] Morphology Tate (Bld) [Interp] N/A Normal [facility] Comment on above: Result Comment: {CD] Performed By: #### 2 80631 #### [facility],[address] [place] [address] Neut # 5.30 x10EE3/UL Normal 1.50 - 7.10 [facility] Comment on above: Performed By: #### 2 31113 #### [facility],[address] [place] [address] Neutrophils/100 WBC (Bld) 67.9 % Normal 46.0 - 76.0 [facility] Comment on above: Performed By: #### 2 04238 #### [facility],[address] [place] [address] PLATELET 286 x10EE3/UL Normal 150 - 450 [facility] Comment on above: Performed By: #### 2 10847 #### [facility],[address] [place] [address] Platelet mean volume (Bld) [Entitic vol] 7.5 fL Normal 6.6 - 10.5 [facility] Comment on above: Result Comment: AUTO MATED DIFFERENTIAL Performed By: #### 2 31710 #### [facility],[address] [place], [place] [id number] RBC 4.38 x 10EE6/UL Normal 4.10 - 5.30 [facility] Comment on above: Performed By: #### 2 33879 #### [facility],[address] [place], [place] [phone] WBC 7.8 x 10EE3/UL Normal 4.5 - 10.8 [facility] Comment on above: Performed By: #### 2 98369 #### [facility],[address] [place] [address] CMP with eGFRon 09-21-2021 AGE 40 years Normal [facility] Comment on above: Performed By: #### 2 57480 #### [facility],[address] [place], [place] [phone] Albumin [Mass/Vol] 3.4 g/dL Normal 3.4 - 5.0 [facility] Comment on above: Performed By: #### 2 15871 #### [facility],[address] [place] [address] Albumin/Globulin [Mass ratio] 1.0 {ratio} Normal 0.9 - 1.6 [facility] Comment on above: Performed By: #### 2 56491 #### [facility],[address] [place] [address] 19042 ALK PHOS 99 U/L Normal 46 - 116 [facility] Comment on above: Performed By: #### 2 54972 #### [facility],[address] [place] [address] 81377 ALT [Catalytic activity/Vol] 29 U/L Normal 14 - 59 [facility] Comment on above: Performed By: #### 2 31132 #### [facility],[address] [place] [address] 09507 Anion gap [Moles/Vol] 11 mmol/L Normal 10 - 20 [facility] Comment on above: Performed By: #### 2 00241 #### [facility],[address] [place] [address] 80405 AST [Catalytic activity/Vol] 13 U/L Normal 13 - 39 [facility] Comment on above: Performed By: #### 2 55312 #### [facility],[address] [place] [address] 48691 B/C RATIO 9 ratio Normal 0 - 30 [facility] Comment on above: Performed By: #### 2 13887 #### [facility],[address] [place] [address] 43080 Bilirubin [Mass/Vol] 0.2 mg/dL Normal 0.2 - 1.0 [facility] Comment on above: Performed By: #### 2 73724 #### [facility],[address] [place] [address] 43949 Calcium [Mass/Vol] 8.4 mg/dL Low 8.5 - 10.1 [facility] Comment on above: Performed By: #### 2 67927 #### [facility],[address] [place] [address] 57260 Chloride [Moles/Vol] 104 mmol/L Normal 98 - 107 [facility] Comment on above: Performed By: #### 2 33258 #### [facility],[address] [place] [address] 18978 CMP with eGFR Normal [facility] Comment on above: Result Comment: COMP REHENSIVE METABOLIC PANEL Performed By: #### 2 30394 #### [facility],[address] [place] [address] 78912 CO2 [Moles/Vol] 25.7 mmol/L Normal 21.0 - 32.0 [facility] Comment on above: Performed By: #### 2 03963 #### [facility],[address] [place] [address] 01005 Creatinine [Mass/Vol] 0.94 mg/dL Normal 0.55 - 1.02 [facility] Comment on above: Performed By: #### 2 90484 #### [facility],[address] [place] [address] 52281 GFR/1.73 sq M.predicted among non-blacks MDRD (S/P/Bld) [Vol rate/Area] mL/min/{1.73_m2} Normal 60 - 999 [facility] Comment on above: Performed By: #### 2 99173 #### [facility],[address] [place] [address] 96646 Result Comment: ACCO RDING TO THE NATIONAL KIDNEY DISEASE EDUCATION PROGRAM(NKDE), A NORMAL eGFR IS A VALUE GREATER THAN OR EQUAL TO 60 ML/MIN/1.73 SQ METERS. CHRONIC KIDNEY DISEASE: <60mL/MIN/1.73 SQ METERS KIDNEY FAILURE: <15mL/MIN/1.73 SQ METERS THIS TEST SHOULD ONLY BE USED FOR PATIENTS 18 YEARS OF AGE AND OLDER. Globulin (S) [Mass/Vol] 3.3 g/dL Normal 1.5 - 3.8 [facility] Comment on above: Performed By: #### 2 55870 #### [facility],[address] [place] [address] 45403 Glucose [Mass/Vol] 128 mg/dL High 74 - 106 [facility] Comment on above: Performed By: #### 2 38412 #### [facility],[address] [place] [address] 29801 Potassium [Moles/Vol] 3.7 mmol/L Normal 3.5 - 5.1 [facility] Comment on above: Performed By: #### 2 55199 #### [address] [address] Protein [Mass/Vol] 6.7 g/dL Normal 6.4 - 8.2 [facility] Comment on above: Performed By: #### 2 98229 #### [facility],[address] [place] [address] 75039 Sodium [Moles/Vol] 137 mmol/L Normal 136 - 145 [facility] Comment on above: Performed By: #### 2 88827 #### [facility],[address] [place] [address] 02576 Urea nitrogen [Mass/Vol] 8 mg/dL Normal - [facility] Comment on above: Performed By: #### 2 77051 #### [facility],[address] [place] [address] ABDOMEN/PELVIS Won 2021 CT ABDOMEN/PELVIS W [address] [address] Patient: CHELLY ALVAREZ Phone#: : 1980 Age: 40 Gender: F Pt. Type: ER Account: [id number] Location: 2 Ordering: DR. BRADLEY ADHIKARI Exam Date: 09/20/2021/23:06 Family Phys: Charge Code: [id number] Physician: Love Order #: [id number] DLP Dose#: 13.40 PROCEDURE: CT ABDOMEN/PELVIS WITH CONTRAST COMPARISON: [facility], CT, ABDOMEN/PELVIS W CON, 10/02/2018, 2:20. [...] 40 Gender: F Pt. Type: ER Account: [id number] Location: 2 Ordering: DR. BRADLEY ADHIKARI Exam Date: 09/20/2021/23:06 Family Phys: Charge Code: [id number] Physician: Love Order #: [id number] DLP Dose#: 13.40 PELVIC ORGANS: Uterus is [...] MD on 09/21/2021 at 10:07 Normal [facility] URINEon 09-21-2021 Beta HCG ( test) Ql (U) Negative Normal NEGATIVE [facility] Comment on above: Performed By: #### 2 53346 #### [facility],[address] [place] [address] EXTERNAL QC DONE? YES Normal [facility] Comment on above: Performed By: #### 2 14347 #### [facility],[address] [place] [address] INTERNAL QC PASS Normal [facility] Comment on above: Performed By: #### 2 45919 #### [facility],[address] [place] [address] 98449 URINALYSISon 09-21-2021 Amorphous NONE Normal [facility] Comment on above: Performed By: #### 2 59196 #### [facility],[address] [place] [address],[facility] [address] Bacteria 1+ Normal [facility] Comment on above: Performed By: #### 2 98213 #### [facility],[address] [place] [address] 64694 Bilirubin Ql (U) Negative Normal NORMAL: NEGATIVE [facility] Comment on above: Performed By: #### 2 75706 #### [facility],[address] [place], [place] [address] Casts NONE Normal [facility] Comment on above: Performed By: #### 2 52354 #### [facility],[address] [place], [place] [address] Clarity (U) clear Normal NORMAL: CLEAR [facility] Comment on above: Performed By: #### 2 18125 #### [facility],[address] [place] [address] 41567 Color (U) p.yel Normal NORMAL: YELLOW [facility] Comment on above: Performed By: #### 2 43034 #### [facility],[address] [place] [address] 63028 Crystals LM Nom (Urine sed) NONE Normal [facility] Comment on above: Performed By: #### 2 90555 #### [facility],[address] [place] [address] 44249 Epi Cells FEW Normal [facility] Comment on above: Performed By: #### 2 88579 #### [facility],[address] [place] [address] 33299 Glucose Ql (U) NORM Normal NORMAL: NORMAL [facility] Comment on above: Performed By: #### 2 80469 #### [facility],[address] [place] [address] 70040 Hemoglobin Ql (U) 250 Abnormal NORMAL: NEGATIVE [facility] Comment on above: Performed By: #### 2 68726 #### [facility],[address] [place] [address] 63166 Ketone Negative Normal NORMAL: NEGATIVE [facility] Comment on above: Performed By: #### 2 15449 #### [facility],[address] [place] [address] 64946 Leukocytes 25 Abnormal NORMAL: NEGATIVE [facility] Comment on above: Performed By: #### 2 81000 #### [facility],[address] [place] [address] 21118 Mucous NONE Normal [facility] Comment on above: Performed By: #### 2 29714 #### [facility],[address] [place] [address] 90863 Nitrite Ql (U) Negative Normal NORMAL: NEGATIVE [facility] Comment on above: Performed By: #### 2 39382 #### [facility],[address] [place] [address] 64521 pH (U) 6 [pH] Normal NORMAL: 5.0-8.0 [facility] Comment on above: Performed By: #### 2 37230 #### [facility],[address] [place] [address] 81032 Protein Ql (U) Negative Normal NORMAL: NEGATIVE [facility] Comment on above: Performed By: #### 2 07170 #### [facility],[address] [place] [address] 83601 Rbc 0-5 Normal 0-3/hpf [facility] Comment on above: Performed By: #### 2 13328 #### [facility],[address] [place] [address] 97253 Sp [place] 1.010 Normal NORMAL: 1.010-1.030 [facility] Comment on above: Performed By: #### 2 93526 #### [facility],[address] [place] [address] Specimen Type UNSPECIFIED Normal [facility] Comment on above: Performed By: #### 2 10214 #### [facility],[address] [place] [address] Urinalysis dipstick W Reflex Microscopic panel (U) SEE BELOW Normal [facility] Comment on above: Result Comment: MICR OSCOPIC Performed By: #### 2 66506 #### [facility],[address] [place] [address] Urobilinog NORM Normal NORMAL: NORMAL [facility] Comment on above: Performed By: #### 2 10364 #### [facility],[address] [place] [address] Wbc 1-5 Normal 0-5/hpf [facility] Comment on above: Performed By: #### 2 72662 #### [facility],[address] [place] [address] Yeast NONE Normal [facility] Comment on above: Performed By: #### 2 74679 #### [facility],[address] [place] [address] CBC + DIFFon 09-20-2021 Baso # 0.10 x10EE3/UL Normal 0.00 - 0.10 [facility] Comment on above: Performed By: #### 2 42676 #### [facility],[address] [place] [address] Basophils/100 WBC (Bld) 1.2 % Normal 0.0 - 2.0 [facility] Comment on above: Performed By: #### 2 87225 #### [facility],[address] [place] [address] CBC + DIFF Normal [facility] Comment on above: Result Comment: CBC- COMPLETE BLOOD COUNT Performed By: #### 2 31199 #### [facility],[address] [place] [address] EO # 0.30 x10EE3/UL Normal 0.00 - 0.50 [facility] Comment on above: Performed By: #### 2 03157 #### [facility],[address] [place], [place] [address] Eosinophils/100 WBC (Bld) 3.9 % Normal 0.0 - 7.0 [facility] Comment on above: Performed By: #### 2 18960 #### [facility],[address] [place] [address] Erythrocyte distribution width (RBC) [Ratio] 13.8 % Normal 12.0 - 15.6 [facility] Comment on above: Performed By: #### 2 05276 #### [facility],[address] [place] [address] Hematocrit (Bld) [Volume fraction] 41.3 % Normal 34.0 - 46.0 [facility] Comment on above: Performed By: #### 2 11908 #### [facility] [facility],[address] [place] [address] Hemoglobin (Bld) [Mass/Vol] 14.0 g/dL Normal 12.0 - 16.0 [facility] Comment on above: Performed By: #### 2 [id number] #### [facility],[address] [place], [place] [id number] Lymph # 3.10 x10EE3/UL High 0.80 - 2.80 [facility] Comment on above: Performed By: #### 2 63066 #### [facility],[address] [place], [place] [id number] Lymphocytes/100 WBC (Bld) 39.2 % Normal 20.0 - 45.0 [facility] Comment on above: Performed By: #### 2 76128 #### [facility],[address] [place], [place] [id number] MANUAL DIFF N/A Normal [facility] Comment on above: Performed By: #### 2 17097 #### [facility],[address] [place] [address] MCH (RBC) [Entitic mass] 32 pg Normal 27 - 33 [facility] Comment on above: Performed By: #### 2 91558 #### [facility],[address] [place] [address] MCHC 34 X10 3 Normal 32 - 36 [facility] Comment on above: Performed By: #### 2 29935 #### [facility],[address] [place] [address] MCV (RBC) [Entitic vol] 95 fL Normal 80 - 99 [facility] Comment on above: Performed By: #### 2 18450 #### [facility],[address] [place] [address] [place] # 0.50 x10EE3/UL Normal 0.20 - 1.00 [facility] Comment on above: Performed By: #### 2 44983 #### [facility],[address] [place] [address] MONOS % 6.7 % Normal 0.0 - 10.0 [facility] Comment on above: Performed By: #### 2 41574 #### [facility],[address] [place] [address] Morphology Tate (Bld) [Interp] N/A Normal [facility] Comment on above: Result Comment: {CD] Performed By: #### 2 52107 #### [facility],[address] [place] [address] Neut # 3.90 x10EE3/UL Normal 1.50 - 7.10 [facility] Comment on above: Performed By: #### 2 85877 #### [facility],[address] [place] [address] Neutrophils/100 WBC (Bld) 49.0 % Normal 46.0 - 76.0 [facility] Comment on above: Performed By: #### 2 81896 #### [address],[place] [address] PLATELET 312 x10EE3/UL Normal 150 - 450 [facility] Comment on above: Performed By: #### 2 27465 #### [facility],[address] [place] [address] Platelet mean volume (Bld) [Entitic vol] 7.5 fL Normal 6.6 - 10.5 [facility] Comment on above: Result Comment: AUTO MATED DIFFERENTIAL Performed By: #### 2 82799 #### [facility],[address] [place] [address] RBC 4.36 x 10EE6/UL Normal 4.10 - 5.30 [facility] Comment on above: Performed By: #### 2 19086 #### [facility],[address] [place] [address] WBC 7.9 x 10EE3/UL Normal 4.5 - 10.8 [facility] Comment on above: Performed By: #### 2 76478 #### [facility],[address] [place] [address] CMP with eGFRon 09-20-2021 AGE 40 years Normal [facility] Comment on above: Performed By: #### 2 94347 #### [facility],[address] [place] [address]683 Albumin [Mass/Vol] 3.5 g/dL Normal 3.4 - 5.0 [facility] Comment on above: Performed By: #### 2 91706 #### [facility],[address] [place] [address] Albumin/Globulin [Mass ratio] 1.1 {ratio} Normal 0.9 - 1.6 [facility] Comment on above: Performed By: #### 2 13163 #### [facility],[address] [place] [address] ALK PHOS 91 U/L Normal 46 - 116 [facility] Comment on above: Performed By: #### 2 95702 #### [facility],[address] [place] [address]5973 ALT [Catalytic activity/Vol] 31 U/L Normal 14 - 59 [facility] Comment on above: Performed By: #### 2 07552 #### [facility],[address] [place] [address] Anion gap [Moles/Vol] 9 mmol/L Low 10 - 20 [facility] Comment on above: Performed By: #### 2 09464 #### [facility],[address] [place] [address] 26227 AST [Catalytic activity/Vol] 16 U/L Normal 13 - 39 [facility] Comment on above: Performed By: #### 2 00674 #### [facility],[address] [place] [address]681 B/C RATIO 9 ratio Normal 0 - 30 [facility] Comment on above: Performed By: #### 2 81364 #### [facility],[address] [place] [address] Bilirubin [Mass/Vol] 0.1 mg/dL Low 0.2 - 1.0 [facility] Comment on above: Performed By: #### 2 83302 #### [facility],[address] [place] [address]66 Calcium [Mass/Vol] 8.5 mg/dL Normal 8.5 - 10.1 [facility] Comment on above: Performed By: #### 2 22652 #### [facility],[address] [place] [address]695 Chloride [Moles/Vol] 105 mmol/L Normal 98 - 107 [facility] Comment on above: Performed By: #### 2 64205 #### [facility],[address] [place] [address]102 CMP with eGFR Normal [facility] Comment on above: Result Comment: COMP REHENSIVE METABOLIC PANEL Performed By: #### 2 53647 #### [facility],[address] [place] [address]60 CO2 [Moles/Vol] 30.6 mmol/L Normal 21.0 - 32.0 [facility] Comment on above: Performed By: #### 2 82390 #### [facility],[address] [place] [address]1402 Creatinine [Mass/Vol] 0.90 mg/dL Normal 0.55 - 1.02 [facility] Comment on above: Performed By: #### 2 54002 #### [facility],[address] [place] [address]25 GFR/1.73 sq M.predicted among non-blacks MDRD (S/P/Bld) [Vol rate/Area] mL/min/{1.73_m2} Normal 60 - 999 [facility] Comment on above: Performed By: #### 2 34608 #### [facility],[address] [place] [address] Result Comment: ACCO RDING TO THE NATIONAL KIDNEY DISEASE EDUCATION PROGRAM(NKDE), A NORMAL eGFR IS A VALUE GREATER THAN OR EQUAL TO 60 ML/MIN/1.73 SQ METERS. CHRONIC KIDNEY DISEASE: <60mL/MIN/1.73 SQ METERS KIDNEY FAILURE: <15mL/MIN/1.73 SQ METERS THIS TEST SHOULD ONLY BE USED FOR PATIENTS 18 YEARS OF AGE AND OLDER. Globulin (S) [Mass/Vol] 3.3 g/dL Normal 1.5 - 3.8 [facility] Comment on above: Performed By: #### 2 26493 #### [facility],[address] [place] [address]111 Glucose [Mass/Vol] 90 mg/dL Normal 74 - 106 [facility] Comment on above: Performed By: #### 2 43214 #### [facility],[address] [place] [address]17 Potassium [Moles/Vol] 4.1 mmol/L Normal 3.5 - 5.1 [facility] Comment on above: Performed By: #### 2 51555 #### [facility],[address] [place] [address] 62407 Protein [Mass/Vol] 6.8 g/dL Normal 6.4 - 8.2 [facility] Comment on above: Performed By: #### 2 84316 #### [facility],[address] [place] [address] 26850 Sodium [Moles/Vol] 140 mmol/L Normal 136 - 145 [facility] Comment on above: Performed By: #### 2 02062 #### [facility],[address] [place] [address] 17529 Urea nitrogen [Mass/Vol] 8 mg/dL Normal 7 - 18 [facility] Comment on above: Performed By: #### 2 64124 #### [facility],[address] [place], [place] [id number] CT BRAIN W/O CONTRASTon 08-25 CT BRAIN W/O CONTRAST [place] [address] Patient: CHELLY ALVAREZ Phone#: : 1980 Age: 40 Gender: F Pt. Type: ER Account: [id number] Location: [facility] Ordering: DR. ISABEL VALDEZ Exam Date: 09/19/2021/23:06 Family Phys: Charge Code: [id number] Physician: Love Order #: [id number] DLP Dose#: [id number] PROCEDURE: CT BRAIN WITHOUT CONTRAST COMPARISON: [facility], CT, BRAIN W/O CON, 10/02/2018, 2:14. [...] MD on 09/20/2021 at 15:16 Normal [facility] SEDRATEon 09-20-2021 SEDRATE 3 mm/hr Normal 0 - 30 [facility] Comment on above: Performed By: #### 2 29407 #### [facility],[address] [place] [address] Laboratory - Drug toxicology on 08-25-2021 Amphetamines Ql (U) Positive [facility] Work Phone: Benzodiazepines Ql (U) Negative [facility] Work Phone: Cannabinoids Screen Ql (U) Negative [facility] Work Phone: Cocaine Ql (U) Negative [facility] Work Phone: Opiates Ql (U) Negative [facility] Work Phone: No Panel Informationon 08-25 MDMA (Ecstasy) Screen Negative [facility] Work Phone: Urine Barbiturates Screen Negative [facility] Work Phone: Urine Drug Screen Comment [facility] Work Phone: Comment on above: [...] (VISTA)on 08-25-2021 AMPHETAMINES Positive Abnormal <1000 ng/mL [facility] Comment on above: Order Comment: UNK Performed By: #### L 505.5000, L801.1541 #### [facility] [address] [facility] [address] BARBITIURATES Negative Normal < 200 ng/mL [facility] Comment on above: Order Comment: UNK Performed By: #### L 505.5000, L801.1541 #### [facility] [address] [facility] [address] BENZODIAZIPINE Negative Normal < 200 ng/mL [facility] Comment on above: Order Comment: UNK Performed By: #### L 505.5000, L801.1541 #### [facility] [address] [place] [address] COCAINE Negative Normal < 300 ng/mL [facility] Comment on above: Order Comment: UNK Performed By: #### L 505.5000, L801.1541 #### [facility] [address] [facility] [address] ECSTACY Negative Normal < 500 ng/mL [facility] Comment on above: Order Comment: UNK Performed By: #### L 505.5000, L801.1541 #### [facility] [address] [facility] [address] METHADONE Negative Normal < 300 ng/mL [facility] Comment on above: Order Comment: UNK Performed By: #### L 505.5000, L801.1541 #### [facility] [address] [place] [address] OPIATES Negative Normal < 300 ng/mL [facility] Comment on above: Order Comment: UNK Performed By: #### L 505.5000, L801.1541 #### [facility] [address] [place], [address] PCP Negative Normal < 25 ng/mL [facility] Comment on above: Order Comment: UNK Performed By: #### L 505.5000, L801.1541 #### [facility] [address] [place], [address] THC Negative Normal < 50 ng/mL [facility] Comment on above: Order Comment: UNK Performed By: #### L 505.5000, L801.1541 #### [facility] [address] [place], [address] VISTA UDS PH 7 Normal [facility] Comment on above: Order Comment: UNK Performed By: #### L 505.5000, L801.1541 #### [facility] [address] [place], [address] Urine phencyclidine (PCP) de tectionon 08-25-2021 Phencyclidine Ql (U) Negative [facility] Work Phone: EMERGENCY REPORTon 1 EMERGENCY REPORT [facility] EMERGENCY ROOM REPORT NAME ACCOUNT SEX AGE ADMIT DISCHARGE PT MED. RECORD# NUMBER DATE DATE TYPE CHELLY ALVAREZ [id number] F 40 11/02/20 11/02/20 3 10922 ROOM: ER DATE OF : 1980 DICTATING PHYSICIAN: Isabel Valdez HISTORY OF PRESENT ILLNESS: The patient came [...] not been using any medications except for tbml-ddc-oohsgsf medications like Tylenol or ibuprofen, but she [...] CHELLY ALVAREZ Emergency Room Report CHELLY ALVAREZ DOB: 1980 family doctor I would be here on the night of November 03 and I would recheck her. Dictated By: Isabel Valdez DO 11/04/20 03:07 JOB #: [id number] Transcribed By: jing 11/06/20 07:38 Electronically signed by: E-SIGN ISABEL VALDEZ 11/18/20 19:19 Page 2 of 2 CHELLY ALVAREZ Emergency Room Report Normal [facility] Vital Signs Date Time Vital Sign Value Performing Clinician Facility 10-24-2024 23:00-0400 Diastolic blood pressure 80 mm[Hg] Dr. Trina Saldana DO Work Phone: [facility] 10-24-2024 23:00-0400 Heart rate 102 /min Dr. Trina Saldana DO Work Phone: [facility] 10-24-2024 23:00-0400 Respiratory rate 22 /min Dr. Trina Saldana DO Work Phone: [facility] 10-24-2024 23:00-0400 SaO2% (BldA) [Mass fraction] 97 % Dr. Trina Saldana DO Work Phone: [facility] 10-24-2024 23:00-0400 Systolic blood pressure 110 mm[Hg] Dr. Trina Saldana DO Work Phone: [facility] 10-24-2024 21:39-0400 Body temperature 97.8 [degF] Dr. Trina Saldana DO Work Phone: [facility] 10-24-2024 15:41-0400 Body height 160.[address] Trina Saldana DO Work Phone: [facility] 10-24-2024 15:41-0400 Body mass index (BMI) [Ratio] 33.9 kg/m2 Dr. Trina Saldana DO Work Phone: [facility] 10-24-2024 15:41-0400 Body weight 86.[address] Trina Saldana DO Work Phone: [facility] 10-22-2024 16:18-0400 Body mass index (BMI) [Ratio] 31.99 kg/m2 Liyah Lauren DO Work Phone: [facility] 10-22-2024 16:18-0400 Body temperature 97.7 [degF] Liyah Xin DO Work Phone: [facility] 10-22-2024 16:18-0400 Body weight 81.92 kg [place] Xin DO Work Phone: [facility] 10-22-2024 16:18-0400 Diastolic blood pressure 75 mm[Hg] Liyah Xin DO Work Phone: [facility] 10-22-2024 16:18-0400 Heart rate 87 /min Liyah Xin DO Work Phone: [facility] 10-22-2024 16:18-0400 Respiratory rate 18 /min Liyah Xin DO Work Phone: [facility] 10-22-2024 16:18-0400 SaO2% (BldA) [Mass fraction] 100 % Liyah Xin DO Work Phone: [facility] 10-22-2024 16:18-0400 Systolic blood pressure 115 mm[Hg] [place] Xin DO Work Phone: [facility] 04-06-2024 03:47-0500 Body temperature 98.06 [degF] [facility] 04-06-2024 03:47-0500 Diastolic Blood Pressure Non-Invasive 90 mm[Hg] ROS[facility]IN [facility] 04-06-2024 03:47-0500 Heart rate 134 /min ROS[facility]IN [facility] 04-06-2024 03:47-0500 Respiratory rate 20 /min [facility]IN [facility] 04-06-2024 03:47-0500 Systolic Blood Pressure Non-Invasive 141 mm[Hg] ROS[facility] 11-05-2023 12:54-0400 Body mass index (BMI) [Ratio] 31 kg/m2 Ramos Bah APRN.[employer]AN MANUFACTURING SPECIALIST Work Phone: [facility] 11-05-2023 12:54-0400 Body temperature 97.5 [degF] Ramos Bah APRN.[employer]CTURING SPECIALIST Work Phone: [facility] 11-05-2023 12:54-0400 Body weight 79.38 kg Ramos Bah APRN.[employer] MANUFACTURING SPECIALIST Work Phone: [facility] 11-05-2023 12:54-0400 Diastolic blood pressure 82 mm[Hg] Ramos Bah APRN.[employer]CTURING SPECIALIST Work Phone: [facility] 11-05-2023 12:54-0400 Heart rate 101 /min Ramos Bah APRN.[employer]CTURING SPECIALIST Work Phone: [facility] 11-05-2023 12:54-0400 Respiratory rate 16 /min Ramos Bah APRN.[employer]UFACTURING SPECIALIST Work Phone: [facility] 11-05-2023 12:54-0400 SaO2% (BldA) [Mass fraction] 97 % Ramos Bah APRN.[employer]UFACTURING SPECIALIST Work Phone: [facility] 11-05-2023 12:54-0400 Systolic blood pressure 122 mm[Hg] Ramos Bah APRN.[employer]CTUR[employer] SPECIALIST Work Phone: [facility] 07-17-2022 21:35-0400 Diastolic Blood Pressure Non-Invasive 72 1 [facility] 07-17-2022 21:35-0400 Heart rate 94 /min ALFREDO [facility]MAN [facility] 07-17-2022 21:35-0400 Respiratory rate 18 /min ALFREDO GU[facility]MAN [facility] 07-17-2022 21:35-0400 Systolic Blood Pressure Non-Invasive 133 1 ALFREDO GUZMAN [facility] 07-17-2022 18:21-0400 Body height 160 cm ALFREDO GUZMAN [facility] 07-17-2022 18:21-0400 Body temperature 98.42 [degF] ALFREDO GU[facility]MAN [facility] 07-17-2022 18:21-0400 Body weight 70.9 kg ALFREDO GUZMAN [facility] 07-17-2022 18:21-0400 Diastolic Blood Pressure Non-Invasive 68 1 ALFREDO GU[facility]MAN [facility] 07-17-2022 18:21-0400 Heart rate 100 /min ALFREDO GU[facility]MAN [facility] 07-17-2022 18:21-0400 Respiratory rate 20 /min ALFREDO GUZMAN [facility] 07-17-2022 18:21-0400 Systolic Blood Pressure Non-Invasive 134 1 ALFREDO GUZMAN [facility] 07-14-2022 10:31-0400 Body temperature 97.5 [degF] Dr. Trina Saldana Work Phone: [facility] 07-14-2022 10:31-0400 Diastolic blood pressure 78 mm[Hg] Dr. Trina Saldana Work Phone: [facility] 07-14-2022 10:31-0400 Heart rate 83 /min Dr. Trina Saldana Work Phone: [facility] 07-14-2022 10:31-0400 Respiratory rate 16 /min Dr. Trina Saldana Work Phone: [facility] 07-14-2022 10:31-0400 SaO2% (BldA) [Mass fraction] 100 % Dr. Trina Saldana Work Phone: [facility] 07-14-2022 10:31-0400 Systolic blood pressure 113 mm[Hg] Dr. Trina Saldana Work Phone: [facility] 07-14-2022 09:25-0400 Body height 160.[address] Trina Saldana Work Phone: [facility] 07-14-2022 09:25-0400 Body mass index (BMI) [Ratio] 28.5 kg/m2 Dr. Trina Saldana Work Phone: [facility] 07-14-2022 09:25-0400 Body weight 73.[address] Trina Saldana Work Phone: [facility] 06-27-2022 08:50-0400 Body temperature 97.2 [degF] Dr. Trina Saldana Work Phone: [facility] 06-27-2022 08:50-0400 Diastolic blood pressure 72 mm[Hg] Dr. Trina Saldana Work Phone: [facility] 06-27-2022 08:50-0400 Heart rate 80 /min Dr. Trina Saldana Work Phone: [facility] 06-27-2022 08:50-0400 Respiratory rate 18 /min Dr. Trina Saldana Work Phone: [facility] 06-27-2022 08:50-0400 SaO2% (BldA) [Mass fraction] 98 % Dr. Trina Saldana Work Phone: [facility] 06-27-2022 08:50-0400 Systolic blood pressure 95 mm[Hg] Dr. Trina Saldana Work Phone: [facility] 06-27-2022 06:59-0400 Body height 160.[address] Trina Saldana Work Phone: [facility] 06-27-2022 06:59-0400 Body mass index (BMI) [Ratio] 29.3 kg/m2 Dr. Trina Saldana Work Phone: [facility] 06-27-2022 06:59-0400 Body weight 75.[address] Trina Saldana Work Phone: [facility] 06-12-2022 09:16-0400 Body mass index (BMI) [Ratio] 28.3 kg/m2 Dr. Trina Saldana Work Phone: [facility] 06-12-2022 09:16-0400 Body weight 72.[address] Trina Saldana Work Phone: [facility] 06-12-2022 09:16-0400 Diastolic blood pressure 85 mm[Hg] Dr. Trina Saldana Work Phone: [facility] 06-12-2022 09:16-0400 Respiratory rate 18 /min Dr. Trina Saldana Work Phone: [facility] 06-12-2022 09:16-0400 Systolic blood pressure 134 mm[Hg] Dr. Trina Saldana Work Phone: [facility] 05-15-2022 13:11-0500 Body height [address] EDWAR ARVIZU [facility] 05-15-2022 13:11-0500 Body temperature 98.42 [degF] DR EDWAR ARVIZU DO [facility] 05-15-2022 13:11-0500 Body weight 68.[address] EDWAR ARVIZU DO [facility] 05-15-2022 13:11-0500 Diastolic Blood Pressure Non-Invasive [address] EDWAR ARVIZU DO [facility] 05-15-2022 13:11-0500 Heart rate 80 /min DR EDWAR ARVIZU DO [facility] 05-15-2022 13:11-0500 Respiratory rate 18 /min DR EDWAR ARVIZU DO [facility] 05-15-2022 13:11-0500 Systolic Blood Pressure Non-Invasive [address] EDWAR ARVIZU [facility] Encounters Encounter Date Encounter Type Care Provider Facility Start: 10-24-2024 Evaluation and management of inpatient Dr. Jamari Robins DO [facility] Work Phone: Start: 10-24-[address] Trina Saldana DO Work Phone: [facility] Start: 10-22-2024 End: 10-22-2024 Subsequent hospital visit by physician [facility] Work Phone: [facility] [facility] [employer] Comment on above: Acute left-sided low back pain with left-sided sciatica [M54.42] Start: 10-22-2024 End: 10-22-2024 Office outpatient visit 25 minutes [place] Xin DO Work Phone: [facility] Comment on above: Acute left-sided low back pain with left-sided sciatica (Primary Dx) Start: 10-22-2024 End: 10-22-2024 ambulatory SELF Facility:[id number] Start: 04-06-2024 End: 04-06-2024 Emergency department patient visit ROSANA GAVIN MD [facility] Start: 11-05-2023 End: 11-05-2023 Subsequent hospital visit by physician Xr [facility] Work Phone: [facility] [employer] Comment on above: Fall as cause of acc idental injury in home as place of occurrence, initial encounter [W19.XXXA, Y92.009] Start: 11-05-2023 End: 11-05-2023 ambulatory TRINA SALDANA Facility:[id number] Start: 11-05-2023 End: 11-05-2023 Patient encounter procedure Ramos Lisa Sawyer BULL CHAIN OPERATOR.[employer]UR[employer]IST Work Phone: [facility] Comment on above: Fall as cause of acc idental injury in home as place of occurrence, initial encounter (Primary Dx); Viral bronchitis Start: 07-17-2022 End: 07-17-2022 Emergency department patient visit DR TRINA SALDANA DO Facility:B Start: 07-17-2022 End: 07-17-2022 Emergency department patient visit ALFREDO GUZMAN MD [facility] Start: 07-14-2022 End: 07-14-[address] Prashant Ernandez Facility:[facility] Start: 07-14-2022 Non-patient / Non-visit Dr. Trina Saldana Work Phone: [facility] Start: 07-14-2022 End: 07-14-2022 Admission to same day surgery center Dr. Trina Saldana Work Phone: [facility] Start: 07-14-2022 End: 07-14-[address] Trina Saldana Work Phone: [facility] Work Phone: Start: 06-27-[address] Prashant Ernandez Facility:[facility] Start: 06-27-2022 End: 06-27-[address] Prashant Ernandez Facility:[facility] Start: 06-27-2022 Non-patient / Non-visit Dr. Trina Saldana Work Phone: [facility] Start: 06-27-2022 End: 06-27-2022 Admission to same day surgery center Dr. Trina Saldana Work Phone: [facility] Start: 06-27-2022 End: 06-27-[address] Trina Saldana Work Phone: [facility] Work Phone: Start: 06-12-2022 End: 06-12-[address] Prashant Ernandez Facility:[facility] Start: 06-12-2022 End: 06-12-[address] Trina Saldana Work Phone: [facility] Start: 06-08-2022 End: 06-08-2022 ambulatory [facility] Work Phone: Start: 06-08-2022 End: 06-08-2022 Patient encounter procedure [facility] [place] Start: 05-15-2022 End: 05-15-2022 Emergency department patient visit DR EDWAR ARVIZU DO Facility:B Start: 05-15-2022 End: 05-15-2022 Emergency department patient visit DR EDWAR ARVIZU [facility] Start: 09-20-2021 End: 09-21-2021 Emergency department [facility] Start: 09-19-2021 End: 09-20-2021 Emergency department patient visit DR KIERSTEN QIU [facility] Start: 08-25-2021 End: 08-25-2021 Patient encounter procedure [facility] Spec[facility] Start: 08-25-2021 End: 08-25-2021 ambulatory [facility] Facility:[facility] Start: 11-02-2020 End: 11-02-2020 Emergency department patient visit ISABEL THAO [facility] Start: 10-18-2018 End: 10-18-2018 Patient encounter procedure NONE NONE Facility:[facility] Start: 10-18-2016 End: 10-18-2016 Ambulatory [facility] Facility:[facility] Start: 12-28-2014 End: 12-28-2014 Telephone encounter Rosalind Dalton MD Work Phone: [facility] [place] Comment on above: Patient Request Procedures Date Procedure Procedure Detail Performing Clinician Start: 10-24-[address] Trina Saldana DO Work Phone: Start: 10-24-2024 Lymphocyte percent differential count Dr. Trina Saldana DO Work Phone: Start: 10-24-2024 Serum inorganic phos phate measurement Dr. Trina Saldana DO Work Phone: Start: 10-24-2024 CT of head without contrast Dr. Trina Saldana DO Work Phone: Start: 10-24-2024 MRI of cervical spin e with contrast Dr. Trina Saldana DO Work Phone: Start: 10-24-2024 MRI of lumbar spine with contrast Dr. Trina Saldana DO Work Phone: Start: 10-24-2024 MRI of thoracic spin e with contrast Dr. Trina Saldana DO Work Phone: Start: 11-05-2023 Radiologic exam knee complete 4/more views Ramos Bah BULL CHAIN OPERATOR.LEAN MANUFACTURING SPECIALIST Work Phone: Start: 07-14-[address] Trina velez Work Phone: Start: 06-27-[address] Trina velez Work Phone: Start: 06-08-2022 Ultrasonography of limb Start: 09-21-2021 Urinalysis BRADLEY SUAZO BY Comment on above: Result Comment: URIN ALYSIS Performed By: #### [id number] #### [facility],[address] [place] [address] Plan of Treatment Date Care Activity Detail Author Start: 11-24-2024 Influenza vaccination Influenza Vacc ine (#1) [facility] Start: 10-24-2024 Hospital admission, emergency, from emergency room, medical nature [facility] Start: 10-24-2024 Verification routine [facility] Start: 10-24-2024 Admission procedure [facility] Start: 10-24-2024 Measurement of C-saumya ctive protein using high sensitivity technique [facility] Start: 11-25-2023 Covid-19 Vaccine ( season) Covid-19 Vaccine ( season) [facility] Start: 11-25-2023 Influenza vaccination Influenza Vacc ine (#1) [facility] Start: 11-24-2022 Covid-19 Vaccine ( season) Covid-19 Vaccine ( season) [facility] Start: 07-14-2022 [facility] Start: 06-27-2022 Anes integ musc & nr v head neck&posterior trunk ANESTH HEAD/NECK/PTRUNK [facility] Start: 06-27-2022 Exc tumor soft tiss back/flank subfascial 5 cm/> EXC BACK GRICELDA DEEP 5 CM/> [facility] Start: 06-27-2022 Exc tumor soft tiss back/flank subfascial <5cm EXC BACK GRICELDA DEEP < 5 CM [facility] Start: 06-27-2022 Patient discharge [facility] Start: 2021 Screening for malign ant neoplasm of breast Mammogram Screening [facility] Start: 11-24-2020 Influenza vaccination INFLUENZ A (Season Ended) [facility] Start: 10-11-2011 HPV TESTING HPV TESTING [facility] Start: 2002 PAP TESTING PAP TESTING [facility] Start: 2002 Screening for malign ant neoplasm of cervix Cervical Cancer Screening [facility] Start: 2000 Hepatitis B Vaccine (1 of 3 - 19+ 3-dose series) Hepatitis B Vaccine (1 of 3 - 19+ 3-dose series) [facility] Start: 2000 Pneumococcal vaccination Pneum ococcal Vaccine (1 of 2 - PCV) [facility] Start: 2000 Urine microalbumin profile [facility] Start: 10-11-1999 Depression Screening Depression Scre ening [facility] Start: 10-11-1999 HEPATITIS C SCREENING HEPATITIS C [facility] Start: 10-11-1999 Hepatitis C screening [facility] Start: 10-11-1999 HIV SCREENING HIV SCREENING [facility] Start: 10-11-1999 HIV screening HIV Screening [facility] Start: 1993 Adult depression screening assessment DEPRESSION SCREENING [facility] Start: 10-11-1987 Pneumococcal vaccination Pneum ococcal Vaccine (1 of 2 - PCV) [facility] Amphetamines [Presen ce] in Urine by Screen method >1000 ng/mL [facility] Benzodiazepine measurement, urine [facility] Bilirubin measuremen t, urine [facility] Cocaine measurement, urine [facility] Colonoscopy [facility] fentaNYL [Presence] in Urine by Screen method [facility] Hemoglobin [Presence ] in Urine [facility] Measurement of keton es in urine using dipstick [facility] Methadone measuremen t, urine [facility] Microscopic urinalysis [facility] Patient referral [facility] Work Phone: pH of Urine [facility] Phencyclidine [Prese nce] in Urine [facility] Specific gravity of Urine [facility] Urine blood test [facility] Urine cannabinoid measurement [facility] Urine dipstick for glucose [facility] Urine dipstick for leukocyte esterase [facility] Urine dipstick for nitrite [facility] Urine dipstick for protein [facility] Urine examination [facility] Urine microscopy: epithelial cells [facility] Urine Microscopy: wh ite cells [facility] Urine opiate measurement [facility] Urobilinogen [Presen ce] in Urine [facility] End: 12-04-2024 XR Knee - left AP and Lateral and oblique XR KNEE INJURY 4V AP/LAT/OBLS LEFT Radiology Routine Fall as cause of accidental injury in home as place of occurrence, initial encounter 1 Occurrences starting 11/05/2023 until 12/04/2024 [facility] Comment on above: 1 Occurrences starti ng 11/05/2023 until 12/04/2024 XR Knee - left AP an d Lateral and oblique XR KNEE INJURY 4V AP/LAT/OBLS LEFT Radiology Routine Fall as cause of accidental injury in home as place of occurrence, initial encounter 11/05/2023 1:55 PM EDT [facility] End: 11-21-2025 XR Lumbar spine 3 Views XR LUMBAR GENERAL 3V AP/LAT/L5-S1 Radiology Routine Acute left-sided low back pain with left-sided sciatica 1 Occurrences starting 10/22/2024 until 11/21/2025 [facility] Work Phone: Comment on above: 1 Occurrences starti ng 10/22/2024 until 11/21/2025 XR Lumbar spine 3 Views XR LUMBA R GENERAL 3V AP/LAT/L5-S1 Radiology Routine Acute left-sided low back pain with left-sided sciatica 10/22/2024 4:59 PM EDT [facility] End: 12-04-2024 XR Ribs - right Views and Chest PA XR RIBS/CHEST 3V AP RIB/OBLS/CXR RIGHT Radiology Routine Fall as cause of accidental injury in home as place of occurrence, initial encounter 1 Occurrences starting 11/05/2023 until 12/04/2024 [facility] Work Phone: Comment on above: 1 Occurrences starti ng 11/05/2023 until 12/04/2024 XR Ribs - right View s and Chest PA XR RIBS/CHEST 3V AP RIB/OBLS/CXR RIGHT Radiology Routine Fall as cause of accidental injury in home as place of occurrence, initial encounter 11/05/2023 1:55 PM EDT [facility] Immunizations Immunization Date Immunization Notes Care Provider Anai oliver 01-11-2015 influenza, injectabl e, quadrivalent, contains preservative Ramos Bah APRN.LEAN MANUFACTURING SPECIALIST Work Phone: [facility] 01-11-2015 influenza virus vacc ine, unspecified formulation Ramos Bah APRN.LEAN MANUFACTURING SPECIALIST Work Phone: [facility] Payers Date Payer Category Payer Medicaid [id number] 2021 Self-pay [id number] 2021 Unknown [id number] 2016 Unknown 2013 Medicaid [place] [id number] 2013-Present Medicaid [id number] 1981 Unknown [id number] 1981 Unknown [id number] 1981 Unknown [id number] 1981 Unknown [id number] 1981 Unknown [id number] 1981 Unknown [id number] 1981 Unknown [id number] 1959 Unknown [id number] Unknown [id number] Unknown [id number] Unknown [id number] Unknown [id number] Unknown [id number] Unknown [id number] Unknown [id number] Social History Date Type Detail Facility Start: 09-14-2014 End: 10-24-2024 Tobacco smoking status MNIS Current every day smoker [facility] History of tobacco use Cigarette Smoker C [facility] Work Phone: Start: 09-14-2014 End: 11-05-2023 Cigarettes smoked current (pack per day) - Reported [facility] Start: 09-14-2014 End: 10-22-2024 Tobacco use and exposure Former user [facility] Work Phone: History of tobacco use Chews Tobacco [facility] Work Phone: Start: 09-14-2014 End: 10-22-2024 Alcohol intake Current drinker of alcohol (finding) [facility] Start: 08-21-2014 Alcohol Comment [facility] Start: 1980 Sex Assigned At Not on file C [facility] Start: 05-20-2020 End: 06-27-2022 Tobacco smoking status NHIS Unknown if ever smoked [facility] Start: 05-20-2020 None [facility] Start: 05-20-2020 Alone [facility] Start: 1980 Sex Assigned At Female W [facility] Start: 05-15-2022 End: 04-06-2024 Tobacco smoking status Heavy tobacco smoker (finding) [facility] Sex Assigned At [facility] History of tobacco use Passive smoker [facility] Start: 11-05-2023 End: 10-22-2024 Tobacco use panel [facility] Adult Depression Screening Assessment 0 [facility] Start: 05-04-2005 Sex Female (finding) [facility] Goals Date Patient Goal Desired Activity /State Functional Status Date Assessment Result Facility 04-06-2024 Functional Status Activity [facility] 04-06-2024 Functional Status Standard Safet y ID band on, Allergy Band on, Bed in low position, Wheels locked, Phone within reach, personal items within reach, Bedside Cart Locked, Security notified, Security present, Law enforcement present, Metal Detection Wand Used [facility] 07-17-2022 Functional Status Independent [facility] 07-17-2022 Functional Status Resting [facility] 05-15-2022 Functional Status Independent [facility] 05-15-2022 Functional Status Resting [facility] 09-14-2014 Are you deaf, or do you have serious difficulty hearing Yes 09/14/2014 2:21 PM EDT Kiara Batista LPN Yes [facility] 09-14-2014 Are you blind, or do you have serious difficulty seeing, even when wearing glasses Yes 09/14/2014 2:21 PM EDT Kiara Batista LPN Yes [facility] 09-14-2014 Do you have serious difficulty walking or climbing stairs Yes 09/14/2014 2:21 PM EDT Kiara Batista LPN Yes [facility] 09-14-2014 Do you have difficul ty dressing or bathing No 09/14/2014 2:21 PM EDT Kiara Batista LPN No [facility] 09-14-2014 Because of a physica l, mental, or emotional condition, do you have difficulty doing errands alone such as visiting a physician's office or shopping No 09/14/2014 2:21 PM EDT Kiara Batista LPN No [facility] Mental Status Date Assessment Result Facility 04-06-2024 Mental Status Orientation Oriented x 4 [facility] 04-06-2024 Mental Status [facility] 07-17-2022 Mental Status Orientation Oriented x 4 [facility] 07-14-2022 Cognitive function Voice/Name [facility] Work Phone: 06-27-2022 Cognitive function Level Of Cons ciousness Sedated [facility] Work Phone: 06-27-2022 Cognitive function Voice/Name [facility] Work Phone: 05-15-2022 Mental Status Orientation Oriented x 4 [facility] 05-15-2022 Mental Status [facility] 09-14-2014 Because of a physica l, mental, or emotional condition, do you have serious difficulty concentrating, remembering, or making decisions Yes 09/14/2014 2:21 PM EDT Kiara Batista LPN Yes [facility] Clinical Notes 12-28-2014 to 10-24-2024 Note Date & Type Note Facility 10-24-2024 Discharge summary [facility] 10-24-2024 Radiology Diagnostic study note [facility] Imaging Services [address] [place] [address] Brain/Head without Contrast MR#: [id number] Acct: [id number] Name: CHELLY ALVAREZ Rep #: [id number] : 1980 F 44 From: Wilson Louis MD PCP: Dr. Trina Saldana DO Status: REG ER Study:Brain/Head without Contrast Date of Exa m: 10/24/24 Exam# [id number] Ordering Dr: Pillo Riley MD PROCEDURE: BRAIN/HEAD WITHOUT CONTRAST 10/24/2024 REASON FOR EXAM: OFF BALANCE, NUMBNESS TECHNIQUE: BRAIN/HEAD WITHOUT CONTRAST Coronal and Sagittal reconstruction series were provided. One or more dose reduction techniques were used (e.g., Automated exposure control, adjustment of the mA and/or kV according to patient size, use of iterative reconstruction technique. RADIATION DOSE SUMMARY: CTDlvol: 44.99 mGy DLP: 779.24 mGycm COMPARISON: None. FINDINGS: No acute intracranial hemorrhage, extra-axial collection, mass effect or evidence of acute infarct. Ventricles and subarachnoid spaces are normal in size. Orbital contents are unremarkable. Intact skull base and calvarium. Clear paranasal sinuses and mastoid air cells. CT/Brain/Head without Contrast IMPRESSION: Unremarkable head CT. Reading Location: [facility] CC: Dr. Essence Riley MD; Dr. Trina Saldana DO ~ Piece Marker Small Arms: Signed [facility] 10-24-2024 Discharge summary Note Date/Time October 24, 2024 11:25pm [facility] Medical Records Department [address] [place] [address] Emergency Department Summary 10/24/24 MR#: [id number] Acct: [id number] Name: CHELLY ALVAREZ Rep #:[id number] : 1980 44 From: Essence Riley MD PCP: Dr. Trina Saldana DO Status:REG ER Location: ED HPI History of Present Illness Chief Complaint: Back Narrative Narrative: Patient is a 44-year-old female presented to the emergency department for back pain. Patient has a history of back pain. States that over the past week it has significantly worsened. She reports that she has had multiple falls due to intermittent numbness in her legs. She reports that today she has had multiple episodes of urinary incontinence. She denies any fevers or IV drug use. Deniesany bowel incontinence or saddle anesthesia. Denies any recent viral symptoms. She describes the intermittent back pain as shooting down the front and back of her legs and numbness intermittently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 illness Narrative* Ramos Bah, MEGHAN.LEAN MANUFACTURING SPECIALIST - 11/05/2023 1:06 PM EDT Images from the original note were not included. Chelly ALVAREZ is a 43 year old female who presents with Chest Congestion (Chest congestion and coughx 1 week ) Presents today with 2 complaints. First is she has had an upper respiratory infection congestion, and cough for over a week. She states around the same time she had fallen through loose boards on herporch scraping her left knee causing a large amount of bluish bruising per patient which has resolved. And knee pain as well as right rib pain which is made worse with her cough. She endorses fever, c ongestion and cough. She does have a history [...] capsule Take 1 capsule by mouth once daily.30 capsule 0 ALPRAZolam (XANAX) 0.5 mg tablet [...] (FLONASE) 50 mcg/actuation nasal spray Use 1 [place] in each nostril once daily. ALPRAZolam (XANAX) [...] 1 tablet by mouth every 4 hours asneeded. (Patient not taking: Reported on 11/05/2023) NAPROXEN [...] or ecchymosis. Normal range of motion. Tenderness present.No LCL laxity, MCL laxity, ACL laxity or [...] week if symptoms do not resolve - QXECOTDXNDCLAQR-FQHCMVJAZZQLVUN-BV 2 MG-30 MG-10 MG/5 ML ORAL SYRUP - PREDNISONE 20 MG TABLET Ramos Bah documented in this encounterGrand Lake Joint Township District Memorial Hospital04-24-2023 Hospital Discharge instructions Patient Education 07/17/2022 19:41:06 Dog Bite Dog Bite A dog bite can cause a wound deep enough to break the skin. In such cases, the wound is cleaned andsometimes closed. If the wound is closed, it [...] for signs of illness. (If the pet line haul owner operator won t allow this, contact your local [...] stopped after 5 minutes of firm pressure [id number] [employer] [address] [place] [address], [place] [address]. All rights reserved. This information is not intended as a substitute for professional medical care. Always follow yourhealthcare professional's instructions. Follow Up Care 07/17/2022 18:05:08 With:TRINA SALDANA Address: [address] [place] [address] [phone]- Business (1) When:Within 1 Week(s) Comments:Schedule appointment for close follow-up for wound check and suture removal in 7-10 days.Daily wound care with application of topical antibiotic ointment and dressing changes.Use antibiotic (Augmentin) as prescribed.Watch for signs of infection.Use Tylenol, Advil or Aleve for pain as needed.Return to the ED if symptoms worsen. [facility] 04-24-2023 Note Discharge Instructions Thank you for allowing [facility] to assist you with your healthcare needs. The following is importantdischarge information regarding your hospital visit. Diagnosis from Today's Visit Dog bite What to Do Next Instructions from Your Care Team No qualifying data available. Post Acute Orders No qualifying data available. You Need to Schedule the Following Appointments Follow Up with TRINA SALDANA When In 1 week Why: Schedule appointment for close follow-up for wound check and suture removal in 7-10 days. Daily wound care with application of topical antibiotic ointment and dressing changes. Use antibiotic (Augmentin) as prescribed. Watch for signs of infection. Use Tylenol, Advil or Aleve for pain as needed. Return to the ED if symptoms worsen. Where: [address] [place] [id number] [facility] (1) Allergies morphine Medications Please ask your [...] In such cases, the wound is cleaned andsometimes closed. If the wound is closed, it [...] for signs of illness. (If the pet line haul owner operator won t allow this, contact your local [...] stopped after 5 minutes of firm pressure [phone] [employer] [address] [place] [address]. All rights reserved. This information is not intended as a substitute for professional medical care. Always follow yourhealthcare professional's instructions. Additional Information VACCINATE! IT SAVES LIVES! Members of the community who have not yet received the COVID-19 vaccine and would like to receive it can visit one of [facility] vaccine clinics. There are many vaccine clinic locations within the [facility]. For locations and available times, please visit www.gettheshot.coronavirus.[place].gov/. It is important to note that some COVID mobile vaccine clinics are held outdoors and may be canceled in rainy or stormy conditions. To learn more about pediatric vaccinations (ages 5-11), we invite you to visit the [facility] webpage. https://www.[facility].org/pages/5852-Cotxv-Jnkanftbjng-Jkqcvbyrwx-Jdkcn-Xgp stions.htmlTo learn more about the COVID-19 vaccine, we invite you to visit the CDC website for a list of frequently asked questions. https://www.cdc.gov/coronavirus/2019-ncov/vaccines/faq.html [employer] Patient Portal Access Instructions: Stay connected with your healthcare team and access your personal medical information anytime with the [employer] Patient Portal. If you would like a full copy of your medical records please contact the [facility] Medical Records Department Sunday through Sunday between 8a.m. and 4:30p.m. Please follow the directions below to access the portal: 1.Access the email account you provided upon registration to the [facility].2.Look for an invitation email from [facility].3.Open the email and access the invitation link: Accept Invitation to [facility]4.Fill in the required chaparro to create your account. Sign into [email or web address] with your username and password that you [...] you will allow to register on the [facility] Patient Portal for access to your information. You can also access the [facility] Patient Portal on the [employer] jm. Simply click on Health Records under HealthData and then click on the [employer] logo. HOW TO SAFELY DISPOSE OF PRESCRIPTION [...] Call your local pharmacy or go to http://bit.ly/1J1Tq4m to find one close to you.3.Make use of household items: Use cat litter or old coffee grounds to dispose medications if other options arenot available. Mix your drugs with these household products, seal them in an airtight container andthrow it into the garbage. Call [facility]: [phone] to be sure your drugs can be [...] been reviewed and explained to me and IANTONIO AMY B understand my current condition and have read and understand these discharge instructions. I have received a written copy of the plan/instructions. If I have questions, I am aware that I should contact my d octor. Patient/Type Inspector Signature: Date/Time: Relationship to Patient: Witness Name/Signature: Date/Time: [facility]2023 [facility] Medical Records Department [address] [place] [address] History Physical Exam 07/14/22 0942 MR#: [id number] Acct: [id number] Name: CHELLY ALVAREZ Rep #: [id number] : 1980 41 From: Prashant Ernandez MD PCP: Dr. Trina Saldana, DO Status:REG [facility] Location: [place] [address] History and Physical Date of Admission: 07/14/22 Intake Vital Signs ??? 05/20/2119:03 06/12/2308:16 Height 5 ft 3 in 5 ft 3 in Weight: ??? 160 lb BMI ??? 28.3 BP ??? 134/85 H Blood Pressure Location ??? Lt brachial Position ??? Sitting Respiration ??? 18 Intake Visit Reasons:???LIPOMAS ON BACK COLONOSCOPY Chief Complaint: lipomas and c-scope Electromechanical Engineer Required: No Is patient in pain?: No [...] proceed with procedure. Prashant Ernandez MD Pager: [facility] [address] [place] [address], [address] [place] [address] Office: I have examined the patient and the H P has been reviewed. There are no clinical changes since date of exam. 07/14/22 0942 Cosigner Signature (if applicable): CC: Dr. Prashant Ernandez MD; Dr. Trina Saldana, DO [facility]04[facility]2023 History and physical note Author Dr. Ernandez [facility] June 27, 2022 7:40am Note Date/Time June 27, 2022 7:40 am [facility] Medical Records Department [address] [place] [address] History & Physical Exam 06/27/22 0739 MR#: [id number] Acct: [id number] Name: CHELLY ALVAREZ Rep #:[id number] : 1980 41 From: Prashant madrid MD PCP: Dr. Trina Saldana, DO Status:[facility] Location: [place] [address] History and Physical Date of Admission: 06/27/22 Intake Vital Signs ? 05/20/2119:03 06/12/2308:16 Height 5 ft 3 in 5 ft 3 in Weight: ? 160 lb BMI ? 28.3 BP ? 134/85 H Blood Pressure Location ? Lt brachial Position ? Sitting Respiration ? 18 Intake Visit Reasons:?LIPOMAS ON BACK & COLONOSCOPY Chief Complaint: lipomas and c-scope Electromechanical Engineer Required: No Is patient in pain?: No [...] the sciatic nerves. Prashant Ernandez MD Pager: [facility] [address] [place] [address], [address] [place] [phone] Office: I have examined the patient and the H&P has been reviewed. There are no clinicalchanges since date of exam. 06/27/22 0740 <Electronically signed by Prashant Ernandez MD> Cosigner Signature (if applicable): CC: Dr. Prashant Ernandez MD; Dr. Trina Saldana DO~ Signed [facility] Work Phone: 1(473) 901-473104-04-2023 [facility] Medical Records Department [address] [place], [place] [id number] History Physical Exam 06/27/22 0739 MR#: [id number] Acct: [id number] Name: CHELLY ALVAREZ Rep #: [id number] : 1980 41 From: Prashant Ernandez MD PCP: Dr. Trina Saldana, DO Status:[facility] Location: [place] [address] History and Physical Date of Admission: 06/27/22 Intake Vital Signs ??? 05/20/2119:03 06/12/2308:16 Height 5 ft 3 in 5 ft 3 in Weight: ??? 160 lb BMI ??? 28.3 BP ??? 134/85 H Blood Pressure Location ??? Lt brachial Position ??? Sitting Respiration ??? 18 Intake Visit Reasons:???LIPOMAS ON BACK COLONOSCOPY Chief Complaint: lipomas and c-scope Electromechanical Engineer Required: No Is patient in pain?: No [...] the sciatic nerves. Prashant Ernandez MD Pager: [facility] [address] [place] [address] [address] [place] [address] Office: I have examined the patient and the H P has been reviewed. There are no clinical changes since date of exam. 06/27/22 0740 Cosigner Signature (if applicable): CC: Dr. Prashant Ernandez MD; Dr. Trina Saldana, DO [facility]23 Hospital Discharge instructions Patient Education 05/15/2022 14:50:09 [...] temperature. Use toothpaste made for sensitive teeth. [place] gently up and down instead of sideways. Brushing sideways can wear away root surfaces if they are exposed. If your tooth is chipped or cracked, or if there is a large open cavity, put oil of cloves directlyon the tooth to relieve pain. You can buy oil of cloves at drugstores. Some pharmacies carry an gamt-ppw-egfqrgx toothache kit. This contains a paste that you can put on the exposed tooth to make it less sensitive. Put a cold pack on your jaw over the sore area to help reduce pain. You may use rxge-fcg-mjfntnq medicine to ease pain, unless your doctor [...] healthcare provider Pus drains from the tooth [phone] [employer] [address] [place] [address]. All rights reserved. This information is not intended as a substitute for professional medical care. Always follow yourhealthcare professional's instructions. Follow Up Care 05/15/2022 12:50:46 With:TRINA SALDANA DO Address: [address] [place], [place] [address]- When:2-4 days [facility] 02[facility]20-2023 Note Discharge Instructions Thank you for allowing [facility] to assist you with your healthcare needs. The following is importantdischarge information regarding your hospital visit. Diagnosis from Today's Visit Dental pain What to Do Next Instructions from Your Care Team No qualifying data available. Post Acute Orders No qualifying data available. You Need to Schedule the Following Appointments Follow Up with TRINA SALDANA DO When Within 2-4 days Where: [address] [place] [address]- Allergies morphine Medications Please ask your primary [...] temperature. Use toothpaste made for sensitive teeth. [place] gently up and down instead of sideways. Brushing sideways can wear away root surfaces if they are exposed. If your tooth is chipped or cracked, or if there is a large open cavity, put oil of cloves directlyon the tooth to relieve pain. You can buy oil of cloves at [employer]. Some pharmacies carry an mzdp-vkm-lredbud toothache kit. This contains a paste that you can put on the exposed tooth to make it less sensitive. Put a cold pack on your jaw over the sore area to help reduce pain. You may use vpqz-mjd-qscmjkz medicine to ease pain, unless your doctor [...] healthcare provider Pus drains from the tooth 5684-8589 [employer] [address] [place] [address], [place] [address]. All rights reserved. This information is not intended as a substitute for professional medical care. Always follow yourhealthcare professional's instructions. Additional Information VACCINATE! IT SAVES LIVES! Members of the community who have not yet received the COVID-19 vaccine and would like to receive it can visit one of [facility] vaccine clinics. There are many vaccine clinic locations within the [facility]. For locations and available times, please visit www.gettheshot.coronavirus.[place].gov/. It is important to note that some COVID mobile vaccine clinics are held outdoors and may be canceled in rainy or stormy conditions. To learn more about pediatric vaccinations (ages 5-11), we invite you to visit the [facility] webpage. https://www.[email or web address].org/pages/4473-Tcger-Hvlukvvaehi-Sqiulaaiyj-Iulnf-Qpr stions.htmlTo learn more about the COVID-19 vaccine, we invite you to visit the CDC website for a list of frequently asked questions. https://www.cdc.gov/coronavirus/2019-ncov/vaccines/faq.html [facility] Patient Portal Access Instructions: Stay connected with your healthcare team and access your personal medical information anytime with the [facility] Patient Portal. If you would like a full copy of your medical records please contact the [facility] Medical Records Department Sunday through Sunday between 8a.m. and 4:30p.m. Please follow the directions below to access the portal: 1.Access the email account you provided upon registration to the [facility].2.Look for an invitation email from [facility].3.Open the email and access the invitation link: Accept Invitation to [facility]4.Fill in the required chaparro to create your account. Sign into [email or web address] Trainr with your username and password that you [...] you will allow to register on the [facility] Patient Portal for access to your information. You can also access the [facility] Patient Portal on the [employer]. Simply click on Health Records under J[employer] and then click on the Rhys logo. HOW TO SAFELY DISPOSE OF PRESCRIPTION [...] Call your local pharmacy or go to [email or web address] to find one close to you.3.Make use of household items: Use cat litter or old coffee grounds to dispose medications if other options arenot available. Mix your drugs with these household products, seal them in an airtight container andthrow it into the garbage. Call [facility]: [phone] to be sure your drugs can be [...] that I should contact my d octor. Patient/Type Inspector Signature: Date/Time: Relationship to Patient: Witness Name/Signature: Date/Time: [facility]10[facility] Miscellaneous Notes* Telephone Encounter - Abi Mcadams Lpn - 12/28/2014 10:23 AM EDT See below. * Telephone Encounter - Maya Rosneberg - 12/28/2014 9:44 AM EDT Chelly Rivera is calling ROSALIND DALTON MD today to request the Naproxen Patient has been identified by name and birthdate. Duration of symptoms: N/A Person calling: self Call patient at: on cell [phone] (home) [phone] (cell) Was an appointment scheduled: No Patient is asking if she could have the Naproxen again. The Lodine bothers her stomach. Please callpatient to let her know if this can be changed. Maya Teran Psr documented in this encounterGrand [facility]Disc[facility] summary Author Dr. Ernandez [facility] June 27, 2022 8:42am Note Date/Time June 27, 2022 8:41 am [facility] Medical Records Department [address] [place] [address] Instructions for Home/Discharge Instructions 06/27/22 0840 MR#: [id number] Acct: [id number] Name: CHELLY ALVAREZ Rep #:[id number] : 1980 41 From: Prashant madrid MD PCP: Dr. Trina Saldana, DO Status:[facility] Discharge Instructions Diet Discharge Diet: Light diet [...] to schedule 2 week follow up appointment. [phone] Test Results: Test results from this visit will be discussed in further detail at your follow- up appointment, if applicable. Discharge Plan Admission Attending Provider: Prashant Ernandez Primary Care Provider: Trina Saldana Additional Instructions / Restrictions: Alternate ibuprofen and [...] CC: Dr. Trina Saldana DO ~ Signed [facility] Work Phone: Evaluation + Plan note No data available for this section [facility] Evaluation noteNo assessment information available [facility] Work Phone: Evaluation note* Diagnosis Onset Date Resolution Status Blood in stool acute Lipoma of back acute Pain, low back acute [facility] Work Phone: Evaluation note* Diagnosis Fall as cause of accidental injury in home as place of occurrence, initial encounter- Primary Viral bronchitis Acute bronchitis documented in this encounter [facility] note* Diagnosis Tachycardia- Primary Tachycardia, unspecified ADD (attention deficit disorder) 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 Routine gynecological examination Controlled substance agreement signed Encounter for long-term (current) use of other medications Carpal tunnel syndrome Anxiety Anxiety state, unspecified Fall as cause of accidental injury in home as place of occurrence, initial encounter documented in this encounter [facility] note* Diagnosis Tachycardia- Primary Tachycardia, unspecified ADD (attention deficit disorder) 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 Routine gynecological examination Controlled substance agreement signed Encounter for long-term (current) use of other medications Carpal tunnel syndrome Anxiety Anxiety state, unspecified Acute left-sided low back pain with left-sided sciatica- Primary [facility] Tachycardia- Primary Tachycardia, unspecified ADD (attention deficit disorder) 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 Routine gynecological examination Controlled substance agreement signed Encounter for long-term (current) use of other medications Carpal tunnel syndrome Anxiety Anxiety state, unspecified Acute left-sided low back pain with left-sided sciatica documented in this encounter [facility] HospitalHistory and physical note Author Dr. Ernandez [facility] July 14, 2022 9:42am Note Date/Time July 14, 2022 9:4 2am [facility] Medical Records Department [address] [place] [address] History & Physical Exam 07/14/22 0942 MR#: [id number] Acct: [id number] Name: CHELLY ALVAREZ Rep #:[id number] : 1980 41 From: Prashant madrid MD PCP: Dr. Trina Saldana, DO Status:[facility] Location: [place] [address] History and Physical Date of Admission: 07/14/22 Intake Vital Signs ? 05/20/2119:03 06/12/2308:16 Height 5 ft 3 in 5 ft 3 in Weight: ? 160 lb BMI ? 28.3 BP ? 134/85 H Blood Pressure Location ? Lt brachial Position ? Sitting Respiration ? 18 Intake Visit Reasons:?LIPOMAS ON BACK & COLONOSCOPY Chief Complaint: lipomas and c-scope Electromechanical Engineer Required: No Is patient in pain?: No [...] Surgical History?(Updated 06/12/22 @ 09:15 by Karolina Zavaal) S/p bilateral myringotomy with tube placement S/P [...] proceed with procedure. Prashant Ernandez MD Pager: [facility] [address] [place] [address], [address] [place] [phone] Office: I have examined the patient and the H&P has been reviewed. There are no clinicalchanges since date of exam. 07/14/22 0942 <Electronically signed by Prashant Ernandez MD> Cosigner Signature (if applicable): CC: Dr. Prashant Ernandez MD; Dr. Trina Saldana DO~ Signed [facility] Work Phone: Reason for referral (narrative)* Diagnostic Procedure Only (Routine) - Closed Specialty Diagnoses / Procedures Referred By Contac t Referred To Contact XR IMAGING Diagnoses Fall as cause of accidental injury in home as place of occurrence, initial encounter Procedures XR KNEE INJURY 4V AP/LAT/OBLS LEFT RADIOLOGIC EXAM KNEE COMPLETE 4/MORE VIEWS Ramos Bah, MEGHAN.LEAN MANUFACTURING SPECIALIST [address] [place] [address] [place] [address] Referral ID Status Reason Start Date Expiration Date V isits Requested Visits Authorized [id number] Closed Auto-Generate d Referral 11/05/2023 12/04/2024 1 1 * Diagnostic Procedure Only (Routine) - Closed Specialty Diagnoses / Procedures Referred By Contac t Referred To Contact XR IMAGING Diagnoses Fall as cause of accidental injury in home as place of occurrence, initial encounter Procedures XR RIBS/CHEST 3V AP RIB/OBLS/CXR RIGHT RADEX RIBS UNI W/POSTEROANT CH MINIMUM 3 VIEWS Ramos Bah APRN.LEAN MANUFACTURING SPECIALIST [address] [place] [id number] [place] [address] Referral ID Status Reason Start Date Expiration Date V isits Requested Visits Authorized [id number] Closed Auto-Generate d Referral 11/05/2023 12/04/2024 1 1 [facility] for referral (narrative)* Diagnostic Procedure Only (Routine) - Closed Specialty Diagnoses / Procedures Referred By Contac t Referred To Contact XR IMAGING Diagnoses Fall as cause of accidental injury in home as place of occurrence, initial encounter Procedures XR KNEE INJURY 4V AP/LAT/OBLS LEFT RADIOLOGIC EXAM KNEE COMPLETE 4/MORE VIEWS Ramos Bah, BULL CHAIN OPERATOR.LEAN MANUFACTURING SPECIALIST [address] [place] [address] [place] [address] Referral ID Status Reason Start Date Expiration Date V isits Requested Visits Authorized [id number] Closed Auto-Generate d Referral 11/05/2023 12/04/2024 1 1 * Diagnostic Procedure Only (Routine) - Closed Specialty Diagnoses / Procedures Referred By Contac t Referred To Contact XR IMAGING Diagnoses Fall as cause of accidental injury in home as place of occurrence, initial encounter Procedures XR RIBS/CHEST 3V AP RIB/OBLS/CXR RIGHT RADEX RIBS UNI W/POSTEROANT CH MINIMUM 3 VIEWS Ramos Bah BULL CHAIN OPERATOR.LEAN MANUFACTURING SPECIALIST [address] [place] [address] [place] [address] Referral ID Status Reason Start Date Expiration Date V isits Requested Visits Authorized [id number] Closed Auto-Generate d Referral 11/05/2023 12/04/2024 1 1 [facility] for referral (narrative)No reason for referral information availableWMercy Health Anderson Hospital Work Phone: Reason for visit Narrative* Diagnostic Procedure Only (Routine) - Closed Specialty Diagnoses / Procedures Referred By Contac t Referred To Contact XR IMAGING Diagnoses Fall as cause of accidental injury in home as place of occurrence, initial encounter Procedures XR KNEE INJURY 4V AP/LAT/OBLS LEFT RADIOLOGIC EXAM KNEE COMPLETE 4/MORE VIEWS Ramos Bah, MEGHAN.LEAN MANUFACTURING SPECIALIST [address] [place] [address] Xr Imaging [facility] Referral ID Status Reason Start Date Expiration Date V isits Requested Visits Authorized [id number] Closed Auto-Generate d Referral 11/05/2023 12/04/2024 1 1 [facility] for visit Narrative* Diagnostic Procedure Only (Routine) - Closed Specialty Diagnoses / Procedures Referred By Contac t Referred To Contact XR IMAGING Diagnoses Acute left-sided low back pain with left-sided sciatica Procedures XR LUMBAR GENERAL 3V AP/LAT/L5-S1 RADEX SPINE LUMBOSACRAL 2/3 VIEWS Liyah Lauren DO [address] [place] [address] Phone: tel: fax: XR IMAGING [facility] Referral ID Status Reason Start Date Expiration Date V isits Requested Visits Authorized [id number] Closed Auto-Generate d Referral 10/22/2024 11/21/2025 1 1 [facility] Summary Purpose Family History Relationship Condition Age at Onset Recorded Date/T madai grandfather Diabetes mellitus Unknown Cardiac disease Unknown Hypertension Unknown grandmother Cerebrovascular accident (CVA) Unknown Lupus Unknown Advance Directives Advance Directive Response Recorded Date/ Time Advance Directives No February 10:38pm Living Will No May 20 9:17pm Power of Dual Rate Dealer No May 20, 2020 9:17pm Advance Directive Response Recorded Date/ Time Advance Directives No February 10:38pm Living Will No June 20, 2022 2:47pm Power of Dual Rate Dealer No June 20 2:47pm Advance Directive Response Recorded Date/ Time Advance Directives No February 10:38pm Living Will No June 20, 2022 2:42pm Power of Dual Rate Dealer No June 20 2:42pm Advance Directive Response Recorded Date/ Time Do you have a Healthcare Power of Dual Rate Dealer? No October 24, 2024 3:55pm Advance Directives No April 19, 2023 2:29pm Chief Complaint and Reason for Visit Chief Complaint LOWER BACK LIPOMAS Chief Complaint LOWER BACK LIPOMAS LIPOMAS ON BACK & COLONOSCOPY LT EXCISION LOWER BACK LIPOMA LT EXCISION LOWER BACK LIPOMA Reason for Visit Blood in stool Lipoma of back Pain, low back Chief Complaint Admit Date back pain October 24, 2024 11: 32pm Reason for Visit Admit Date Arthritis October 24, 2024 11: 32pm Intractable back pain October 24, 2024 1 1:32pm Neuropathy October 24, 2024 11: 32pm Numbness October 24, 2024 11: 32pm Obesity (BMI 30.0-34.9) October 24, 2024 11:32pm Tobacco abuse October 24, 2024 11: 32pm Urinary incontinence October 24, 2024 11 :32pm Weakness October 24, 2024 11: 32pm Additional Source Comments INFORMATION SOURCE (unrecogn ized section and content) DATE CREATED AUTHOR 09/19/2017 [facility] DATE CREATED AUTHOR AUTHOR'S ORGANIZ ATION 12/31/2018 [facility] DATE CREATED AUTHOR AUTHOR'S ORGANIZ ATION 09/29/2021 [facility] DATE CREATED AUTHOR AUTHOR'S ORGANIZ ATION 07/19/2022 [facility] ([place]) DATE CREATED AUTHOR AUTHOR'S ORGANIZ ATION 07/24/2022 [facility] DATE CREATED AUTHOR AUTHOR'S ORGANIZ ATION 04/14/2024 [facility] DATE CREATED AUTHOR AUTHOR'S ORGANIZ ATION 10/24/2024 [facility] nter Source Comments (unrecognize d section and content) In the event this informatio n is protected by the Federal Confidentiality of Alcohol and Drug Abuse Patient Records regulations: The Federal rules restrict any use of the information to criminally investigate or prosecute any alcohol or drug abuse patient.[facility] HospitalIn the event this information is protected by the Federal Confidentiality of Alcohol and Drug Abuse Patient Records regulations: The Federal rules restrict any use of the information to criminally investigate or prosecute any alcohol or drug abuse patient.[facility] HospitalIn the event this information is protected by the Federal Confidentiality of Alcohol and Drug Abuse Patient Records regulations: The Federal rules restrict any use of the information to criminally investigate or prosecute any alcohol or drug abuse patient.[facility] HospitalIn the event this information is protected by the Federal Confidentiality of Alcohol and Drug Abuse Patient Records regulations: The Federal rules restrict any use of the information to criminally investigate or prosecute any alcohol or drug abuse patient.[facility] HospitalIn the event this information is protected by the Federal Confidentiality of Alcohol and Drug Abuse Patient Records regulations: The Federal rules restrict any use of the information to criminally investigate or prosecute any alcohol or drug abuse patient.[facility] Reason for Visit (unrecogniz ed section [...] this section No data available for this sectionGoals may be documented in an alternate section Care Team (unrecognized sect ion and content) Care Team Personnel Name: TRINA SALDANA DO Member Role: Primary Care Physician Address: Address: [address] [place], [place] [address] Name: REGINA Malik Position: AO RN Member Role: ED RN Name: EDWAR ARVIZU DO Position: ED Physician Member Role: Attending Physician Address: Address: [facility] [address] [place], [place] [address] Care Teams (unrecognized sec tion and [...] Saldana DO Primary Care Provider, Referring P ortiz Active Dr. Prashant Ernandez MD Attending Provider [...] Saldana DO Primary Care Provider, Referring P ortiz Active Dr. Prashant Ernandez MD Attending Provider, Other Provider Active Dumpman Relationship Specialty Start Date End Date Trina Saldana [address] [place] [address] PCP - General Family Medicine 03/06/17 Dumpman Relationship Specialty Start Date End Date Trina Saldana DO [address] [place] [address] PCP - General Family Medicine 03/06/17 Dumpman Relationship Specialty Start Date End Date Trina Saldana DO [address] [place] [address] PCP - General Family Medicine 03/06/17 Team Status: Active Member Role/Relationship Status Dates Dr. Trina Saldana DO Primary Care Provider Active Team Status: Active Member Role/Relationship Status Dates Dr. Trina Saldana DO Primary Care Provider Active Start: October 24, 2024 Dr. Essence Riley MD Referring Provider Active S tart: October 24, 2024 Dr. Essence Riley MD Emergency Provider Active S tart: October 24, 2024 Dr. Jamari Robins DO Admit Provider Active Start: October 24, 2024 Dr. Jamari Robins DO Attending Provider Active Start: October 24, 2024 FOR RECORDS PERTAINING TO PATIENTS WHO ARE [...] BE BASED ON THE PRIMARY CLINICAL RECORDS. [facility]. provides no warranty or guarantee of the accuracy or completeness of information in this document.
[2024-10-25] MEDS: Ketorolac 30 MG/ML Syringe IV ×2 (01:02→17:33)
[2024-10-25] MEDS: MELATONIN 3 MG TABLET PO ×2 (01:03→23:00)
[2024-10-25 01:13] LABS: Vitamin B12 991 pg/mL (180-914)
[2024-10-25 05:53] VITALS: BP 104/82; PULSE 79; RESP 16; TEMP 36.7; O2SAT 97
[2024-10-25 06:00] VITALS: BMI 33.0
[2024-10-25 06:05] LABS: Hematocrit 38.7 % (37-47); Hemoglobin 13.2 g/dL (12.0-15.0); Immature Granulocytes Count 0.030 X10^3/uL (0.0-0.0); Mean Corp Hgb Conc 34.1 g/dL (32-36); Mean Corpuscular Volume 91.9 fL (81-99); Mean Platelet Vol. 8.9 fl (6.2-12.0); NRBC Flagged by Analyzer 0 % (0-5); Platelet Count 293 K/mm3 (150-450); RBC Distribution Width CV 13.3 % (11.6-14.6); RBC Distribution Width SD 45.1 fl (35.1-43.9); Red Blood Count 4.21 M/mm3 (4.2-5.4); White Blood Count 7.0 K/mm3 (4.4-11.0)
[2024-10-25 06:32] LABS: AST(SGOT) 18 U/L (<=31); Alanine Aminotransfer ALT/SGPT 15 U/L (<=34); Albumin, Serum 3.7 g/dL (3.5-5.0); Alkaline Phosphatase 114 U/L (35-104); Anion Gap 10 (5-15); BUN 13 mg/dL (4-19); BUN/Creat Ratio 15.0 RATIO (10-20); Calcium,Total 8.5 mg/dL (7.6-11.0); Carbon Dioxide 22.7 mmol/L (21.0-32.0); Chloride 104 mmol/L (98-108); Estimated Creatinine Clearance 85.97 ml/min (50-250); Globulin 2.3 g/dL (2.2-4.2); Glucose 121 mg/dL (70-99); Potassium 5.1 mmol/L (3.3-5.1)
[2024-10-25 07:55] VITALS: PULSE 70
--- NOTE | 2024-10-25 08:04 | PCM.PN.HOSP ---
Reason for Visit Chief Complaint: Intractable Back Pain, Multiple Falls, Numbness in Legs and Urinary Incontinence. Subjective Subjective Patient continues to have back pain but denies any numbness in her legs or problems with urination or changes in bowel at this time Objective Data Objective Data Vital Signs: Vital Signs Temp Pulse Resp BP Pulse Ox O2 Del Method 98.1 F 70 16 104/82 H 97 Room Air 10/25/24 05:53 10/25/24 07:55 10/25/24 05:53 10/25/24 05:53 10/25/24 05:53 10/25/24 05:53 Oxygen Delivery Method Room Air Weight: 84.6 kg Body Mass Index (BMI) 33.0 Intake & Output: Intake and Output for Last 24 Hours 10/23/24 10/24/24 10/25/24 23:59 23:59 23:59 Intake Total 150 / 150 Balance 150 / 150 Lab / Micro Data 10/25/24 05:53 10/25/24 05:53 Labs: Laboratory Results - last 24 hr 10/24/24 20:05: WBC 13.0 H, RBC 4.13 L, Hgb 13.2, Hct 37.7, MCV 91.3, MCH 32.0, MCHC 35.0, RDW Std Deviation 44.5 H, RDW Coeff of Julio 13.3, Plt Count 307, MPV 9.1, Immature Gran % (Auto) 0.600, Neut % (Auto) 57.6, Lymph % (Auto) 33.3, [place] % (Auto) 5.8, Eos % (Auto) 1.9, Baso % (Auto) 0.8, Absolute Neuts (auto) 7.5, Absolute Lymphs (auto) 4.33, Nucleated RBC % 0, Atypical Lymphocytes 2+, Platelet Estimate A, ESR 3, Sodium 139, Potassium 3.9, Chloride 103, Carbon Dioxide 24.4, Anion Gap 12, BUN 11, Creatinine 0.84, Estim Creat Clear Calc 90.19, Est GFR (MDRD) Non-Af 89, BUN/Creatinine Ratio 12.6, Glucose 84, Calcium 9.1, Phosphorus 3.7, Magnesium 2.1, Total Bilirubin 0.29, AST 16, ALT 19, Alkaline Phosphatase 111 H, Total Protein 6.4, Albumin 3.9, Globulin 2.6, Albumin/Globulin Ratio 1.5, Vitamin B12 991 H, Serum Folate 4.47 L, TSH 2.400, Ethyl Alcohol < 10.1 10/25/24 05:53: WBC 7.0, RBC 4.21, Hgb 13.2, Hct 38.7, MCV 91.9, MCH 31.4, MCHC 34.1, RDW Std Deviation 45.1 H, RDW Coeff of Julio 13.3, Plt Count 293, MPV 8.9, Immature Gran % (Auto) 0.400, Neut % (Auto) 77.4 H, Lymph % (Auto) 17.3 L, [place] % (Auto) 3.3, Eos % (Auto) 1.0, Baso % (Auto) 0.6, Absolute Neuts (auto) 5.5, Absolute Lymphs (auto) 1.22, Nucleated RBC % 0, Sodium 137, Potassium 5.1, Chloride 104, Carbon Dioxide 22.7, Anion Gap 10, BUN 13, Creatinine 0.86, Estim Creat Clear Calc 85.97, Est GFR (MDRD) Non-Af 86, BUN/Creatinine Ratio 15.0, Glucose 121 H, Calcium 8.5, Total Bilirubin 0.15, AST 18, ALT 15, Alkaline Phosphatase 114 H, Total Protein 6.0, Albumin 3.7, Globulin 2.3, Albumin/Globulin Ratio 1.6 Radiography Diagnostic Testing: Radiology Impression Cervical Spine MRI 10/24/24 16:29 IMPRESSION: Mild multilevel spondylotic changes as described above, with no significant spinal canal narrowing. There is at most mild neural foraminal narrowing at the levels of C5-C6, L4-L5 and L5-S1. Prominent active hypertrophic facet degenerative changes bilaterally at L4-5 and L5-S1, more pronounced on the left with periarticular edema and enhancement. Likely culprit of lower back pain. Reading Location: [facility] Lumbar Spine MRI 10/24/24 16:29 IMPRESSION: Mild multilevel spondylotic changes as described above, with no significant spinal canal narrowing. There is at most mild neural foraminal narrowing at the levels of C5-C6, L4-L5 and L5-S1. Prominent active hypertrophic facet degenerative changes bilaterally at L4-5 and L5-S1, more pronounced on the left with periarticular edema and enhancement. Likely culprit of lower back pain. Reading Location: [facility] Thoracic Spine MRI 10/24/24 16:29 IMPRESSION: Mild multilevel spondylotic changes as described above, with no significant spinal canal narrowing. There is at most mild neural foraminal narrowing at the levels of C5-C6, L4-L5 and L5-S1. Prominent active hypertrophic facet degenerative changes bilaterally at L4-5 and L5-S1, more pronounced on the left with periarticular edema and enhancement. Likely culprit of lower back pain. Reading Location: [facility] Brain CT 10/24/24 16:37 IMPRESSION: Unremarkable head CT. Reading Location: [facility] Physical Exam Narrative General: Alert, oriented HEENT: Atraumatic, normocephalic Eyes: Anicteric, normal conjunctiva, extraocular movements grossly intact Neck: Supple Respiratory: Clear to auscultation bilaterally, normal respiratory effort Cardiovascular: Regular rate and rhythm GI: Soft, nontender, nondistended Extremities: No edema Musculoskeletal: Moving all extremities, slow to move but was able to sit up in bed Neuro: No overt focal neurological deficits Skin: No rashes appreciated Psych: Cooperative Assessment & Plan Assessment/Plan (1) Intractable back pain: PLAN: Plan #Intractable back pain -MRI of the cervical/thoracic/lumbar spines that revealed mild multilevel spondylitic changes with no significant spinal canal narrowing with most mild neuroforaminal narrowing at levels of C5-C6, L4-L5 and L5-S1 with prominent active hypertrophic facet degenerative changes bilaterally at L4-L5 and L5-S1 more pronounced on the Left with periarticular edema and enhancement which is likely the culprit of lower back pain -PT/OT -Supportive care -Scheduled Tylenol -Patient started on IV Decadron -IV ketorolac with opiates as second line for pain -Reportedly patient was drowsy this a.m., did receive 1 mg of Dilaudid in the ED on top of gabapentin and Flexeril and Xanax, preferentially use ketorolac or opiates for concern for further oversedation while awaiting further evaluation -Will attempt topical pain relief as well to hopefully minimize need for IV medications if possible - Discussed with Ortho on-call as there is no orthospine over the weekend, patient presently has the pain but is denying any bowel or bladder problems to me at this time with no numbness, additionally MRI already obtained and did not show any cauda equina impingement so patient does not need emergently transferred, supportive care as above recommended with orthospine consult on Sunday if not improving versus pain management. If any changes in neurologic status could consider transfer but not emergent at this time #ADHD - Patient on Adderall chronically, this may worsen her anxiety for which she subsequently needs to take Xanax, may benefit from trying alternative nonstimulant medications on outpatient basis if applicable #Depression and anxiety - Appears patient's only on Xanax every afternoon, unclear patient's medication trials but may benefit from daily medication to decrease overall level of anxiety and/or depression and possibly minimize need for benzodiazepines #Tobacco use -Advise cessation -Nicotine replacement available if desired #GERD -Continue PPI # Low folate levels - Will start patient on folic acid supplementation #DVT ppx: SCDs Radha Manuel MD Charges/Coding Visit Charges Inpatient E&M: 17001 Subs Hosp L2
[2024-10-25 09:59] VITALS: BP 107/76; PULSE 76; RESP 16; TEMP 36.7; O2SAT 95
[2024-10-25] MEDS: 0.9% Saline Lock 10 ML Syringe IV ×2 (10:05→17:33)
[2024-10-25] MEDS: Fluticasone 0.05% 1 SPRAY NASAL.SRY NASAL ×2 (10:10→23:01)
[2024-10-25] MEDS: Lidocaine 5% Patch 1 PATCH TOPICAL (15:34)
[2024-10-25 15:37] VITALS: BP 104/67; PULSE 76; RESP 16; TEMP 36.8; O2SAT 97
--- NOTE | 2024-10-25 17:00 | CASEMGMT ---
REGINA VARGAS note: Therapy evals reviewed. Per therapy, pt lives alone in mobile home w/ramp entrance, has had multiple falls. PT has made multiple attempts to educate pt w/using WW for support, but pt declines wanting walker. REGINA VARGAS to discuss discharge plan. Introduced self and role. Pt sitting on edge of bed. Mother @ bedside. Discussed therapy and walker. Pt states she does not want a walker at this time, but states, depending on how she is doing when she is ready for discharge, she may be agreeable to getting one, if needed. She also is not sure if she will want/need therapy @ [facility]. Plan: TBD, follow for possible walker and therapy. Ortho consult pending. Kash ABREU RN CM
[2024-10-25] MEDS: Ensure Plus High Protein 120 ML LIQUID PO (17:34)
[2024-10-25 17:43] VITALS: PULSE 80
[2024-10-26 04:58] LABS: Hematocrit 36.7 % (37-47); Hemoglobin 12.4 g/dL (12.0-15.0); Mean Corp Hgb Conc 33.8 g/dL (32-36); Mean Corpuscular Volume 92.7 fL (81-99); Mean Platelet Vol. 9.5 fl (6.2-12.0); Platelet Count 295 K/mm3 (150-450); RBC Distribution Width CV 12.8 % (11.6-14.6); RBC Distribution Width SD 43.8 fl (35.1-43.9); Red Blood Count 3.96 M/mm3 (4.2-5.4); White Blood Count 11.5 K/mm3 (4.4-11.0)
[2024-10-26 05:12] LABS: Anion Gap 11 (5-15); BUN 14 mg/dL (4-19); BUN/Creat Ratio 17.5 RATIO (10-20); Calcium,Total 8.7 mg/dL (7.6-11.0); Carbon Dioxide 22.5 mmol/L (21.0-32.0); Chloride 106 mmol/L (98-108); Estimated Creatinine Clearance 95.84 ml/min (50-250); Glucose 116 mg/dL (70-99); Potassium 4.7 mmol/L (3.3-5.1)
[2024-10-26 05:50] VITALS: BMI 33.3
[2024-10-26 06:14] VITALS: BP 113/71; PULSE 67; RESP 16; TEMP 36.4; O2SAT 98
[2024-10-26 08:25] VITALS: BP 128/82; PULSE 79; RESP 20; TEMP 37.1; O2SAT 96
[2024-10-26 08:27] VITALS: PULSE 80
[2024-10-26] MEDS: Ensure Plus High Protein 120 ML LIQUID PO ×3 (08:35→16:12)
[2024-10-26] MEDS: Fluticasone 0.05% 1 SPRAY NASAL.SRY NASAL ×2 (08:35→21:21)
[2024-10-26] MEDS: Lidocaine 5% Patch 1 PATCH TOPICAL (08:36)
[2024-10-26 09:08] LABS: CRP, High Sensitivity 2.14 mg/L (0.00-3.00)
[2024-10-26] MEDS: 0.9% Saline Lock 10 ML Syringe IV (09:47)
--- NOTE | 2024-10-26 10:54 | PCM.PN.HOSP ---
Reason for Visit Chief Complaint: Intractable Back Pain, Multiple Falls, Numbness in Legs and Urinary Incontinence. Subjective Subjective Patient resting comfortably in bed, reports she feels no better but not necessarily worse, reports she intermittently gets numbness in both legs and both arms but no dermatomal or location distribution, reports its her whole arms and whole legs at the same time and this comes and goes, presently denying any bowel or bladder trouble, no headache at present, reported before she came in she would intermittently have problems with dizziness but not having that at this time Objective Data Objective Data Vital Signs: Vital Signs Temp Pulse Resp BP Pulse Ox O2 Del Method 98.7 F 80 20 H 128/82 H 96 Room Air 10/26/24 08:25 10/26/24 08:27 10/26/24 08:25 10/26/24 08:25 10/26/24 08:25 10/26/24 08:25 Oxygen Delivery Method Room Air Weight: 85.2 kg Body Mass Index (BMI) 33.3 Intake & Output: Intake and Output for Last 24 Hours 10/24/24 10/25/24 10/26/24 23:59 23:59 23:59 Intake Total 1150 / 1350 400 / 400 Balance 1150 / 1350 400 / 400 Lab / Micro Data 10/26/24 03:40 10/26/24 03:40 Labs: Laboratory Results - last 24 hr 10/24/24 20:05: C-React Prot High Sens 2.14 10/26/24 03:40: WBC 11.5 H, RBC 3.96 L, Hgb 12.4, Hct 36.7 L, MCV 92.7, MCH 31.3, MCHC 33.8, RDW Std Deviation 43.8, RDW Coeff of Julio 12.8, Plt Count 295, MPV 9.5, Sodium 140, Potassium 4.7, Chloride 106, Carbon Dioxide 22.5, Anion Gap 11, BUN 14, Creatinine 0.78, Estim Creat Clear Calc 95.84, Est GFR (MDRD) Non-Af 96, BUN/Creatinine Ratio 17.5, Glucose 116 H, Calcium 8.7 Physical Exam Narrative General: Alert, oriented, no apparent distress HEENT: Atraumatic, normocephalic Eyes: extraocular movements grossly intact Neck: Supple Respiratory: normal respiratory effort Cardiovascular: no edema appreciated GI: nondistended Extremities: Moving all extremities Neuro: No overt focal neurological deficits, subjectively reporting intermittent numbness in arms and legs Psych: Cooperative Assessment & Plan Assessment/Plan (1) Intractable back pain: PLAN: Plan #Intractable back pain -MRI of the cervical/thoracic/lumbar spines that revealed mild multilevel spondylitic changes with no significant spinal canal narrowing with most mild neuroforaminal narrowing at levels of C5-C6, L4-L5 and L5-S1 with prominent active hypertrophic facet degenerative changes bilaterally at L4-L5 and L5-S1 more pronounced on the Left with periarticular edema and enhancement which is likely the culprit of lower back pain -PT/OT -Supportive care -Scheduled Tylenol -Patient started on IV Decadron -IV ketorolac with opiates as second line for pain -Reportedly patient was drowsy this a.m., did receive 1 mg of Dilaudid in the ED on top of gabapentin and Flexeril and Xanax, preferentially use ketorolac or opiates for concern for further oversedation while awaiting further evaluation -Will attempt topical pain relief as well to hopefully minimize need for IV medications if possible - Discussed with Ortho on-call as there is no orthospine over the weekend, patient presently has the pain but is denying any bowel or bladder problems to me at this time with no numbness, additionally MRI already obtained and did not show any cauda equina impingement so patient does not need emergently transferred, supportive care as above recommended with orthospine consult on Sunday if not improving versus pain management. If any changes in neurologic status could consider transfer but not emergent at this time -10/26: Reports intermittent numbness in both legs and both arms but reports it is the whole when on each of her extremities all at 1 time, does not necessarily seem physiologic in nature though does have findings on imaging that could account for some symptoms do not think they would account for upper and lower extremity numbness of whole limbs all at the same time, continuing supportive care, given patient does not feel she has done any better may need Ortho consult versus pain management consult in the a.m. Continue to work with PT Chronic medical problems and/or problems not being actively addressed during today's encounter: #ADHD - Patient on Adderall chronically, this may worsen her anxiety for which she subsequently needs to take Xanax, may benefit from trying alternative nonstimulant medications on outpatient basis if applicable #Depression and anxiety - Appears patient's only on Xanax every afternoon, unclear patient's medication trials but may benefit from daily medication to decrease overall level of anxiety and/or depression and possibly minimize need for benzodiazepines #Tobacco use -Advise cessation -Nicotine replacement available if desired #GERD -Continue PPI # Low folate levels - Will start patient on folic acid supplementation #DVT ppx: SCDs Radha Manuel MD Time spent in the patient's overall evaluation,decision-making process, review of diagnostic data, adjustment of management, discussion with other providers, nursing nursing and ancillary staff involved in patient's care documentation, 35 Minutes Charges/Coding Visit Charges Inpatient E&M: 73933 Subs Hosp L2
[2024-10-26 14:10] VITALS: BP 113/73; PULSE 88; RESP 20; TEMP 36.7; O2SAT 98
[2024-10-26 14:13] VITALS: PULSE 80
[2024-10-26 15:40] LABS: Mucous, Urine 0 SEEN /hpf (<or=2+)
[2024-10-26 15:47] LABS: Color, Urine Straw (Yellow); Glucose, Dipstick Normal (Normal); Ketone-Dipstick Negative (Negative); Leukocyte Esterase-Dipstick Negative /ul (Negative); Nitrite-Dipstick Negative (Negative); Occult Blood-Urine Negative /ul (Negative); Protein-Dipstick Negative (Negative); Specific Gravity, Urine 1.010 (1.002-1.030); Urine Bilirubin Dipstick Negative (Negative)
[2024-10-26 16:17] LABS: Barbiturate Urine NEGATIVE (< 200 ng/mL); Benzodiazepine Urine NEGATIVE (< 200 ng/mL); PCP Urine NEGATIVE (< 25 ng/mL); THC Urine NEGATIVE (< 50 ng/mL)
[2024-10-26 17:31] LABS: Red Blood Cells-Urine 0-5 SEEN /hpf (0-5); Squamous Epithelial Cells - UA 0-5 SEEN /hpf (5-10)
[2024-10-26 21:19] VITALS: BP 120/77; PULSE 84; RESP 16; TEMP 36.3; O2SAT 98
[2024-10-26] MEDS: MELATONIN 3 MG TABLET PO (21:27)
[2024-10-27 05:14] VITALS: BMI 33.5
[2024-10-27 05:50] VITALS: BP 107/69; PULSE 73; RESP 16; TEMP 36.6; O2SAT 95
[2024-10-27 07:35] LABS: Hematocrit 37.6 % (37-47); Hemoglobin 12.9 g/dL (12.0-15.0); Mean Corp Hgb Conc 34.3 g/dL (32-36); Mean Corpuscular Volume 91.9 fL (81-99); Mean Platelet Vol. 9.3 fl (6.2-12.0); Platelet Count 272 K/mm3 (150-450); RBC Distribution Width CV 13.0 % (11.6-14.6); RBC Distribution Width SD 43.7 fl (35.1-43.9); Red Blood Count 4.09 M/mm3 (4.2-5.4); White Blood Count 12.4 K/mm3 (4.4-11.0)
[2024-10-27 08:02] LABS: Anion Gap 11 (5-15); BUN 14 mg/dL (4-19); BUN/Creat Ratio 18.9 RATIO (10-20); Calcium,Total 8.8 mg/dL (7.6-11.0); Carbon Dioxide 24.0 mmol/L (21.0-32.0); Chloride 105 mmol/L (98-108); Estimated Creatinine Clearance 106.00 ml/min (50-250); Glucose 104 mg/dL (70-99); Potassium 4.6 mmol/L (3.3-5.1)
[2024-10-27] MEDS: Ensure Plus High Protein 120 ML LIQUID PO ×2 (09:03→12:42)
[2024-10-27] MEDS: Fluticasone 0.05% 1 SPRAY NASAL.SRY NASAL ×2 (09:04→21:00)
[2024-10-27] MEDS: Lidocaine 5% Patch 1 PATCH TOPICAL (09:05)
[2024-10-27 09:11] VITALS: BP 120/104; PULSE 78; RESP 16; TEMP 36.5; O2SAT 97
[2024-10-27] MEDS: 0.9% Saline Lock 10 ML Syringe IV ×2 (09:13→21:01)
--- NOTE | 2024-10-27 09:49 | PCM.CONS.GEN ---
Assessment & Plan Assessment/Plan (1) Spondylosis of lumbar joint: PLAN: MRI demonstrates prominent L4-5 and L5-S1 bilateral facet degeneration, more pronounced on the left with periarticular edema and enhancement. Likely culprit of lower back pain. Cervical and thoracic demonstrated no significant stenosis. Plan for Bilateral facet medial branch blocks L4-L5 and L5-S1 I will order flexion/extension XR of the lumbar spine to evaluate dynamic component She states she had a terrible experience with a labor epidural and prefers to avoid this treatment option On benzodiazepine and stimulant as outpatient. Was given short courses of tylenol 3 as outpatient. Inpatient medication regimen: flexeril, tylenol, gabapentin, toradol, oxycodone. Follow up as outpatient I discussed at great length that her MRI findings do not provide clear etiology for her numbness/tingling symptoms. I explainted that some of her pain may be related to the above facet issue, but this is not a good explanation for the breadth of her symptoms. She states she was referred in the past to neurology, but never followed through. I encouraged her to recontact and follow through with this. I also asked if she had a rheumatologic workup and she was unsure. (2) Spondylosis without myelopathy or radiculopathy, lumbosacral region: HPI Consult Data Date of Consult: 10/27/24 HPI Narrative HPI Narrative: MANUEL ALVAREZ, is a 44 F who presents with a past medical history of essential hypertension; on atenolol, obesity (class I); with BMI of 33.9 this admission, chronic tobacco abuseADHD; on dextroamphetamine-amphetamine daily, neuropathy; on gabapentin, depression with anxiety; on alprazolam daily, muscle spasms; on cyclobenzaprine nightly, GERD; on omeprazole and OA; with back pain on short courses ofacetaminophen-codeine 3 times daily as needed plus prednisone. She states the pain has occured intermittently for years, but worsened recently and was accompanied with some incontinent episodes and numbess in the extremities. She notes a prior lipoma resection in the low back with Dr. Ernandez. She was admitted for of back pain in the setting of multiple falls, intermittent numbness in her legs, arms and facial numbness and urinary incontinence. She states the pain comes on with activity or sitting and can result in numbness in the legs and arms. The pain can be 10/10 in severity and radiate to the extremities. Denies procedures for the pain. MRI of the cervical, thoracic, and lumbar demonstrated facetogenic inflammation in the lower lumbar and mild/moderate degerative changes. No severe stenosis. CT scan of the brain without contrast that revealed no acute intracranial hemorrhage, extra-axial collection, mass effect or evidence of acute infarct. [facility] Medical History ADHD Anxiety Back pain Smoker History of pain when walking History of edema History of echocardiogram Cardiology follow-up encounter History of irregular heartbeat ADD (attention deficit disorder) Arthritis Back problem Home Medications ?Medication ?Instructions ?Recorded ?Last Taken ?Type dextroamphetamine-amphetamine 30 30 mg PO DAILY 01/22/13 Unknown History mg tablet (Adderall) atenolol 25 mg tablet 12.5 mg PO DAILY 05/08/19 06/27/22 History cetirizine 10 mg tablet 10 mg PO DAILY 05/08/19 Unknown History cyclobenzaprine 10 mg tablet 10 mg PO HS PRN MUSCLE SPASMS 06/12/22 Unknown History acetaminophen 300 mg-codeine 30 mg 1 tab PO Q8H PRN Pain 06/20/22 Unknown History tablet alprazolam 0.25 mg tablet 0.25 mg PO QPM 10/24/24 Unknown History dextroamphetamine-amphetamine ER 1 cap PO DAILY 10/24/24 Unknown History 30 mg 24hr capsule,extend release fluticasone propionate 50 1 spray intranasal BID 10/24/24 Unknown History mcg/actuation nasal spray,suspension gabapentin 300 mg capsule 300 mg PO DAILY 10/24/24 Unknown History montelukast 10 mg tablet 10 mg PO DAILY allergies 10/24/24 Unknown History omeprazole 20 mg capsule,delayed 20 mg PO DAILY 10/24/24 Unknown History release prednisone 20 mg tablet PO 10/24/24 Unknown History Allergy/AdvReac Type Severity Reaction Status Date / Time morphine AdvReac Other Verified 07/14/22 09:24 Family History Grandfather Diabetes Heart disease Hypertension Grandmother CVA (cerebral vascular accident) Lupus Surgical History Hx of tubal ligation S/p bilateral myringotomy with tube placement S/P tonsillectomy S/P surgical removal of pilonidal cyst S/P D&C (status post dilation and curettage) S/P laparoscopy Social History Smoking Status: Current every day smoker tobacco type: cigarettes alcohol intake: current ROS ROS Narrative Review of Systems: Constitutional: Patient denies fever or chills. Eyes: Patient denies changes in vision or discharge from eyes. ENT: Patient denies runny nose, sore throat or ear pain. Resp: Patient denies shortness of breath or cough. CV: Patient denies chest pain, palpitations, heart racing or lower extremity edema. GI: Patient denies abdominal pain, nausea, vomiting, diarrhea or constipation. : Patient admits to urinary incontinence but she denies dysuria or hematuria. MSK: Patient admits to intermittent leg numbness and weakness causing falls as per HPI. Skin: Patient denies rash, abscess, wounds or jaundice. Psych: Patient denies symptoms of uncontrolled depression or anxiety. Neuro: Patient admits to intermittent numbness and pain in her legs shooting down the front and back of her legs as per HPI. Allergy: Patient denies lip swelling, tongue swelling or urticaria. Hematology: Patient denies easy bleeding or easy bruisability. Endocrinology: Patient denies polyuria, polydipsia, polyphagia or heat/cold intolerance. 14 point ROS otherwise negative except for positives noted above in HPI. Physical Exam Narrative Lumbar paraspinal tenderness + bilaterally Facet load + bilaterally SLR - bilaterally No Si tenderness. Si provocative maneuvers negative (fabers, gaenslens, compression) Hip provocative maneuvers negative Sensation intact in the extremities Motor strength 5/5 Const alert and oriented x3 Lab / Micro Data 10/27/24 07:08 10/27/24 07:08 Labs: Laboratory Results - last 24 hr 10/26/24 15:25: Urine Color Straw, Urine Clarity Clear, Urine pH 7.0, Ur Specific [place] 1.010, Urine Protein Negative, Urine Glucose (UA) Normal, Urine Ketones Negative, Urine Occult Blood Negative, Urine Nitrite Negative, Urine Bilirubin Negative, Urine Urobilinogen Normal, Ur Leukocyte Esterase Negative, Urine RBC 0-5 SEEN, Urine WBC 0-5 SEEN, Ur Squamous Epith Cells 0-5 SEEN, Urine Bacteria 0 SEEN, Urine Mucus 0 SEEN, Urine Opiates Screen NEGATIVE, U Buprenorphine Qual NEGATIVE, Ur Oxycodone Screen PRESUMPTIVE POSITIVE, Urine Methadone Screen NEGATIVE, Urine Fentanyl Screen NEGATIVE, Ur Barbiturates Screen NEGATIVE, Ur Phencyclidine Scrn NEGATIVE, Ur Amphetamines Screen NEGATIVE, U Benzodiazepines Scrn NEGATIVE, Urine Cocaine Screen NEGATIVE, U Cannabinoids Screen NEGATIVE 10/27/24 07:08: WBC 12.4 H, RBC 4.09 L, Hgb 12.9, Hct 37.6, MCV 91.9, MCH 31.5, MCHC 34.3, RDW Std Deviation 43.7, RDW Coeff of Julio 13.0, Plt Count 272, MPV 9.3, Sodium 140, Potassium 4.6, Chloride 105, Carbon Dioxide 24.0, Anion Gap 11, BUN 14, Creatinine 0.71, Estim Creat Clear Calc 106.00, Est GFR (MDRD) Non-Af 108, BUN/Creatinine Ratio 18.9, Glucose 104 H, Calcium 8.8
[2024-10-27 15:15] VITALS: BP 113/84; PULSE 77; RESP 16; TEMP 36.9; O2SAT 96
--- NOTE | 2024-10-27 18:00 | RAD_ITS ---
PROCEDURE: L/S SPINE BENDING FLEX/EXT 10/27/2024 REASON FOR EXAM: NUMBNESS AND BACK PAIN TECHNIQUE: L/S SPINE BENDING FLEX/EXT COMPARISON: MRI lumbar spine 10/24/2024. FINDINGS: Curvature: Normal alignment. Bones: No acute bony findings. The disc space estella are unremarkable. Soft tissues: No soft tissue abnormalities. RAD/L/S Spine Bending Flex/Ext IMPRESSION: Normal alignment upon flexion and extension. No acute bony abnormalities. Reading Location: [id number]
--- NOTE | 2024-10-27 19:07 | PCM.PN.HOSP ---
Reason for Visit Chief Complaint: Intractable Back Pain, Multiple Falls, Numbness in Legs and Urinary Incontinence. Subjective Subjective Patient was seen and examined today, I spent some time talking with her about her symptomology, it does not appear that any pathology in her lumbar spine would cause all of her symptomology, I also discussed her care with pain management who I had see the patient today. Pain management will perform some facet blocks on the patient tomorrow. I explained to the patient we do not have spinal surgery here presently and that she would need to follow-up with a spinal surgeon after discharge from the hospital. Objective Data Objective Data Vital Signs: Vital Signs Temp Pulse Resp BP Pulse Ox O2 Del Method 98.5 F 77 16 113/84 H 96 Room Air 10/27/24 15:15 10/27/24 15:15 10/27/24 15:15 10/27/24 15:15 10/27/24 15:15 10/27/24 15:15 Oxygen Delivery Method Room Air Weight: 85.7 kg Body Mass Index (BMI) 33.5 Intake & Output: Intake and Output for Last 24 Hours 10/25/24 10/26/24 10/27/24 23:59 23:59 23:59 Intake Total 1150 / 1350 400 / 550 1500 / 1500 Balance 1150 / 1350 400 / 550 1500 / 1500 Lab / Micro Data 10/28/24 05:20 10/28/24 05:20 Labs: Laboratory Results - last 24 hr 10/27/24 07:08: WBC 12.4 H, RBC 4.09 L, Hgb 12.9, Hct 37.6, MCV 91.9, MCH 31.5, MCHC 34.3, RDW Std Deviation 43.7, RDW Coeff of Julio 13.0, Plt Count 272, MPV 9.3, Sodium 140, Potassium 4.6, Chloride 105, Carbon Dioxide 24.0, Anion Gap 11, BUN 14, Creatinine 0.71, Estim Creat Clear Calc 106.00, Est GFR (MDRD) Non-Af 108, BUN/Creatinine Ratio 18.9, Glucose 104 H, Calcium 8.8 Radiography Diagnostic Testing: Radiology Impression Lumbar Spine X-Ray 10/27/24 18:00 IMPRESSION: Normal alignment upon flexion and extension. No acute bony abnormalities. Reading Location: [facility] Physical Exam Const alert, oriented x3, no apparent distress and healthy appearing General Appearance: cooperative, well kempt and well developed Orientation / Consciousness: awake, oriented to person, oriented to place and oriented to time HEENT normocephalic, head/scalp atraumatic and moist oral mucous membranes Eyes PERRL, EOMs intact bilaterally and conjunctivae normal Neck supple, no JVD, thyroid normal and no carotid bruits General: trachea midline Resp normal respiratory effort, no retractions, no use of accessory muscles and clear to auscultation bilaterally Auscultation: Negative for rales, rhonchi or wheezes Cardio regular rate, regular rhythm, S1 normal heart sound, S2 normal heart sound, no murmurs, no rub and no gallops GI normal to inspection, nondistended, normoactive bowel sounds, soft to palpation, non-tender and non-distended Extremity no clubbing, cyanosis or edema Skin no rashes or lesions noted General Skin Exam: no breakdown Neuro oriented x3, CN's II-XII intact bilaterally, moves all extremities, no focal motor deficits and no sensory deficits noted Sensorium / Orientation: awake and alert Speech: speech normal Psych affect normal Assessment & Plan Assessment/Plan (1) Numbness: PLAN: Plan 1. Intractable back pain with bilateral lower extremity radicular pain, weakness, facial numbness, and urinary incontinence-again pain management saw the patient today and I had a conversation with them, at this time they are unsure what lumbar pathology could cause all the symptoms, again a facet block is planned for today, patient will need to follow-up with spinal surgery as an outpatient. I will order an MRI of the brain with contrast to add to her neurological workup. #2 essential hypertension-patient is currently on atenolol #3 ADHD-patient will remain on her home medications #4 degenerative disc disease of the lumbar spine-it does not appear from imaging studies that the patient has a problem in the lumbar spine that will require surgery at this time, again she will need follow-up with spinal surgery as an outpatient #5 chronic anxiety-patient is on Xanax Total clinical time spent by myself addressing the patient's medical issues, reviewing all of her data, and collaborating with patient's care team: 35 minutes Charges/Coding Visit Charges Inpatient E&M: 40026 Subs Hosp L2
[2024-10-27 20:41] VITALS: BP 136/96; PULSE 92; RESP 17; TEMP 36.7; O2SAT 98
[2024-10-27] MEDS: Ketorolac 30 MG/ML Syringe IV (21:00)
[2024-10-27 22:33] VITALS: BP 145/97; PULSE 81; RESP 17; TEMP 36.9; O2SAT 97
[2024-10-27] MEDS: MELATONIN 3 MG TABLET PO (22:34)
[2024-10-28] VITALS (12 sets, daily range): BP systolic 123–148; BP diastolic 81–92; PULSE 53–64; RESP 16; TEMP 36.3–36.9; O2SAT 98–100; BMI 32.5
[2024-10-28 06:12] LABS: Hematocrit 38.9 % (37-47); Hemoglobin 13.4 g/dL (12.0-15.0); Mean Corp Hgb Conc 34.4 g/dL (32-36); Mean Corpuscular Volume 93.7 fL (81-99); Mean Platelet Vol. 9.3 fl (6.2-12.0); Platelet Count 283 K/mm3 (150-450); RBC Distribution Width CV 13.0 % (11.6-14.6); RBC Distribution Width SD 44.9 fl (35.1-43.9); Red Blood Count 4.15 M/mm3 (4.2-5.4); White Blood Count 11.2 K/mm3 (4.4-11.0)
[2024-10-28] MEDS: 0.9% Saline Lock 10 ML Syringe IV ×2 (06:33→08:57)
[2024-10-28] MEDS: Ketorolac 30 MG/ML Syringe IV (06:34)
[2024-10-28 06:36] LABS: Anion Gap 11 (5-15); BUN 16 mg/dL (4-19); BUN/Creat Ratio 20.5 RATIO (10-20); Calcium,Total 8.6 mg/dL (7.6-11.0); Carbon Dioxide 23.5 mmol/L (21.0-32.0); Chloride 105 mmol/L (98-108); Estimated Creatinine Clearance 92.81 ml/min (50-250); Glucose 102 mg/dL (70-99); Potassium 4.7 mmol/L (3.3-5.1)
--- NOTE | 2024-10-28 07:37 | MRI_ITS ---
PROCEDURE: BRAIN W/WO CONTRAST 10/28/2024 REASON FOR EXAM: PARESTHESIAS, LOWER EXTREMITY WEAKNESS TECHNIQUE: BRAIN W/WO CONTRAST Multiplanar and multisequence images were obtained. CONTRAST: Clariscan VOLUME: 17 mL COMPARISON: Prior CT scan of the brain dated October 24, 2024. FINDINGS: Brain: Normal signal intensities. Diffusion: No abnormal diffusion changes seen. Ventricles: Normal. Major Intracranial Vessels: Unremarkable Sinuses: Clear. Mastoids: Clear. Other: MRI/Brain W/WO Contrast IMPRESSION: NORMAL BRAIN MRI WITHOUT AND WITH CONTRAST. Reading Location: [id number]
[2024-10-28] MEDS: Lidocaine 5% Patch 1 PATCH TOPICAL (09:02)
[2024-10-28] MEDS: Lactated Ringers 1,000 ML 15 ML IV (12:11)
--- NOTE | 2024-10-28 12:21 | PCM.PRE.AN2 ---
ASA Classification* ASA Classification ASA Classification: 3 Assessment & Plan Anesthesia* Anesthesia Assessment Anesthesia Assessment: Discussed sedation and/or anesthesia options, risks, benefits, and alternatives with patient/parents/legal guardian/POA. Questions invited. The patient/parents/legal guardian/POA seems to understand and agrees to proceed with anesthesia plan. Reviewed the physical assessment, medical history, allergy history and patient home medications list prior to surgery/procedure/anesthetic and documented any changes. Performed airway and anesthesia risk assessments. Anesthesia Type Anesthesia Type: General and MAC History Source History Obtained from:: Patient and Chart Anesthesia Focused Assessment* Temperature: 97.4 F Pulse Rate: 54 Blood Pressure: 132/85 Respiratory Rate: 16 Pulse Ox: 100 Oxygen Delivery Method: Room Air Airway Assessment Mouth opens: >3 cm Mallampati Score: II Teeth Condition: Chipped/Broken, Loose and Missing Neck Range of motion (ROM): Full ROM Labs Anesthesia Preop lab: CBC WBC 11.2 K/mm3 (4.4-11.0) H 10/28/24 05:20 10/28/24 RBC 4.15 M/mm3 (4.2-5.4) L 10/28/24 05:20 10/28/24 Hgb 13.4 g/dL (12.0-15.0) 10/28/24 05:20 10/28/24 Hct 38.9 % (37-47) 10/28/24 05:20 10/28/24 Plt Count 283 K/mm3 (150-450) 10/28/24 05:20 10/28/24 CHEMISTRY Potassium 4.7 mmol/L (3.3-5.1) 10/28/24 05:20 10/28/24 Sodium 140 mmol/L (133-145) 10/28/24 05:20 10/28/24 Magnesium 2.1 mg/dL (1.5-2.2) 10/24/24 20:05 10/24/24 Phosphorus 3.7 mg/dL (2.7-4.5) 10/24/24 20:05 10/24/24 BUN 16 mg/dL (4-19) 10/28/24 05:20 10/28/24 Creatinine 0.80 mg/dL (0.70-1.20) 10/28/24 05:20 10/28/24 Glucose 102 mg/dL (70-99) H 10/28/24 05:20 10/28/24 TSH 2.400 uIU/mL (0.300-4.200) 10/24/24 20:05 10/24/24 COAG Urine Test Negative Negative 05/14/19 02:50 05/14/19 Pre-Assessment Diagnosis/Proposed Procedure Planned Operative Procedure(s): Lumbar facet block Anesthesia History Anesthesia History - tapper bit: Anesthesia History - tapper bit Hx Hospitalization No 04/19/23 13:29 Any Problems With Anesthesia Yes: pt reports that she has 10/28/24 05:24 woken up during sx Cholinesterase deficiency No 10/28/24 05:24 You/Your Family Experience No 10/28/24 05:24 fever (hyperthermia) with Relationship Recent Exposure to Contagious No 10/28/24 05:24 Disease Does patient have nerve No 10/28/24 05:24 stimulator Patient instructed to have No 10/28/24 05:24 device shut off --Does patient have Pacemaker No 10/28/24 11:18 or ICD? When Was Last Pacemaker Check QUESTION #4 FULL TEXT: You/Your Family Experience fever (hyperthermia) with Anesthesia Last Oral Intake Last Oral intake: Last Oral Intake NPO since 08:47 10/28/24 11:18 Meds taken in AM with sips of Yes 10/28/24 11:18 water? Meds patient instructed to had pain meds and xanax for 10/28/24 11:18 take am of surgery mri this am at 0847. see mar PONV PONV - tapper bit: PONV - tapper bit Female HX of Motion Sickness HX of N/V After Surgery Non-Smoker Duration of Surgery greater than 60 minutes Number of Risk Factors PONV Score Height & Weight Height & Weight: Anesthesia: Height & Weight Height 5 ft 3 in 10/28/24 11:18 Weight: 83.5 kg 10/28/24 11:18 Body Mass Index (BMI) 32.5 10/28/24 11:18 Respiratory Assessment Respiratory Assessment - tapper bit: Respiratory Tract Infection Hx - tapper bit Hx Respiratory Tract Infection No 10/28/24 05:24 STOP Sleep Apnea STOP Sleep Apnea - tapper bit: STOP Sleep Apnea - tapper bit Hx Hypertension No 10/25/24 13:21 Hx Sleep Apnea No 10/25/24 00:36 CPAP No 04/19/23 13:29 BIPAP Do you snore loudly (louder No 10/25/24 00:36 than talking or can be heard Do you often feel tired/ No 10/25/24 00:36 fatigued/ sleepy during daytime? Has anyone observed you stop No 10/25/24 00:36 breathing during sleep? STOP Results Negative 10/25/24 00:36 QUESTION #5 FULL TEXT : Do you snore loudly (louder than talking or can be heard through closed doors)? 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 Specify any problems Hx of Preganancy in last 3 No 10/25/24 00:36 Months Nurse Filling Out Transfusion [facility] 10/25/24 00:36 & Questions: Date: 10/25/24 10/25/24 00:36 Time: 00:37 10/25/24 00:36 Patient unable to answer at this time (ie. confused, unrespo /Reproduction History /Reproductive History - tapper bit: /Reproductive Hx- tapper bit Hx Now No 10/28/24 05:24 Gestational Age (in weeks): EDC: Hx Hx Para Hx Section SAB No 10/28/24 05:24 Active Medications Active Medications: Current Medications Generic Name Dose Route Start Last Admin Trade Name Freq PRN Reason Stop Dose Admin Acetaminophen 1,000 mg 10/25/24 09:00 10/28/24 08:48 Acetaminophen 500 Mg Tablet PO 1,000 mg Q8 ALEXANDR Administration Al Hydroxide/Mg Hydroxide 30 ml 10/25/24 00:28 Mag Hydrox/Al Hydrox/Simeth 30 Ml Udc PO Q6H PRN PRN Gastric Burning Alprazolam 0.25 mg 10/25/24 07:58 10/27/24 22:33 Alprazolam 0.25 Mg Tablet PO 0.25 mg QHS PRN PRN Administration ANXIETY/INSOMNIA Atenolol 12.5 mg 10/25/24 10:00 10/27/24 09:06 Atenolol 25 Mg Tablet PO 12.5 mg DAILY ALEXANDR Administration Protocol Cyclobenzaprine HCl 10 mg 10/26/24 14:36 10/28/24 08:47 Cyclobenzaprine Hcl 10 Mg Tablet PO 10 mg BID PRN PRN Administration MUSCLE SPASMS/pain Dexamethasone Sodium Phosphate 4 mg 10/25/24 00:28 10/28/24 08:56 Dexamethasone 4 Mg/Ml Vial IV 4 mg BID ALEXANDR Administration Fluticasone Propionate 1 spray 10/25/24 10:00 10/27/24 21:00 Fluticasone 0.05% 1 Majestic Nasal.Sry NASAL 1 spray BID ALEXANDR Administration Folic Acid 2 mg 10/26/24 08:00 10/27/24 09:03 Folic Acid 1 Mg Tablet PO 2 mg BREAKFAST ALEXANDR Administration Gabapentin 300 mg 10/25/24 06:00 10/28/24 08:48 Gabapentin 300 Mg Capsule PO 300 mg TID ALEXANDR Administration Hydromorphone HCl 0.2 mg 10/25/24 08:00 Hydromorphone Inj 0.2 Mg/Ml Syringe IV Q3H PRN PRN Pain Score 6-10 Sodium Chloride 250 mls @ 15 mls/hr 10/25/24 00:30 IV .[id number] PRN Saline Flush Sodium Chloride 250 mls @ 15 mls/hr 10/25/24 00:30 IV .[id number] PRN Additional IVPB Infusion Lactated Ringer's 1,000 mls @ 15 mls/hr 10/28/24 12:00 10/28/24 12:11 IV 15 mls/hr .Q48H ALEXANDR Administration Lactated Ringer's 1,000 mls @ 15 mls/hr 10/28/24 12:15 IV .Q48H ALEXANDR Ketorolac Tromethamine 30 mg 10/25/24 08:00 10/28/24 06:34 Ketorolac 30 Mg/Ml Syringe IV 10/30/24 08:00 30 mg Q6H PRN PRN Administration Pain Score 1-10 Lidocaine 1 patch 10/25/24 14:00 10/28/24 09:02 Lidocaine 5% Patch TOPICAL 1 patch DAILY ALEXANDR Administration Loratadine 10 mg 10/25/24 10:00 10/27/24 09:06 Loratadine 10 Mg Tablet PO 10 mg DAILY ALEXANDR Administration Magnesium Hydroxide 30 ml 10/25/24 00:28 Magnesium Hydroxide 30 Ml Udc PO DAILY PRN PRN Constipation Melatonin 3 mg 10/25/24 00:28 10/27/24 22:34 Melatonin 3 Mg Tablet PO 3 mg QHS PRN PRN Administration INSOMNIA Montelukast Sodium 10 mg 10/25/24 10:00 10/27/24 09:06 Montelukast 10 Mg Tablet PO 10 mg DAILY ALEXANDR Administration Nicotine 14 mg 10/25/24 00:28 10/28/24 08:49 Nicotine 14 Mg Patch TD 14 mg DAILY ALEXANDR Administration Nutritional Formula (Lactose Free) 120 ml 10/25/24 17:00 10/28/24 09:02 Ensure Plus High Protein 120 Ml Liquid PO Not Given TIDCM ALEXANDR Ondansetron HCl 4 mg 10/25/24 00:28 Ondansetron 4 Mg/2 Ml Vial IV Q8H PRN PRN NAUSEA/VOMITING Oxycodone HCl 5 mg 10/25/24 08:00 10/28/24 08:47 Oxycodone 5 Mg Tablet PO 5 mg Q4H PRN PRN Administration Pain Score 4-10 Pantoprazole Sodium 40 mg 10/26/24 10:00 10/27/24 09:06 Pantoprazole Sodium 40 Mg Tablet PO 40 mg DAILY ALEXANDR Administration Sodium Chloride 10 - 40 ml 10/25/24 00:30 10/28/24 08:57 0.9% Saline Lock 10 Ml Syringe IV 10 ml UD PRN Administration SALINE FLUSH PFSH Medical History ADHD Anxiety Back pain Smoker History of pain when walking History of edema History of echocardiogram Cardiology follow-up encounter History of irregular heartbeat ADD (attention deficit disorder) Arthritis Back problem Home Medications ?Medication ?Instructions ?Recorded ?Last Taken ?Type dextroamphetamine-amphetamine 30 30 mg PO DAILY 01/22/13 Unknown History mg tablet (Adderall) atenolol 25 mg tablet 12.5 mg PO DAILY 05/08/19 06/27/22 History cetirizine 10 mg tablet 10 mg PO DAILY 05/08/19 Unknown History cyclobenzaprine 10 mg tablet 10 mg PO HS PRN MUSCLE SPASMS 06/12/22 Unknown History acetaminophen 300 mg-codeine 30 mg 1 tab PO Q8H PRN Pain 06/20/22 Unknown History tablet alprazolam 0.25 mg tablet 0.25 mg PO QPM 10/24/24 Unknown History dextroamphetamine-amphetamine ER 1 cap PO DAILY 10/24/24 Unknown History 30 mg 24hr capsule,extend release fluticasone propionate 50 1 spray intranasal BID 10/24/24 Unknown History mcg/actuation nasal spray,suspension gabapentin 300 mg capsule 300 mg PO DAILY 10/24/24 Unknown History montelukast 10 mg tablet 10 mg PO DAILY allergies 10/24/24 Unknown History omeprazole 20 mg capsule,delayed 20 mg PO DAILY 10/24/24 Unknown History release prednisone 20 mg tablet PO 10/24/24 Unknown History Allergy/AdvReac Type Severity Reaction Status Date / Time morphine AdvReac Other Verified 07/14/22 09:24 Family History Grandfather Diabetes Heart disease Hypertension Grandmother CVA (cerebral vascular accident) Lupus Surgical History Hx of tubal ligation S/p bilateral myringotomy with tube placement S/P tonsillectomy S/P surgical removal of pilonidal cyst S/P D&C (status post dilation and curettage) S/P laparoscopy Social History Smoking Status: Current every day smoker tobacco type: cigarettes alcohol intake: current Review of Systems (Anesthesia) ROS Narrative System reviewed and no additional complaints, except as documented.
--- NOTE | 2024-10-28 13:21 | RAD_ITS ---
EXAM: INTRAOPERATIVE FLUOROSCOPY CLINICAL HISTORY: LUMBAR BLOCK, L4-5, L5-S1 COMPARISON: Lumbar spine radiographs 10/27/2024. TECHNIQUE: 7 intraoperative fluoroscopy images are submitted for review. FINDINGS: Intraoperative fluoroscopy status post lumbosacral nerve block bilaterally at L4-L5, and L5-S1 levels. Total fluoroscopy time was 28.4 seconds. Total radiation dose 8.36 mGy. RAD/L/S Spine w Bend Min 6 Vw IMPRESSION: Intraoperative fluoroscopy as above. Reading Location: [id number]
--- NOTE | 2024-10-28 13:34 | OP.PCM_ITS ---
Problems Associated Problem List Diagnoses (1) Spondylosis without myelopathy or radiculopathy, lumbosacral region: (2) Spondylosis of lumbar joint: Operative Report (Standard) Operative Information Date of Procedure: 10/28/24 Pre-Operative Diagnosis: Lumbar and lumbosacral spondylosis Post-Operative Diagnosis: same Surgery/Procedure Performed: Bilateral L4-L5 and L5-S1 facet nerve blocks certified substance abuse counselor: No Type of Anesthesia: Local MAC RN Documented Start/Stop Times: Operation Date: 10/28/24 13:00 Case Time Into Pre-Op 10/28/24 11:59 Anesthesia Start 10/28/24 13:09 Into Room 10/28/24 13:09 Procedure Start 10/28/24 13:19 Procedure End 10/28/24 13:22 Anesthesia End 10/28/24 13:31 Out of Room 10/28/24 13:31 Procedure Start Time: 13:19 Procedure Stop Time: 13:22 Select all DRAINS/GRAFTS/IMPLANTS that apply: None Estimated Blood Loss: nil Specimen collected: No Description of surgery: The patient was admitted to the preoperative area and time out performed. Vital signs were checked and the patient was moved to the procedure area and placed in the prone position. Standard monitors were applied. Sterile prep and drape was performed in the regular fashion. The required levels were identified under fluoroscopic guidance on an AP view. A 22-gauge spinal needle was introduced under fluoroscopic guidance to the median nerve branch positions of each level. The position was identified and confirmed using fluoroscopy using AP and lateral views as required. Negative Blood and CSF aspiration was confirmed, 0.25 cc of Bupivacaine 0.25% was injected at each of the required levels. Furthermore 40mg of kenalog was equally divided amongst the injection spots. The patient tolerated the procedure well. The needles were removed intact. The patient was cleansed and Band-Aid was placed. Surgical Findings: N/A Complications Complications: No
--- NOTE | 2024-10-28 13:39 | PCM.POST.ANE ---
Anesthesia: Postop Eval I Current Vital Signs Temperature: 98.4 F Pulse Rate: 64 Blood Pressure: 148/89 Respiratory Rate: 16 Pulse Ox: 98 Oxygen Delivery Method: Nasal Cannula (2LNC) Oxygen Flow Rate (L/min): 2 Assessment Airway patent: Yes Spontaneous unlabored respirations: Yes Mental status: Calm (drowsy) and Asleep nausea: No Vomiting: No Anesthesia Complication: No Fluid Hydration Crystalloid volume administer (ml): 50 Total IV fluid infused: 50 Progress Note Anesthesia document: Postop Eval 1 completed: Yes
[2024-10-28] MEDS: Fluticasone 0.05% 1 SPRAY NASAL.SRY NASAL (15:01)
[2024-10-28] MEDS: Ensure Plus High Protein 120 ML LIQUID PO (15:02)
--- NOTE | 2024-10-28 15:21 | DCINST_ITS ---
Discharge Instructions DC O2, CPAP, BIPAP needs Home O2 Discharge instructions: No Dressing / Incision Discharge Activity: Return to Normal Activity Weight Bearing Status: Full weight bearing Follow Up Care Test Results: Test results from this visit will be discussed in further detail at your follow- up appointment, if applicable. Discharge Plan Admission Admit Date/Time: 10/27/24 17:56 Primary Reason for Your Visit: Lower extremity pain, lower back pain Attending Provider: Ricardo Lord Primary Care Provider: Trina Saldana Consulting Providers: Jamari Robins; Tiburcio Cruz; Radha Manuel; Tiburcio Gentile Instructions Additional Instructions / Restrictions: Discuss a possible referral to neurology and rheumatology with your primary care physician at your next visit Discharge Orders/Prescriptions Prescriptions: New hydrocodone-acetaminophen 5-325 mg tablet 1 tab PO Q4H PRN (Reason: pain) 7 Days Qty: 40 0RF Continued cyclobenzaprine 10 mg tablet 10 mg PO HS PRN (Reason: MUSCLE SPASMS) dextroamphetamine-amphetamine [Adderall] 30 MG tablet 30 mg PO DAILY cetirizine 10 MG tablet 10 mg PO DAILY atenolol 25 MG tablet 12.5 mg PO DAILY prednisone 20 mg tablet PO alprazolam 0.25 mg tablet 0.25 mg PO QPM gabapentin 300 mg capsule 300 mg PO DAILY omeprazole 20 mg capsule,delayed release(DR/EC) 20 mg PO DAILY montelukast 10 mg tablet 10 mg PO DAILY dextroamphetamine-amphetamine 30 mg capsule,extended release 24hr 1 cap PO DAILY fluticasone propionate 50 mcg/actuation spray,suspension 1 spray INTRANASAL BID Discontinued acetaminophen-codeine [Tylenol-Codeine #3] 300-30 mg Tablet 1 tab PO Q8H PRN (Reason: Pain) Referrals / Follow Up: Sarbjit Chambers MD [Med Staff - Active Staff] - 11/10/24 1:00 pm Trina Saldana DO [Primary Care Provider] - Within 2 Weeks Tiburcio Gentile MD [Med Staff - Active Staff] - See Referral Note (In 1 month) Disposition Disposition (needs filled in before D/C Order can be placed): Home, Self Care
--- NOTE | 2024-10-28 15:34 | DS.PCM_ITS ---
Providers Date of Admission: 10/27/24 Date of Discharge: 10/28/24 Primary Care Physician: Dr. Trina Saldana, DO Consultations 10/25/24 00:28 Consult: Orthopedics Routine Consulting Provider: Tiburcio Cruz Reason for Consult: Intractable Back Pain with Numbness, Weakness and Urin Incont. EMERGENT Consult: No Notified: Yes Date Notified: 10/25/24 Time Notified: 10:41 Method of Notification: Verbal 10/27/24 09:12 Consult: Pain Management Routine Consulting Provider: Tiburcio Gentile Reason for Consult: back pain EMERGENT Consult: No Notified: Yes Date Notified: 10/27/24 Time Notified: 09:13 Method of Notification: Verbal Reason For Visit: INTRACTABLE BACK PAIN Diagnosis Discharge Diagnosis (1) Spondylosis without myelopathy or radiculopathy, lumbosacral region: Status: Acute Code(s): M47.817 - Spondylosis without myelopathy or radiculopathy, lumbosacral region (2) Spondylosis of lumbar joint: Status: Acute Code(s): M47.816 - Spondylosis without myelopathy or radiculopathy, lumbar region Plan 1. Intractable back pain with bilateral lower extremity radicular pain, weakness, facial numbness, and urinary incontinence-again pain management saw the patient today and I had a conversation with them, at this time they are unsure what lumbar pathology could cause all the symptoms, again a facet block is planned for today, patient will need to follow-up with spinal surgery as an outpatient. I will order an MRI of the brain with contrast to add to her neurological workup. #2 essential hypertension-patient is currently on atenolol #3 ADHD-patient will remain on her home medications #4 degenerative disc disease of the lumbar spine-it does not appear from imaging studies that the patient has a problem in the lumbar spine that will require surgery at this time, again she will need follow-up with spinal surgery as an outpatient #5 chronic anxiety-patient is on Xanax Total clinical time spent by myself addressing the patient's medical issues, reviewing all of her data, and collaborating with patient's care team: 35 minutes Medications at Discharge Home Medications dextroamphetamine-amphetamine 30 mg tablet (Adderall) 30 mg PO DAILY 10/30/13 atenolol 25 mg tablet 12.5 mg PO DAILY 05/08/19 cetirizine 10 mg tablet 10 mg PO DAILY 05/08/19 cyclobenzaprine 10 mg tablet 10 mg PO HS PRN MUSCLE SPASMS 06/12/22 alprazolam 0.25 mg tablet 0.25 mg PO QPM 10/24/24 dextroamphetamine-amphetamine ER 30 mg 24hr capsule,extend release 1 cap PO DAILY 10/24/24 fluticasone propionate 50 mcg/actuation nasal spray,suspension 1 spray intranasal BID 10/24/24 gabapentin 300 mg capsule 300 mg PO DAILY 10/24/24 montelukast 10 mg tablet 10 mg PO DAILY allergies 10/24/24 omeprazole 20 mg capsule,delayed release 20 mg PO DAILY 10/24/24 prednisone 20 mg tablet PO 10/24/24 hydrocodone-acetaminophen 5-325mg 5mg-325mg 1 tab PO Q4H PRN pain 7 days #40 tabs 10/28/24 Hospital Course Operations None Procedures - (Bilateral L4-L5 and-L5-S1 facet nerve blocks-10/28/2024) Summary of Care Provided Minutes Spent on Discharge: 32 Hospital Course: This 44-year-old white female was seen in the emergency room at [facility] with complaints of intractable back pain and lower extremity numbness in her legs, periods of facial numbness, and episodes of urinary incontinence. She states the back pain can radiate to her extremities. Patient was admitted to [place] [id number], placed on analgesics and prednisone. She underwent an MRI of her thoracic, cervical spine and lumbar spine. Lumbar spine MRI showed mild spondylitic changes with no significant spinal canal narrowing, there was noted to be foraminal narrowing at L4-L5 and L5-S1 along with facet degenerative changes bilaterally at L4-5 and L5-S1. Patient was seen in consultation by pain management who performed a facet injection with some benefit. An MRI of the brain with contrast was obtained to rule out any evidence of MS. On 10/28/2024, patient was seen and examined: On examination she appeared in good health and spirits, she does not appear to be in any distress. Vital signs as documented. Skin warm and dry and without overt rashes. Neck without JVD, thyroid appears normal, trachea is midline, neck is supple. Lungs clear, normal air movement was noted. Heart exam notable for regular rhythm, normal sounds and absence of murmurs, rubs or gallops. Abdomen unremarkable and without evidence of organomegaly, masses, or abdominal aortic enlargement, bowel sounds are present in all 4 quadrants, no abdominal tenderness was noted. Extremities nonedematous, no cyanosis was noted, no clubbing was noted. Neuro: Cranial nerves II through XII are grossly intact, no focal motor deficits were noted, sensation to light touch and pinprick is intact, motor exam 5/5 throughout. Psych: Patient is alert and oriented x3, she does not appear anxious or depressed, she does not appear agitated. On 10/28/2024, patient appeared to be stable for discharge home Weight / BMI Weight Weight: 83.5 kg Body Mass Index (BMI) 32.5 ABG / Lab / Microbiology Data 10/28/24 05:20 10/28/24 05:20 Laboratory: Laboratory Results - last 24 hr 10/28/24 05:20: WBC 11.2 H, RBC 4.15 L, Hgb 13.4, Hct 38.9, MCV 93.7, MCH 32.3 H , MCHC 34.4, RDW Std Deviation 44.9 H, RDW Coeff of Julio 13.0, Plt Count 283, MPV 9.3, Sodium 140, Potassium 4.7, Chloride 105, Carbon Dioxide 23.5, Anion Gap 11, BUN 16, Creatinine 0.80, Estim Creat Clear Calc 92.81, Est GFR (MDRD) Non-Af 94, BUN/Creatinine Ratio 20.5 H, Glucose 102 H, Calcium 8.6 Radiography Diagnostic Testing: Radiology Impression Lumbar Spine X-Ray 10/27/24 18:00 IMPRESSION: Normal alignment upon flexion and extension. No acute bony abnormalities. Reading Location: [facility] Brain MRI 10/28/24 07:37 IMPRESSION: NORMAL BRAIN MRI WITHOUT AND WITH CONTRAST. Reading Location: [id number] D/C Instructions Weight Bearing Status: Full weight bearing DC O2, CPAP, BIPAP Needs Home O2 Discharge instructions: No Meaningful Use Info Meaningful Use Meaningful Use Diagnoses (Choose all that apply): None applicable Discharge Plan Admission Admit Date/Time: 10/27/24 17:56 Primary Reason for Your Visit: Lower extremity pain, lower back pain Attending Provider: Ricardo Lord Primary Care Provider: Trina Saldana Consulting Providers: Jamari Robins; Tiburcio Cruz; Radha Manuel; Tiburcio Gentile Instructions Additional Instructions / Restrictions: Discuss a possible referral to neurology and rheumatology with your primary care physician at your next visit Discharge Orders/Prescriptions Prescriptions: New hydrocodone-acetaminophen 5-325 mg tablet 1 tab PO Q4H PRN (Reason: pain) 7 Days Qty: 40 0RF Continued cyclobenzaprine 10 mg tablet 10 mg PO HS PRN (Reason: MUSCLE SPASMS) dextroamphetamine-amphetamine [Adderall] 30 MG tablet 30 mg PO DAILY cetirizine 10 MG tablet 10 mg PO DAILY atenolol 25 MG tablet 12.5 mg PO DAILY prednisone 20 mg tablet PO alprazolam 0.25 mg tablet 0.25 mg PO QPM gabapentin 300 mg capsule 300 mg PO DAILY omeprazole 20 mg capsule,delayed release(DR/EC) 20 mg PO DAILY montelukast 10 mg tablet 10 mg PO DAILY dextroamphetamine-amphetamine 30 mg capsule,extended release 24hr 1 cap PO DAILY fluticasone propionate 50 mcg/actuation spray,suspension 1 spray INTRANASAL BID Discontinued acetaminophen-codeine [Tylenol-Codeine #3] 300-30 mg Tablet 1 tab PO Q8H PRN (Reason: Pain) Referrals / Follow Up: Sarbjit Chambers MD [Med Staff - Active Staff] - 11/10/24 1:00 pm Trina Saldana DO [Primary Care Provider] - Within 2 Weeks Tiburcio Gentile MD [Med Staff - Active Staff] - See Referral Note (In 1 month) Disposition Disposition (needs filled in before D/C Order can be placed): Home, Self Care Charges/Coding Visit Charges Inpatient E&M: 10186 Disch Hosp >30min
--- NOTE | 2024-10-28 15:55 | PHA.DC.MC.R ---
Pharmacy [facility] Counseling Pharmacy Service has performed discharge medication reconciliation and counseling for this patient. 1. NORCO 1T PO Q4H PRN PAIN X 7 DAYS 2. STOP TYLENOL #3 The patient's discharge medication list was reviewed for discrepancies and discrepancies were resolved. The patient was counseled on the following discharge medications and changes in medications for homegoing were reviewed. The Reason for Use, instructions for use, and potential side effects were reviewed for all new medications. The patient's questions regarding all of their medications were answered. The patient was able to verbally demonstrate an understanding of their discharge medications. Medications at Discharge Home Medications dextroamphetamine-amphetamine 30 mg tablet (Adderall) 30 mg PO DAILY 01/22/13 atenolol 25 mg tablet 12.5 mg PO DAILY 05/08/19 cetirizine 10 mg tablet 10 mg PO DAILY 05/08/19 cyclobenzaprine 10 mg tablet 10 mg PO HS PRN MUSCLE SPASMS 06/12/22 alprazolam 0.25 mg tablet 0.25 mg PO QPM 10/24/24 dextroamphetamine-amphetamine ER 30 mg 24hr capsule,extend release 1 cap PO DAILY 10/24/24 fluticasone propionate 50 mcg/actuation nasal spray,suspension 1 spray intranasal BID 10/24/24 gabapentin 300 mg capsule 300 mg PO DAILY 10/24/24 montelukast 10 mg tablet 10 mg PO DAILY allergies 10/24/24 omeprazole 20 mg capsule,delayed release 20 mg PO DAILY 10/24/24 prednisone 20 mg tablet PO 10/24/24 hydrocodone-acetaminophen 5-325mg 5mg-325mg 1 tab PO Q4H PRN pain 7 days #40 tabs 10/28/24
--- NOTE | 2024-10-28 16:00 | CASEMGMT ---
Pt has an order for DC placed. PT is recommending OP PT for the pt. RN CM to the pt room at this time. Pt states that she is willing and wanting to attend OP Tx @ [facility]. Pt does not have a preference on the time of day. Rx signed by Dr De Jesus. Rx faxed to . Rx placed in pt chart. TC to . Pt is scheduled for 10/29 @ 1300. Pt states that she is agreeable and denies any further DC needs. Pt's RN updated.
--- NOTE | 2024-10-28 17:05 | POSTOPAN2_ITS ---
Anesthesia Postop Eval I Sum Postop Eval Completion status Anesthesia document: Postop Eval 1 completed: Yes Anesthesia Postop Eval I Summary Anesthesia Postop Eval I Summary: Anesthesia Postop Eval I: Assessment Summary Airway patent Yes 10/28/24 13:40 [email or web address] Spontaneous unlabored Yes 10/28/24 13:40 [email or web address] [email or web address] respirations Mental status Calm - drowsy, 10/28/24 13:40 [email or web address] Asleep nausea No 10/28/24 13:40 [email or web address] [email or web address] Vomiting No 10/28/24 13:40 [email or web address] Anesthesia Postop Eval I: Fluid Summary Crystalloid volume administer 50 10/28/24 13:40 [email or web address] (ml) Colloids volume administered ( ml) Blood Product volume administered (ml) Total IV fluid infused 50 10/28/24 13:40 [email or web address] Anesthesia Postop Eval I: Summary Notes Anesthesia Complication No 10/28/24 13:40 [email or web address] Anesthesia Complication Comment: Post-operative progress note Anesthesia: Postop Eval II Evaluation Mental status: Awake and Calm Pain Level: 1 nausea: No Vomiting: No Complications Anesthesia Complication: No
--- NOTE | 2024-10-28 17:05 | PCM.POSTANE2 ---
Anesthesia Postop Eval I Sum Postop Eval Completion status Anesthesia document: Postop Eval 1 completed: Yes Anesthesia Postop Eval I Summary Anesthesia Postop Eval I Summary: Anesthesia Postop Eval I: Assessment Summary Airway patent Yes 10/28/24 13:40 [email or web address] Spontaneous unlabored Yes 10/28/24 13:40 [email or web address] [email or web address] respirations Mental status Calm - drowsy, 10/28/24 13:40 [email or web address] [email or web address] Asleep nausea No 10/28/24 13:40 [email or web address] Vomiting No 10/28/24 13:40 [email or web address] Anesthesia Postop Eval I: Fluid Summary Crystalloid volume administer 50 10/28/24 13:40 [email or web address].[email or web address] (ml) Colloids volume administered ( ml) Blood Product volume administered (ml) Total IV fluid infused 50 10/28/24 13:40 [email or web address] Anesthesia Postop Eval I: Summary Notes Anesthesia Complication No 10/28/24 13:40 [email or web address] Anesthesia Complication Comment: Post-operative progress note Anesthesia: Postop Eval II Evaluation Mental status: Awake and Calm Pain Level: 1 nausea: No Vomiting: No Complications Anesthesia Complication: No
--- NOTE | 2024-11-07 11:14 | ITTESTING ---
TIGIST Risk Score for UA/STEMI Assesmment (YES = 1) Risk Stratification Applicable: Yes Age > or = 65: No Score TIGIST Risk Score of mortality/ recurrent ischemic event over the next 14 days: 0-1 = 4.7% - Low Risk TIGIST Risk Score for UA/STEMI Assesmment (YES = 1) Age > or = 65: No Score TIGIST Risk Score of mortality/ recurrent ischemic event over the next 14 days: 0-1 = 4.7% - Low Risk
== END 2024-10-28 16:49 | disposition home or self-care (01) | DRG 347 ==
LOC: ED 16:26 → MS3 10-25 00:59
PROVIDERS: Anesthesiology; Emergency Medicine; Internal Medicine; Admitting Provider Internal Medicine; Emergency Provider Student in an Organized Health Care Education/Training Program; PCP Family Medicine; Referring Provider Student in an Organized Health Care Education/Training Program; Visit Provider Internal Medicine
PROC: 3E0S3BZ Introduction of Anesthetic Agent into Epidural Space, Percutaneous Approach (ICD-10-PCS; CPT 62322; principal; 2024-10-28 12:55)
DX: M47.816 Spondylosis without myelopathy or radiculopathy, lumbar region (principal); E66.811 Obesity, class 1; M47.817 Spondylosis without myelopathy or radiculopathy, lumbosacral region; F17.210 Nicotine dependence, cigarettes, uncomplicated; M48.061 Spinal stenosis, lumbar region without neurogenic claudication; F41.9 Anxiety disorder, unspecified; M62.838 Other muscle spasm; G89.29 Other chronic pain; F90.9 Attention-deficit hyperactivity disorder, unspecified type; R29.6 Repeated falls; Z68.33 Body mass index [BMI] 33.0-33.9, adult; Z79.899 Other long term (current) drug therapy
CPT/HCPCS: 36415; 64483; 70450; 70553; 72114; 72120; 72156; 72157; 72158; 80048; 80053; 80307; 81001; 82077; 82607; 82746; 83735; 84100; 84443; 85025; 85027; 85652; 86141; 94668; 97110; 97116; 97162; 97166; 97530; 97535; 97802; 99285; 99406; A9575; A4216; J2405

== ENCOUNTER 2024-10-30 08:41 | Outpatient (RCR) | payer MEDICAID, SELFPAY ==
--- NOTE | 2024-10-30 09:58 | HP.PTEVAL_ITS ---
Patient's Visit Information Visit Information Visit Information: MANUEL ALVAREZ is a 44 year old F referred to Physical Therapy by Dr. Ricardo Lord DO with a diagnosis of Back Pain. 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 She has pain both legs left>right. She had cysts in her back two years ago and had them removed that were the size or peaches- in [place]. Worst: 03/04- she was in the ER/hospital for 4 days. Pain starts in the back and it radiates down the legs. If she rides in the car she has no feeling both legs- it takes until she gets up and moving for it to return. She mowed last week and had sharp shooting pains down her legs. Nothing gives her relief at this time. At the moment she does not have N/T. She has loss and change in bladder. She will hav e moments when her hips will shake. She had an MRI of her lumbar spine an brain MRI in the ER and then sent her home. She is following up with PT, neuro, spinal ortho and pain mgmt. Sees her PCP within 2 weeks. She does not get relief from pain medication. Her last fall was last week. Sleep: hardly at all- 2 hours if she is rebecca- back and forth between bed/chair/floor. 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 PMHx/Meds: none since at the hospital. Objective Objective: Posture: guarded- forward head, rounded shoulders Transfers: slow- shaking hips when transitions from sitting to standing ROM: Lumbar: WNL pain with end range flexion, extn and right rotation Sensation: WNL to gross touch bilateral LE HR/TR: able in standing SLS: 30 sec without LOB Strength: Core: fair, Ankle:5/5 Knee: R/L Ext: 38/38 Flexion: 30/29 Hip R/L Flexion: 18/25 Abd: 35/41 Extn: Flex: HS: no restriction, Gastroc: no restriction Special Test: Dural Signs: negative bilateral Repetitive Testing: does not change s/s Special Tests L/S Slump test left side: Negative L/S Slump test right side: Negative L/S Left Straight Leg Raise: Negative L/S Right Straight Leg Raise: Negative Balance/Special Test Scores Oswestry Low Back Score: 26 Goals Goal 1:: Patient will be I with HEP and progression Goal Time Frame: 4-6 Weeks Goal 2:: Patient will maintain proper posture t/o tx session to demo increased core s/s Goal Time Frame: 4-6 Weeks Goal 3:: Patient will report no dural s/s for 1 week Goal Time Frame: 4-6 Weeks Goal 4:: Patient will report 80% improvement Goal Time Frame: 4-6 Weeks Rehabilitation Potential Physical Therapy Diagnosis: Patient presents with hypomobility- she has decreased core strength/stabilization, flex and muscular endurance leading pain with ADL's. Rehabilitation Potential: Fair Anticipated Interventions Therapeutic Exercise to Include: Strength training, Endurance training, Balance training, Coordination, Agility training, Body mechanics, Postural training, Flexibilty training, Gait and locomotor training, Neuromotor development, In an aquatic setting, Dynamic Lumbar Stabilization and Scapular Strength/Stabilization For the Purpose of:: To improve muscle performance and motor function Text: Thank you for the opportunity to evaluate your patient. For Medicare and Medicare HMO plans, please review the plan of care and approve it. It will need to be FAXED BACK to us at [phone] for Medicare purposes. For Medicare only, by signing this I certify the plan of care. Please let me know if there are questions or concerns regarding this plan of care. Physician Signature: Date:
== END 2024-10-30 19:00 | disposition home or self-care (01) ==
LOC: PT 08:41
PROVIDERS: PCP Family Medicine; Referring Provider Internal Medicine; Visit Provider Internal Medicine
DX: M54.9 Dorsalgia, unspecified (principal); R53.1 Weakness
CPT/HCPCS: 97162